=== PATIENT | male | born 1930 | race Caucasian/White ===

== ENCOUNTER 2016-10-21 09:00 | Inpatient (IN) | payer OTHER ==
[2016-10-21 09:24] VITALS: BMI 24.4
--- NOTE | 2016-10-21 09:50 | PDOC ---
History of Present Illness - General Chief Complaint: Altered Mental Status Stated Complaint: Altered Mental Status Time Seen by Provider: 10/21/16 09:03 History Source: Care Provider, Family Exam Limitations: Dementia - History of Present Illness Initial Comments: 86 yo wheelchair bound M with h/o dementia and DMII BIBEMS due to altered mental status. Patient's forgetful and confused at baseline. Very limited information was obtained from his family. Per his niece, he was found in his house with trail of feces on the floor and his mental status seems worse. Denies fever, chills, sob, chest pain, diarrhea and constipation. Past History - Past Medical History Allergies/Adverse Reactions: Allergies Allergy/AdvReac Type Severity Reaction Status Date / Time No Known Allergies Allergy Verified 10/21/16 09:24 Home Medications: Ambulatory Orders Unobtainable [Unobtainable] 10/21/16 Other medical history: unable to determine due to patient's mental status - Psycho/Social/Smoking Cessation Hx Anxiety: No Suicidal Ideation: No Smoking Status: No Smoking History: Never smoked Have you smoked in the past 12 months: No Number of Cigarettes Smoked Daily: 0 Information on smoking cessation initiated: No Hx Alcohol Use: No Drug/Substance Use Hx: No Substance Use Type: None Review of Systems - Review of Systems Able to Perform ROS?: No Is the patient limited Italian proficient: No *Physical Exam - Vital Signs Last Vital Signs Temp Pulse Resp BP Pulse Ox 97.0 F L 97 H 20 156/88 98 10/21/16 09:23 10/21/16 09:23 10/21/16 09:23 10/21/16 09:23 10/21/16 09:23 - Physical Exam General Appearance: No: Apparent Distress HEENT: positive: MIKE, Normal Voice Neck: positive: Trachea midline, Supple Respiratory/Chest: positive: Lungs Clear, Normal Breath Sounds Cardiovascular: positive: Regular Rhythm, S1, S2, Tachycardia. negative: Murmur Gastrointestinal/Abdominal: positive: Distended. negative: Guarding, Rebound, Tenderness Extremity: negative: Swelling, Calf Tenderness Integumentary: negative: Hives, Rash Neurologic: positive: Alert, Motor Strength 5/5, Confused, Disoriented. negative: Fully Oriented ED Treatment Course - LABORATORY CBC & Chemistry Diagram: 10/21/16 10:05 10/21/16 10:05 Medical Decision Making - Medical Decision Making 10/21/16 10:06 86 yo wheelchair bound M h/o dementia admitted to ER due to AMS. Will obtain lab work and CT to r/o infectious, electrolyte and neurological etiologies 10/21/16 12:04 UA is remarkable for +3 leuko esterase and 200 WBC. Called patient's niece and informed her of prognosis and treatment plan. Call made out to Patient's PMD, Dr. Aurora Aguilar, regarding intent to admit the patient. Dr. Aguilar's medical office secretary stated that she's busy seeing patient and the patient has not seen her since 2013. Will Attempt to admit the patient under Dr. Hebert Per patient's niece, patient is currently not being taken care by anyone. 10/21/16 12:[address] Hebert, will put the patient on levaquin 250mg daily while pending urine culture. *DC/Admit/Observation/Transfer Diagnosis at time of Disposition: Altered mental status Urinary tract infection Qualifiers: Urinary tract infection type: site unspecified Hematuria presence: without hematuria Qualified Code(s): N39.0 - Urinary tract infection, site not specified - Discharge Dispostion Condition at time of disposition: Stable Admit: Yes
--- NOTE | 2016-10-21 09:56 | PDOC ---
Attending Attestation - Resident Resident Name: JacintoWayne - ED Attending Attestation I have performed the following: I have examined & evaluated the patient, The case was reviewed & discussed with the resident, I agree w/resident's findings & plan, Exceptions are as noted - HPI HPI: 86 yo M hx dementia presents with worsening AMS. He was found in house with feces on the floor, as per family (discussed with Dr. Casey via phone). He lives with his sister, who also has dementia, and a home health aide. He is unable to provide history, very poor short term memory. Denies any complaints at present. - Physicial Exam PE: GENERAL: Awake, alert, and oriented to person (not time and place), in no acute distress HEAD: No signs of trauma EYES: PERRLA, EOMI, sclera anicteric, conjunctiva clear ENT: Auricles normal inspection, hearing grossly normal, nares patent, oropharynx clear without exudates. Dry mucosa NECK: Normal ROM, supple, no lymphadenopathy, JVD, or masses LUNGS: Breath sounds equal, clear to auscultation bilaterally. No wheezes, and no crackles HEART: Regular rate and rhythm, normal S1 and S2, no murmurs, rubs or gallops ABDOMEN: Soft, nontender, normoactive bowel sounds. No guarding, no rebound. No masses EXTREMITIES: Normal range of motion, no edema. No clubbing or cyanosis. No cords, erythema, or tenderness NEUROLOGICAL: Cranial nerves II through XII grossly intact. Motor and sensation intact. SKIN: Warm, Dry, normal turgor, no rashes or lesions noted. - Medical Decision Making 86 yo M with worsening mental status, history of dementia. Will obtain CTH, CXR , UA, and labs. Likely admit. Heart Score/ECG Review - ECG Impressions Comment:: EKG read 09:56- sinus rhythm 98 bpm with intermittent PVCs
[2016-10-21 10:34] LABS: URINE APPEARANCE CLOUDY; URINE BILIRUBIN NEGATIVE (NEGATIVE); URINE COLOR YELLOW; URINE GLUCOSE (UA) NEGATIVE (NEGATIVE); URINE KETONE TRACE (NEGATIVE); URINE NITRITE NEGATIVE (NEGATIVE); URINE PROTEIN NEGATIVE (NEGATIVE); URINE UROBILINOGEN NEGATIVE E.U./dl (0.2-1.0)
[2016-10-21 10:39] LABS: URINE BLOOD 1+ (NEGATIVE); URINE LEUK ESTERASE 3+ (NEGATIVE)
[2016-10-21 10:41] LABS: URINE BACTERIA RARE /hpf (NONE SEEN); URINE RBC 8 /hpf (0-3); URINE WBC 206 /hpf (3-5)
[2016-10-21 10:43] LABS: BASOPHIL 0.3 % (0-2.0); EOSINOPHIL 0.9 % (0-4.5); MCHC 33.4 g/dl (32.0-35.9); MEAN CELL VOLUME 86.8 fl (80-96); MEAN PLT VOLUME 8.3 fl (7.5-11.1); NEUTROPHILS 80.8 % (42.8-82.8); PLATELET COUNT 192 K/MM3 (134-434); RDW 13.9 % (11.9-15.9); WHITE BLOOD COUNT 12.4 K/mm3 (4.0-10.0)
[2016-10-21 11:01] LABS: ALBUMIN 3.7 g/dl (3.4-5.0); ALK PHOS 77 U/L (45-117); ANION GAP 12 (8-16); BILIRUBIN,TOTAL 0.7 mg/dL (0.2-1.0); CALCIUM 8.6 mg/dL (8.5-10.1); CO2 20 mmol/L (21-32); COCKROFT - GAULT 89.09; CREATININE 0.7 mg/dL (0.7-1.3); GLUCOSE,RANDOM 86 mg/dL (74-106); SGOT/AST 25 U/L (15-37); SGPT/ALT 19 U/L (12-78); TOT PROT 6.1 g/dl (6.4-8.2)
[2016-10-21 11:09] LABS: THYROID STIMULATING HORMONE 0.94 uIU/ml (0.358-3.74); TROPONIN I < 0.02 ng/ml (0.00-0.05)
[2016-10-21] MEDS ORDERED: LEVOFLOXACIN 250 MG TABLET (FP) PO SCH (12:15)
[2016-10-21] MEDS ORDERED: LEVOFLOXACIN 250 MG TABLET (FP) ONE (12:19)
[2016-10-21 15:16] LABS: BASOPHIL 0.4 % (0-2.0); EOSINOPHIL 1.7 % (0-4.5); MCH 28.5 pg (25.7-33.7); MCHC 32.7 g/dl (32.0-35.9); MEAN CELL VOLUME 87.2 fl (80-96); MEAN PLT VOLUME 8.4 fl (7.5-11.1); NEUTROPHILS 74.3 % (42.8-82.8); PLATELET COUNT 204 K/MM3 (134-434); RDW 14.1 % (11.9-15.9)
--- NOTE | 2016-10-21 15:52 | HP ---
Admitting History and Physical - Primary Care Physician PCP: Viki Hebert S - Admission Chief Complaint: confusion History of Present Illness: 86 YOM h/o mild dementia lives alone brought in after his niece noticed him more confused than usual found to have UTI; admitted for further w/u and tx per niece pt's condition deteriorated gradually to the point were he became wheelchair bound forgetful and unable to function pt's PCP dr Sanchez - seen 3 years ago; per PCP no significant PMH and on no meds at home History Source: Patient, Family Member, Medical Record, Transfer Record Limitations to Obtaining History: Dementia - Smoking History Smoking history: Never smoked Have you smoked in the past 12 months: No Aproximately how many cigarettes per day: 0 - Alcohol/Substance Use Hx Alcohol Use: No History of Substance Use: reports: None - Social History Usual Living Arrangement: Yes: Alone History of Recent Travel: No Home Medications - Allergies Allergies/Adverse Reactions: Allergies Allergy/AdvReac Type Severity Reaction Status Date / Time No Known Allergies Allergy Verified 10/21/16 09:24 - Home Medications Home Medications: Ambulatory Orders Unobtainable [Unobtainable] 10/21/16 Family Disease History - Family Disease History Family History: Unremarkable Review of Systems - Review of Systems Constitutional: denies: Fever, Lethargy Eyes: denies: Blurred Vision Cardiovascular: denies: Chest Pain, Shortness of Breath Respiratory: denies: Cough, SOB Gastrointestinal: denies: Abdominal Pain, Diarrhea, Vomiting Genitourinary: denies: Dysuria, Flank Pain Musculoskeletal: denies: Back Pain, Muscle Pain Neurological: reports: Confusion, Unsteady Gait. denies: Seizure, Syncope Hematology/Lymphatic: denies: Excessive Bleeding Physical Examination Vital Signs: Vital Signs Temperature 98 F 10/21/16 14:52 Pulse Rate 98 H 10/21/16 14:52 Respiratory Rate 18 10/21/16 14:52 Blood Pressure 127/78 10/21/16 14:52 O2 Sat by Pulse Oximetry (%) 97 10/21/16 14:52 Constitutional: Yes: No Distress, Calm Eyes: Yes: Conjunctiva Clear HENT: Yes: Atraumatic Neck: Yes: Supple Cardiovascular: Yes: Regular Rate and Rhythm Respiratory: Yes: CTA Bilaterally Gastrointestinal: Yes: Soft. No: Distention, Tenderness Renal/: No: CVA Tenderness - Left, CVA Tenderness - Right Musculoskeletal: No: Joint Stiffness, Joint Swelling Extremities: No: Cold, Cool, Cyanosis Edema: No Peripheral Pulses WNL: Yes Integumentary: No: Pressure Ulcer, Rash, Venous Stasis Changes Neurological: Yes: WNL, Alert, Unsteady Gait, Weakness (general). No: Oriented ...Motor Strength: WNL Psychiatric: Yes: WNL, Alert. No: Oriented, Agitated Labs: CBC, BMP 10/21/16 14:30 Imaging - Results Chest X-ray: Report Reviewed Other: Report Reviewed Assessment/Plan 86 YOM h/o dementia admitted with worsening confusion, found to have UTI; progressively worse IV ATB for UTI neurology eval check TSH, B12 PT rehab, case work aide for CT eval d/w pt and PCP
[2016-10-21 15:57] LABS: ALBUMIN 3.6 g/dl (3.4-5.0); ANION GAP 14 (8-16); BILIRUBIN,TOTAL 0.9 mg/dL (0.2-1.0); CALCIUM 9.1 mg/dL (8.5-10.1); CO2 23 mmol/L (21-32); COCKROFT - GAULT 77.96; CREATININE 0.8 mg/dL (0.7-1.3); GLUCOSE,RANDOM 112 mg/dL (74-106); SGPT/ALT 21 U/L (12-78); TOT PROT 6.3 g/dl (6.4-8.2)
[2016-10-21 15:58] LABS: ALK PHOS 84 U/L (45-117)
[2016-10-21 16:30] LABS: SGOT/AST 30 U/L (15-37)
[2016-10-21] MEDS: HEPARIN NA (PORCINE) 5,000 UNITS/ML 1ML VIAL SQ SCH (21:21)
--- NOTE | 2016-10-22 08:17 | EKG ---
Test Reason : Blood Pressure : / mmHG Vent. Rate : 098 BPM Atrial Rate : 098 BPM P-R Int : 146 ms QRS Dur : 082 ms QT Int : 352 ms P-R-T Axes : 052 016 042 degrees QTc Int : 449 ms SINUS RHYTHM WITH PREMATURE SUPRAVENTRICULAR COMPLEXES OTHERWISE NORMAL ECG WHEN COMPARED WITH ECG OF 22-OCT-2010 18:50, PREMATURE SUPRAVENTRICULAR COMPLEXES ARE NOW PRESENT Confirmed by JOSE ANTONIO GAN, CARLEY ([id number]) on 10/22/2016 8:17:04 AM Referred By: Confirmed By:CARLEY BRADY MD
--- NOTE | 2016-10-22 08:47 | PN ---
Progress Note, Physician Chief Complaint: OOB to WC NAD no c/o pleasant - Current Medication List Current Medications: Active Medications Heparin Sodium (Porcine) (Heparin -) 5,000 unit SQ BID [facility] Last Admin: 10/21/16 21:21 Dose: 5,000 unit Levofloxacin (Levaquin 250 Mg Premixed Ivpb -) 50 mls @ 50 mls/hr IVPB DAILY [facility] - Objective Vital Signs: Vital Signs Temperature 99.1 F 10/22/16 06:00 Pulse Rate 93 H 10/22/16 06:00 Respiratory Rate 18 10/22/16 06:00 Blood Pressure 119/69 10/22/16 06:00 O2 Sat by Pulse Oximetry (%) 99 10/21/16 21:00 Constitutional: Yes: No Distress, Calm Eyes: Yes: Conjunctiva Clear HENT: Yes: Atraumatic Neck: Yes: Supple Cardiovascular: Yes: Regular Rate and Rhythm Respiratory: Yes: CTA Bilaterally Gastrointestinal: Yes: Soft. No: Distention, Tenderness Genitourinary: No: CVA Tenderness - Left, CVA Tenderness - Right Musculoskeletal: No: Joint Stiffness, Joint Swelling Extremities: No: Cold, Cool Edema: No Peripheral Pulses WNL: Yes Integumentary: No: Rash, Venous Stasis Changes Neurological: Yes: WNL, Alert. No: Oriented ...Motor Strength: WNL Psychiatric: Yes: WNL, Alert. No: Oriented, Agitated Labs: CBC, BMP 10/21/16 14:30 10/21/16 14:30 - ....Imaging Other: Report Reviewed Assessment/Plan 86 YOM h/o dementia admitted with worsening confusion, found to have UTI; progressively worse IV ATB for UTI neurology evjoe d/w dr Crawford check TSH, B12 PT rehab, family service caseworker for [place] [facility] d/w pt and niece
[2016-10-22] MEDS: LEVOFLOXACIN 250 MG IVPB 50 ML IVPB SCH (09:01)
[2016-10-22] MEDS: HEPARIN NA (PORCINE) 5,000 UNITS/ML 1ML VIAL SQ SCH ×2 (09:02→21:12)
[2016-10-22 11:19] LABS: THYROID STIMULATING HORMONE 1.04 uIU/ml (0.358-3.74)
--- NOTE | 2016-10-22 11:57 | CON.NEURO ---
Consult Consult Specialty:: neurology - History of Present Illness History of Present Illness: 86 yo M hx dementia presents with worsening AMS. He was found in house with feces on the floor, as per chart. He lives with his sister, who also has dementia, and a home health aide. He has a severe dementia by eval and is unable to elaborate much HX. Pleasant and cooperative and knows he is hospital but not yr , or prior medical issues. tangential but can be reoriented breifly. denies JEFFERS , back pain or falls. CT HD - no acute pathology. WBC 12 - History Source History Provided By: Patient, Medical Record Limitations to Obtaining History: Dementia - Past Medical History [employer]: Yes: Dementia - Alcohol/Substance Use Hx Alcohol Use: No - Smoking History Smoking history: Never smoked Have you smoked in the past 12 months: No Aproximately how many cigarettes per day: 0 Home Medications - Allergies Allergies/Adverse Reactions: Allergies Allergy/AdvReac Type Severity Reaction Status Date / Time No Known Allergies Allergy Verified 10/21/16 09:24 - Home Medications Home Medications: Ambulatory Orders Unobtainable [Unobtainable] 10/21/16 Family Disease History - Family Disease History Family History: Unable to Obtain Review of Systems Unable to obtain ROS, reason: poor HX Physical Exam-Neuro Vital Signs: Vital Signs Temperature 97.6 F 10/22/16 09:00 Pulse Rate 86 10/22/16 09:00 Respiratory Rate 16 10/22/16 09:00 Blood Pressure 138/49 10/22/16 09:00 O2 Sat by Pulse Oximetry (%) 99 10/21/16 21:00 Constitutional: Yes: No Distress, Calm Neck: Yes: WNL, Supple Cardiovascular: Yes: Regular Rate and Rhythm Respiratory: Yes: CTA Bilaterally Gastrointestinal: Yes: Normal Bowel Sounds Labs: CBC, BMP 10/21/16 14:30 10/21/16 14:30 - Neuro Exam Level Of Consciousness: Yes: Alert ( though he is not oriented to time/date; unclear of home living sitauation ; can name and repeat; follows simple steps, EOMI, NO facial , motor + tremor , no drift or focal weakness, reflexes symmetric ) NIH Stroke Scale - Total Score NIH Stroke Scale Score: 0 Imaging - Results Cat Scan: Report Reviewed Problem List - Problems (1) Altered mental status Code(s): R41.82 - ALTERED MENTAL STATUS, UNSPECIFIED (2) Urinary tract infection Code(s): N39.0 - URINARY TRACT INFECTION, SITE NOT SPECIFIED Qualifiers: Urinary tract infection type: site unspecified Hematuria presence: without hematuria Qualified Code(s): N39.0 - Urinary tract infection, site not specified (3) Alzheimer's dementia Code(s): G30.9 - ALZHEIMER'S DISEASE, UNSPECIFIED Assessment/Plan HX of dementia with progressive cognitive impairment, ? baseline , though now appears to be cooperative and calm; Suspect moderate to severe underling dementia with superimposed encephalopathy ( though the latter is less likely factor, not waxing /waning etc) CT HD (-), no signs of new stroke ID and ABX on board most important issue will be living environment as he does not appear to have capacity to maintain himself/live independently will likely need placement can start Aricept 5mg poqd check B12, TSh Dr Crawford [phone]
[2016-10-22] MEDS ORDERED: PT OWN MED DRAWER 7, Y5N ONE (17:17)
[2016-10-23] MEDS: HEPARIN NA (PORCINE) 5,000 UNITS/ML 1ML VIAL SQ SCH ×2 (10:24→22:35)
[2016-10-23] MEDS: LEVOFLOXACIN 250 MG IVPB 50 ML IVPB SCH (10:24)
--- NOTE | 2016-10-23 13:15 | DS ---
Physical Examination Vital Signs: Vital Signs Temperature 98 F 10/23/16 10:11 Pulse Rate 71 10/23/16 10:11 Respiratory Rate 20 10/23/16 10:11 Blood Pressure 112/55 10/23/16 10:11 O2 Sat by Pulse Oximetry (%) 94 L 10/23/16 11:00 Findings/Remarks: OOB to chair NAD Constitutional: Yes: No Distress Eyes: Yes: Conjunctiva Clear HENT: Yes: Atraumatic Neck: Yes: Supple Cardiovascular: Yes: Regular Rate and Rhythm Respiratory: Yes: CTA Bilaterally Gastrointestinal: Yes: Soft. No: Distention, Tenderness Renal/: No: CVA Tenderness - Left, CVA Tenderness - Right Musculoskeletal: No: Joint Stiffness, Joint Swelling Extremities: No: Cold, Cool Edema: No Peripheral Pulses WNL: Yes Integumentary: No: Rash, Venous Stasis Changes Neurological: Yes: WNL, Alert. No: Oriented ...Motor Strength: WNL Psychiatric: Yes: WNL, Alert. No: Oriented, Agitated Labs: CBC, BMP 10/21/16 14:30 10/21/16 14:30 Discharge Summary Reason For Visit: UTI,AMS Current Active Problems Altered mental status (Acute) Alzheimer's dementia (Acute) Urinary tract infection (Acute) Procedures: Principal: UTI IV ATB Other Procedures: neurology eval for dementia and confusion Hospital Course: needs NH placemnt; improved somewhat with ATB but still significant dementia at baseline Condition: Stable - Instructions Diet, Activity, Other Instructions: f/u CBC CMP in 1-2 weeks in [place] PT rehab, falls and decubs PFX most likely will need detention NH Disposition: RETIREMENT FACILITY - Home Medications Comprehensive Discharge Medication List: Ambulatory Orders Heparin - 5,000 unit SQ BID vial 10/23/16 Levofloxacin [Levaquin -] 250 mg PO Q48H #7 tablet 10/23/16
[2016-10-24 07:50] VITALS: TEMP 97.8
--- NOTE | 2016-10-24 08:26 | PN ---
Progress Note (short form) - Note Progress Note: HPI 10/22/16 : 86 yo M hx dementia presents with worsening AMS. He was found in house with feces on the floor, as per chart. He lives with his sister, who also has dementia, and a home health aide. He has a severe dementia by eval and is unable to elaborate much HX. Pleasant and cooperative and knows he is hospital but not yr , or prior medical issues. tangential but can be reoriented breifly. denies JEFFERS , back pain or falls. CT HD - no acute pathology. WBC 12 FU : no new issues overnight, awaiting placement Home Medications - Allergies Allergies/Adverse Reactions: Allergies Allergy/AdvReac Type Severity Reaction Status Date / Time No Known Allergies Allergy Verified 10/21/16 09:24 - Home Medications Home Medications: Ambulatory Orders Unobtainable [Unobtainable] 10/21/16 Family Disease History - Family Disease History Family History: Unable to Obtain Review of Systems Unable to obtain ROS, reason: poor HX Physical Exam-Neuro Vital Signs: Vital Signs 10/24/16 06:00 Temperature 97.8 F Pulse Rate 67 Respiratory 18 Rate Blood Pressure 121/70 Vital Signs Constitutional: Yes: No Distress, Calm Neck: Yes: WNL, Supple Cardiovascular: Yes: Regular Rate and Rhythm Respiratory: Yes: CTA Bilaterally Gastrointestinal: Yes: Normal Bowel Sounds Labs: CBC, BMP 10/21/16 14:30 10/21/16 14:30 - Neuro Exam Level Of Consciousness: Yes: Alert ( though he is not oriented to time/date; unclear of home living sitauation ; can name and repeat; follows simple steps, EOMI, NO facial , motor + tremor , no drift or focal weakness, reflexes symmetric ) NIH Stroke Scale - Total Score NIH Stroke Scale Score: 0 Imaging - Results Cat Scan: Report Reviewed Problem List - Problems (1) Altered mental status Code(s): R41.82 - ALTERED MENTAL STATUS, UNSPECIFIED (2) Urinary tract infection Code(s): N39.0 - URINARY TRACT INFECTION, SITE NOT SPECIFIED Qualifiers: Urinary tract infection type: site unspecified Hematuria presence: without hematuria Qualified Code(s): N39.0 - Urinary tract infection, site not specified (3) Alzheimer's dementia Code(s): G30.9 - ALZHEIMER'S DISEASE, UNSPECIFIED Assessment/Plan HX of dementia with progressive cognitive impairment, ? baseline , though now appears to be cooperative and calm; Suspect moderate to severe underling dementia with superimposed encephalopathy ( though the latter is less likely factor, not waxing /waning etc) CT HD (-), no signs of new stroke ID and ABX on board B12 and TSH NL awaiting placement can start Aricept 5mg poqd ( may interact with ABX so will wait to course complete and be done as outpt) thanks Dr Crawford [phone] Problem List - Problems (1) Altered mental status Code(s): R41.82 - ALTERED MENTAL STATUS, UNSPECIFIED (2) Urinary tract infection Code(s): N39.0 - URINARY TRACT INFECTION, SITE NOT SPECIFIED Qualifiers: Urinary tract infection type: site unspecified Hematuria presence: without hematuria Qualified Code(s): N39.0 - Urinary tract infection, site not specified (3) Alzheimer's dementia Code(s): G30.9 - ALZHEIMER'S DISEASE, UNSPECIFIED
[2016-10-24] MEDS: HEPARIN NA (PORCINE) 5,000 UNITS/ML 1ML VIAL SQ SCH (09:29)
[2016-10-24] MEDS: LEVOFLOXACIN 250 MG IVPB 50 ML IVPB SCH (09:30)
--- NOTE | 2016-10-24 10:18 | PN ---
Progress Note, Physician Chief Complaint: in bed no new c/o awaiting for [place] bed L ear skin lesion chronic; will ask derm outpt r/o skin CA - Current Medication List Current Medications: Active Medications Heparin Sodium (Porcine) (Heparin -) 5,000 unit SQ BID [facility] Last Admin: 10/24/16 09:29 Dose: 5,000 unit Levofloxacin (Levaquin 250 Mg Premixed Ivpb -) 50 mls @ 50 mls/hr IVPB DAILY [facility] Last Admin: 10/24/16 09:30 Dose: 50 mls/hr - Objective Vital Signs: Vital Signs Temperature 97.8 F 10/24/16 06:00 Pulse Rate 67 10/24/16 06:00 Respiratory Rate 18 10/24/16 06:00 Blood Pressure 121/70 10/24/16 06:00 O2 Sat by Pulse Oximetry (%) 97 10/23/16 21:00 Constitutional: Yes: No Distress, Calm Eyes: Yes: Conjunctiva Clear HENT: Yes: Atraumatic Neck: Yes: Supple Cardiovascular: Yes: Regular Rate and Rhythm Respiratory: Yes: CTA Bilaterally Gastrointestinal: Yes: Soft. No: Distention, Tenderness Genitourinary: No: CVA Tenderness - Left, CVA Tenderness - Right Musculoskeletal: No: Joint Stiffness, Joint Swelling Extremities: No: Cold, Cool Edema: No Peripheral Pulses WNL: Yes Integumentary: No: Rash, Venous Stasis Changes Neurological: Yes: WNL, Alert. No: Oriented ...Motor Strength: WNL Psychiatric: Yes: WNL, Alert. 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
[2016-10-24 10:57] VITALS: BP 132/59; PULSE 71
[2016-10-24] MEDS ORDERED: PNEUMOC 13-VAL CONJ-DIP CRM/PF 0.5 ML DISP.SYRIN IM ONE (12:00)
[2016-10-24] MEDS ORDERED: INFLUENZA VACCINE 45 MCG/0.5 ML (MDV 16-17) IM ONE (12:00)
== END 2016-10-24 11:45 | DRG 689 ==
LOC: JER 09:00 → JERBED 12:17 → J5S 14:26
PROVIDERS: ADMIT Internal Medicine; ATTEND Internal Medicine
DX: N39.0 Urinary tract infection, site not specified (principal); G93.41 Metabolic encephalopathy; R53.2 Functional quadriplegia; G30.9 Alzheimer's disease, unspecified; F02.80 Dementia in other diseases classified elsewhere, unspecified severity, without behavioral disturbance, psychotic disturbance, mood disturbance, and anxiety; R41.82 Altered mental status, unspecified
CPT/HCPCS: 36415; 70450-TC; 71010-TC; 80053; 81003; 81015; 82550; 82553; 82607; 83605; 83735; 84443; 84484; 85025; 87086; 87186; 93005; 93010; 97116-GP; 97161-GP; 99285-25; G0008; J1644; Q2037

== ENCOUNTER 2017-08-11 13:43 | Day surgery (SDC) | payer OTHER ==
[2017-08-10 11:18] VITALS: BMI 29.6
[~2017-08-11 13:43] MED LIST: LIDOCAINE 1%/EPI 1:100000 (20 ML MULTI DOSE VIAL) IJ ONE
[2017-08-11] MEDS ORDERED: PROPOFOL 20 ML ONE ×2 (16:43→17:25)
[2017-08-11] MEDS ORDERED: SUCCINYLCHOLINE CHLORIDE 200 MG/10 ML VIAL ONE (16:43)
[2017-08-11] MEDS ORDERED: ceFAZolin SODIUM 1 GM VIAL ONE (16:56)
[2017-08-11] MEDS ORDERED: LIDOCAINE HCL/PF 2% SDV 5ML VIAL ONE (16:56)
[2017-08-11] MEDS ORDERED: LIDOCAINE 1%/EPI 1:100000 (20 ML MULTI DOSE VIAL) IJ ONE (16:59)
[2017-08-11] MEDS ORDERED: BUPIVACAINE HCL/PF 0.25% (2.5MG/ML) 10 ML VIAL ONE (17:52)
[2017-08-11] MEDS ORDERED: ONDANSETRON 4 MG/2 ML VIAL IVPUSH PRN (17:57)
[2017-08-11] MEDS ORDERED: ELECTROLYTE-148 SOLN 1,000 ML IV SCH (18:00)
[2017-08-11] MEDS ORDERED: BUPIVACAINE HCL/PF 0.25% (2.5MG/ML) 10 ML VIAL IJ ONE (18:01)
[2017-08-11] MEDS ORDERED: ACETAMINOPHEN 1000 MG/100 ML VIAL (NON FORMULARY) IVPB PRN (18:29)
[2017-08-11] MEDS: MEMANTINE HCL 5 MG TABLET (UD) PO SCH (22:17)
--- NOTE | 2017-08-11 23:36 | HOSP ---
Subjective - Review of Symptoms Subjective: Was called to the bedside because the patient had taken his bandage off. Replaced the bandage and explained to the patient the importance of keeping the bandage on including the risk of infection and alteration of the wound site. Ordered 2 point restraints on the patient as he has been repeatedly picking at the bandage throughout the day and has the potential to interfere with his healing if he continues to do so. Physical Examination Vital Signs: Vital Signs Temperature 98.2 F 08/11/17 20:00 Pulse Rate 80 08/11/17 20:00 Respiratory Rate 18 08/11/17 20:00 Blood Pressure 110/53 08/11/17 20:00 O2 Sat by Pulse Oximetry (%) 98 08/11/17 19:45 Visit type - Emergency Visit Emergency Visit: No - New Patient This patient is new to me today: Yes Date on this admission: 08/11/17 - Critical Care Critical Care patient: No
[2017-08-12] MEDS: CEFAZOLIN 1 GM PUSH 1 GM/10 ML DISP.SYRIN IVPUSH SCH ×2 (01:45→11:14)
--- NOTE | 2017-08-12 06:51 | OP ---
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 PROCEDURE PERFORMED: 1. Excision of basal cell carcinoma of left ear and cheek. 2. Reconstruction with a local advancement flap, 15 cm, defect measuring over 5 x 4 cm. SURGEON: Castillo Roy M.D. ANESTHESIOLOGIST: Magda Lopez M.D. ANESTHESIA: General with local 1% lidocaine with epinephrine, a total of 24 mL. DESCRIPTION OF PROCEDURE: The patient was brought to the operating room. Markings were carried out prior to giving local anesthesia. The patient was first identified, including the site. Once agreed upon, at this time he was given general anesthesia. It was also supplemented with local 1% lidocaine with epinephrine with epinephrine. Markings were carried out around the preauricular area, including the ear and the tragus. Tumor was located over the midportion of the tragus and the cheek. It measured over 3 x 2.5 cm. The skin was prepped with Betadine and then draped in a standard aseptic manner. Using a 15 scalpel blade, dissection was commenced at the 12 o'clock position. Skin and dermis were incised. At this time the facial arteries were located. Dissection was carried out in the space between the vessels and the dermis and subcutaneous tissue. Dissection then proceeded caudally. Tumor was close to but not involving the facial temporal artery. Tumor was then dissected off the vessels, including the facial nerve. Part of the cartilage was excised. Dissection proceeded at the 6 o'clock position below the ear. Complete excision of the tumor was then carried out and sent for pathology, with sutures at 12, 3 and 6 o'clock for orientation. Hemostasis secured with electrocautery. At this time a flap was then designed over the cheek. The flap was then elevated over the SMAS muscle. Dissection proceeded medially. The flap was then advanced over the defect, which measured over 5 x 4 cm. Closure was then accomplished with multilayer closure. A small portion near the tragus was left open for drainage. Prior to starting the procedure, the ear canal was protected with cotton balls. At the end of the procedure, circulation to the flap was satisfactory. Dressing consisted of Steri-Strips, Xeroform, bacitracin and fluffs, followed by Tegaderm. The patient had been given 1 gram of Ancef prior to starting the procedure. Estimated blood loss was 10 to 12 mL. The patient was then transferred to the stretcher sent to the recovery room. He will be observed for 23 hours for bleeding. Pathology report will be awaited. CASTILLO ROY M.D. [id number]
[2017-08-12] MEDS ORDERED: LACTOBACILLUS ACIDOPHILUS 1 EACH TAB (FP) PO SCH (10:00)
[2017-08-12] MEDS: MEMANTINE HCL 5 MG TABLET (UD) PO SCH (11:18)
--- NOTE | 2017-08-12 11:52 | CONSULT ---
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 - Alcohol/Substance Use Hx Alcohol Use: No History of Substance Use: reports: None - Smoking History Smoking history: Never smoked Have you smoked in the past 12 months: No Aproximately how many cigarettes per day: 0 - Social History Usual Living Arrangement: Longterm History of Recent Travel: No Home Medications - Allergies Allergies/Adverse Reactions: Allergies Allergy/AdvReac Type Severity Reaction Status Date / Time No Known Allergies Allergy Verified 08/10/17 11:24 - Home Medications Home Medications: Ambulatory Orders Acetaminophen [Tylenol] 650 mg PO PRN PRN 08/10/17 Amoxicillin/Potassium Clav [Augmentin 875-125 Tablet] 1 each PO Q12H 08/10/17 Heparin - 5,000 unit SQ BID 08/10/17 Lactobacillus Acidophilus [Bacid -] 1 each PO DAILY 08/10/17 Memantine HCl [Namenda -] 10 mg PO BID 08/10/17 Family Disease History - Family Disease History Family History: Unremarkable Review of Systems - Review of Systems Constitutional: denies: Fever HENT: denies: Epistaxis Neck: denies: Stiffness Cardiovascular: denies: Edema Respiratory: denies: Cough Gastrointestinal: denies: Constipation, Diarrhea, Vomiting Genitourinary: denies: Hematuria Integumentary: denies: Rash Neurological: reports: Confusion (at baseline). denies: Seizure, Syncope Hematology/Lymphatic: denies: Excessive Bleeding Psychiatric: denies: Altered Sleep Pattern Physical Exam Vital Signs: Vital Signs Temperature 97.8 F 08/12/17 06:00 Pulse Rate 80 08/12/17 06:00 Respiratory Rate 18 08/12/17 06:00 Blood Pressure 130/79 08/12/17 06:00 O2 Sat by Pulse Oximetry (%) 95 08/11/17 23:00 Constitutional: Yes: No Distress, Calm Eyes: Yes: Conjunctiva Clear HENT: Yes: Atraumatic, Other (s/p L Ear surgery local bandage on, no bleed) Cardiovascular: Yes: Regular Rate and Rhythm Respiratory: Yes: CTA Bilaterally Gastrointestinal: Yes: Soft. No: Distention, Tenderness Renal/: No: CVA Tenderness - Left, CVA Tenderness - Right Musculoskeletal: No: Joint Stiffness, Joint Swelling Extremities: No: Cold, Cool, Cyanosis Integumentary: No: Rash, Venous Stasis Changes Neurological: Yes: WNL, Alert. No: Oriented ...Motor Strength: WNL Psychiatric: Yes: WNL, Alert. No: Oriented, Agitated Imaging - Results Other: Report Reviewed Assessment/Plan 87 YOM NHR advanced dementia with local L ear squamous cell CA s/p debridement surgical f/u constinue previous meds sq heparin for DVT PFX when OK with surgery falls decubs aspiration pfx d.w pt and staff
[2017-08-12 14:49] VITALS: BP 103/49; PULSE 62; TEMP 99.2
--- NOTE | 2017-08-12 15:21 | PN ---
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
--- NOTE | 2017-08-14 15:11 | PATH ---
Surgical Pathology Report Patient Name: ADINA TREJO [facility]. Rec. #: [id number] /Age/Gender: 1930 (Age: 87) / M Account: [id number] Location: AMBULATORY SURG Taken: 08/11/2017 Received: 08/12/2017 Reported: 08/14/2017 Physicians: Rome Nicholas M.D. 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 CARCINOMA FOCALLY INVOLVES DEEP MARGIN (MID PORTION, NEAR 9:00), REMAINING SURGICAL MARGINS ARE NEGATIVE. Comment: Prior material is noted. Areas of necrosis present. Electronically Signed Erika Bowden M.D. Gross Description Received in formalin labeled "basal cell cancer left cheek and ear," is a 4.4 x 2.6 cm arambula, elliptical portion of skin excised to a depth of 1.1 cm. There are 2 long sutures marking the 12:00 aspect, 2 short sutures marking the 6:00 aspect and 1 long and 1 short suture marking the 3:00 aspect of the specimen, per the surgeon. The epidermal surface displays a 2.5 x 1.8 cm ulcerated lesion. The lesion is grossly 0.3 cm from the closest (2:00 to 3:00) margin. The specimen is inked as follows: 12:00 to 6:00 blue, 6:00 to 12:00 green, deep black and the 12:00 tip is differentially inked red. The specimen is serially sectioned from 12:00 to 6:00. The specimen is entirely and sequentially submitted in 9 cassettes with the 12:00 tip in cassette 1 and the 6:00 tip in cassette 9. 08/12/201708/12/2017
== END 2017-08-12 16:25 ==
LOC: JASUSAT 13:43 → J6S 20:17 → JASUSAT 08-12 16:25
PROVIDERS: ATTEND Plastic Surgery
PROC: 0HB3XZZ Excision of Left Ear Skin, External Approach (ICD-10-PCS; 2017-08-11)
PROC: 0HB1XZZ Excision of Face Skin, External Approach (ICD-10-PCS; 2017-08-11)
PROC: 0HX3XZZ Transfer Left Ear Skin, External Approach (ICD-10-PCS; principal; 2017-08-11 15:00)
PROC: 0HX1XZZ Transfer Face Skin, External Approach (ICD-10-PCS; 2017-08-11 15:00)
DX: C44.219 Basal cell carcinoma of skin of left ear and external auricular canal (principal); C44.319 Basal cell carcinoma of skin of other parts of face
CPT/HCPCS: 88305-TC; 94760

== ENCOUNTER 2019-01-15 14:37 | Inpatient (IN) | payer OTHER ==
--- NOTE | 2019-01-15 15:39 | PDOC ---
History of Present Illness - General Chief Complaint: Altered Mental Status Stated Complaint: ALTERED MENTAL STATUS History Source: Patient Exam Limitations: No Limitations - History of Present Illness Initial Comments: 01/15/19 15:38 88 yo M with a hx of Alzeheimer's, DVT, and recent UTI and PNA s/p levaquin abx for 7 days with last abx 01/03 with known poor appetite sent from [facility] for lethargy and abnormal lab values. Per the nurse at [facility], the patient had a BUN of 80, creatinine of 1, and 1 episode of hypoxia in the high 70s while on RA. The patient finished her abx series as was prescribed. Per the patient, unable to obtain a history given AMS state and dementia. Allergies: NKDA 01/15/19 17:10 Past History - Past Medical History Allergies/Adverse Reactions: Allergies Allergy/AdvReac Type Severity Reaction Status Date / Time No Known Allergies Allergy Verified 01/15/19 15:25 Home Medications: Ambulatory Orders Acetaminophen [Tylenol] 650 mg PO PRN PRN 08/10/17 Heparin - 5,000 unit SQ BID 08/10/17 Amox-Tr/K Cl [Augmentin - 500Mg Tablet] 1 tab PO BID #14 tab 01/30/19 LORazepam [Ativan] 1 mg PO BID PRN #14 tablet MDD two 01/30/19 Pantoprazole Sodium [Protonix] 40 mg PO DAILY 30 Days tablet. 01/30/19 COPD: No Dementia: Yes - Suicide/Smoking/Psychosocial Hx Smoking Status: No Smoking History: Unknown if ever smoked Have you smoked in the past 12 months: No Number of Cigarettes Smoked Daily: 0 Hx Alcohol Use: No Drug/Substance Use Hx: No Substance Use Type: None Review of Systems - Review of Systems Able to Perform ROS?: No (AMS) *Physical Exam - Vital Signs Last Vital Signs Temp Pulse Resp BP Pulse Ox 98.9 F 119 H 20 110/79 92 L 01/15/19 14:55 01/15/19 15:30 01/15/19 15:30 01/15/19 15:30 01/15/19 15:30 - Physical Exam General Appearance: Yes: Nourished, Appropriately Dressed. No: Apparent Distress, Intoxicated HEENT: positive: EOMI, MIKE, Normal Voice, Symmetrical, Pharynx Normal, Hearing Grossly Normal. negative: Pale Conjunctivae, Scleral Icterus (R), Scleral Icterus (L), Muffled/Hoarse voice, Pharyngeal Erythema, Tonsillar Exudate, Tonsillar Erythema, Nasal Congestion, Rhinorrhea, Excessive drooling Neck: positive: Trachea midline, Normal Thyroid, Supple. negative: Tender, Lymphadenopathy (R), Lymphadenopathy (L), Tender lateral, Tender midline Respiratory/Chest: positive: Rhonchi (bilaterally throughout the lung hartman). negative: Chest Tender, Lungs Clear, Normal Breath Sounds, Respiratory Distress , Accessory Muscle Use Cardiovascular: positive: Regular Rhythm, S1, S2, Tachycardia. negative: Systolic Murmur Gastrointestinal/Abdominal: positive: Normal Bowel Sounds, Flat, Soft. negative : Tender, Guarding, Rebound Lymphatic: negative: Adenopathy Musculoskeletal: positive: Normal Inspection. negative: CVA Tenderness, Vertebral Tenderness Extremity: positive: Normal Capillary Refill, Normal Inspection, Normal Range of Motion. negative: Tender, Swelling, Calf Tenderness Integumentary: positive: Normal Color, Dry, Warm. negative: Swelling, Ecchymosis Neurologic: positive: Alert. negative: director fundraising II-XII NML intact (unable to assess) , Fully Oriented ED Treatment Course - LABORATORY CBC & Chemistry Diagram: 01/31/19 06:40 01/31/19 06:40 Medical Decision Making - Medical Decision Making 88 yo M with a hx of Alzeheimer's, DVT, and recent UTI and PNA s/p levaquin abx for 7 days with last abx 01/03 with known poor appetite sent from [facility] for lethargy and abnormal lab values. Initial vitals: Initial Vital Signs Pulse Pulse Ox 104 H 92 L 01/15/19 14:50 01/15/19 14:50 Work up: patient presents to the ED for recent PNA in the setting of hypoxia and tachycardia concerning for sepsis related to outpatient abx failure PNA. will order sepsis labs, cxr, and ekg Laboratory Tests 01/15/19 01/15/19 01/15/19 14:18 15:07 15:07 WBC 30.1 H* RBC 6.21 H Hgb 17.6 H Hct 54.6 H D MCV 87.9 MCH 28.4 MCHC 32.3 RDW 14.1 Plt Count 350 D MPV 9.5 D Absolute Neuts (auto) 26.9 H Neutrophils % 89.5 H D Neutrophils % (Manual) 79.0 Band Neutrophils % 3.0 Lymphocytes % 4.9 L D Lymphocytes % (Manual) 10.0 Monocytes % 5.3 Monocytes % (Manual) 8 Eosinophils % 0.0 D Basophils % 0.3 Nucleated RBC % 0 Platelet Estimate Adequate PT with INR INR PTT (Actin FS) VBG pH POC VBG pCO2 POC VBG pO2 VBG HCO3 VBG O2 Sat (Cam) VBG Base Excess Sodium Potassium Chloride Carbon Dioxide Anion Gap BUN Creatinine Est GFR (CKD-EPI)AfAm Est GFR (CKD-EPI)NonAf Random Glucose Lactic Acid 2.3 H* Calcium Total Bilirubin AST ALT Alkaline Phosphatase Troponin I 0.02 Total Protein Albumin Urine Color Urine Appearance Urine pH Ur Specific [place] Urine Protein Urine Glucose (UA) Urine Ketones Urine Blood Urine Nitrite Urine Bilirubin Urine Urobilinogen Ur Leukocyte Esterase Urine WBC (Auto) Urine RBC (Auto) Urine Casts (Auto) U Epithel Cells (Auto) Urine Bacteria (Auto) 01/15/19 01/15/19 01/15/19 15:07 15:07 15:07 WBC RBC Hgb Hct MCV MCH MCHC RDW Plt Count MPV Absolute Neuts (auto) Neutrophils % Neutrophils % (Manual) Band Neutrophils % Lymphocytes % Lymphocytes % (Manual) Monocytes % Monocytes % (Manual) Eosinophils % Basophils % Nucleated RBC % Platelet Estimate PT with INR 18.00 H INR 1.52 H PTT (Actin FS) 39.3 H VBG pH 7.40 POC VBG pCO2 37.1 L POC VBG pO2 26.6 L VBG HCO3 22.4 L VBG O2 Sat (Cam) 40.5 L VBG Base Excess -1.4 Sodium 155 H Potassium 4.2 Chloride 121 H Carbon Dioxide 24 Anion Gap 10 BUN 100.9 H Creatinine 3.2 H Est GFR (CKD-EPI)AfAm 19.14 Est GFR (CKD-EPI)NonAf 16.51 Random Glucose 107 H Lactic Acid Calcium 10.0 Total Bilirubin 0.8 AST 15 ALT 17 Alkaline Phosphatase 105 Troponin I Total Protein 7.8 Albumin 3.6 Urine Color Urine Appearance Urine pH Ur Specific [place] Urine Protein Urine Glucose (UA) Urine Ketones Urine Blood Urine Nitrite Urine Bilirubin Urine Urobilinogen Ur Leukocyte Esterase Urine WBC (Auto) Urine RBC (Auto) Urine Casts (Auto) U Epithel Cells (Auto) Urine Bacteria (Auto) 01/15/19 01/15/19 17:15 17:30 WBC RBC Hgb Hct MCV MCH MCHC RDW Plt Count MPV Absolute Neuts (auto) Neutrophils % Neutrophils % (Manual) Band Neutrophils % Lymphocytes % Lymphocytes % (Manual) Monocytes % Monocytes % (Manual) Eosinophils % Basophils % Nucleated RBC % Platelet Estimate PT with INR INR PTT (Actin FS) VBG pH POC VBG pCO2 POC VBG pO2 VBG HCO3 VBG O2 Sat (Cam) VBG Base Excess Sodium Potassium Chloride Carbon Dioxide Anion Gap BUN Creatinine Est GFR (CKD-EPI)AfAm Est GFR (CKD-EPI)NonAf Random Glucose Lactic Acid 3.3 H* Calcium Total Bilirubin AST ALT Alkaline Phosphatase Troponin I Total Protein Albumin Urine Color Dk yellow Urine Appearance Cloudy Urine pH 5.[address] Ur [address] [place] 1.020 Urine Protein Trace Urine Glucose (UA) Negative Urine Ketones Trace H Urine Blood 3+ H Urine Nitrite Negative Urine Bilirubin Negative Urine Urobilinogen 1.0 Ur Leukocyte Esterase 2+ H Urine WBC (Auto) 33 Urine RBC (Auto) 27.5 Urine Casts (Auto) 10 U Epithel Cells (Auto) 0.2 Urine Bacteria (Auto) 23.7 UA positive for UTI. Significant leukocytosis noted on labs. patient has GRACE with hypernatremia likely secondary to dehydration. EKG shows sinus tachycardia with no sT elevations or depressions. lactic acid elevated. CXR is noted for R lobe PNA. Patient to be started on vanc and zosyn and admitted for failure of outpatient abx in the setting of sepsis 2/2 PNA. Dispo: Admit *DC/Admit/Observation/Transfer Diagnosis at time of Disposition: Hypernatremia, Sepsis due to pneumonia, Dehydration, GRACE (acute kidney injury) , Elevated WBC count Urinary tract infection Qualifiers: Urinary tract infection type: site unspecified Hematuria presence: without hematuria Qualified Code(s): N39.0 - Urinary tract infection, site not specified - Discharge Dispostion Disposition: RETIREMENT FACILITY Condition at time of disposition: Stable - Referrals - Patient Instructions - Post Discharge Activity
[2019-01-15] MEDS ORDERED: SODIUM CHLORIDE 2,449 ML IV ONE (15:53)
[2019-01-15 16:31] LABS: BASO % 0.3 % (0-2.0); HEMATOCRIT 54.6 % (35.4-49); HEMOGLOBIN 17.6 GM/dL (11.7-16.9); LYMPH % 4.9 % (8-40); MCH 28.4 pg (25.7-33.7); MCHC 32.3 g/dl (32.0-35.9); MEAN CELL VOLUME 87.9 fl (80-96); MEAN PLT VOLUME 9.5 fl (7.5-11.1); MONO % 5.3 % (3.8-10.2); NEUT % 89.5 % (42.8-82.8); PLATELET COUNT 350 K/MM3 (134-434); RBC 6.21 M/mm3 (4.00-5.60); RDW 14.1 % (11.9-15.9)
[2019-01-15 16:35] LABS: VENOUS PC02 37.1 mmHg (41-51); VENOUS PH 7.4 (7.31-7.41)
[2019-01-15 16:46] LABS: VENOUS PO2 26.6 mmHg (30-40)
[2019-01-15 16:53] LABS: INR 1.52 (0.83-1.09)
[2019-01-15 16:56] LABS: ACTIVATED PTT 39.3 SECONDS (25.2-36.5)
[2019-01-15 16:57] LABS: WHITE BLOOD COUNT 30.1 K/mm3 (4.0-10.0)
[2019-01-15 17:01] LABS: ALBUMIN 3.6 g/dl (3.4-5.0); BILIRUBIN,TOTAL 0.8 mg/dL (0.2-1); BLOOD UREA NITROGEN 100.9 mg/dL (7-18); CREATININE 3.2 mg/dL (0.55-1.3); POTASSIUM 4.2 mmol/L (3.5-5.1); TOT PROT 7.8 g/dl (6.4-8.2)
[2019-01-15] MEDS ORDERED: VANCOMYCIN 1,000 MG in DEXTROSE 5%-WATER - 250 ML IVPB ONE (17:03)
[2019-01-15] MEDS ORDERED: PIPERACILLIN/TAZOB 3.375 GM 3.375 GM in DEXTROSE 5%-WATER - 50 ML IVPB ONE (17:03)
[2019-01-15] MEDS ORDERED: VANCOMYCIN 1 GRAM (PRE-DOCKED) 1,000 MG/250 ML BAG IVPB ONE (17:19)
[2019-01-15] MEDS ORDERED: PIPERACILLIN/TAZOB 3.375 GM 3.375 GM/50 ML BAG IVPB ONE (17:19)
[2019-01-15 17:37] LABS: EPI CELLS 0.2 /HPF (0-5/HPF); HYALINE CASTS 10 /lpf (0-8); URINE APPEARANCE CLOUDY; URINE BACTERIA 23.7 /hpf (NEGATIVE); URINE BILIRUBIN NEGATIVE (NEGATIVE); URINE COLOR DK YELLOW; URINE GLUCOSE (UA) NEGATIVE (NEGATIVE); URINE KETONE TRACE (NEGATIVE); URINE LEUK ESTERASE 2+ (NEGATIVE); URINE NITRITE NEGATIVE (NEGATIVE); URINE PROTEIN TRACE (NEGATIVE); URINE WBC 33 /hpf (0-5)
--- NOTE | 2019-01-15 17:39 | PDOC ---
Documentation entered by Stanley Meeks SCRIBE, acting as scribe for Bucky Haji MD. Bucky Haji MD: This documentation has been prepared by the Jeanna patino Xhesika, SCRIBE, under my direction and personally reviewed by me in its entirety. I confirm that the documentation accurately reflects all work, treatment, procedures, and medical decision making performed by me. Attending Attestation - Resident Resident Name: ArielleArmand - ED Attending Attestation I have performed the following: I have examined & evaluated the patient, The case was reviewed & discussed with the resident, I agree w/resident's findings & plan, Exceptions are as noted - HPI HPI: 01/15/19 16:39 The patient is an 88 year old male, from [facility] with a significant past medical history of Alzheimer's, DVT, and recent UTI and PNA (s/p levaquin abx for 7 days with last abx 01/03) who presents to the ED via EMS with AMS and lethargy. As per Nurse at [facility], the patient had abnormal lab results of bun- 80, Kranium- 1, and 1 episode of hypoxia yesterday. Patient was recently diagnosed with pneumonia and UTI. Patient is a poor historian due to his severe dementia. - Physicial Exam PE: 01/15/19 16:39 Vitals: Triage Vital signs reviewed General Appearance: no acute distress, well nourished well developed, Head: Atraumatic, normocephalic Eyes: Pupils equal reactive round, extraocular movement intact Neck: Supple;No Nuchal rigidity Chest Wall: Nontender Cardiac: Regular rate and rhythm, no murmurs, no rubs, no gallops, Lungs:(+) coarse breath sounds. Abdomen: Soft, nondistended, normal bowel sounds, nontender to palpation Extremities: Full range of motion to 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, no cyanosis, clubbing, or edema Skin: Warm and dry, no rashes or lesions, no petechiae Neuro: Cranial Nerves 2-12 grossly c intact, Strength intact to 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 , Sensation intact to 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, - Medical Decision Making 01/15/19 22:52 78 years old with tachycardia hypoxic coarse breath sounds pneumonia on x-ray status post failed outpatient antibiotics We'll cover with broad-spectrum antibiotics and admit to telemetry given vital sign abnormalities for further management.
[2019-01-15 18:19] LABS: PLATELET ESTIMATE ADEQUATE
[2019-01-15] MEDS ORDERED: ACETAMINOPHEN 325 MG TABLET (FP) PO PRN (18:31)
[2019-01-15] MEDS ORDERED: SODIUM CHLORIDE 1,000 ML IV STA (18:35)
[2019-01-15 18:53] LABS: URINE RBC 27.5 /hpf (0-4)
[2019-01-15] MEDS ORDERED: SODIUM CHLORIDE 1,000 ML IV SCH (22:00)
[2019-01-15 22:33] LABS: BLOOD UREA NITROGEN 98.1 mg/dL (7-18); CALCIUM 9.3 mg/dL (8.5-10.1); POTASSIUM 4.3 mmol/L (3.5-5.1)
[2019-01-15 22:34] LABS: CREATININE 2.8 mg/dL (0.55-1.3)
[2019-01-15] MEDS: HEPARIN NA (PORCINE) 5,000 UNITS/ML 1ML VIAL SQ SCH (22:45)
[2019-01-16] MEDS ORDERED: PIPERACILLIN/TAZOB 3.375 GM 3.375 GM in DEXTROSE 5%-WATER - 50 ML IVPB SCH (02:00)
[2019-01-16] MEDS ORDERED: PIPERACILLIN/TAZOBACTAM 3.375 GM VIAL IVPB ONE ×2 (02:39→09:41)
[2019-01-16] MEDS ORDERED: DEXTROSE 5%-WATER - 50 ML IVPB ONE ×4 (02:39→21:24)
[2019-01-16] MEDS: PIPERACILLIN/TAZOB 3.375 GM 3.375 GM in DEXTROSE 5%-WATER - 50 ML IVPB SCH ×2 (02:47→09:56)
[2019-01-16 07:03] VITALS: BMI 23.8
[2019-01-16] MEDS ORDERED: PNEUMOC 13-VAL CONJ-DIP CRM/PF 0.5 ML DISP.SYRIN IM ONE (07:03)
[2019-01-16 08:15] LABS: BASO % 0.3 % (0-2.0); EOS % 0.2 % (0-4.5); HEMATOCRIT 50.7 % (35.4-49); LYMPH % 5.5 % (8-40); MCH 28.2 pg (25.7-33.7); MCHC 31.6 g/dl (32.0-35.9); MEAN CELL VOLUME 89.2 fl (80-96); MEAN PLT VOLUME 10.3 fl (7.5-11.1); MONO % 7.5 % (3.8-10.2); NEUT % 86.5 % (42.8-82.8); PLATELET COUNT 294 K/MM3 (134-434); RBC 5.69 M/mm3 (4.00-5.60); RDW 14.5 % (11.9-15.9); WHITE BLOOD COUNT 25.5 K/mm3 (4.0-10.0)
[2019-01-16 08:25] LABS: ALBUMIN 3.2 g/dl (3.4-5.0); BILIRUBIN,TOTAL 0.8 mg/dL (0.2-1); BLOOD UREA NITROGEN 97.3 mg/dL (7-18); CALCIUM 9.1 mg/dL (8.5-10.1); CREATININE 2.7 mg/dL (0.55-1.3); POTASSIUM 4.1 mmol/L (3.5-5.1); TOT PROT 6.7 g/dl (6.4-8.2)
[2019-01-16] MEDS ORDERED: DEXTROSE 5%-WATER - 1,000 ML IV SCH (08:30)
--- NOTE | 2019-01-16 09:36 | HP ---
Admitting History and Physical - Primary Care Physician PCP: Lissette Gonzales - Admission Chief Complaint: Altered mental status History of Present Illness: 88 yrs old man H/O advanced Dementia, Oriented to Self, wheel chair bound for past 2-3 wks feeling unwell intiall Pneumonia subsequently UTI treated with Levofloxacin, patient developed poor PO intake last lab at on 01/05/2019 shows TWBC 12.5 BUN 22 and Creat 1.6 yesterday patient was transferred to [facility] ED with GRACE BUN >100 , Creat 2.3 TWBC 30 K with Rt LL infiltrayte and Hypokxia admitted for further management, received IV Hydration a, IV Zosyn and History Source: Medical Record Limitations to Obtaining History: Dementia - 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 - Smoking History Smoking history: Unknown if ever smoked Have you smoked in the past 12 months: No Aproximately how many cigarettes per day: 0 - Alcohol/Substance Use Hx Alcohol Use: No History of Substance Use: reports: None - Social History History of Recent Travel: No Home Medications - Allergies Allergies/Adverse Reactions: Allergies Allergy/AdvReac Type Severity Reaction Status Date / Time No Known Allergies Allergy Verified 01/15/19 15:25 - Home Medications Home Medications: Ambulatory Orders Acetaminophen [Tylenol] 650 mg PO PRN PRN 08/10/17 Heparin - 5,000 unit SQ BID 08/10/17 Lactobacillus Acidophilus [Bacid -] 1 each PO DAILY 01/15/19 Family Disease History - Family Disease History Family History: Unremarkable Review of Systems Unable to obtain ROS, reason: Dementia Physical Examination Vital Signs: Vital Signs Temperature 97.8 F 01/16/19 02:16 Pulse Rate 104 H 01/16/19 02:16 Respiratory Rate 20 01/16/19 02:16 Blood Pressure 146/64 01/16/19 02:16 O2 Sat by Pulse Oximetry (%) 97 01/16/19 07:00 Elderly F confused HEENT: Mm dry , no anemia, atraumatic NECK: No JVd No Bruit CHEST: Crepts + CVS: Tachycardia ABD: No distention, non tender EXT: Trace edema CRAFT RECRUITER: Confused moving all extermities Labs: CBC, BMP 01/16/19 05:30 01/16/19 05:30 Imaging - Results Chest X-ray: Report Reviewed (Infiltrate) EKG: Report Reviewed (Sinus Tachycardia no acute St T chnages) Problem List - Problems (1) Toxic metabolic encephalopathy Assessment/Plan: Due to sepsis Hyponatremia and dehydration with Uremia cont Hydration, IV abx , serial labs and F CT head Code(s): G92 - TOXIC ENCEPHALOPATHY (2) Sepsis due to pneumonia Assessment/Plan: Rt Ll infitrate with elevated TWBC, altered mental status from base line, high Lactic acid patient is in sepsis cont IV Hydration, Id consult, swallow evaluation, cont Zosyn and Vancomycin F/U cultures Code(s): J18.9 - PNEUMONIA, UNSPECIFIED ORGANISM; A41.9 - SEPSIS, UNSPECIFIED ORGANISM (3) Dehydration Assessment/Plan: Poor Po intake and sepsis cont IV Hydration f/u BMP Code(s): E86.0 - DEHYDRATION (4) GRACE (acute kidney injury) Assessment/Plan: Due to sepsis and Dehydration IV Hydration with D5 N serial BMP, Foleys, IP/OP chart, Nephrology input. Code(s): N17.9 - ACUTE KIDNEY FAILURE, UNSPECIFIED (5) Hypernatremia Assessment/Plan: Due to poor Po intake dehydartion IV D4 F/U BMP and calculated Volume Dececit 6.65 ltr recived around 7 ltr since yesterday will infuse 1 Lt NS extra now, serail BMP q TID Code(s): E87.0 - HYPEROSMOLALITY AND HYPERNATREMIA (6) Dementia Assessment/Plan: chronic Code(s): F03.90 - UNSPECIFIED DEMENTIA WITHOUT BEHAVIORAL DISTURBANCE
[2019-01-16] MEDS: PANTOPRAZOLE SODIUM 40 MG VIAL IVPUSH SCH (09:56)
[2019-01-16] MEDS: HEPARIN NA (PORCINE) 5,000 UNITS/ML 1ML VIAL SQ SCH ×2 (09:56→21:55)
[2019-01-16] MEDS ORDERED: LACTOBACILLUS ACIDOPHILUS 1 TABLET PO SCH (10:00)
--- NOTE | 2019-01-16 11:20 | CON.NEURO ---
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 - Alcohol/Substance Use Hx Alcohol Use: No History of Substance Use: reports: None - Smoking History Smoking history: Unknown if ever smoked Have you smoked in the past 12 months: No Aproximately how many cigarettes per day: 0 - Social History Usual Living Arrangement: Half-Way History of Recent Travel: No Home Medications - Allergies Allergies/Adverse Reactions: Allergies Allergy/AdvReac Type Severity Reaction Status Date / Time No Known Allergies Allergy Verified 01/15/19 15:25 - Home Medications Home Medications: Ambulatory Orders Acetaminophen [Tylenol] 650 mg PO PRN PRN 08/10/17 Heparin - 5,000 unit SQ BID 08/10/17 Lactobacillus Acidophilus [Bacid -] 1 each PO DAILY 01/15/19 Physical Exam-Neuro Vital Signs: Vital Signs Temperature 97.6 F 01/16/19 10:00 Pulse Rate 103 H 01/16/19 10:00 Respiratory Rate 18 01/16/19 11:00 Blood Pressure 123/67 01/16/19 10:00 O2 Sat by Pulse Oximetry (%) 95 01/16/19 11:00 Labs: CBC, BMP 01/16/19 05:30 01/16/19 05:30 INR, PTT INR 1.52 (0.83-1.09) H 01/15/19 15:07 Assessment/Plan cc AMS HPI 88 year old male [place] resident. He has history of Alzheimer disease, DVT , uti in past. He came with worsening of mental status. Patient found to have pneumonia. There is no hemiparesis, facial asymmetry or seizure like activity. Patient has improved since he has been on abx. Spoke to nursing staff . NKDA PMH as above SH,FH,ROS reviewed in chart Home Medications: Acetaminophen [Tylenol] 650 mg PO PRN PRN 08/10/17 Heparin - 5,000 unit SQ BID 08/10/17 Lactobacillus Acidophilus [Bacid -] 1 each PO DAILY 01/15/19 NEUROLOGICAL EXAMINATION afebrile, vss Alert and able to tell his name and , and oriented x 1 follow simple command eomi, pupils reactive no facial asymmetry moving all ext ct head not done wbc 30s with left shift and now coming to 25 Assessment/Plan 88 year old male , [place] resident with advance dementia. Patient has mental status worse due to pneumonia. Now he is better after abx. Plan: continue abx, and supportive care - once stable, aricept and namenda can be added - PT, Speech and DVT Prophylaxis - Abx as per ID /PMD Thanking you so much Pepe Bach MD
[2019-01-16] MEDS ORDERED: SODIUM CHLORIDE 1,000 ML IV STA (11:53)
--- NOTE | 2019-01-16 12:39 | CON.ID ---
Consult - History of Present Illness History of Present Illness: Pt seen and examined. All notes/labs reviewed. This is an 88 y.o. male [place] resident with PMH of Alzheimer's dementia, DVT, and recent dx of UTI/PNA presenting in the ER for AMS/lethargy. Was reported to have hypoxia prior to presentation and has been coughing. In the ER he was afebrile however noted to be hypoxic and tachycardic. Significant findings include wbc of 30K, BUN 100, Creat 3.2 with lactate of 3.3. As per PMD he completed treatment for UTI and PNA on 01/03/19. At the time his wbc was 18K and it went down to 12K with clinical improvement. He has reportedly been eating less in the past 3 wks and noted to have a cough raising the possibility of aspiration. In the ER he was started on broad spectrum antibiotics with improvement in lab values. Currently he is confused but states he feels ok. Noted to be coughing during examination. No acute respiratory distress at this time. 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 - Alcohol/Substance Use Hx Alcohol Use: No History of Substance Use: reports: None - Smoking History Smoking history: Unknown if ever smoked Have you smoked in the past 12 months: No Aproximately how many cigarettes per day: 0 - Social History Usual Living Arrangement: Residential History of Recent Travel: No Home Medications - Allergies Allergies/Adverse Reactions: Allergies Allergy/AdvReac Type Severity Reaction Status Date / Time No Known Allergies Allergy Verified 01/15/19 15:25 - Home Medications Home Medications: Ambulatory Orders Acetaminophen [Tylenol] 650 mg PO PRN PRN 08/10/17 Heparin - 5,000 unit SQ BID 08/10/17 Lactobacillus Acidophilus [Bacid -] 1 each PO DAILY 01/15/19 Family Disease History - Family Disease History Family History: Unable to Obtain Review of Systems Unable to obtain ROS, reason: demented Physical Exam Vital Signs: Vital Signs Temperature 97.6 F 01/16/19 10:00 Pulse Rate 103 H 01/16/19 10:00 Respiratory Rate 18 01/16/19 11:00 Blood Pressure 123/67 01/16/19 10:00 O2 Sat by Pulse Oximetry (%) 95 01/16/19 11:00 Constitutional: Yes: No Distress. No: Well Nourished, Calm, Anxious, Ashen, Cachectic, Diaphoresis, Mild Distress, Moderate Distress, Severe Distress, Obese , Pallor, Poor Hygeine, Thin, Other Eyes: Yes: Conjunctiva Clear, EOM Intact, PERRL. No: WNL, Cataracts, Diplopia, Occular Prosthesis, Ptosis, Sclera Icterus, Tearing, Other HENT: Yes: Atraumatic, Normocephalic. No: WNL, Drooling, Epistaxis, Hoarseness , Nasal Congestion, Pharyngeal Erythema, Rhinnorhea, Thrush, Tonsillar Exudate, Other Neck: Yes: Supple. No: WNL, Trachea Midline, Decreased ROM, Lymphadenopathy, Rigid, Tenderness, Thyromegaly, Other Cardiovascular: Yes: Tachycardia. No: WNL, Regular Rate and Rhythm, Bradycardia , Pulse Irregular, Bruit, JVD, Gallop, Murmur, Rub, S1, S2, S3, S4, Varicosities , Other Respiratory: Yes: Rhonchi (course breath sounds). No: WNL, Regular, CTA Bilaterally, Accessory Muscle Use, Bradypnea, [place], Cough, Diminished, Dullness, Hyperresonant, Intubated, [place], Mechanically Ventilated, On BiPap , On Nasal O2, On Venti-Mask, Orthopnea, Poor Air Entry, Rales, SOB, SOB on Exertion, Stridor, Tachypnea, Wheezes, Other Gastrointestinal: Yes: Normal Bowel Sounds, Soft. No: WNL, Abdomen, Obese, Ascites, Distention, Hematemesis, Hemorrhoids, Hepatomegaly, Hernia, Hyperactive Bowel Sounds, Hypoactive Bowel Sounds, Melena, Palpable Mass, Pulsatile Mass, Rectal Bleeding, Splenomegaly, Tenderness, Tenderness, Epigastrium, Tenderness, Rebound, Vomiting, Other Renal/: Yes: WNL. No: Anuria, Bladder Distention, CVA Tenderness - Left, CVA Tenderness - Right, Alvarez Present, Hematuria, Incontinence, Menses Present, Oliguria, Polyuria, , Scrotal Edema, Urethral Discharge, Vaginal Bleeding, Vaginal Discharge, Other Musculoskeletal: Yes: WNL. No: Back Pain, Joint Stiffness, Joint Swelling, Muscle Pain, Muscle Weakness, Other Extremities: Yes: WNL. No: Amputation, Calf Tenderness, Cold, Cool, Cyanosis, Deformity, Delayed Capillary Refill, Erythema, External Rotation, Internal Rotation, Pallor, Shortened, Other Edema: No Peripheral Pulses WNL: Yes Integumentary: Yes: WNL. No: Body Piercing, Bruising, Erythema, Incision, Jaundice, Laceration, Petechiae, Pressure Ulcer, Rash, Skin Tear, Tattoos, Tenting, Onychomycosis, Venous Stasis Changes, Other Neurological: Yes: Alert, Confusion Psychiatric: Yes: Alert Labs: CBC, BMP 01/16/19 05:30 01/16/19 05:30 Laboratory Tests 01/15/19 01/15/19 01/15/19 14:18 15:07 15:07 WBC 30.1 H* RBC 6.21 H Hgb 17.6 H Hct 54.6 H D MCV 87.9 MCH 28.4 MCHC 32.3 RDW 14.1 Plt Count 350 D MPV 9.5 D Absolute Neuts (auto) 26.9 H Neutrophils % 89.5 H D Neutrophils % (Manual) 79.0 Band Neutrophils % 3.0 Lymphocytes % 4.9 L D Lymphocytes % (Manual) 10.0 Monocytes % 5.3 Monocytes % (Manual) 8 Eosinophils % 0.0 D Basophils % 0.3 Nucleated RBC % 0 Platelet Estimate Adequate PT with INR INR PTT (Actin FS) VBG pH POC VBG pCO2 POC VBG pO2 VBG HCO3 VBG O2 Sat (Cam) VBG Base Excess Sodium Potassium Chloride Carbon Dioxide Anion Gap BUN Creatinine Est GFR (CKD-EPI)AfAm Est GFR (CKD-EPI)NonAf Random Glucose Lactic Acid 2.3 H* Calcium Total Bilirubin AST ALT Alkaline Phosphatase Troponin I 0.02 Total Protein Albumin Urine Color Urine Appearance Urine pH Ur Specific [place] Urine Protein Urine Glucose (UA) Urine Ketones Urine Blood Urine Nitrite Urine Bilirubin Urine Urobilinogen Ur Leukocyte Esterase Urine WBC (Auto) Urine RBC (Auto) Urine Casts (Auto) U Epithel Cells (Auto) Urine Bacteria (Auto) 01/15/19 01/15/19 01/15/19 15:07 15:07 15:07 WBC RBC Hgb Hct MCV MCH MCHC RDW Plt Count MPV Absolute Neuts (auto) Neutrophils % Neutrophils % (Manual) Band Neutrophils % Lymphocytes % Lymphocytes % (Manual) Monocytes % Monocytes % (Manual) Eosinophils % Basophils % Nucleated RBC % Platelet Estimate PT with INR 18.00 H INR 1.52 H PTT (Actin FS) 39.3 H VBG pH 7.40 POC VBG pCO2 37.1 L POC VBG pO2 26.6 L VBG HCO3 22.4 L VBG O2 Sat (Cam) 40.5 L VBG Base Excess -1.4 Sodium 155 H Potassium 4.2 Chloride 121 H Carbon Dioxide 24 Anion Gap 10 BUN 100.9 H Creatinine 3.2 H Est GFR (CKD-EPI)AfAm 19.14 Est GFR (CKD-EPI)NonAf 16.51 Random Glucose 107 H Lactic Acid Calcium 10.0 Total Bilirubin 0.8 AST 15 ALT 17 Alkaline Phosphatase 105 Troponin I Total Protein 7.8 Albumin 3.6 Urine Color Urine Appearance Urine pH Ur Specific [place] Urine Protein Urine Glucose (UA) Urine Ketones Urine Blood Urine Nitrite Urine Bilirubin Urine Urobilinogen Ur Leukocyte Esterase Urine WBC (Auto) Urine RBC (Auto) Urine Casts (Auto) U Epithel Cells (Auto) Urine Bacteria (Auto) 01/15/19 01/15/19 01/15/19 17:15 17:30 21:35 WBC RBC Hgb Hct MCV MCH MCHC RDW Plt Count MPV Absolute Neuts (auto) Neutrophils % Neutrophils % (Manual) Band Neutrophils % Lymphocytes % Lymphocytes % (Manual) Monocytes % Monocytes % (Manual) Eosinophils % Basophils % Nucleated RBC % Platelet Estimate PT with INR INR PTT (Actin FS) VBG pH POC VBG pCO2 POC VBG pO2 VBG HCO3 VBG O2 Sat (Cam) VBG Base Excess Sodium Potassium Chloride Carbon Dioxide Anion Gap BUN Creatinine Est GFR (CKD-EPI)AfAm Est GFR (CKD-EPI)NonAf Random Glucose Lactic Acid 3.3 H* 2.2 H* Calcium Total Bilirubin AST ALT Alkaline Phosphatase Troponin I Total Protein Albumin Urine Color Dk yellow Urine Appearance Cloudy Urine pH 5.0 D Ur Specific [place] 1.020 Urine Protein Trace Urine Glucose (UA) Negative Urine Ketones Trace H Urine Blood 3+ H Urine Nitrite Negative Urine Bilirubin Negative Urine Urobilinogen 1.0 Ur Leukocyte Esterase 2+ H Urine WBC (Auto) 33 Urine RBC (Auto) 27.5 Urine Casts (Auto) 10 U Epithel Cells (Auto) 0.2 Urine Bacteria (Auto) 23.7 01/15/19 01/16/19 01/16/19 21:35 05:30 05:30 WBC 25.5 H RBC 5.69 H Hgb 16.0 Hct 50.7 H MCV 89.2 MCH 28.2 MCHC 31.6 L RDW 14.5 Plt Count 294 MPV 10.3 Absolute Neuts (auto) 22.0 H Neutrophils % 86.5 H Neutrophils % (Manual) Band Neutrophils % Lymphocytes % 5.5 L Lymphocytes % (Manual) Monocytes % 7.5 Monocytes % (Manual) Eosinophils % 0.2 D Basophils % 0.3 Nucleated RBC % 0 Platelet Estimate PT with INR INR PTT (Actin FS) VBG pH POC VBG pCO2 POC VBG pO2 VBG HCO3 VBG O2 Sat (Cam) VBG Base Excess Sodium 158 H 159 H Potassium 4.3 4.1 Chloride 126 H 127 H Carbon Dioxide 21 20 L Anion Gap 10 12 BUN 98.1 H 97.3 H Creatinine 2.8 H 2.7 H Est GFR (CKD-EPI)AfAm 22.49 23.50 Est GFR (CKD-EPI)NonAf 19.40 20.28 Random Glucose 111 H 89 Lactic Acid Calcium 9.3 9.1 Total Bilirubin 0.8 AST 18 ALT 16 Alkaline Phosphatase 90 Troponin I Total Protein 6.7 Albumin 3.2 L Urine Color Urine Appearance Urine pH Ur Specific [place] Urine Protein Urine Glucose (UA) Urine Ketones Urine Blood Urine Nitrite Urine Bilirubin Urine Urobilinogen Ur Leukocyte Esterase Urine WBC (Auto) Urine RBC (Auto) Urine Casts (Auto) U Epithel Cells (Auto) Urine Bacteria (Auto) Imaging - Results Chest X-ray: Pending Problem List - Problems (1) GRACE (acute kidney injury) Code(s): N17.9 - ACUTE KIDNEY FAILURE, UNSPECIFIED (2) Sepsis due to pneumonia Code(s): J18.9 - PNEUMONIA, UNSPECIFIED ORGANISM; A41.9 - SEPSIS, UNSPECIFIED ORGANISM (3) Altered mental status Code(s): R41.82 - ALTERED MENTAL STATUS, UNSPECIFIED (4) Alzheimer's dementia Code(s): G30.9 - ALZHEIMER'S DISEASE, UNSPECIFIED (5) Urinary tract infection Code(s): N39.0 - URINARY TRACT INFECTION, SITE NOT SPECIFIED Qualifiers: Urinary tract infection type: site unspecified Hematuria presence: without hematuria Qualified Code(s): N39.0 - Urinary tract infection, site not specified Assessment/Plan 88 y.o. male with PMH of Alzheimer's dementia and DVT and s/p recent treatment for UTI/PNA with clinical improvement on Levaquin presents with lethargy, cough , tachycardia, hypoxia, leukocytosis, renal impairment, and elevated lactic acid level Sepsis PNA/ Possible Aspiration Possible UTI GRACE Lethargy Hx of DVT Dementia -- continue Zosyn empirically, renal dosing, s/p 1 dose of Vancomycin, hydration -- Blood cultures/Urine cultures sent -- repeat lactate -- f/u official CXR result -- monitor wbc/renal function/vitals -- aspiration precautions Case d/w Dr Torrez Will follow Thank you
[2019-01-16 12:51] LABS: ANISOCYTOSIS 1+; MACROCYTOSIS 1+; PLATELET ESTIMATE NORMAL; TEAR DROP CELLS 1+
--- NOTE | 2019-01-16 13:30 | CONSULT ---
Consult - text type - Consultation Consultation Note: Renal consult for GRACE and Hypernatremia This is a 88 year old gentleman with history of advanced dementia, DVT, Recent UTI and PNA presented with lethargy and worsening renal function. Pt was noted to have Cr of 1.5 about 1 week ago. Pt has advanced dementia and not able to provide history. Denies any pain, shortness of breath, nausea or vomiting. On IVF. PMhx: as above Allergies: NKDA Family hx: NC Social Hx:No T/A/D ROS: limited to HPI due to dementia. Home Medications Medication Instructions Recorded Acetaminophen [Tylenol] 650 mg PO PRN PRN 08/10/17 Heparin - 5,000 unit SQ BID 08/10/17 Lactobacillus Acidophilus [Bacid -] 1 each PO DAILY 01/15/19 Vital Signs Temperature 97.6 F 01/16/19 10:00 Pulse Rate 103 H 01/16/19 10:00 Respiratory Rate 18 01/16/19 11:00 Blood Pressure 123/67 01/16/19 10:00 O2 Sat by Pulse Oximetry (%) 95 01/16/19 11:00 Intake & Output 01/13/19 01/14/19 01/15/19 01/16/19 23:59 23:59 23:59 23:59 Intake Total 900 0 Output Total 500 Balance 400 0 Weight 75.387 kg NAD awake and alert confused dry MM poor dentition RRR CTA soft NT/ND, no bladder distension No LE edema, clubbing or cyanosis no bladder distension CBC, BMP 01/16/19 05:30 01/16/19 05:30 Laboratory Tests 01/15/19 01/16/19 17:15 05:30 Carbon Dioxide 20 L Random Glucose 89 Calcium 9.1 Albumin 3.2 L Ur Specific [place] 1.020 Urine Blood 3+ H Ur Leukocyte Esterase 2+ H Urine WBC (Auto) 33 Urine RBC (Auto) 27.5 Urine Casts (Auto) 10 Current Medications Acetaminophen (Tylenol -) 650 mg PO PRN PRN PRN Reason: PAIN Heparin Sodium (Porcine) (Heparin -) 5,000 unit SQ BID [facility] Last Admin: 01/16/19 09:56 Dose: 5,000 unit Sodium Chloride (Normal Saline -) 1,000 mls @ 100 mls/hr IV ASDIR [facility] Last Admin: 07/20/19 22:45 Dose: 100 mls/hr Dextrose (D5w -) 1,000 mls @ 125 mls/hr IV .Q8H [facility] Last Admin: 01/16/19 08:55 Dose: 125 mls/hr Piperacillin Sod/Tazobactam (Sod 2.25 gm/ Dextrose) 50 mls @ 100 mls/hr IVPB Q6H-IV [facility]; Protocol Pantoprazole Sodium (Protonix Iv) 40 mg IVPUSH DAILY [facility] Last Admin: 01/16/19 09:56 Dose: 40 mg 88 year old gentleman with history of advanced dementia, DVT, Recent UTI and PNA presented with lethargy and worsening renal function. #GRACE #Hypernatremia #Metabolic acidosis #Sepsis #PNA/Aspiration PNA GRACE likely due to intravascular volume depletion vs. ATN. 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
[2019-01-16] MEDS: SODIUM CHLORIDE 0.45% 1,000 ML IV SCH (14:00)
[2019-01-16] MEDS ORDERED: PIPERACILLIN/TAZOBACTAM 2.25 GM VIAL IVPB ONE ×2 (14:03→21:23)
[2019-01-16] MEDS: PIPERACILLIN/TAZOB 2.25 GM 2.25 GM in DEXTROSE 5%-WATER - 50 ML IVPB SCH ×2 (14:35→21:55)
--- NOTE | 2019-01-16 17:44 | EKG ---
Test Reason : Blood Pressure : / mmHG Vent. Rate : 114 BPM Atrial Rate : 114 BPM P-R Int : 132 ms QRS Dur : 086 ms QT Int : 336 ms P-R-T Axes : 052 051 075 degrees QTc Int : 463 ms SINUS TACHYCARDIA SEPTAL INFARCT , AGE UNDETERMINED ABNORMAL ECG WHEN COMPARED WITH ECG OF 05-AUG-2017 16:06, PREMATURE VENTRICULAR COMPLEXES ARE NO LONGER PRESENT VENT. RATE HAS INCREASED BY 41 BPM SEPTAL INFARCT IS NOW PRESENT ST NOW DEPRESSED IN ANTERIOR LEADS NONSPECIFIC T WAVE ABNORMALITY NOW EVIDENT IN INFERIOR LEADS T WAVE INVERSION NOW EVIDENT IN LATERAL LEADS Confirmed by JESSENIA SCOTT MD ([id number]) on 01/16/2019 5:43:51 PM Referred By: Confirmed By:JESSENIA SCOTT MD
[2019-01-16 20:12] LABS: CALCIUM 8.7 mg/dL (8.5-10.1); CREATININE 2.2 mg/dL (0.55-1.3); POTASSIUM 3.8 mmol/L (3.5-5.1)
[2019-01-17] MEDS ORDERED: PIPERACILLIN/TAZOBACTAM 2.25 GM VIAL IVPB ONE ×4 (02:49→21:18)
[2019-01-17] MEDS ORDERED: DEXTROSE 5%-WATER - 50 ML IVPB ONE ×4 (02:50→21:18)
[2019-01-17] MEDS: PIPERACILLIN/TAZOB 2.25 GM 2.25 GM in DEXTROSE 5%-WATER - 50 ML IVPB SCH ×4 (03:10→21:59)
[2019-01-17 07:46] LABS: BLOOD UREA NITROGEN 82.9 mg/dL (7-18); CALCIUM 8.6 mg/dL (8.5-10.1); CREATININE 2.1 mg/dL (0.55-1.3); MAGNESIUM 3.1 mg/dL (1.8-2.4); PHOSPHOROUS 3.1 mg/dL (2.5-4.9); POTASSIUM 3.8 mmol/L (3.5-5.1)
--- NOTE | 2019-01-17 08:46 | PN ---
Progress Note, Physician Chief Complaint: Remained at his base line MS more alert communicating with simple sentences - Current Medication List Current Medications: Active Medications Acetaminophen (Tylenol -) 650 mg PO PRN PRN PRN Reason: PAIN Heparin Sodium (Porcine) (Heparin -) 5,000 unit SQ BID [facility] Last Admin: 01/16/19 21:55 Dose: 5,000 unit Piperacillin Sod/Tazobactam (Sod 2.25 gm/ Dextrose) 50 mls @ 100 mls/hr IVPB Q6H-IV [facility]; Protocol Last Admin: 01/17/19 08:41 Dose: 100 mls/hr Sodium Chloride (1/2 Normal Saline) 1,000 mls @ 125 mls/hr IV ASDIR [facility] Last Admin: 01/16/19 14:00 Dose: 125 mls/hr Pantoprazole Sodium (Protonix Iv) 40 mg IVPUSH DAILY [facility] Last Admin: 01/16/19 09:56 Dose: 40 mg - Objective Vital Signs: Vital Signs Temperature 97.0 F L 01/17/19 06:00 Pulse Rate 88 01/17/19 06:00 Respiratory Rate 20 01/17/19 06:00 Blood Pressure 113/64 01/17/19 06:00 O2 Sat by Pulse Oximetry (%) 95 01/17/19 05:16 Elderly F confused HEENT: Mm dry , no anemia, atraumatic NECK: No JVd No Bruit CHEST: Crepts + CVS: Tachycardia ABD: No distention, non tender EXT: Trace edema 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9 - PNEUMONIA, UNSPECIFIED ORGANISM; A41.9 - SEPSIS, UNSPECIFIED ORGANISM (3) Dehydration Assessment/Plan: Poor Po intake and sepsis cont IV Hydration f/u BMP (4) GRACE (acute kidney injury) Assessment/Plan: Due to sepsis and Dehydration IV Hydration with D5 N serial BMP, Foleys, IP/OP chart, Nephrology input. Code(s): N17.9 - ACUTE KIDNEY FAILURE, UNSPECIFIED (5) Hypernatremia Assessment/Plan: Due to poor Po intake dehydration IV D5 1/3 NS F/U BMP Code(s): E87.0 - HYPEROSMOLALITY AND HYPERNATREMIA (6) Dementia Assessment/Plan: chronic Code(s): F03.90 - UNSPECIFIED DEMENTIA WITHOUT BEHAVIORAL DISTURBANCE
[2019-01-17] MEDS: SODIUM CHLORIDE 0.45% 1,000 ML IV SCH (09:00)
--- NOTE | 2019-01-17 09:15 | PN ---
Progress Note (short form) - Note Progress Note: HPI 88 year old male NH resident. He has history of Alzheimer disease, DVT , uti in past. He came with worsening of mental status. Patient found to have pneumonia. There is no hemiparesis, facial asymmetry or seizure like activity. Patient has improved since he has been on abx. Spoke to nursing staff . Patient seems to be brighter and more talkative, and able to follow command. still confused. NEUROLOGICAL EXAMINATION afebrile, vss Alert and able to tell his name and , and oriented x 1 follow simple command eomi, pupils reactive no facial asymmetry moving all ext ct head not done wbc 30s with left shift and now coming to 25( January 16) Assessment/Plan 88 year old male , NH resident with advance dementia. Patient has mental status worse due to pneumonia. Now he is better after abx. Plan: continue abx, and supportive care - once stable, aricept and namenda can be added - PT, Speech and DVT Prophylaxis Thanking you so much Pepe Bach MD
[2019-01-17 09:39] LABS: BASO % 0.1 % (0-2.0); EOS % 0.6 % (0-4.5); HEMATOCRIT 45.8 % (35.4-49); HEMOGLOBIN 14.5 GM/dL (11.7-16.9); LYMPH % 10.3 % (8-40); MCH 28.3 pg (25.7-33.7); MCHC 31.7 g/dl (32.0-35.9); MEAN CELL VOLUME 89.4 fl (80-96); MEAN PLT VOLUME 10.3 fl (7.5-11.1); MONO % 7.3 % (3.8-10.2); NEUT % 81.7 % (42.8-82.8); PLATELET COUNT 222 K/MM3 (134-434); RBC 5.12 M/mm3 (4.00-5.60); RDW 14.7 % (11.9-15.9); WHITE BLOOD COUNT 16.9 K/mm3 (4.0-10.0)
[2019-01-17] MEDS: HEPARIN NA (PORCINE) 5,000 UNITS/ML 1ML VIAL SQ SCH ×2 (11:45→22:01)
[2019-01-17] MEDS: PANTOPRAZOLE SODIUM 40 MG VIAL IVPUSH SCH (11:45)
--- NOTE | 2019-01-17 12:04 | CONSULT ---
Admitting History and Physical - Primary Care Physician PCP: Anh Torrez - Admission History of Present Illness: HPI 88 year old male [facility] resident with PMH of Alzheimer disease, DVT , uti aDMITTED with worsening of mental status Dx of PNA- CXR RLL infiltrates Per NH notes, recent deterioration in appetite/PO acceptance. 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 - Smoking History Smoking history: Unknown if ever smoked Have you smoked in the past 12 months: No Aproximately how many cigarettes per day: 0 - Alcohol/Substance Use Hx Alcohol Use: No History of Substance Use: reports: None - Social History History of Recent Travel: No History - Admission Reason For Visit: ACUTE KIDNEY INJURY/PNEUMONIA - Diagnostics CT Scan: Report Reviewed (RLL infiltrates) - General Mental Status: Awake and Alert, Able to Follow Commands, Forgetful, Vague, Confused Attention: Intact Ability to Follow Directions: Good Head/Neck Control: Good - Hearing Hearing: Normal Hearing Aide: No Speech Evaluation - Communication Primary Language: ROMANIAN Communication: Yes: Within Normal Limits Oral Expression Ability: Yes: No Impairment - Speech Production Able to Make Needs Known: Yes: WNL Intelligibility: Yes: WNL - Speech Characteristics Voice Loudness: Normal Voice Pitch: Yes: Normal Voice Phonatory-based Quality: Yes: Normal, Dysphonia Speech Pattern: Normal Speech Clarity: < 100% Nasal Resonance: Normal Articulation: Yes: Precise Rate of Speech: Intact - Language/Auditory Comprehension Follows: Yes: 1 Stage Simple Commands Observation: Able to respond to yes/no queries: Yes, Yes/No Confusion: No, Comprehends Conversational Speech: Yes - Language/Verbal Expression Able to Communicate Wants and Needs: Yes: WNL - Swallow Evaluation/Bedside Assessment Current Nutritional Intake: NPO Oral Secretions: Yes: WFL, Tongue Coated (dry, grren mucous on tongue/palate) Dentition: Yes: Missing Teeth Facial Symmetry at Rest: Symmetrical Facial Symmetry on Retraction: Symmetrical Sensation: Normal Against Resistance Opening: Normal Against Resistance Closing: Normal Pucker Lips: Normal Smile: Normal Lingual Movement: Normal, Symmetric Lingual Speed of Movement: Normal Lingual Movement Strgth Against Opposition: Normal Lingual Movement Characteristics: Normal Laryngeal Movement: Labored,delay initiation Rate of Intake: Slow/Holding Bolus Size: Small Labial Seal: WFL A-P Transit: Impaired Pocketing: None Timing of Swallow: Delayed Coughing/Throat Clear: Yes (Multiple swallows with delayed responsive cough with water, c/w aspiration) Recommendations - Speech Evaluation, Impression/Plan Impression: Multiple swallows with delayed responsive cough with water, c/w aspiration - Disposition Discharge to: Snf Facility - Dysphagia Impressions/Plan Swallowing Skills: Impaired Dysphagia Impressions: Suspect Aspiration *Silent aspiration: cannot be R/O at bedside Recommendations: Modified Barium Swallow - Recommendations Diet Consistency: NPO Liquids: NPO
--- NOTE | 2019-01-17 12:19 | PN ---
Progress Note, Physician - Current Medication List Current Medications: Active Medications Acetaminophen (Tylenol -) 650 mg PO PRN PRN PRN Reason: PAIN Heparin Sodium (Porcine) (Heparin -) 5,000 unit SQ BID [facility] Last Admin: 01/17/19 11:45 Dose: 5,000 unit Piperacillin Sod/Tazobactam (Sod 2.25 gm/ Dextrose) 50 mls @ 100 mls/hr IVPB Q6H-IV [facility]; Protocol Last Admin: 01/17/19 08:41 Dose: 100 mls/hr Dextrose/Sodium Chloride (D5-1/3ns -) 500 mls @ 83 mls/hr IV ASDIR [facility] Pantoprazole Sodium (Protonix Iv) 40 mg IVPUSH DAILY [facility] Last Admin: 01/17/19 11:45 Dose: 40 mg - Objective Vital Signs: Vital Signs Temperature 97.0 F L 01/17/19 06:00 Pulse Rate 88 01/17/19 06:00 Respiratory Rate 20 01/17/19 06:00 Blood Pressure 113/64 01/17/19 06:00 O2 Sat by Pulse Oximetry (%) 95 01/17/19 05:16 Labs: CBC, BMP 01/17/19 07:00 01/17/19 07:00 INR, PTT INR 1.52 (0.83-1.09) H 01/15/19 15:07
--- NOTE | 2019-01-17 14:37 | PN ---
Progress Note (short form) - Note Progress Note: Pt was down in radiology. Labs noted, will change IVF to D51/3 NS sodium remains elevated Will follow Isreal Long DO
[2019-01-17] MEDS: DEXTROSE 5%-1/3 NS - 500 ML IV SCH (16:51)
[2019-01-18] MEDS ORDERED: PIPERACILLIN/TAZOBACTAM 2.25 GM VIAL IVPB ONE ×4 (02:34→21:39)
[2019-01-18] MEDS ORDERED: DEXTROSE 5%-WATER - 50 ML IVPB ONE ×4 (02:35→21:39)
[2019-01-18] MEDS: PIPERACILLIN/TAZOB 2.25 GM 2.25 GM in DEXTROSE 5%-WATER - 50 ML IVPB SCH ×4 (03:00→22:02)
[2019-01-18 07:01] LABS: BASO % 0.2 % (0-2.0); EOS % 1.1 % (0-4.5); HEMATOCRIT 40.3 % (35.4-49); HEMOGLOBIN 13.3 GM/dL (11.7-16.9); LYMPH % 13.1 % (8-40); MCHC 33.1 g/dl (32.0-35.9); MEAN CELL VOLUME 87.8 fl (80-96); MEAN PLT VOLUME 9.5 fl (7.5-11.1); MONO % 8.2 % (3.8-10.2); NEUT % 77.4 % (42.8-82.8); PLATELET COUNT 218 K/MM3 (134-434); RBC 4.59 M/mm3 (4.00-5.60); RDW 14.3 % (11.9-15.9); WHITE BLOOD COUNT 12.9 K/mm3 (4.0-10.0)
[2019-01-18 07:12] LABS: BLOOD UREA NITROGEN 68.3 mg/dL (7-18); CALCIUM 8.5 mg/dL (8.5-10.1); CREATININE 2.1 mg/dL (0.55-1.3); POTASSIUM 3.7 mmol/L (3.5-5.1)
--- NOTE | 2019-01-18 08:56 | PN ---
Progress Note, Physician Chief Complaint: Remained at his base line MS more alert communicating with simple sentences - Current Medication List Current Medications: Active Medications Acetaminophen (Tylenol -) 650 mg PO PRN PRN PRN Reason: PAIN Heparin Sodium (Porcine) (Heparin -) 5,000 unit SQ BID [facility] Last Admin: 01/17/19 22:01 Dose: 5,000 unit Piperacillin Sod/Tazobactam (Sod 2.25 gm/ Dextrose) 50 mls @ 100 mls/hr IVPB Q6H-IV [facility]; Protocol Last Admin: 01/18/19 03:00 Dose: 100 mls/hr Dextrose/Sodium Chloride (D5-1/3ns -) 500 mls @ 83 mls/hr IV [facility] Last Admin: 01/17/19 16:51 Dose: 83 mls/hr Pantoprazole Sodium (Protonix Iv) 40 mg IVPUSH DAILY [facility] Last Admin: 01/17/19 11:45 Dose: 40 mg - Objective Vital Signs: Vital Signs Temperature 98.2 F 01/18/19 06:00 Pulse Rate 71 01/18/19 06:00 Respiratory Rate 20 01/18/19 06:00 Blood Pressure 127/84 01/18/19 06:00 O2 Sat by Pulse Oximetry (%) 95 01/17/19 21:00 Elderly F confused HEENT: Mm dry , no anemia, atraumatic NECK: No JVd No Bruit CHEST: Crepts + CVS: Tachycardia ABD: No distention, non tender EXT: Trace edema 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 moving 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 Labs: CBC, BMP 01/18/19 06:00 01/18/19 06:00 INR, PTT INR 1.52 (0.83-1.09) H 01/15/19 15:07 Intake & Output 01/17/19 01/18/19 01/18/19 23:59 07:59 15:59 Intake Total 714 465 Balance 714 465 - ....Imaging Ultrasound: Report Reviewed (No Hydronephrosis) Problem List - Problems (1) Toxic metabolic encephalopathy Assessment/Plan: Due to sepsis Hypernatremia and dehydration with Uremia improving, cont Hydration, IV abx , serial labs and F CT head Code(s): G92 - TOXIC ENCEPHALOPATHY (2) Sepsis due to pneumonia Assessment/Plan: Rt Ll infitrate with elevated TWBC, altered mental status from base line, high Lactic acid patient is in sepsis cont IV Hydration, Id consult, swallow evaluation, cont Zosyn and Vancomycin as per ID Code(s): J18.9 - PNEUMONIA, UNSPECIFIED ORGANISM; A41.9 - SEPSIS, UNSPECIFIED ORGANISM (3) Dehydration Assessment/Plan: Improving Poor Po intake and sepsis cont IV Hydration f/u BMP (4) GRACE (acute kidney injury) Assessment/Plan: Due to sepsis and Dehydration IV Hydration with D5 N serial BMP, Foleys, IP/OP chart, Nephrology input. Code(s): N17.9 - ACUTE KIDNEY FAILURE, UNSPECIFIED (5) Hypernatremia Assessment/Plan: Due to poor Po intake dehydration IV D5 1/3 NS F/U BMP Code(s): E87.0 - HYPEROSMOLALITY AND HYPERNATREMIA (6) Dementia Assessment/Plan: chronic Code(s): F03.90 - UNSPECIFIED DEMENTIA WITHOUT BEHAVIORAL DISTURBANCE (7) Goals of care, counseling/discussion Assessment/Plan: patient has advanced Dementia ,called nok couldnt reach will re attempt, pallitive care consult. Code(s): Z71.89 - OTHER SPECIFIED COUNSELING
[2019-01-18] MEDS: PANTOPRAZOLE SODIUM 40 MG VIAL IVPUSH SCH (10:52)
[2019-01-18] MEDS: DEXTROSE 5%-1/3 NS - 500 ML IV SCH (10:52)
[2019-01-18] MEDS: HEPARIN NA (PORCINE) 5,000 UNITS/ML 1ML VIAL SQ SCH ×2 (10:52→22:03)
[2019-01-18] MEDS: DEXTROSE 5%-WATER - 1,000 ML IV SCH (11:45)
--- NOTE | 2019-01-18 12:58 | PN ---
Progress Note (short form) - Note Progress Note: Renal follow up for GRACE and Hypernatremia Pts seen and examined at the bedside awake and alert confused no overnight events on IVF Vital Signs Temperature 98.2 F 01/18/19 06:00 Pulse Rate 71 01/18/19 06:00 Respiratory Rate 20 01/18/19 09:00 Blood Pressure 127/84 01/18/19 06:00 O2 Sat by Pulse Oximetry (%) 92 L 01/18/19 09:00 Intake & Output 01/15/19 01/16/19 01/17/19 01/18/19 23:59 23:59 23:59 23:59 Intake Total 900 2825 814 465 Output Total 500 300 900 Balance 400 2525 -86 465 Weight 75.387 kg 75.296 kg NAD awake and alert confused dry MM poor dentition RRR CTA soft NT/ND, no bladder distension No LE edema, clubbing or cyanosis no bladder distension CBC, BMP 01/18/19 06:00 01/18/19 06:00 Current Medications Acetaminophen (Tylenol -) 650 mg PO PRN PRN PRN Reason: PAIN Heparin Sodium (Porcine) (Heparin -) 5,000 unit SQ BID [facility] Last Admin: 01/18/19 10:52 Dose: 5,000 unit Piperacillin Sod/Tazobactam (Sod 2.25 gm/ Dextrose) 50 mls @ 100 mls/hr IVPB Q6H-IV [facility]; Protocol Last Admin: 01/18/19 10:51 Dose: 100 mls/hr Dextrose (D5w -) 1,000 mls @ 120 mls/hr IV .Q8H [facility] Last Admin: 01/18/19 11:45 Dose: 120 mls/hr Pantoprazole Sodium (Protonix Iv) 40 mg IVPUSH DAILY [facility] Last Admin: 01/18/19 10:52 Dose: 40 mg 88 year old gentleman with history of advanced dementia, DVT, Recent UTI and PNA presented with lethargy and worsening renal function. #GRACE #Hypernatremia #Metabolic acidosis #Sepsis #PNA/Aspiration PNA Renal function is improved, no overt hypotension will change IVF to D5W at 120cc per hour Repeat BMp this evening Isreal Long DO
--- NOTE | 2019-01-18 13:05 | PN ---
Progress Note, VINEYARDIST - Note Progress Note: Selected Entries 01/17/19 01/17/19 01/17/19 06:00 14:00 17:00 Supper NPO Temperature 97.0 F L 97.6 F 01/17/19 01/18/19 20:45 06:00 Supper Temperature 97.5 F L 98.2 F Laboratory Tests 01/15/19 01/16/19 01/17/19 15:07 05:30 07:00 WBC 30.1 H* 25.5 H 16.9 H 01/18/19 06:00 WBC 12.9 H Pt refused MBS yesterday. NPO. Attempted to reassess swallowing function. Tongue coated. Resistent to care. Adamently refused any PO trials. Consider: Trial of puree/nectar if pt accepts, Magic cup, 2calHN, PEG insertion? Palliative care consult regarding pt's wishes. Pt is a full code.
--- NOTE | 2019-01-18 13:18 | PN ---
Progress Note, Physician History of Present Illness: stale looks much better refusing to eat still did not allow ba swallow - Current Medication List Current Medications: Active Medications Acetaminophen (Tylenol -) 650 mg PO PRN PRN PRN Reason: PAIN Heparin Sodium (Porcine) (Heparin -) 5,000 unit SQ BID [facility] Last Admin: 01/18/19 10:52 Dose: 5,000 unit Piperacillin Sod/Tazobactam (Sod 2.25 gm/ Dextrose) 50 mls @ 100 mls/hr IVPB Q6H-IV [facility]; Protocol Last Admin: 01/18/19 10:51 Dose: 100 mls/hr Dextrose (D5w -) 1,000 mls @ 120 mls/hr IV .Q8H [facility] Last Admin: 01/18/19 11:45 Dose: 120 mls/hr Pantoprazole Sodium (Protonix Iv) 40 mg IVPUSH DAILY [facility] Last Admin: 01/18/19 10:52 Dose: 40 mg - Objective Vital Signs: Vital Signs Temperature 98.2 F 01/18/19 06:00 Pulse Rate 71 01/18/19 06:00 Respiratory Rate 20 01/18/19 09:00 Blood Pressure 127/84 01/18/19 06:00 O2 Sat by Pulse Oximetry (%) 92 L 01/18/19 09:00 Constitutional: Yes: No Distress, Calm Cardiovascular: Yes: S1, S2 Respiratory: Yes: Regular, Poor Air Entry Gastrointestinal: Yes: Normal Bowel Sounds, Soft Musculoskeletal: Yes: WNL Extremities: Yes: WNL Neurological: Yes: Alert, Oriented Psychiatric: Yes: Alert, Oriented Labs: CBC, BMP 01/18/19 06:00 01/18/19 06:00 INR, PTT INR 1.52 (0.83-1.09) H 01/15/19 15:07 Assessment/Plan Problem List - Problems (1) GRACE (acute kidney injury) Code(s): N17.9 - ACUTE KIDNEY FAILURE, UNSPECIFIED (2) Sepsis due to pneumonia Code(s): J18.9 - PNEUMONIA, UNSPECIFIED ORGANISM; A41.9 - SEPSIS, UNSPECIFIED ORGANISM (3) Altered mental status Code(s): R41.82 - ALTERED MENTAL STATUS, UNSPECIFIED (4) Alzheimer's dementia Code(s): G30.9 - ALZHEIMER'S DISEASE, UNSPECIFIED (5) Urinary tract infection Code(s): N39.0 - URINARY TRACT INFECTION, SITE NOT SPECIFIED Qualifiers: Urinary tract infection type: site unspecified Hematuria presence: without hematuria Qualified Code(s): N39.0 - Urinary tract infection, site not specified Assessment/Plan 88 y.o. male with PMH of Alzheimer's dementia and DVT and s/p recent treatment for UTI/PNA with clinical improvement on Levaquin presents with lethargy, cough , tachycardia, hypoxia, leukocytosis, renal impairment, and elevated lactic acid level Sepsis PNA/ Possible Aspiration Possible UTI GRACE Lethargy Hx of DVT Dementia plan continue zosyn nutrition patient has a very poor dental hygeine should get a dentist if possible oral mouth wash oral hygiene
[2019-01-18] MEDS: NYSTATIN 500,000 UNITS/5 ML SUSPENSION PO SCH (17:08)
[2019-01-18 18:56] LABS: BLOOD UREA NITROGEN 61.4 mg/dL (7-18); CALCIUM 8.5 mg/dL (8.5-10.1); POTASSIUM 3.6 mmol/L (3.5-5.1)
[2019-01-19] MEDS: NYSTATIN 500,000 UNITS/5 ML SUSPENSION PO SCH ×4 (00:11→17:52)
[2019-01-19] MEDS ORDERED: PIPERACILLIN/TAZOBACTAM 2.25 GM VIAL IVPB ONE ×2 (02:55→07:59)
[2019-01-19] MEDS ORDERED: DEXTROSE 5%-WATER - 50 ML IVPB ONE ×2 (02:55→07:59)
[2019-01-19] MEDS: PIPERACILLIN/TAZOB 2.25 GM 2.25 GM in DEXTROSE 5%-WATER - 50 ML IVPB SCH ×2 (02:56→10:54)
[2019-01-19 06:51] LABS: BASO % 0.3 % (0-2.0); EOS % 1.5 % (0-4.5); HEMATOCRIT 38.3 % (35.4-49); HEMOGLOBIN 12.9 GM/dL (11.7-16.9); LYMPH % 13.9 % (8-40); MCH 29.2 pg (25.7-33.7); MCHC 33.8 g/dl (32.0-35.9); MEAN CELL VOLUME 86.2 fl (80-96); MEAN PLT VOLUME 9.1 fl (7.5-11.1); MONO % 9.6 % (3.8-10.2); NEUT % 74.7 % (42.8-82.8); PLATELET COUNT 170 K/MM3 (134-434); RBC 4.44 M/mm3 (4.00-5.60); RDW 14.1 % (11.9-15.9)
[2019-01-19 07:09] LABS: BLOOD UREA NITROGEN 51.8 mg/dL (7-18); CALCIUM 7.9 mg/dL (8.5-10.1); CREATININE 1.8 mg/dL (0.55-1.3); POTASSIUM 3.5 mmol/L (3.5-5.1)
--- NOTE | 2019-01-19 10:49 | PN ---
Progress Note, CHEMISTRY PHYSICS TEACHER - Note Progress Note: Selected Entries 01/17/19 01/17/19 01/17/19 06:00 14:00 17:00 Supper NPO Temperature 97.0 F L 97.6 F 01/17/19 01/18/19 20:45 06:00 Supper Temperature 97.5 F L 98.2 F Laboratory Tests 01/15/19 01/16/19 01/17/19 15:07 05:30 07:00 WBC 30.1 H* 25.5 H 16.9 H 01/18/19 06:00 WBC 12.9 H Selected Entries 01/18/19 01/18/19 01/18/19 06:00 10:00 14:00 Temperature 98.2 F 98.5 F 98.1 F 01/18/19 01/18/19 01/19/19 17:00 20:45 01:00 Temperature 97.8 F 97.3 F L 97.5 F L 01/19/19 06:00 Temperature 97.3 F L Laboratory Tests 01/17/19 01/18/19 01/19/19 07:00 06:00 06:25 WBC 16.9 H 12.9 H 13.0 H NPO order. Consider: Trial of puree/nectar if pt accepts, Magic cup, 2calHN, if pt will accept. PEG insertion? Palliative care consult regarding pt's wishes. Pt is a full code.
[2019-01-19] MEDS: DEXTROSE 5%-WATER - 1,000 ML IV SCH ×3 (10:55→22:40)
[2019-01-19] MEDS: HEPARIN NA (PORCINE) 5,000 UNITS/ML 1ML VIAL SQ SCH ×2 (10:55→22:39)
[2019-01-19] MEDS: PANTOPRAZOLE SODIUM 40 MG VIAL IVPUSH SCH (10:55)
--- NOTE | 2019-01-19 11:09 | PN ---
Progress Note, Physician History of Present Illness: stable no new issues - Current Medication List Current Medications: Active Medications Acetaminophen (Tylenol -) 650 mg PO PRN PRN PRN Reason: PAIN Heparin Sodium (Porcine) (Heparin -) 5,000 unit SQ BID [facility] Last Admin: 01/19/19 10:55 Dose: 5,000 unit Piperacillin Sod/Tazobactam (Sod 2.25 gm/ Dextrose) 50 mls @ 100 mls/hr IVPB Q6H-IV [facility]; Protocol Last Admin: 01/19/19 10:54 Dose: 100 mls/hr Dextrose (D5w -) 1,000 mls @ 120 mls/hr IV .Q8H [facility] Last Admin: 01/19/19 10:55 Dose: 120 mls/hr Nystatin (Nystatin Oral Suspension -) 500,000 units PO Q6HPO [facility] Last Admin: 01/19/19 07:00 Dose: Not Given Pantoprazole Sodium (Protonix Iv) 40 mg IVPUSH DAILY [facility] Last Admin: 01/19/19 10:55 Dose: 40 mg - Objective Vital Signs: Vital Signs Temperature 97.3 F L 01/19/19 06:00 Pulse Rate 78 01/19/19 06:00 Respiratory Rate 18 01/19/19 06:00 Blood Pressure 118/67 01/19/19 06:00 O2 Sat by Pulse Oximetry (%) 93 L 01/18/19 21:00 Constitutional: Yes: No Distress, Calm Cardiovascular: Yes: S1, S2 Respiratory: Yes: Regular, CTA Bilaterally Gastrointestinal: Yes: Normal Bowel Sounds, Soft Musculoskeletal: Yes: WNL Extremities: Yes: WNL Neurological: Yes: Alert Psychiatric: Yes: Alert Labs: CBC, BMP 01/19/19 06:25 01/19/19 06:25 INR, PTT INR 1.52 (0.83-1.09) H 01/15/19 15:07 Assessment/Plan Problem List - Problems (1) GRACE (acute kidney injury) Code(s): N17.9 - ACUTE KIDNEY FAILURE, UNSPECIFIED (2) Sepsis due to pneumonia Code(s): J18.9 - PNEUMONIA, UNSPECIFIED ORGANISM; A41.9 - SEPSIS, UNSPECIFIED ORGANISM (3) Altered mental status Code(s): R41.82 - ALTERED MENTAL STATUS, UNSPECIFIED (4) Alzheimer's dementia Code(s): G30.9 - ALZHEIMER'S DISEASE, UNSPECIFIED (5) Urinary tract infection Code(s): N39.0 - URINARY TRACT INFECTION, SITE NOT SPECIFIED Qualifiers: Urinary tract infection type: site unspecified Hematuria presence: without hematuria Qualified Code(s): N39.0 - Urinary tract infection, site not specified Assessment/Plan 88 y.o. male with PMH of Alzheimer's dementia and DVT and s/p recent treatment for UTI/PNA with clinical improvement on Levaquin presents with lethargy, cough , tachycardia, hypoxia, leukocytosis, renal impairment, and elevated lactic acid level Sepsis PNA/ Possible Aspiration Possible UTI GRACE Lethargy Hx of DVT Dementia plan cx result noted will change abx to ampicilin patient has a very poor dental hygeine should get a dentist if possible oral mouth wash oral hygiene
[2019-01-19] MEDS: SODIUM BICARBONATE 650 MG TABLET PO SCH (14:55)
--- NOTE | 2019-01-19 15:28 | PN ---
Progress Note (short form) - Note Progress Note: Renal follow up for GRACE and Hypernatremia Pts seen and examined at the bedside awake, confused on IVF no overnight events Vital Signs Temperature 98.2 F 01/18/19 06:00 Pulse Rate 71 01/18/19 06:00 Respiratory Rate 20 01/18/19 09:00 Blood Pressure 127/84 01/18/19 06:00 O2 Sat by Pulse Oximetry (%) 92 L 01/18/19 09:00 Intake & Output 01/15/19 01/16/19 01/17/19 01/18/19 23:59 23:59 23:59 23:59 Intake Total 900 2825 814 465 Output Total 500 300 900 Balance 400 2525 -86 465 Weight 75.387 kg 75.296 kg NAD awake and alert confused RRR CTA soft NT/ND, no bladder distension No LE edema, clubbing or cyanosis CBC, BMP 01/19/19 06:25 01/19/19 06:25 Current Medications Acetaminophen (Tylenol -) 650 mg PO PRN PRN PRN Reason: PAIN Heparin Sodium (Porcine) (Heparin -) 5,000 unit SQ BID [facility] Last Admin: 01/19/19 10:55 Dose: 5,000 unit Ampicillin Sodium 1 gm/ Sodium (Chloride) 100 mls @ 200 mls/hr IVPB Q8H-IV [facility] ; Protocol Dextrose (D5w -) 1,000 mls @ 140 mls/hr IV Q8H [facility] Nystatin (Nystatin Oral Suspension -) 500,000 units PO Q6HPO [facility] Last Admin: 01/19/19 12:55 Dose: 500,000 units Pantoprazole Sodium (Protonix Iv) 40 mg IVPUSH DAILY [facility] Last Admin: 01/19/19 10:55 Dose: 40 mg Sodium Bicarbonate (Sodium Bicarbonate -) 650 mg PO DAILY [facility] Last Admin: 01/19/19 14:55 Dose: Not Given 88 year old gentleman with history of advanced dementia, DVT, Recent UTI and PNA presented with lethargy and worsening renal function. #GRACE #Hypernatremia #Metabolic acidosis #Sepsis #PNA/Aspiration PNA Serum Na improved by 5 in 24 hours Increase D5W rate to 140cc per hour oral fluid intake as tolerated start sodium bicarbonate 650mg Daily Trend Na daily Isreal Long DO
--- NOTE | 2019-01-19 17:43 | PN ---
Progress Note, Physician Chief Complaint: Remained at his base line MS more alert communicating with simple sentences - Current Medication List Current Medications: Active Medications Acetaminophen (Tylenol -) 650 mg PO PRN PRN PRN Reason: PAIN Heparin Sodium (Porcine) (Heparin -) 5,000 unit SQ BID [facility] Last Admin: 01/19/19 10:55 Dose: 5,000 unit Ampicillin Sodium 1 gm/ Sodium (Chloride) 100 mls @ 200 mls/hr IVPB Q8H-IV [facility] ; Protocol Last Admin: 01/19/19 16:24 Dose: 200 mls/hr Dextrose (D5w -) 1,000 mls @ 140 mls/hr IV Q8H [facility] Last Admin: 01/19/19 16:12 Dose: 140 mls/hr Nystatin (Nystatin Oral Suspension -) 500,000 units PO Q6HPO [facility] Last Admin: 01/19/19 12:55 Dose: 500,000 units Pantoprazole Sodium (Protonix Iv) 40 mg IVPUSH DAILY [facility] Last Admin: 01/19/19 10:55 Dose: 40 mg Sodium Bicarbonate (Sodium Bicarbonate -) 650 mg PO DAILY [facility] Last Admin: 01/19/19 14:55 Dose: Not Given - Objective Vital Signs: Vital Signs Temperature 98.2 F 01/19/19 14:10 Pulse Rate 74 01/19/19 14:10 Respiratory Rate 16 01/19/19 14:10 Blood Pressure 122/52 L 01/19/19 14:10 O2 Sat by Pulse Oximetry (%) 94 L 01/19/19 10:00 Elderly F confused HEENT: Mm dry , no anemia, atraumatic NECK: No JVd No Bruit CHEST: Crepts + CVS: Tachycardia ABD: No distention, non tender EXT: Trace edema 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 moving 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 Labs: CBC, BMP 01/19/19 06:25 01/19/19 06:25 INR, PTT INR 1.52 (0.83-1.09) H 01/15/19 15:07 Problem List - Problems (1) Toxic metabolic encephalopathy Assessment/Plan: Due to sepsis Hypernatremia and dehydration with Uremia improving, cont Hydration, IV abx , serial labs and F CT head Code(s): G92 - TOXIC ENCEPHALOPATHY (2) Sepsis due to pneumonia Assessment/Plan: Rt Ll infitrate with elevated TWBC, altered mental status from base line, high Lactic acid patient is in sepsis cont IV Hydration, Id consult, swallow evaluation, cont Zosyn and Vancomycin as per ID Code(s): J18.9 - PNEUMONIA, UNSPECIFIED ORGANISM; A41.9 - SEPSIS, UNSPECIFIED ORGANISM (3) Dehydration Assessment/Plan: Improving Poor Po intake and sepsis cont IV Hydration f/u BMP (4) GRACE (acute kidney injury) Assessment/Plan: Due to sepsis and Dehydration IV Hydration with D5 N serial BMP, Foleys, IP/OP chart, Nephrology input. Code(s): N17.9 - ACUTE KIDNEY FAILURE, UNSPECIFIED (5) Hypernatremia Assessment/Plan: Due to poor Po intake dehydration IV D5 1/3 NS F/U BMP Code(s): E87.0 - HYPEROSMOLALITY AND HYPERNATREMIA (6) Dementia Assessment/Plan: chronic Code(s): F03.90 - UNSPECIFIED DEMENTIA WITHOUT BEHAVIORAL DISTURBANCE (7) Goals of care, counseling/discussion Assessment/Plan: patient has advanced Dementia ,called nok couldnt reach will re attempt, pallitive care consult. Code(s): Z71.89 - OTHER SPECIFIED COUNSELING
[2019-01-19] MEDS: AMPICILLIN - 1 GM in SODIUM CHLORIDE 100 ML IVPB SCH ×2 (17:45→18:02)
[2019-01-20] MEDS: AMPICILLIN - 1 GM in SODIUM CHLORIDE 100 ML IVPB SCH ×3 (03:15→17:37)
[2019-01-20] MEDS: NYSTATIN 500,000 UNITS/5 ML SUSPENSION PO SCH ×5 (03:48→23:59)
[2019-01-20 07:16] LABS: BASO % 0.2 % (0-2.0); EOS % 2.7 % (0-4.5); HEMATOCRIT 38.8 % (35.4-49); HEMOGLOBIN 12.9 GM/dL (11.7-16.9); LYMPH % 14.5 % (8-40); MCH 28.8 pg (25.7-33.7); MCHC 33.3 g/dl (32.0-35.9); MEAN CELL VOLUME 86.3 fl (80-96); MEAN PLT VOLUME 9.6 fl (7.5-11.1); MONO % 9.4 % (3.8-10.2); NEUT % 73.2 % (42.8-82.8); PLATELET COUNT 143 K/MM3 (134-434); RBC 4.49 M/mm3 (4.00-5.60); WHITE BLOOD COUNT 13.5 K/mm3 (4.0-10.0)
[2019-01-20 07:28] LABS: BLOOD UREA NITROGEN 35.4 mg/dL (7-18); CALCIUM 7.9 mg/dL (8.5-10.1); CREATININE 1.3 mg/dL (0.55-1.3); POTASSIUM 3.5 mmol/L (3.5-5.1)
[2019-01-20] MEDS: DEXTROSE 5%-WATER - 1,000 ML IV SCH ×3 (07:42→22:28)
--- NOTE | 2019-01-20 09:00 | PN ---
Progress Note, Physician Chief Complaint: Remained at his base line MS more alert communicating with simple sentences - Current Medication List Current Medications: Active Medications Acetaminophen (Tylenol -) 650 mg PO PRN PRN PRN Reason: PAIN Heparin Sodium (Porcine) (Heparin -) 5,000 unit SQ BID [facility] Last Admin: 01/19/19 22:39 Dose: 5,000 unit Ampicillin Sodium 1 gm/ Sodium (Chloride) 100 mls @ 200 mls/hr IVPB Q8H-IV [facility] ; Protocol Last Admin: 01/20/19 03:15 Dose: 200 mls/hr Dextrose (D5w -) 1,000 mls @ 140 mls/hr IV Q8H [facility] Last Admin: 01/20/19 07:42 Dose: Not Given Nystatin (Nystatin Oral Suspension -) 500,000 units PO Q6HPO [facility] Last Admin: 01/20/19 06:22 Dose: 500,000 units Pantoprazole Sodium (Protonix Iv) 40 mg IVPUSH DAILY [facility] Last Admin: 01/19/19 10:55 Dose: 40 mg Sodium Bicarbonate (Sodium Bicarbonate -) 650 mg PO DAILY [facility] Last Admin: 01/19/19 14:55 Dose: Not Given - Objective Vital Signs: Vital Signs Temperature 98.0 F 01/20/19 08:50 Pulse Rate 88 01/20/19 08:50 Respiratory Rate 20 01/20/19 08:53 Blood Pressure 132/56 L 01/20/19 08:50 O2 Sat by Pulse Oximetry (%) 94 L 01/20/19 08:53 Elderly F confused HEENT: Mm dry , no anemia, atraumatic NECK: No JVd No Bruit CHEST: Crepts + CVS: Tachycardia ABD: No distention, non tender EXT: Trace edema PERSONNEL ADVISER: Confused moving 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 Labs: CBC, BMP 01/20/19 06:24 01/20/19 06:24 INR, PTT INR 1.52 (0.83-1.09) H 01/15/19 15:07 Problem List - Problems (1) Toxic metabolic encephalopathy Assessment/Plan: Due to sepsis Hypernatremia and dehydration with Uremia improving, cont Hydration, IV abx , serial labs and F CT head Code(s): G92 - TOXIC ENCEPHALOPATHY (2) Sepsis due to pneumonia Assessment/Plan: Rt Ll infitrate with elevated TWBC, altered mental status from base line, high Lactic acid patient is in sepsis cont IV Hydration, Id consult, swallow evaluation, cont Zosyn and Vancomycin as per ID Code(s): J18.9 - PNEUMONIA, UNSPECIFIED ORGANISM; A41.9 - SEPSIS, UNSPECIFIED ORGANISM (3) Dehydration Assessment/Plan: Improving Poor Po intake and sepsis cont IV Hydration f/u BMP (4) GRACE (acute kidney injury) Assessment/Plan: Due to sepsis and Dehydration IV Hydration with D5 N serial BMP, Foleys, IP/OP chart, Nephrology input. Code(s): N17.9 - ACUTE KIDNEY FAILURE, UNSPECIFIED (5) Hypernatremia Assessment/Plan: Due to poor Po intake dehydration IV D5 1/3 NS F/U BMP Code(s): E87.0 - HYPEROSMOLALITY AND HYPERNATREMIA (6) Dementia Assessment/Plan: chronic Code(s): F03.90 - UNSPECIFIED DEMENTIA WITHOUT BEHAVIORAL DISTURBANCE (7) Goals of care, counseling/discussion Assessment/Plan: patient has advanced Dementia ,called nok couldnt reach will re attempt, pallitive care consult. Code(s): Z71.89 - OTHER SPECIFIED COUNSELING
--- NOTE | 2019-01-20 09:53 | PN ---
Progress Note, Physician - Current Medication List Current Medications: Active Medications Acetaminophen (Tylenol -) 650 mg PO PRN PRN PRN Reason: PAIN Heparin Sodium (Porcine) (Heparin -) 5,000 unit SQ BID [facility] Last Admin: 01/19/19 22:39 Dose: 5,000 unit Ampicillin Sodium 1 gm/ Sodium (Chloride) 100 mls @ 200 mls/hr IVPB Q8H-IV [facility] ; Protocol Last Admin: 01/20/19 03:15 Dose: 200 mls/hr Dextrose (D5w -) 1,000 mls @ 140 mls/hr IV Q8H [facility] Last Admin: 01/20/19 07:42 Dose: Not Given Nystatin (Nystatin Oral Suspension -) 500,000 units PO Q6HPO [facility] Last Admin: 01/20/19 06:22 Dose: 500,000 units Pantoprazole Sodium (Protonix Iv) 40 mg IVPUSH DAILY [facility] Last Admin: 01/19/19 10:55 Dose: 40 mg Sodium Bicarbonate (Sodium Bicarbonate -) 650 mg PO DAILY [facility] Last Admin: 01/19/19 14:55 Dose: Not Given - Objective Vital Signs: Vital Signs Temperature 98.0 F 01/20/19 08:50 Pulse Rate 88 01/20/19 08:50 Respiratory Rate 20 01/20/19 08:53 Blood Pressure 132/56 L 01/20/19 08:50 O2 Sat by Pulse Oximetry (%) 94 L 01/20/19 08:53 Labs: CBC, BMP 01/20/19 06:24 01/20/19 06:24 INR, PTT INR 1.52 (0.83-1.09) H 01/15/19 15:07
[2019-01-20] MEDS: PANTOPRAZOLE SODIUM 40 MG VIAL IVPUSH SCH (10:06)
[2019-01-20] MEDS: SODIUM BICARBONATE 650 MG TABLET PO SCH (10:06)
[2019-01-20] MEDS: HEPARIN NA (PORCINE) 5,000 UNITS/ML 1ML VIAL SQ SCH ×2 (10:07→22:27)
[2019-01-20] MEDS ORDERED: PT OWN MED DRAWER 7, Y5N ONE ×2 (11:23→16:32)
--- NOTE | 2019-01-20 12:12 | PN ---
Progress Note, AFFIRMATIVE ACTION SPECIALIST - Note Progress Note: Selected Entries 01/17/19 01/17/19 01/17/19 06:00 14:00 17:00 Supper NPO Temperature 97.0 F L 97.6 F 01/17/19 01/18/19 20:45 06:00 Supper Temperature 97.5 F L 98.2 F Laboratory Tests 01/15/19 01/16/19 01/17/19 15:07 05:30 07:00 WBC 30.1 H* 25.5 H 16.9 H 01/18/19 06:00 WBC 12.9 H Selected Entries 01/18/19 01/18/19 01/18/19 06:00 10:00 14:00 Temperature 98.2 F 98.5 F 98.1 F 01/18/19 01/18/19 01/19/19 17:00 20:45 01:00 Temperature 97.8 F 97.3 F L 97.5 F L 01/19/19 06:00 Temperature 97.3 F L Laboratory Tests 01/17/19 01/18/19 01/19/19 07:00 06:00 06:25 WBC 16.9 H 12.9 H 13.0 H Selected Entries 01/19/19 01/19/19 01/19/19 01:00 06:00 10:00 Breakfast Diet Tolerated Lunch Supper Temperature 97.5 F L 97.3 F L 98 F 01/19/19 01/19/19 01/19/19 14:10 15:21 18:00 Breakfast NPO Diet Tolerated Lunch NPO Supper NPO Temperature 98.2 F 97.7 F 01/19/19 01/20/19 01/20/19 21:00 02:00 06:00 Breakfast Diet Tolerated Lunch Supper Temperature 97.2 F L 96.5 F L 98.0 F 01/20/19 01/20/19 08:50 10:36 Breakfast 0 Diet Tolerated Refused Lunch Supper Temperature 98.0 F Laboratory Tests 01/18/19 01/19/19 01/20/19 06:00 06:25 06:24 WBC 12.9 H 13.0 H 13.5 H Pt refusing PO trials. Trial of puree/nectar if pt accepts, Magic cup, 2calHN, as accepted. PEG insertion? Palliative care consult following regarding pt's wishes. Pt is a full code.
[2019-01-21] MEDS ORDERED: PT OWN MED DRAWER 7, Y5N ONE ×2 (01:33→17:04)
[2019-01-21] MEDS: AMPICILLIN - 1 GM in SODIUM CHLORIDE 100 ML IVPB SCH ×3 (01:36→17:19)
[2019-01-21] MEDS: NYSTATIN 500,000 UNITS/5 ML SUSPENSION PO SCH ×3 (06:20→17:20)
[2019-01-21 07:48] LABS: BASO % 0.3 % (0-2.0); EOS % 2.9 % (0-4.5); HEMATOCRIT 40.1 % (35.4-49); HEMOGLOBIN 13.2 GM/dL (11.7-16.9); LYMPH % 13.3 % (8-40); MCH 28.2 pg (25.7-33.7); MCHC 32.9 g/dl (32.0-35.9); MEAN CELL VOLUME 85.8 fl (80-96); MEAN PLT VOLUME 9.6 fl (7.5-11.1); MONO % 8.8 % (3.8-10.2); NEUT % 74.7 % (42.8-82.8); PLATELET COUNT 146 K/MM3 (134-434); RBC 4.68 M/mm3 (4.00-5.60); RDW 13.8 % (11.9-15.9); WHITE BLOOD COUNT 13.4 K/mm3 (4.0-10.0)
[2019-01-21 08:15] LABS: BLOOD UREA NITROGEN 21.3 mg/dL (7-18); CALCIUM 7.7 mg/dL (8.5-10.1); PHOSPHOROUS 1.7 mg/dL (2.5-4.9); POTASSIUM 3.2 mmol/L (3.5-5.1)
--- NOTE | 2019-01-21 10:14 | PN ---
Progress Note, Physician History of Present Illness: no new issues appetite very poor oral hygeine poor - Current Medication List Current Medications: Active Medications Acetaminophen (Tylenol -) 650 mg PO PRN PRN PRN Reason: PAIN Heparin Sodium (Porcine) (Heparin -) 5,000 unit SQ BID [facility] Last Admin: 01/20/19 22:27 Dose: 5,000 unit Ampicillin Sodium 1 gm/ Sodium (Chloride) 100 mls @ 200 mls/hr IVPB Q8H-IV [facility] ; Protocol Last Admin: 01/21/19 01:36 Dose: 200 mls/hr Dextrose (D5w -) 1,000 mls @ 140 mls/hr IV Q8H [facility] Last Admin: 01/20/19 22:28 Dose: 140 mls/hr Nystatin (Nystatin Oral Suspension -) 500,000 units PO Q6HPO [facility] Last Admin: 01/21/19 06:20 Dose: Not Given Pantoprazole Sodium (Protonix Iv) 40 mg IVPUSH DAILY [facility] Last Admin: 01/20/19 10:06 Dose: 40 mg Sodium Bicarbonate (Sodium Bicarbonate -) 650 mg PO DAILY [facility] Last Admin: 01/20/19 10:06 Dose: 650 mg - Objective Vital Signs: Vital Signs Temperature 97.1 F L 01/21/19 08:53 Pulse Rate 72 01/21/19 08:53 Respiratory Rate 18 01/21/19 08:55 Blood Pressure 105/59 L 01/21/19 08:53 O2 Sat by Pulse Oximetry (%) 93 L 01/21/19 08:55 Constitutional: Yes: No Distress, Calm Cardiovascular: Yes: S1, S2 Respiratory: Yes: Regular, CTA Bilaterally Gastrointestinal: Yes: Normal Bowel Sounds, Soft Musculoskeletal: Yes: WNL Extremities: Yes: WNL Neurological: Yes: Alert, Oriented Psychiatric: Yes: Alert, Oriented Labs: CBC, BMP 01/21/19 06:19 01/21/19 06:37 INR, PTT INR 1.52 (0.83-1.09) H 01/15/19 15:07 Assessment/Plan Problem List - Problems (1) GRACE (acute kidney injury) Code(s): N17.9 - ACUTE KIDNEY FAILURE, UNSPECIFIED (2) Sepsis due to pneumonia Code(s): J18.9 - PNEUMONIA, UNSPECIFIED ORGANISM; A41.9 - SEPSIS, UNSPECIFIED ORGANISM (3) Altered mental status Code(s): R41.82 - ALTERED MENTAL STATUS, UNSPECIFIED (4) Alzheimer's dementia Code(s): G30.9 - ALZHEIMER'S DISEASE, UNSPECIFIED (5) Urinary tract infection Code(s): N39.0 - URINARY TRACT INFECTION, SITE NOT SPECIFIED Qualifiers: Urinary tract infection type: site unspecified Hematuria presence: without hematuria Qualified Code(s): N39.0 - Urinary tract infection, site not specified Assessment/Plan 88 y.o. male with PMH of Alzheimer's dementia and DVT and s/p recent treatment for UTI/PNA with clinical improvement on Levaquin presents with lethargy, cough , tachycardia, hypoxia, leukocytosis, renal impairment, and elevated lactic acid level Sepsis PNA/ Possible Aspiration Possible UTI GRACE Lethargy Hx of DVT Dementia plan cx result noted can change to to oral if patien can take it consider peg oral hygiene
[2019-01-21] MEDS: SODIUM BICARBONATE 650 MG TABLET PO SCH ×2 (10:32→11:04)
[2019-01-21] MEDS: HEPARIN NA (PORCINE) 5,000 UNITS/ML 1ML VIAL SQ SCH ×2 (10:32→21:38)
[2019-01-21] MEDS: PANTOPRAZOLE SODIUM 40 MG VIAL IVPUSH SCH (10:32)
[2019-01-21] MEDS: DEXTROSE 5%-WATER - 1,000 ML IV SCH ×2 (10:33→15:27)
--- NOTE | 2019-01-21 11:21 | PN ---
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 Pt is confused. Pt is followed by Palliative care. Consideration of PEG insertion addressed.
--- NOTE | 2019-01-21 14:40 | PN ---
Progress Note (short form) - Note Progress Note: Renal follow up for GRACE and Hypernatremia Pts seen and examined at the bedside awake and alert remains confused no overnight events on IVF Vital Signs Temperature 97.1 F L 01/21/19 08:53 Pulse Rate 72 01/21/19 08:53 Respiratory Rate 18 01/21/19 08:55 Blood Pressure 105/59 L 01/21/19 08:53 O2 Sat by Pulse Oximetry (%) 93 L 01/21/19 08:55 Intake & Output 01/18/19 01/19/19 01/20/19 01/21/19 23:59 23:59 23:59 23:59 Intake Total 1770 3400 1540 Output Total 6905 469 7347 Balance 670 -600 1900 1540 NAD awake and alert confused RRR CTA soft NT/ND, no bladder distension No LE edema, clubbing or cyanosis CBC, BMP 01/21/19 06:19 01/21/19 06:37 Current Medications Acetaminophen (Tylenol -) 650 mg PO PRN PRN PRN Reason: PAIN Heparin Sodium (Porcine) (Heparin -) 5,000 unit SQ BID [facility] Last Admin: 01/21/19 10:32 Dose: 5,000 unit Ampicillin Sodium 1 gm/ Sodium (Chloride) 100 mls @ 200 mls/hr IVPB Q8H-IV [facility] ; Protocol Last Admin: 01/21/19 10:31 Dose: 200 mls/hr Dextrose (D5w -) 1,000 mls @ 140 mls/hr IV Q8H [facility] Last Admin: 01/21/19 10:33 Dose: 140 mls/hr Nystatin (Nystatin Oral Suspension -) 500,000 units PO Q6HPO [facility] Last Admin: 01/21/19 12:08 Dose: Not Given Pantoprazole Sodium (Protonix Iv) 40 mg IVPUSH DAILY [facility] Last Admin: 01/21/19 10:32 Dose: 40 mg Sodium Bicarbonate (Sodium Bicarbonate -) 650 mg PO DAILY [facility] Last Admin: 01/21/19 11:04 Dose: Not Given 88 year old gentleman with history of advanced dementia, DVT, Recent UTI and PNA presented with lethargy and worsening renal function. #GRACE #Hypernatremia #Metabolic acidosis #Sepsis #PNA/Aspiration PNA Serum Na is now improved to normal limits will discontinue D5W at this time trend Na daily with oral intake alone acidosis is resolved Isreal Long DO
[2019-01-21] MEDS ORDERED: D5-1/2NS+10 MEQ KCL - 10 MEQ/1,000 ML INFUS.BAG IV SCH (19:45)
--- NOTE | 2019-01-21 19:49 | PN ---
Progress Note, Physician Chief Complaint: Alert but confuse at his base line MS - Current Medication List Current Medications: Active Medications Acetaminophen (Tylenol -) 650 mg PO PRN PRN PRN Reason: PAIN Heparin Sodium (Porcine) (Heparin -) 5,000 unit SQ BID [facility] BEDS AT [facility] Last Admin: 01/21/19 10:32 Dose: 5,000 unit Ampicillin Sodium 1 gm/ Sodium (Chloride) 100 mls @ 200 mls/hr IVPB Q8H-IV [facility] ; Protocol Last Admin: 01/21/19 17:19 Dose: 200 mls/hr Potassium Chloride/Dextrose/Sod Cl (D5-1/2ns+10 Meq Kcl -) 1,000 mls @ 100 mls/ hr IV ASDIR [facility] Nystatin (Nystatin Oral Suspension -) 500,000 units PO Q6HPO COUNTS INCLUDE 234 BEDS AT THE [facility] Last Admin: 01/21/19 17:20 Dose: Not Given Pantoprazole Sodium (Protonix Iv) 40 mg IVPUSH DAILY [facility]S [facility]CLUDE 234 BEDS AT THE [facility] Last Admin: 01/21/19 10:32 Dose: 40 mg Sodium Bicarbonate (Sodium Bicarbonate -) 650 mg PO DAILY [facility]S INCLUDE 234 BEDS AT THE [facility] Last Admin: 01/21/19 11:04 Dose: Not Given - Objective Vital Signs: Vital Signs Temperature 97.6 F 01/21/19 18:00 Pulse Rate 67 01/21/19 18:00 Respiratory Rate 18 01/21/19 18:00 Blood Pressure 121/65 01/21/19 18:00 O2 Sat by Pulse Oximetry (%) 93 L 01/21/19 08:55 Elderly F confused HEENT: Mm dry , no anemia, atraumatic NECK: No JVd No Bruit CHEST: Crepts + CVS: Tachycardia ABD: No distention, non tender EXT: Trace edema 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 and 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 Confused moving 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 Labs: CBC, BMP 01/21/19 06:19 01/21/19 06:37 INR, PTT INR 1.52 (0.83-1.09) H 01/15/19 15:07 Problem List - Problems (1) Toxic metabolic encephalopathy Assessment/Plan: Improved now at base line Code(s): G92 - TOXIC ENCEPHALOPATHY (2) Sepsis due to pneumonia Assessment/Plan: Rt Ll infitrate with elevated TWBC, on Unasyn Code(s): J18.9 - PNEUMONIA, UNSPECIFIED ORGANISM; A41.9 - SEPSIS, UNSPECIFIED ORGANISM (3) Dehydration Assessment/Plan: Improving Poor Po intake cont IV Hydration f/u BMP (4) GRACE (acute kidney injury) Assessment/Plan: Due to sepsis and Dehydration improved on IV Hydration Code(s): N17.9 - ACUTE KIDNEY FAILURE, UNSPECIFIED (5) Hypernatremia Assessment/Plan: Due to poor Po intake dehydration improved Code(s): E87.0 - HYPEROSMOLALITY AND HYPERNATREMIA (6) Dementia Assessment/Plan: chronic Code(s): F03.90 - UNSPECIFIED DEMENTIA WITHOUT BEHAVIORAL DISTURBANCE (7) Goals of care, counseling/discussion Assessment/Plan: patient has advanced Dementia no ADSR at [place] poor PO intake refusing food will evaluate for PEG Code(s): Z71.89 - OTHER SPECIFIED COUNSELING
[2019-01-22] MEDS: NYSTATIN 500,000 UNITS/5 ML SUSPENSION PO SCH ×5 (00:31→23:20)
[2019-01-22] MEDS ORDERED: PT OWN MED DRAWER 7, Y5N ONE ×2 (00:58→17:37)
[2019-01-22] MEDS: AMPICILLIN - 1 GM in SODIUM CHLORIDE 100 ML IVPB SCH ×3 (01:13→17:56)
[2019-01-22 07:09] LABS: BASO % 0.2 % (0-2.0); EOS % 3.8 % (0-4.5); LYMPH % 13.3 % (8-40); MCH 29.1 pg (25.7-33.7); MCHC 34.3 g/dl (32.0-35.9); MEAN CELL VOLUME 84.9 fl (80-96); MEAN PLT VOLUME 9.1 fl (7.5-11.1); MONO % 10.2 % (3.8-10.2); NEUT % 72.5 % (42.8-82.8); PLATELET COUNT 131 K/MM3 (134-434); RBC 4.48 M/mm3 (4.00-5.60); RDW 13.8 % (11.9-15.9); WHITE BLOOD COUNT 10.1 K/mm3 (4.0-10.0)
[2019-01-22 07:34] LABS: BLOOD UREA NITROGEN 12.6 mg/dL (7-18); CALCIUM 7.4 mg/dL (8.5-10.1); CREATININE 0.8 mg/dL (0.55-1.3)
[2019-01-22] MEDS: PANTOPRAZOLE SODIUM 40 MG VIAL IVPUSH SCH (12:02)
[2019-01-22] MEDS: HEPARIN NA (PORCINE) 5,000 UNITS/ML 1ML VIAL SQ SCH ×2 (12:02→21:41)
[2019-01-22] MEDS: SODIUM BICARBONATE 650 MG TABLET PO SCH (12:03)
[2019-01-22] MEDS ORDERED: POTASSIUM CHLORIDE ORAL LIQUID 20 MEQ/15 ML PO ONE (12:14)
[2019-01-22 12:28] LABS: ANISOCYTOSIS 0; HELMET CELLS 0; HOWELL-JOLLY BODIES 0; MACROCYTOSIS 0; OVALOCYTE 0; PLATELET ESTIMATE DECREASED; ROULEAU 0; SICKELED CELLS 0; TARGET CELLS 0; TEAR DROP CELLS 0; TOXIC GRANULATION 0
[2019-01-22] MEDS ORDERED: POTASSIUM CHLORIDE 10 MEQ PREMIX IVPB (POTASSIUM RIDER) IVPB SCH (12:30)
[2019-01-22 12:35] LABS: MAGNESIUM 1.7 mg/dL (1.8-2.4)
[2019-01-22] MEDS: KCL 10 MEQ IVPB 10 MEQ/100 ML INFUS.BAG IVPB SCH ×5 (12:54→18:56)
[2019-01-22] MEDS ORDERED: MAGNESIUM SULF 50% (8.12 MEQ/2 ML-1 GM VIAL) IVPB ONE (13:01)
--- NOTE | 2019-01-22 13:01 | PN ---
Progress Note, Physician History of Present Illness: Pt seen and examined at bedside. He is awake and appears comfortable. - Current Medication List Current Medications: Active Medications Acetaminophen (Tylenol -) 650 mg PO PRN PRN PRN Reason: PAIN Heparin Sodium (Porcine) (Heparin -) 5,000 unit SQ BID [facility] Last Admin: 01/22/19 12:02 Dose: 5,000 unit Ampicillin Sodium 1 gm/ Sodium (Chloride) 100 mls @ 200 mls/hr IVPB Q8H-IV [facility] ; Protocol Last Admin: 01/22/19 10:45 Dose: 200 mls/hr Potassium Chloride/Dextrose/Sod Cl (D5-1/2ns+10 Meq Kcl -) 10 meq in 1,000 mls @ 100 mls/hr IV ASDIR [facility] Last Admin: 01/21/19 21:38 Dose: 100 mls/hr Potassium Chloride (Potassium Chloride 10 Meq Premix Ivpb -) 10 meq in 100 mls @ 100 mls/hr IVPB Q1H [facility] Stop: 01/22/19 14:44 Last Admin: 01/22/19 12:54 Dose: 100 mls/hr Nystatin (Nystatin Oral Suspension -) 500,000 units PO Q6HPO [facility] Last Admin: 01/22/19 12:02 Dose: Not Given Pantoprazole Sodium (Protonix Iv) 40 mg IVPUSH DAILY [facility] Last Admin: 01/22/19 12:02 Dose: 40 mg - Objective Vital Signs: Vital Signs Temperature 98.2 F 01/22/19 09:00 Pulse Rate 83 01/22/19 09:00 Respiratory Rate 20 01/22/19 09:00 Blood Pressure 135/94 01/22/19 09:00 O2 Sat by Pulse Oximetry (%) 94 L 01/22/19 09:00 Constitutional: Yes: Calm Eyes: Yes: Conjunctiva Clear HENT: Yes: Atraumatic Neck: Yes: Supple Cardiovascular: Yes: S1, S2 Respiratory: Yes: CTA Bilaterally Gastrointestinal: Yes: Soft Genitourinary: Yes: Donovan Present Musculoskeletal: Yes: Muscle Weakness Edema: No Integumentary: Yes: WNL Neurological: Yes: Confusion Labs: CBC, BMP 01/22/19 06:06 01/22/19 06:06 INR, PTT INR 1.52 (0.83-1.09) H 01/15/19 15:07 Assessment/Plan Current Medications Generic Name Dose Route Start Last Admin Trade Name Lorelei PRN Reason Stop Dose Admin Acetaminophen 650 mg 01/15/19 18:31 Tylenol - PO PRN PRN PAIN Heparin Sodium (Porcine) 5,000 unit 01/15/19 22:00 01/22/19 12:02 Heparin - SQ 5,000 unit BID [facility] Administration Ampicillin Sodium 1 gm/ Sodium 100 mls @ 200 mls/hr 01/19/19 18:00 01/22/19 10:45 Chloride IVPB 200 mls/hr Q8H-IV [facility] Administration Protocol Potassium Chloride/Dextrose/Sod Cl 10 meq in 1,000 mls @ 100 mls/hr 01/21/19 19:45 01/21/19 21:38 D5-1/2ns+10 Meq Kcl - IV 100 mls/hr ASDIR [facility] Administration Potassium Chloride 10 meq in 100 mls @ 100 mls/hr 01/22/19 12:45 01/22/19 12: 54 Potassium Chloride 10 Meq Premix Ivpb - IVPB 01/22/19 14:44 100 mls/hr Q1H [facility] Administration Nystatin 500,000 units 01/18/19 18:00 01/22/19 12:02 Nystatin Oral Suspension - PO Not Given Q6HPO [facility] Pantoprazole Sodium 40 mg 01/16/19 10:00 01/22/19 12:02 Protonix Iv IVPUSH 40 mg DAILY [facility] Administration Laboratory Tests 01/22/19 06:06 Potassium 3.0 L Magnesium 1.7 L #GRACE #Hypernatremia #Metabolic acidosis #Sepsis #PNA/Aspiration PNA #hypokalemia #hypomagnesemia Plan - replace potassium and mag - change fluids to 1/2 and add potassium - can d/c donovan - monitor sodium level - sodium is improving
[2019-01-22] MEDS ORDERED: D5-1/2NS+20 MEQ KCL - 20 MEQ/1,000 ML INFUS.BAG IV SCH (13:15)
--- NOTE | 2019-01-22 13:22 | PN ---
Progress Note, Physician History of Present Illness: still nutrition poor oral hygiene poor - Current Medication List Current Medications: Active Medications Acetaminophen (Tylenol -) 650 mg PO PRN PRN PRN Reason: PAIN Heparin Sodium (Porcine) (Heparin -) 5,000 unit SQ BID [facility] Last Admin: 01/22/19 12:02 Dose: 5,000 unit Ampicillin Sodium 1 gm/ Sodium (Chloride) 100 mls @ 200 mls/hr IVPB Q8H-IV [facility] ; Protocol Last Admin: 01/22/19 10:45 Dose: 200 mls/hr Potassium Chloride (Potassium Chloride 10 Meq Premix Ivpb -) 10 meq in 100 mls @ 100 mls/hr IVPB Q1H [facility] Stop: 01/22/19 14:44 Last Admin: 01/22/19 12:54 Dose: 100 mls/hr Potassium Chloride (Potassium Chloride 10 Meq Premix Ivpb -) 10 meq in 100 mls @ 100 mls/hr IVPB Q60M [facility] Stop: 01/22/19 16:14 Potassium Chloride/Dextrose/Sod Cl (D5-1/2ns+20 Meq Kcl -) 20 meq in 1,000 mls @ 83 mls/hr IV ASDIR [facility] Magnesium Sulfate (Magnesium Sulfate) 2 gm IVPB ONCE ONE Stop: 01/22/19 13:02 Nystatin (Nystatin Oral Suspension -) 500,000 units PO Q6HPO [facility] Last Admin: 01/22/19 12:02 Dose: Not Given Pantoprazole Sodium (Protonix Iv) 40 mg IVPUSH DAILY [facility] Last Admin: 01/22/19 12:02 Dose: 40 mg - Objective Vital Signs: Vital Signs Temperature 98.2 F 01/22/19 09:00 Pulse Rate 83 01/22/19 09:00 Respiratory Rate 20 01/22/19 09:00 Blood Pressure 135/94 01/22/19 09:00 O2 Sat by Pulse Oximetry (%) 94 L 01/22/19 09:00 Constitutional: Yes: Calm Cardiovascular: Yes: S1, S2 Respiratory: Yes: Regular Gastrointestinal: Yes: Normal Bowel Sounds, Soft Musculoskeletal: Yes: WNL Extremities: Yes: WNL Neurological: Yes: Alert Psychiatric: Yes: Alert Labs: CBC, BMP 01/22/19 06:06 01/22/19 06:06 INR, PTT INR 1.52 (0.83-1.09) H 01/15/19 15:07 Assessment/Plan Problem List - Problems (1) GRACE (acute kidney injury) Code(s): N17.9 - ACUTE KIDNEY FAILURE, UNSPECIFIED (2) Sepsis due to pneumonia Code(s): J18.9 - PNEUMONIA, UNSPECIFIED ORGANISM; A41.9 - SEPSIS, UNSPECIFIED ORGANISM (3) Altered mental status Code(s): R41.82 - ALTERED MENTAL STATUS, UNSPECIFIED (4) Alzheimer's dementia Code(s): G30.9 - ALZHEIMER'S DISEASE, UNSPECIFIED (5) Urinary tract infection Code(s): N39.0 - URINARY TRACT INFECTION, SITE NOT SPECIFIED Qualifiers: Urinary tract infection type: site unspecified Hematuria presence: without hematuria Qualified Code(s): N39.0 - Urinary tract infection, site not specified Assessment/Plan 88 y.o. male with PMH of Alzheimer's dementia and DVT and s/p recent treatment for UTI/PNA with clinical improvement on Levaquin presents with lethargy, cough , tachycardia, hypoxia, leukocytosis, renal impairment, and elevated lactic acid level Sepsis PNA/ Possible Aspiration Possible UTI GRACE Lethargy Hx of DVT Dementia plan cx result noted oral hygiene nutrition rest as per the team
[2019-01-22] MEDS: D5-1/2NS+20 MEQ KCL - 20 MEQ/1,000 ML INFUS.BAG IV SCH (14:21)
[2019-01-22] MEDS ORDERED: ACETAMINOPHEN 325 MG TABLET (FP) PO PRN (16:12)
--- NOTE | 2019-01-22 23:18 | PN ---
Progress Note, Physician Chief Complaint: Alert but confuse at his base line MS - Current Medication List Current Medications: Active Medications Acetaminophen (Tylenol -) 650 mg PO PRN PRN PRN Reason: PAIN Heparin Sodium (Porcine) (Heparin -) 5,000 unit SQ BID [facility] Last Admin: 01/22/19 21:41 Dose: 5,000 unit Potassium Chloride/Dextrose/Sod Cl (D5-1/2ns+20 Meq Kcl -) 20 meq in 1,000 mls @ 83 mls/hr IV ASDIR [facility] Last Admin: 01/22/19 14:21 Dose: 83 mls/hr Ampicillin Sodium 1 gm/ Sodium (Chloride) 100 mls @ 200 mls/hr IVPB Q8H-IV [facility] ; Protocol Last Admin: 01/22/19 17:56 Dose: 200 mls/hr Nystatin (Nystatin Oral Suspension -) 500,000 units PO Q6HPO [facility] Last Admin: 01/22/19 17:54 Dose: Not Given Pantoprazole Sodium (Protonix Iv) 40 mg IVPUSH DAILY [facility] - Objective Vital Signs: Temperature 97.5 F L 01/22/19 11:00 Pulse Rate 80 01/22/19 11:00 Respiratory Rate 20 01/22/19 11:00 Blood Pressure 131/70 01/22/19 11:00 O2 Sat by Pulse Oximetry (%) 94 L 01/22/19 09:00 Elderly F confused HEENT: Mm dry , no anemia, atraumatic NECK: No JVd No Bruit CHEST: Crepts + CVS: Tachycardia ABD: No distention, non tender EXT: Trace edema 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 and 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 Confused moving 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 Labs: CBC, BMP 01/22/19 06:06 01/22/19 06:06 INR, PTT INR 1.52 (0.83-1.09) H 01/15/19 15:07 Problem List - Problems (1) Toxic metabolic encephalopathy Assessment/Plan: Improved now at base line Code(s): G92 - TOXIC ENCEPHALOPATHY (2) Sepsis due to pneumonia Assessment/Plan: Rt Ll infitrate with elevated TWBC, on Unasyn Code(s): J18.9 - PNEUMONIA, UNSPECIFIED ORGANISM; A41.9 - SEPSIS, UNSPECIFIED ORGANISM (3) Dehydration Assessment/Plan: Improving Poor Po intake cont IV Hydration f/u BMP (4) GRACE (acute kidney injury) Assessment/Plan: Due to sepsis and Dehydration improved on IV Hydration Code(s): N17.9 - ACUTE KIDNEY FAILURE, UNSPECIFIED (5) Hypernatremia Assessment/Plan: Due to poor Po intake dehydration improved Code(s): E87.0 - HYPEROSMOLALITY AND HYPERNATREMIA (6) Dementia Assessment/Plan: chronic Code(s): F03.90 - UNSPECIFIED DEMENTIA WITHOUT BEHAVIORAL DISTURBANCE (7) Goals of care, counseling/discussion Assessment/Plan: patient has advanced Dementia no [facility] poor PO intake refusing food will evaluate for PEG Code(s): Z71.89 - OTHER SPECIFIED COUNSELING (8) Hypokalemia Assessment/Plan: K 3.0 F/U Mag replete K 20 mEq IV 20 M eq PO F/U BMP Code(s): E87.6 - HYPOKALEMIA
[2019-01-23] MEDS: AMPICILLIN - 1 GM in SODIUM CHLORIDE 100 ML IVPB SCH ×3 (02:44→17:37)
[2019-01-23] MEDS: D5-1/2NS+20 MEQ KCL - 20 MEQ/1,000 ML INFUS.BAG IV SCH (02:56)
[2019-01-23] MEDS: NYSTATIN 500,000 UNITS/5 ML SUSPENSION PO SCH ×3 (06:00→17:28)
[2019-01-23 08:29] LABS: BASO % 0.3 % (0-2.0); EOS % 3.1 % (0-4.5); HEMATOCRIT 37.3 % (35.4-49); HEMOGLOBIN 12.7 GM/dL (11.7-16.9); LYMPH % 14.4 % (8-40); MCH 29.1 pg (25.7-33.7); MCHC 34.2 g/dl (32.0-35.9); MEAN PLT VOLUME 9.3 fl (7.5-11.1); MONO % 9.1 % (3.8-10.2); NEUT % 73.1 % (42.8-82.8); PLATELET COUNT 128 K/MM3 (134-434); RBC 4.38 M/mm3 (4.00-5.60); RDW 13.8 % (11.9-15.9); WHITE BLOOD COUNT 9.2 K/mm3 (4.0-10.0)
[2019-01-23 08:42] LABS: BLOOD UREA NITROGEN 10.5 mg/dL (7-18); CALCIUM 7.5 mg/dL (8.5-10.1); CREATININE 0.8 mg/dL (0.55-1.3); POTASSIUM 3.5 mmol/L (3.5-5.1)
[2019-01-23] MEDS: PANTOPRAZOLE SODIUM 40 MG VIAL IVPUSH SCH (10:18)
[2019-01-23] MEDS: HEPARIN NA (PORCINE) 5,000 UNITS/ML 1ML VIAL SQ SCH ×2 (10:19→21:15)
--- NOTE | 2019-01-23 11:12 | PN ---
Progress Note, Physician History of Present Illness: stable no new issues - Current Medication List Current Medications: Active Medications Acetaminophen (Tylenol -) 650 mg PO PRN PRN PRN Reason: PAIN Heparin Sodium (Porcine) (Heparin -) 5,000 unit SQ BID [facility] Last Admin: 01/23/19 10:19 Dose: 5,000 unit Potassium Chloride/Dextrose/Sod Cl (D5-1/2ns+20 Meq Kcl -) 20 meq in 1,000 mls @ 83 mls/hr IV ASDIR [facility] Last Admin: 01/23/19 02:56 Dose: 83 mls/hr Ampicillin Sodium 1 gm/ Sodium (Chloride) 100 mls @ 200 mls/hr IVPB Q8H-IV [facility] ; Protocol Last Admin: 01/23/19 10:19 Dose: 200 mls/hr Nystatin (Nystatin Oral Suspension -) 500,000 units PO Q6HPO [facility] Last Admin: 01/23/19 06:00 Dose: Not Given Pantoprazole Sodium (Protonix Iv) 40 mg IVPUSH DAILY [facility] Last Admin: 01/23/19 10:18 Dose: 40 mg - Objective Vital Signs: Vital Signs Temperature 98.0 F 01/23/19 09:10 Pulse Rate 79 01/23/19 09:10 Respiratory Rate 18 01/23/19 09:10 Blood Pressure 130/66 01/23/19 09:10 O2 Sat by Pulse Oximetry (%) 95 01/22/19 21:00 Constitutional: Yes: No Distress, Calm Cardiovascular: Yes: S1, S2 Respiratory: Yes: Regular, CTA Bilaterally Gastrointestinal: Yes: Normal Bowel Sounds, Soft Musculoskeletal: Yes: WNL Extremities: Yes: Other Neurological: Yes: Alert Psychiatric: Yes: Alert Labs: CBC, BMP 01/23/19 07:25 01/23/19 07:25 INR, PTT INR 1.52 (0.83-1.09) H 01/15/19 15:07 Assessment/Plan Problem List - Problems (1) GRACE (acute kidney injury) Code(s): N17.9 - ACUTE KIDNEY FAILURE, UNSPECIFIED (2) Sepsis due to pneumonia Code(s): J18.9 - PNEUMONIA, UNSPECIFIED ORGANISM; A41.9 - SEPSIS, UNSPECIFIED ORGANISM (3) Altered mental status Code(s): R41.82 - ALTERED MENTAL STATUS, UNSPECIFIED (4) Alzheimer's dementia Code(s): G30.9 - ALZHEIMER'S DISEASE, UNSPECIFIED (5) Urinary tract infection Code(s): N39.0 - URINARY TRACT INFECTION, SITE NOT SPECIFIED Qualifiers: Urinary tract infection type: site unspecified Hematuria presence: without hematuria Qualified Code(s): N39.0 - Urinary tract infection, site not specified Assessment/Plan 88 y.o. male with PMH of Alzheimer's dementia and DVT and s/p recent treatment for UTI/PNA with clinical improvement on Levaquin presents with lethargy, cough , tachycardia, hypoxia, leukocytosis, renal impairment, and elevated lactic acid level Sepsis PNA/ Possible Aspiration Possible UTI GRACE Lethargy Hx of DVT Dementia plan cx result noted will deescalate abx tomorrow oral hygeine
[2019-01-23 13:12] LABS: PLATELET ESTIMATE DECREASED
--- NOTE | 2019-01-23 14:04 | PN ---
Progress Note, Physician History of Present Illness: Pt seen and examined at bedside. He is refusing to eat. - Current Medication List Current Medications: Active Medications Acetaminophen (Tylenol -) 650 mg PO PRN PRN PRN Reason: PAIN Heparin Sodium (Porcine) (Heparin -) 5,000 unit SQ BID [facility] Last Admin: 01/23/19 10:19 Dose: 5,000 unit Potassium Chloride/Dextrose/Sod Cl (D5-1/2ns+20 Meq Kcl -) 20 meq in 1,000 mls @ 83 mls/hr IV ASDIR [facility] Last Admin: 01/23/19 02:56 Dose: 83 mls/hr Ampicillin Sodium 1 gm/ Sodium (Chloride) 100 mls @ 200 mls/hr IVPB Q8H-IV [facility] ; Protocol Last Admin: 01/23/19 10:19 Dose: 200 mls/hr Nystatin (Nystatin Oral Suspension -) 500,000 units PO Q6HPO [facility] Last Admin: 01/23/19 12:16 Dose: Not Given Pantoprazole Sodium (Protonix Iv) 40 mg IVPUSH DAILY [facility] Last Admin: 01/23/19 10:18 Dose: 40 mg - Objective Vital Signs: Vital Signs Temperature 98.0 F 01/23/19 09:10 Pulse Rate 79 01/23/19 09:10 Respiratory Rate 18 01/23/19 09:10 Blood Pressure 130/66 01/23/19 09:10 O2 Sat by Pulse Oximetry (%) 95 01/22/19 21:00 Constitutional: Yes: Calm Eyes: Yes: Conjunctiva Clear HENT: Yes: Atraumatic Neck: Yes: Supple Cardiovascular: Yes: S1, S2 Respiratory: Yes: CTA Bilaterally Gastrointestinal: Yes: Soft Genitourinary: Yes: Alvarez Present Musculoskeletal: Yes: WNL Edema: No Neurological: Yes: Oriented Psychiatric: Yes: Oriented Labs: CBC, BMP 01/23/19 07:25 01/23/19 07:25 INR, PTT INR 1.52 (0.83-1.09) H 01/15/19 15:07 Assessment/Plan Current Medications Generic Name Dose Route Start Last Admin Trade Name Freq PRN Reason Stop Dose Admin Acetaminophen 650 mg 01/22/19 16:12 Tylenol - PO PRN PRN PAIN Heparin Sodium (Porcine) 5,000 unit 01/22/19 22:00 01/23/19 10:19 Heparin - SQ 5,000 unit BID [facility] Administration Potassium Chloride/Dextrose/Sod Cl 20 meq in 1,000 mls @ 83 mls/hr 01/22/19 13 :15 01/23/19 02:56 D5-1/2ns+20 Meq Kcl - IV 83 mls/hr ASDIR [facility] Administration Ampicillin Sodium 1 gm/ Sodium 100 mls @ 200 mls/hr 01/22/19 18:00 01/23/19 10:19 Chloride IVPB 200 mls/hr Q8H-IV [facility] Administration Protocol Nystatin 500,000 units 01/22/19 18:00 01/23/19 12:16 Nystatin Oral Suspension - PO Not Given Q6HPO [facility] Pantoprazole Sodium 40 mg 01/23/19 10:00 01/23/19 10:18 Protonix Iv IVPUSH 40 mg DAILY [facility] Administration #GRACE #Hypernatremia #Metabolic acidosis #Sepsis #PNA/Aspiration PNA #hypokalemia #hypomagnesemia Plan - cont fluids as he is not eating - will replace potassium as it is on low side - repeat lytes in am - cont to monitor sodium - sodium level is stable - will adjust fluids
[2019-01-23] MEDS: KCL 10 MEQ IVPB 10 MEQ/100 ML INFUS.BAG IVPB SCH ×2 (15:28→16:25)
[2019-01-23] MEDS ORDERED: PT OWN MED DRAWER 7, Y5N ONE (16:15)
[2019-01-23] MEDS: POTASSIUM CHLORIDE 10 MEQ in DEXTROSE 5%-1/3 NS - 500 ML IVPB SCH ×2 (16:25→20:43)
--- NOTE | 2019-01-23 18:13 | PN ---
Progress Note, Physician Chief Complaint: Alert but confuse at his base line [place] - Current Medication List Current Medications: Active Medications Acetaminophen (Tylenol -) 650 mg PO PRN PRN PRN Reason: PAIN Heparin Sodium (Porcine) (Heparin -) 5,000 unit SQ BID [facility] Last Admin: 01/23/19 10:19 Dose: 5,000 unit Ampicillin Sodium 1 gm/ Sodium (Chloride) 100 mls @ 200 mls/hr IVPB Q8H-IV [facility] ; Protocol Last Admin: 01/23/19 17:37 Dose: 200 mls/hr Potassium Chloride 10 meq/ (Dextrose/Sodium Chloride) 505 mls @ 83 mls/hr IVPB Q6H [facility] Last Admin: 01/23/19 16:25 Dose: 83 mls/hr Nystatin (Nystatin Oral Suspension -) 500,000 units PO Q6HPO [facility] Last Admin: 01/23/19 17:28 Dose: Not Given Pantoprazole Sodium (Protonix Iv) 40 mg IVPUSH DAILY [facility] Last Admin: 01/23/19 10:18 Dose: 40 mg - Objective Vital Signs: Vital Signs Temperature 98.4 F 01/23/19 14:13 Pulse Rate 86 01/23/19 14:13 Respiratory Rate 18 01/23/19 14:13 Blood Pressure 166/61 01/23/19 14:13 O2 Sat by Pulse Oximetry (%) 98 01/23/19 09:10 Elderly F confused HEENT: Mm dry , no anemia, atraumatic NECK: No JVd No Bruit CHEST: Crepts + CVS: Tachycardia ABD: No distention, non tender EXT: Trace edema 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 and 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 Confused moving 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 Labs: Labs: CBC, BMP 01/23/19 07:25 01/23/19 07:25 INR, PTT INR 1.52 (0.83-1.09) H 01/15/19 15:07 Problem List - Problems (1) Toxic metabolic encephalopathy Code(s): G92 - TOXIC ENCEPHALOPATHY (2) Sepsis due to pneumonia Code(s): J18.9 - PNEUMONIA, UNSPECIFIED ORGANISM; A41.9 - SEPSIS, UNSPECIFIED ORGANISM (3) Dehydration (4) GRACE (acute kidney injury) Code(s): N17.9 - ACUTE KIDNEY FAILURE, UNSPECIFIED (5) Hypernatremia Code(s): E87.0 - HYPEROSMOLALITY AND HYPERNATREMIA (6) Dementia Code(s): F03.90 - UNSPECIFIED DEMENTIA WITHOUT BEHAVIORAL DISTURBANCE (7) Goals of care, counseling/discussion Code(s): Z71.89 - OTHER SPECIFIED COUNSELING (8) Hypokalemia Code(s): E87.6 - HYPOKALEMIA
[2019-01-24] MEDS: NYSTATIN 500,000 UNITS/5 ML SUSPENSION PO SCH ×4 (00:21→17:20)
[2019-01-24] MEDS: POTASSIUM CHLORIDE 10 MEQ in DEXTROSE 5%-1/3 NS - 500 ML IVPB SCH ×3 (00:39→09:40)
[2019-01-24] MEDS: AMPICILLIN - 1 GM in SODIUM CHLORIDE 100 ML IVPB SCH ×2 (02:52→09:39)
[2019-01-24 07:36] LABS: BASO % 0.4 % (0-2.0); EOS % 3.4 % (0-4.5); HEMATOCRIT 36.7 % (35.4-49); HEMOGLOBIN 12.5 GM/dL (11.7-16.9); LYMPH % 17.1 % (8-40); MCH 29.1 pg (25.7-33.7); MCHC 34.1 g/dl (32.0-35.9); MEAN CELL VOLUME 85.3 fl (80-96); MEAN PLT VOLUME 9.2 fl (7.5-11.1); MONO % 8.2 % (3.8-10.2); NEUT % 70.9 % (42.8-82.8); PLATELET COUNT 138 K/MM3 (134-434); RDW 13.7 % (11.9-15.9); WHITE BLOOD COUNT 9.1 K/mm3 (4.0-10.0)
[2019-01-24 07:50] LABS: ALBUMIN 2.2 g/dl (3.4-5.0); BILIRUBIN,TOTAL 0.6 mg/dL (0.2-1); BLOOD UREA NITROGEN 6.9 mg/dL (7-18); CALCIUM 7.2 mg/dL (8.5-10.1); CREATININE 0.8 mg/dL (0.55-1.3); MAGNESIUM 1.6 mg/dL (1.8-2.4); POTASSIUM 3.6 mmol/L (3.5-5.1); TOT PROT 4.9 g/dl (6.4-8.2)
[2019-01-24] MEDS ORDERED: PT OWN MED DRAWER 7, Y5N ONE (09:35)
[2019-01-24] MEDS: HEPARIN NA (PORCINE) 5,000 UNITS/ML 1ML VIAL SQ SCH (09:39)
--- NOTE | 2019-01-24 09:53 | PN ---
Progress Note, Physician History of Present Illness: stable no new issues still not eating - Current Medication List Current Medications: Active Medications Acetaminophen (Tylenol -) 650 mg PO PRN PRN PRN Reason: PAIN Heparin Sodium (Porcine) (Heparin -) 5,000 unit SQ BID [facility] Last Admin: 01/24/19 09:39 Dose: 5,000 unit Ampicillin Sodium 1 gm/ Sodium (Chloride) 100 mls @ 200 mls/hr IVPB Q8H-IV [facility] ; Protocol Last Admin: 01/24/19 09:39 Dose: 200 mls/hr Potassium Chloride 10 meq/ (Dextrose/Sodium Chloride) 505 mls @ 83 mls/hr IVPB Q6H [facility] Last Admin: 01/24/19 09:40 Dose: Not Given Nystatin (Nystatin Oral Suspension -) 500,000 units PO Q6HPO [facility] Last Admin: 01/24/19 05:57 Dose: Not Given Pantoprazole Sodium (Protonix Iv) 40 mg IVPUSH DAILY [facility] Last Admin: 01/23/19 10:18 Dose: 40 mg - Objective Vital Signs: Vital Signs Temperature 98.6 F 01/23/19 18:00 Pulse Rate 89 01/24/19 06:00 Respiratory Rate 20 01/24/19 06:00 Blood Pressure 144/99 01/24/19 06:00 O2 Sat by Pulse Oximetry (%) 98 01/23/19 21:00 Constitutional: Yes: No Distress, Calm HENT: Yes: Other (poor oral hygeine) Cardiovascular: Yes: S1, S2 Respiratory: Yes: Regular, Rhonchi Gastrointestinal: Yes: Normal Bowel Sounds, Soft Musculoskeletal: Yes: WNL Extremities: Yes: WNL Neurological: Yes: Alert, Oriented Psychiatric: Yes: Alert, Oriented Labs: CBC, BMP 01/24/19 06:27 01/24/19 06:27 INR, PTT INR 1.52 (0.83-1.09) H 01/15/19 15:07 Assessment/Plan Problem List - Problems (1) GRACE (acute kidney injury) Code(s): N17.9 - ACUTE KIDNEY FAILURE, UNSPECIFIED (2) Sepsis due to pneumonia Code(s): J18.9 - PNEUMONIA, UNSPECIFIED ORGANISM; A41.9 - SEPSIS, UNSPECIFIED ORGANISM (3) Altered mental status Code(s): R41.82 - ALTERED MENTAL STATUS, UNSPECIFIED (4) Alzheimer's dementia Code(s): G30.9 - ALZHEIMER'S DISEASE, UNSPECIFIED (5) Urinary tract infection Code(s): N39.0 - URINARY TRACT INFECTION, SITE NOT SPECIFIED Qualifiers: Urinary tract infection type: site unspecified Hematuria presence: without hematuria Qualified Code(s): N39.0 - Urinary tract infection, site not specified Assessment/Plan 88 y.o. male with PMH of Alzheimer's dementia and DVT and s/p recent treatment for UTI/PNA with clinical improvement on Levaquin presents with lethargy, cough , tachycardia, hypoxia, leukocytosis, renal impairment, and elevated lactic acid level Sepsis PNA/ Possible Aspiration Possible UTI GRACE Lethargy Hx of DVT Dementia plan cx result noted stopped abx oral hygiene nutrition rest as per the team
[2019-01-24 10:45] LABS: ANISOCYTOSIS 0; HELMET CELLS 0; HOWELL-JOLLY BODIES 0; MACROCYTOSIS 0; OVALOCYTE 0; PLATELET ESTIMATE DECREASED; ROULEAU 0; SICKELED CELLS 0; TARGET CELLS 0; TEAR DROP CELLS 0; TOXIC GRANULATION 0
[2019-01-24] MEDS: PANTOPRAZOLE SODIUM 40 MG VIAL IVPUSH SCH (11:43)
--- NOTE | 2019-01-24 12:58 | PN ---
Progress Note (short form) - Note Progress Note: Renal follow up for GRACE and Hypernatremia Pts seen and examined at the bedside awake refusing feeds and care as per nurse no overnight events on IVF donovan in place Vital Signs Temperature 98.6 F 01/23/19 18:00 Pulse Rate 89 01/24/19 06:00 Respiratory Rate 20 01/24/19 09:00 Blood Pressure 144/99 01/24/19 06:00 O2 Sat by Pulse Oximetry (%) 98 01/24/19 09:00 Intake & Output 01/21/19 01/22/19 01/23/19 01/24/19 23:59 23:59 23:59 23:59 Intake Total 1540 1460 2077 850 Output Total 1500 1150 2000 600 Balance 40 310 77 250 NAD awake and alert confused RRR CTA soft NT/ND, no bladder distension No LE edema, clubbing or cyanosis CBC, BMP 01/24/19 06:27 01/24/19 06:27 Current Medications Acetaminophen (Tylenol -) 650 mg PO PRN PRN PRN Reason: PAIN Heparin Sodium (Porcine) (Heparin -) 5,000 unit SQ BID [facility] Last Admin: 01/24/19 09:39 Dose: 5,000 unit Amino Acids (Clinimix -) 1,000 mls @ 42 mls/hr IV Q12H [facility] Nystatin (Nystatin Oral Suspension -) 500,000 units PO Q6HPO [facility] Last Admin: 01/24/19 12:02 Dose: Not Given Pantoprazole Sodium (Protonix Iv) 40 mg IVPUSH DAILY [facility] Last Admin: 01/24/19 11:43 Dose: 40 mg 88 year old gentleman with history of advanced dementia, DVT, Recent UTI and PNA presented with lethargy and worsening renal function. #GRACE #Hypernatremia #Metabolic acidosis #Sepsis #PNA/Aspiration PNA electrolytes are within normal limits at this time change IVF to IV clinimix trend labs daily acidosis now resolved Isreal Long DO
[2019-01-24] MEDS: AMINO ACIDS 4.25%/D5W 1,000 ML IV SCH (13:35)
--- NOTE | 2019-01-24 18:00 | PN ---
Progress Note, Physician Chief Complaint: Alert but confuse at his base line MS, refusing feeds - Current Medication List Current Medications: Active Medications Acetaminophen (Tylenol -) 650 mg PO PRN PRN PRN Reason: PAIN Heparin Sodium (Porcine) (Heparin -) 5,000 unit SQ BID [facility] Last Admin: 01/24/19 09:39 Dose: 5,000 unit Amino Acids (Clinimix -) 1,000 mls @ 42 mls/hr IV Q12H [facility] Last Admin: 01/24/19 13:35 Dose: 42 mls/hr Nystatin (Nystatin Oral Suspension -) 500,000 units PO Q6HPO [facility] Last Admin: 01/24/19 17:20 Dose: Not Given Pantoprazole Sodium (Protonix Iv) 40 mg IVPUSH DAILY [facility] Last Admin: 01/24/19 11:43 Dose: 40 mg - Objective Vital Signs: Vital Signs Temperature 98.6 F 01/23/19 18:00 Pulse Rate 75 01/24/19 15:00 Respiratory Rate 20 01/24/19 15:00 Blood Pressure 134/93 01/24/19 15:00 O2 Sat by Pulse Oximetry (%) 98 01/24/19 09:00 Elderly M confused, no communicating HEENT: Mm dry , no anemia, atraumatic NECK: No JVd No Bruit CHEST: CTA B/L CVS: Tachycardia ABD: No distention, non tender EXT: Trace edema 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: Alert communicating yes and 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 Confused moving 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 Labs: CBC, BMP 01/24/19 06:27 01/24/19 06:27 INR, PTT INR 1.52 (0.83-1.09) H 01/15/19 15:07 Problem List - Problems (1) Toxic metabolic encephalopathy Assessment/Plan: Improved now at base line Code(s): G92 - TOXIC ENCEPHALOPATHY (2) Sepsis due to pneumonia Assessment/Plan: Rt Ll infitrate with elevated TWBC, completed abx Code(s): J18.9 - PNEUMONIA, UNSPECIFIED ORGANISM; A41.9 - SEPSIS, UNSPECIFIED ORGANISM (3) Dehydration Assessment/Plan: Improving Poor Po intake , cont IV nutrition f/u BMP (4) GRACE (acute kidney injury) Assessment/Plan: Due to sepsis and Dehydration resolved Code(s): N17.9 - ACUTE KIDNEY FAILURE, UNSPECIFIED (5) Hypernatremia Assessment/Plan: Due to poor Po intake dehydration improved Code(s): E87.0 - HYPEROSMOLALITY AND HYPERNATREMIA (6) Dementia Assessment/Plan: chronic Code(s): F03.90 - UNSPECIFIED DEMENTIA WITHOUT BEHAVIORAL DISTURBANCE (7) Goals of care, counseling/discussion Assessment/Plan: patient has advanced Dementia today Pallitive care and myself are able to contact patient Nephew Cisco and explaind patient condition, and prognosis and need for PEG placement for nutrition and Medical management all risk and Benefits explained MR Peck consented for PEG placement also discussed end of life issue considering old age and irreversible advanced Dementia almost non verbal and poor PO intake and poor prognosis ,nephew Cisco (NOK) agreed with DNR/DNI status. DNR order placed. Code(s): Z71.89 - OTHER SPECIFIED COUNSELING
--- NOTE | 2019-01-24 22:01 | CON.GI ---
Consult Consult Specialty:: Gastroenterology Referred by:: Dr Anh Torrez Reason for Consultation:: PEG insertion - History of Present Illness Chief Complaint: noncommunicative History of Present Illness: 88M trasferred form [facility] for latered mental status and found to be azotemic and hypernatremic due to poor oral intake. He was found to have a RLL infiltrate and is felt to have aspirated. He has severe OMS and cannot provide history. He has not cooperated adequately enough with Pennie Carrasquillo to undergo an MBS and is suspected to be an aspiration risk prompting this consultation. - History Source History Provided By: Medical Record Limitations to Obtaining History: Dementia - Past Medical History MANAGER AGENCY: Yes: Dementia Cardio/Vascular: Yes: Deep Vein Thrombosis Pulmonary: Yes: Pneumonia Renal/: Yes: UTI - Alcohol/Substance Use Hx Alcohol Use: No (unknown) - Smoking History Smoking history: Unknown if ever smoked Have you smoked in the past 12 months: No Aproximately how many cigarettes per day: 0 - Social History Usual Living Arrangement: [facility] History of Recent Travel: No Home Medications - Allergies Allergies/Adverse Reactions: Allergies Allergy/AdvReac Type Severity Reaction Status Date / Time No Known Allergies Allergy Verified 01/15/19 15:25 - Home Medications Home Medications: Ambulatory Orders Acetaminophen [Tylenol] 650 mg PO PRN PRN 08/10/17 Heparin - 5,000 unit SQ BID 08/10/17 Lactobacillus Acidophilus [Bacid -] 1 each PO DAILY 01/15/19 Family Disease History - Family Disease History Family History: Unable to Obtain Review of Systems Unable to obtain ROS, reason: dementia Physical Exam-GI Vital Signs: Vital Signs Temperature 98.6 F 01/23/19 18:00 Pulse Rate 75 01/24/19 15:00 Respiratory Rate 20 01/24/19 15:00 Blood Pressure 134/93 01/24/19 15:00 O2 Sat by Pulse Oximetry (%) 98 01/24/19 09:00 Constitutional: Yes: No Distress Eyes: Yes: Conjunctiva Clear HENT: Yes: Atraumatic Neck: Yes: Supple Cardiovascular: Yes: Regular Rate and Rhythm Respiratory: Yes: Rhonchi (bilaterally) Gastrointestinal Inspection: Yes: WNL (no incisions found) ...Auscultate: Yes: Normoactive Bowel Sounds ...Palpate: Yes: Soft, Other (nontender) ...Rectal Exam: Yes: Guaiac Negative (2+ prostate, no masses) Labs: CBC, BMP 01/24/19 06:27 01/24/19 06:27 INR, PTT INR 1.52 (0.83-1.09) H 01/15/19 15:07 Laboratory Tests 01/15/19 01/15/19 01/24/19 15:07 17:30 06:27 Sodium 155 H BUN 100.9 H 6.9 L Creatinine 3.2 H 0.8 Lactic Acid 3.3 H* Albumin 3.6 2.2 L Laboratory Tests 01/15/19 15:07 PT with INR 18.00 H INR 1.52 H PTT (Actin FS) 39.3 H Problem List - Problems (1) Nutrient intake below expected requirement Code(s): E61.9 - DEFICIENCY OF NUTRIENT ELEMENT, UNSPECIFIED (2) GRACE (acute kidney injury) Code(s): N17.9 - ACUTE KIDNEY FAILURE, UNSPECIFIED (3) Dehydration Code(s): E86.0 - DEHYDRATION (4) Dementia Code(s): F03.90 - UNSPECIFIED DEMENTIA WITHOUT BEHAVIORAL DISTURBANCE (5) Hypernatremia Code(s): E87.0 - HYPEROSMOLALITY AND HYPERNATREMIA (6) Toxic metabolic encephalopathy Code(s): G92 - TOXIC ENCEPHALOPATHY Assessment/Plan Assessment: - I reviewed the attached notes from [facility] that document repeated poor oral intake due to refusal to eat due to his advanced dementia. His suspected propensity to aspiration may be playing a major role but unfortunately cannot be assessed due to inability to cooperate . I cannot find any advanced directives in the chart but see that the patient has a DNR order. Plan: -- Vitamin K to try to correct coagulopathy -- I will try to reach the nephew tomorrow to discuss the beneficial role that a PEG can play but also discuss it's potential for adverse effects during insertion ( hemorrhage, infection, anesthesia0 and subsequently ( peritonitis from avulsion, aspiration of infused feedings). I will also need to clarify whether or not the DNR will be reversed during the procedure and anesthesia. He may opt for IR insertion which avoids anesthesia.
[2019-01-24] MEDS ORDERED: PHYTONADIONE 10 MG/1 ML AMP IVPB ONE (22:16)
[2019-01-25] MEDS: HEPARIN NA (PORCINE) 5,000 UNITS/ML 1ML VIAL SQ SCH ×2 (00:02→10:38)
[2019-01-25] MEDS: AMINO ACIDS 4.25%/D5W 1,000 ML IV SCH ×2 (00:53→12:56)
[2019-01-25 08:42] LABS: BASO % 0.3 % (0-2.0); EOS % 2.5 % (0-4.5); HEMATOCRIT 38.8 % (35.4-49); HEMOGLOBIN 13.1 GM/dL (11.7-16.9); LYMPH % 15.1 % (8-40); MCH 28.7 pg (25.7-33.7); MCHC 33.8 g/dl (32.0-35.9); MONO % 8.2 % (3.8-10.2); NEUT % 73.9 % (42.8-82.8); PLATELET COUNT 149 K/MM3 (134-434); RBC 4.57 M/mm3 (4.00-5.60); RDW 13.9 % (11.9-15.9); WHITE BLOOD COUNT 10.1 K/mm3 (4.0-10.0)
[2019-01-25 08:43] LABS: INR 1.23 (0.83-1.09); PROTHROMBIN TIME (PATIENT) 14.5 SEC (9.7-13.0)
[2019-01-25 08:48] LABS: BLOOD UREA NITROGEN 10.3 mg/dL (7-18); CREATININE 0.7 mg/dL (0.55-1.3); MAGNESIUM 1.6 mg/dL (1.8-2.4); POTASSIUM 3.4 mmol/L (3.5-5.1)
[2019-01-25] MEDS ORDERED: MAGNESIUM SULF 50% (8.12 MEQ/2 ML-1 GM VIAL) IVPB ONE (10:30)
[2019-01-25] MEDS: PANTOPRAZOLE SODIUM 40 MG VIAL IVPUSH SCH (10:35)
--- NOTE | 2019-01-25 11:47 | PN ---
Progress Note, Physician History of Present Illness: stable no new issues poor diet - Current Medication List Current Medications: Active Medications Acetaminophen (Tylenol -) 650 mg PO PRN PRN PRN Reason: PAIN Heparin Sodium (Porcine) (Heparin -) 5,000 unit SQ BID [facility] Last Admin: 01/25/19 10:38 Dose: 5,000 unit Amino Acids (Clinimix -) 1,000 mls @ 42 mls/hr IV Q12H [facility] Last Admin: 01/25/19 00:53 Dose: Not Given Pantoprazole Sodium (Protonix Iv) 40 mg IVPUSH DAILY [facility] Last Admin: 01/25/19 10:35 Dose: 40 mg - Objective Vital Signs: Vital Signs Temperature 97.4 F L 01/25/19 09:36 Pulse Rate 84 01/25/19 09:36 Respiratory Rate 20 01/25/19 09:36 Blood Pressure 117/67 01/25/19 09:36 O2 Sat by Pulse Oximetry (%) 96 01/24/19 21:00 Constitutional: Yes: No Distress, Calm Cardiovascular: Yes: S1, S2 Respiratory: Yes: Regular, CTA Bilaterally Gastrointestinal: Yes: Normal Bowel Sounds, Soft Musculoskeletal: Yes: WNL Extremities: Yes: WNL Neurological: Yes: Alert Labs: CBC, BMP 01/25/19 07:15 01/25/19 07:15 INR, PTT INR 1.23 (0.83-1.09) H 01/25/19 07:20 Assessment/Plan Problem List - Problems (1) GRACE (acute kidney injury) Code(s): N17.9 - ACUTE KIDNEY FAILURE, UNSPECIFIED (2) Sepsis due to pneumonia Code(s): J18.9 - PNEUMONIA, UNSPECIFIED ORGANISM; A41.9 - SEPSIS, UNSPECIFIED ORGANISM (3) Altered mental status Code(s): R41.82 - ALTERED MENTAL STATUS, UNSPECIFIED (4) Alzheimer's dementia Code(s): G30.9 - ALZHEIMER'S DISEASE, UNSPECIFIED (5) Urinary tract infection Code(s): N39.0 - URINARY TRACT INFECTION, SITE NOT SPECIFIED Qualifiers: Urinary tract infection type: site unspecified Hematuria presence: without hematuria Qualified Code(s): N39.0 - Urinary tract infection, site not specified Assessment/Plan 88 y.o. male with PMH of Alzheimer's dementia and DVT and s/p recent treatment for UTI/PNA with clinical improvement on Levaquin presents with lethargy, cough , tachycardia, hypoxia, leukocytosis, renal impairment, and elevated lactic acid level Sepsis PNA/ Possible Aspiration Possible UTI GRACE Lethargy Hx of DVT Dementia plan cx result noted oral hygiene nutrition rest as per the team
--- NOTE | 2019-01-25 16:34 | PN ---
Progress Note, Physician Chief Complaint: Alert but confuse at his base line MS, refusing feeds - Current Medication List Current Medications: Active Medications Acetaminophen (Tylenol -) 650 mg PO PRN PRN PRN Reason: PAIN Heparin Sodium (Porcine) (Heparin -) 5,000 unit SQ BID [facility] Last Admin: 01/25/19 10:38 Dose: 5,000 unit Amino Acids (Clinimix -) 1,000 mls @ 42 mls/hr IV Q12H [facility] Last Admin: 01/25/19 12:56 Dose: 42 mls/hr Pantoprazole Sodium (Protonix Iv) 40 mg IVPUSH DAILY [facility] Last Admin: 01/25/19 10:35 Dose: 40 mg - Objective Vital Signs: Vital Signs Temperature 98.0 F 01/25/19 15:00 Pulse Rate 84 01/25/19 15:00 Respiratory Rate 20 01/25/19 15:00 Blood Pressure 119/73 01/25/19 15:00 O2 Sat by Pulse Oximetry (%) 95 01/25/19 09:00 Elderly M confused, no communicating HEENT: Mm dry , no anemia, atraumatic NECK: No JVd No Bruit CHEST: CTA B/L CVS: Tachycardia ABD: No distention, non tender EXT: Trace edema 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: Alert communicating yes and 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 Confused moving 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 Labs: CBC, BMP 01/25/19 07:15 01/25/19 07:15 INR, PTT INR 1.23 (0.83-1.09) H 01/25/19 07:20 Problem List - Problems (1) Toxic metabolic encephalopathy Assessment/Plan: Improved now at base line Code(s): G92 - TOXIC ENCEPHALOPATHY (2) Sepsis due to pneumonia Assessment/Plan: Rt Ll infitrate with elevated TWBC, completed abx Code(s): J18.9 - PNEUMONIA, UNSPECIFIED ORGANISM; A41.9 - SEPSIS, UNSPECIFIED ORGANISM (3) Dehydration Assessment/Plan: Improving Poor Po intake , cont IV nutrition f/u BMP (4) GRACE (acute kidney injury) Assessment/Plan: Due to sepsis and Dehydration resolved Code(s): N17.9 - ACUTE KIDNEY FAILURE, UNSPECIFIED (5) Hypernatremia Assessment/Plan: Due to poor Po intake dehydration improved Code(s): E87.0 - HYPEROSMOLALITY AND HYPERNATREMIA (6) Dementia Assessment/Plan: chronic Code(s): F03.90 - UNSPECIFIED DEMENTIA WITHOUT BEHAVIORAL DISTURBANCE (7) Goals of care, counseling/discussion Assessment/Plan: patient has advanced Dementia today Pallitive care and myself are able to contact patient Nephew Cisco and explaind patient condition, and prognosis and need for PEG placement for nutrition and Medical management all risk and Benefits explained MR Peck consented for PEG placement also discussed end of life issue considering old age and irreversible advanced Dementia almost non verbal and poor PO intake and poor prognosis ,nephew Cisco (NOK) agreed with DNR/DNI status. DNR order placed. Code(s): Z71.89 - OTHER SPECIFIED COUNSELING
--- NOTE | 2019-01-25 18:09 | PN.GI ---
GI Progress Note Subjective: GI NOte: No interest in eating. I spoke with Cisco Gordon who tells me that he has taken over on making decisions for Reagan since his sister cannot tolerate doing it any longer. I discussed Reagan's situation and insufficient oral intake to sustain himself. I offered PEG insertion as an option to allow for hydration, feeding and medication administration. I informed him of the potential for such complications as cardiopulmonary arrest under anesthesia, for hemorrhage, bowel or other viscus perforation, sepsis and peritonitis should Reagan avulse the G tube within the next 10 days. I discussed this within the context of DNR/DNI and whether or not he wanted this status reversed for the procedure or to have it honored throughout the procedure with the understanding that Reagan could . After I answered his questions he gave informed consent for PEG insertion with the proviso that DNR/DNI NOT be interrupted. Layla the staff nurse witnessed by phone. - Objective Vital Signs: Vital Signs Temperature 98.0 F 01/25/19 15:00 Pulse Rate 84 01/25/19 15:00 Respiratory Rate 20 01/25/19 15:00 Blood Pressure 119/73 01/25/19 15:00 O2 Sat by Pulse Oximetry (%) 95 01/25/19 09:00 Laboratory Tests 01/15/19 01/24/19 01/25/19 15:07 06:27 07:15 Hgb 12.5 13.1 PT with INR 18.00 H INR 1.52 H 01/25/19 07:20 Hgb PT with INR 14.50 H INR 1.23 H Constitutional: No Distress Respiratory: Yes: Rhonchi (bilaterally) ...Auscultate: Yes: Normoactive Bowel Sounds ...Palpate: Yes: Soft, Other (nontender) Labs: CBC, BMP 01/25/19 07:15 01/25/19 07:15 INR, PTT INR 1.23 (0.83-1.09) H 01/25/19 07:20 Assessment/Plan Assessment: - I explained the situation in detail to Cisco Leyva the nephew and next of kin who is making Reagan's decisions ( see above discussion). Plan: -- Vitamin K again to try to correct coagulopathy -- I will try to insert the PEG tomorrow while honoring the DNR/DNI status. We discussed that the IR insertion option which avoids anesthesia would probably involve Reagan becoming agitated and adding risk to the procedure. Problem List - Problems (1) Nutrient intake below expected requirement Code(s): E61.9 - DEFICIENCY OF NUTRIENT ELEMENT, UNSPECIFIED (2) GRACE (acute kidney injury) Code(s): N17.9 - ACUTE KIDNEY FAILURE, UNSPECIFIED (3) Dehydration Code(s): E86.0 - DEHYDRATION (4) Dementia Code(s): F03.90 - UNSPECIFIED DEMENTIA WITHOUT BEHAVIORAL DISTURBANCE (5) Hypernatremia Code(s): E87.0 - HYPEROSMOLALITY AND HYPERNATREMIA (6) Toxic metabolic encephalopathy Code(s): G92 - TOXIC ENCEPHALOPATHY
[2019-01-25] MEDS ORDERED: PHYTONADIONE 10 MG/1 ML AMP IM ONE (18:24)
[2019-01-26] MEDS: AMINO ACIDS 4.25%/D5W 1,000 ML IV SCH ×3 (00:27→18:44)
[2019-01-26 07:08] LABS: BASO % 0.2 % (0-2.0); EOS % 1.3 % (0-4.5); HEMOGLOBIN 13.1 GM/dL (11.7-16.9); LYMPH % 11.9 % (8-40); MCH 28.5 pg (25.7-33.7); MCHC 33.7 g/dl (32.0-35.9); MEAN CELL VOLUME 84.6 fl (80-96); MEAN PLT VOLUME 8.6 fl (7.5-11.1); MONO % 7.2 % (3.8-10.2); NEUT % 79.4 % (42.8-82.8); PLATELET COUNT 165 K/MM3 (134-434); RBC 4.61 M/mm3 (4.00-5.60); RDW 13.8 % (11.9-15.9); WHITE BLOOD COUNT 11.5 K/mm3 (4.0-10.0)
[2019-01-26 07:12] LABS: INR 1.14 (0.83-1.09); PROTHROMBIN TIME (PATIENT) 13.5 SEC (9.7-13.0)
[2019-01-26 07:44] LABS: BLOOD UREA NITROGEN 15.9 mg/dL (7-18); CALCIUM 8.2 mg/dL (8.5-10.1); CREATININE 0.7 mg/dL (0.55-1.3); MAGNESIUM 1.6 mg/dL (1.8-2.4); POTASSIUM 3.4 mmol/L (3.5-5.1)
[2019-01-26] MEDS: PANTOPRAZOLE SODIUM 40 MG VIAL IVPUSH SCH (10:08)
[2019-01-26] MEDS ORDERED: MAGNESIUM 4GM/H20 - 4 GM/100 ML IVPB IVPB ONE (11:00)
--- NOTE | 2019-01-26 11:03 | PN ---
Progress Note, Physician History of Present Illness: stable plan for peg tube - Current Medication List Current Medications: Active Medications Acetaminophen (Tylenol -) 650 mg PO PRN PRN PRN Reason: PAIN Amino Acids (Clinimix -) 1,000 mls @ 42 mls/hr IV Q12H [facility] Last Admin: 01/26/19 00:27 Dose: Not Given Magnesium Sulfate 4 gm/ (Miscellaneous) 100 mls @ 100 mls/hr IVPB ONCE ONE Stop: 01/26/19 11:25 Pantoprazole Sodium (Protonix Iv) 40 mg IVPUSH DAILY [facility] Last Admin: 01/26/19 10:08 Dose: 40 mg - Objective Vital Signs: Vital Signs Temperature 98.6 F 01/26/19 05:45 Pulse Rate 79 01/26/19 05:45 Respiratory Rate 20 01/26/19 05:45 Blood Pressure 105/52 L 01/26/19 05:45 O2 Sat by Pulse Oximetry (%) 95 01/25/19 21:00 Constitutional: Yes: No Distress, Calm Cardiovascular: Yes: S1, S2 Respiratory: Yes: Other Gastrointestinal: Yes: Normal Bowel Sounds, Soft Musculoskeletal: Yes: WNL Extremities: Yes: WNL Neurological: Yes: Alert Psychiatric: Yes: Alert Labs: CBC, BMP 01/26/19 06:00 01/26/19 06:00 INR, PTT INR 1.14 (0.83-1.09) H 01/26/19 06:00 Assessment/Plan Problem List - Problems (1) GRACE (acute kidney injury) Code(s): N17.9 - ACUTE KIDNEY FAILURE, UNSPECIFIED (2) Sepsis due to pneumonia Code(s): J18.9 - PNEUMONIA, UNSPECIFIED ORGANISM; A41.9 - SEPSIS, UNSPECIFIED ORGANISM (3) Altered mental status Code(s): R41.82 - ALTERED MENTAL STATUS, UNSPECIFIED (4) Alzheimer's dementia Code(s): G30.9 - ALZHEIMER'S DISEASE, UNSPECIFIED (5) Urinary tract infection Code(s): N39.0 - URINARY TRACT INFECTION, SITE NOT SPECIFIED Qualifiers: Urinary tract infection type: site unspecified Hematuria presence: without hematuria Qualified Code(s): N39.0 - Urinary tract infection, site not specified Assessment/Plan 88 y.o. male with PMH of Alzheimer's dementia and DVT and s/p recent treatment for UTI/PNA with clinical improvement on Levaquin presents with lethargy, cough , tachycardia, hypoxia, leukocytosis, renal impairment, and elevated lactic acid level Sepsis PNA/ Possible Aspiration Possible UTI GRACE Lethargy Hx of DVT Dementia plan cx result noted oral hygiene nutrition rest as per the team awaiting peg tube placement
[2019-01-26] MEDS ORDERED: MAGNESIUM 4GM/H20 - 4 GM/100 ML IVPB IVPB SCH (12:00)
--- NOTE | 2019-01-26 13:48 | PN ---
Progress Note (short form) - Note Progress Note: GI Procedure NOte: Please see PEG report. Will initiate feedings. Problem List - Problems (1) Nutrient intake below expected requirement Code(s): E61.9 - DEFICIENCY OF NUTRIENT ELEMENT, UNSPECIFIED (2) GRACE (acute kidney injury) Code(s): N17.9 - ACUTE KIDNEY FAILURE, UNSPECIFIED (3) Dehydration Code(s): E86.0 - DEHYDRATION (4) Dementia Code(s): F03.90 - UNSPECIFIED DEMENTIA WITHOUT BEHAVIORAL DISTURBANCE (5) Hypernatremia Code(s): E87.0 - HYPEROSMOLALITY AND HYPERNATREMIA (6) Toxic metabolic encephalopathy Code(s): G92 - TOXIC ENCEPHALOPATHY
[2019-01-26] MEDS ORDERED: PT OWN MED DRAWER 7, Y5N ONE (14:42)
[2019-01-26] MEDS ORDERED: ceFAZolin SODIUM 1 GM VIAL ONE (17:06)
[2019-01-26] MEDS ORDERED: DEXTROSE 5%-WATER - 50 ML IVPB ONE (17:06)
--- NOTE | 2019-01-26 18:37 | PN ---
Progress Note, Physician Chief Complaint: S/P PEG Feed started Alert but confuse at his base line MS, refusing feeds - Current Medication List Current Medications: Active Medications Acetaminophen (Tylenol -) 650 mg PO PRN PRN PRN Reason: PAIN Amino Acids (Clinimix -) 1,000 mls @ 42 mls/hr IV Q12H [facility] Last Admin: 01/26/19 00:27 Dose: Not Given Cefazolin Sodium 1 gm/ (Dextrose) 50 mls @ 100 mls/hr IVPB Q8H-IV [facility] Pantoprazole Sodium (Protonix Iv) 40 mg IVPUSH DAILY [facility] Last Admin: 01/26/19 10:08 Dose: 40 mg - Objective Vital Signs: Vital Signs Temperature 97.7 F 01/26/19 14:00 Pulse Rate 86 01/26/19 14:15 Respiratory Rate 20 01/26/19 14:15 Blood Pressure 112/66 01/26/19 14:15 O2 Sat by Pulse Oximetry (%) 100 01/26/19 14:15 Elderly M confused, no communicating HEENT: Mm dry , no anemia, atraumatic NECK: No JVd No Bruit CHEST: CTA B/L CVS: Tachycardia ABD: S/P PEG No distention, non tender EXT: Trace edema 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 SERVICE CLERK: Alert communicating yes and 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 Confused moving 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 Labs: CBC, BMP 01/26/19 06:00 01/26/19 06:00 INR, PTT INR 1.14 (0.83-1.09) H 01/26/19 06:00 Problem List - Problems (1) Toxic metabolic encephalopathy Assessment/Plan: Improved now at base line Code(s): G92 - TOXIC ENCEPHALOPATHY (2) Sepsis due to pneumonia Assessment/Plan: Rt Ll infitrate with elevated TWBC, completed abx Code(s): J18.9 - PNEUMONIA, UNSPECIFIED ORGANISM; A41.9 - SEPSIS, UNSPECIFIED ORGANISM (3) Dehydration Assessment/Plan: Improving Poor Po intake , cont IV nutrition f/u BMP (4) GRACE (acute kidney injury) Assessment/Plan: Due to sepsis and Dehydration resolved Code(s): N17.9 - ACUTE KIDNEY FAILURE, UNSPECIFIED (5) Hypernatremia Assessment/Plan: Due to poor Po intake dehydration improved Code(s): E87.0 - HYPEROSMOLALITY AND HYPERNATREMIA (6) Dementia Assessment/Plan: chronic Code(s): F03.90 - UNSPECIFIED DEMENTIA WITHOUT BEHAVIORAL DISTURBANCE (7) Goals of care, counseling/discussion Assessment/Plan: Patient is DNR DNI s/p PEG after discussing with NOK Mr His Nephew. Cisco Feeding started will advance as tolerates can be Dc to [facility] once cleared by GI Code(s): Z71.89 - OTHER SPECIFIED COUNSELING
[2019-01-26] MEDS: CEFAZOLIN 1 GM in DEXTROSE 5%-WATER - 50 ML IVPB SCH (18:44)
[2019-01-27] MEDS ORDERED: DEXTROSE 5%-WATER - 50 ML IVPB ONE ×3 (02:44→17:28)
[2019-01-27] MEDS ORDERED: ceFAZolin SODIUM 1 GM VIAL ONE ×3 (02:44→17:28)
[2019-01-27] MEDS: CEFAZOLIN 1 GM in DEXTROSE 5%-WATER - 50 ML IVPB SCH ×3 (02:47→17:30)
[2019-01-27 07:41] LABS: BASO % 0.2 % (0-2.0); EOS % 0.1 % (0-4.5); HEMATOCRIT 38.3 % (35.4-49); LYMPH % 3.6 % (8-40); MCH 28.8 pg (25.7-33.7); MEAN CELL VOLUME 84.7 fl (80-96); MEAN PLT VOLUME 8.5 fl (7.5-11.1); MONO % 5.7 % (3.8-10.2); NEUT % 90.4 % (42.8-82.8); PLATELET COUNT 179 K/MM3 (134-434); RBC 4.52 M/mm3 (4.00-5.60); RDW 14.2 % (11.9-15.9); WHITE BLOOD COUNT 23.7 K/mm3 (4.0-10.0)
[2019-01-27 08:10] LABS: ALBUMIN 2.4 g/dl (3.4-5.0); BILIRUBIN,TOTAL 0.7 mg/dL (0.2-1); BLOOD UREA NITROGEN 17.8 mg/dL (7-18); CALCIUM 8.2 mg/dL (8.5-10.1); CREATININE 1.1 mg/dL (0.55-1.3); POTASSIUM 3.6 mmol/L (3.5-5.1); TOT PROT 5.2 g/dl (6.4-8.2)
[2019-01-27] MEDS: PANTOPRAZOLE SODIUM 40 MG VIAL IVPUSH SCH (10:32)
--- NOTE | 2019-01-27 11:58 | PN ---
Progress Note, Physician - Current Medication List Current Medications: Active Medications Acetaminophen (Tylenol -) 650 mg PO PRN PRN PRN Reason: PAIN Cefazolin Sodium 1 gm/ (Dextrose) 50 mls @ 100 mls/hr IVPB Q8H-[facility] Last Admin: 01/27/19 10:31 Dose: 100 mls/hr Pantoprazole Sodium (Protonix Iv) 40 mg IVPUSH [facility] Last Admin: 01/27/19 10:32 Dose: 40 mg - Objective Vital Signs: Vital Signs Temperature 98.5 F 01/27/19 10:00 Pulse Rate 91 H 01/27/19 10:00 Respiratory Rate 20 01/27/19 10:00 Blood Pressure 107/54 L 01/27/19 10:00 O2 Sat by Pulse Oximetry (%) 98 01/26/19 21:00 Labs: CBC, BMP 01/27/19 07:00 01/27/19 07:00 INR, PTT INR 1.14 (0.83-1.09) H 01/26/19 06:00
[2019-01-27 12:12] LABS: ANISOCYTOSIS 1+; MACROCYTOSIS 0; PLATELET ESTIMATE NORMAL
[2019-01-27 16:26] LABS: EPI CELLS 12.6 /HPF (0-5/HPF); HYALINE CASTS 53 /lpf (0-8); URINE APPEARANCE CLOUDY; URINE BILIRUBIN NEGATIVE (NEGATIVE); URINE COLOR DK YELLOW; URINE GLUCOSE (UA) NEGATIVE (NEGATIVE); URINE KETONE TRACE (NEGATIVE); URINE LEUK ESTERASE 1+ (NEGATIVE); URINE NITRITE NEGATIVE (NEGATIVE); URINE PROTEIN NEGATIVE (NEGATIVE); URINE RBC 10 /hpf (0-4); URINE WBC 11 /hpf (0-5)
--- NOTE | 2019-01-27 17:59 | PN ---
Progress Note, Physician Chief Complaint: S/P PEG Feed started Alert but confuse at his base line MS, refusing feeds - Current Medication List Current Medications: Active Medications Acetaminophen (Tylenol -) 650 mg PO PRN PRN PRN Reason: PAIN Cefazolin Sodium 1 gm/ (Dextrose) 50 mls @ 100 mls/hr IVPB Q8H-IV [facility] Last Admin: 01/27/19 17:30 Dose: 100 mls/hr Pantoprazole Sodium (Protonix Iv) 40 mg IVPUSH DAILY [facility] Last Admin: 01/27/19 10:32 Dose: 40 mg - Objective Vital Signs: Vital Signs Temperature 98.5 F 01/27/19 10:00 Pulse Rate 91 H 01/27/19 10:00 Respiratory Rate 20 01/27/19 10:00 Blood Pressure 107/54 L 01/27/19 10:00 O2 Sat by Pulse Oximetry (%) 98 01/26/19 21:00 Elderly M confused, no communicating HEENT: Mm dry , no anemia, atraumatic NECK: No JVd No Bruit CHEST: CTA B/L CVS: Tachycardia ABD: S/P PEG No distention, non tender EXT: Trace edema 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: Alert communicating yes and 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 Confused moving 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 Labs: CBC, BMP 01/27/19 07:00 01/27/19 07:00 INR, PTT INR 1.14 (0.83-1.09) H 01/26/19 06:00 - ....Imaging Chest X-ray: Report Reviewed (Resolved Rt Ll ifiltrates) Problem List - Problems (1) Toxic metabolic encephalopathy Assessment/Plan: Improved now at base line Code(s): G92 - TOXIC ENCEPHALOPATHY (2) Sepsis due to pneumonia Assessment/Plan: Rt Ll infitrate with elevated TWBC, completed abx Code(s): J18.9 - PNEUMONIA, UNSPECIFIED ORGANISM; A41.9 - SEPSIS, UNSPECIFIED ORGANISM (3) Dehydration Assessment/Plan: Improving Poor Po intake , cont IV nutrition f/u BMP (4) GRACE (acute kidney injury) Assessment/Plan: Due to sepsis and Dehydration resolved Code(s): N17.9 - ACUTE KIDNEY FAILURE, UNSPECIFIED (5) Hypernatremia Assessment/Plan: Due to poor Po intake dehydration improved Code(s): E87.0 - HYPEROSMOLALITY AND HYPERNATREMIA (6) Dementia Assessment/Plan: chronic Code(s): F03.90 - UNSPECIFIED DEMENTIA WITHOUT BEHAVIORAL DISTURBANCE (7) Goals of care, counseling/discussion Assessment/Plan: Patient is DNR DNI s/p PEG after discussing with [place]SHINE[place] Mr His Nephew. Cisco Feeding started will advance as tolerates can be Dc to [facility] once cleared by GI Code(s): Z71.89 - OTHER SPECIFIED COUNSELING (8) Hypokalemia Assessment/Plan: Resolved Code(s): E87.6 - HYPOKALEMIA (9) Elevated WBC count Assessment/Plan: can be reactive afebrile , CXR no infiltrates , UA unremarkable Foleys Dcsd will F/U u culture , clinical course if TWBC branden will consider Dc to G on IV Cefazolin Code(s): D72.829 - ELEVATED WHITE BLOOD CELL COUNT, UNSPECIFIED
--- NOTE | 2019-01-27 21:56 | PN.GI ---
GI Progress Note Subjective: GI NOte: Tolerating feedings. Marked rise in WBC noted but no fever or drop in Hb. No respiratory distress to suggest aspiration. PEG site is clean - Objective Vital Signs: Vital Signs Temperature 98.5 F 01/27/19 18:00 Pulse Rate 98 H 01/27/19 18:00 Respiratory Rate 19 01/27/19 18:00 Blood Pressure 106/65 01/27/19 18:00 O2 Sat by Pulse Oximetry (%) 97 01/27/19 09:00 Selected Entries 01/27/19 18:00 Temperature 98.5 F Laboratory Tests 01/26/19 01/27/19 06:00 07:00 WBC 11.5 H 23.7 H Hgb 13.0 Constitutional: No Distress Respiratory: Yes: CTA Bilaterally Gastrointestinal Inspection: Yes: Other (PEG site reveals no erythema or fluctuance, area cleansed and gauze placed) ...Auscultate: Yes: Normoactive Bowel Sounds ...Palpate: Yes: Soft Labs: CBC, BMP 01/27/19 07:00 01/27/19 07:00 INR, PTT INR 1.14 (0.83-1.09) H 01/26/19 06:00 Assessment/Plan Assessment: - Day 1 s/p PEG insertion with leukocytosis but no obvious aspiration or site infection. Plan: -- PEG site cleansed -- Continue feedings. Problem List - Problems (1) Nutrient intake below expected requirement Code(s): E61.9 - DEFICIENCY OF NUTRIENT ELEMENT, UNSPECIFIED (2) GRACE (acute kidney injury) Code(s): N17.9 - ACUTE KIDNEY FAILURE, UNSPECIFIED (3) Dehydration Code(s): E86.0 - DEHYDRATION (4) Dementia Code(s): F03.90 - UNSPECIFIED DEMENTIA WITHOUT BEHAVIORAL DISTURBANCE (5) Hypernatremia Code(s): E87.0 - HYPEROSMOLALITY AND HYPERNATREMIA (6) Toxic metabolic encephalopathy Code(s): G92 - TOXIC ENCEPHALOPATHY (7) Status post insertion of percutaneous endoscopic gastrostomy (PEG) tube Code(s): Z93.1 - GASTROSTOMY STATUS
[2019-01-28] MEDS ORDERED: ceFAZolin SODIUM 1 GM VIAL ONE ×3 (01:42→16:58)
[2019-01-28] MEDS ORDERED: DEXTROSE 5%-WATER - 50 ML IVPB ONE ×3 (01:42→16:59)
[2019-01-28] MEDS: CEFAZOLIN 1 GM in DEXTROSE 5%-WATER - 50 ML IVPB SCH ×3 (02:13→17:14)
[2019-01-28 08:21] LABS: BASO % 0.2 % (0-2.0); EOS % 0.7 % (0-4.5); HEMATOCRIT 35.2 % (35.4-49); LYMPH % 5.3 % (8-40); MEAN CELL VOLUME 85.2 fl (80-96); MONO % 6.4 % (3.8-10.2); NEUT % 87.4 % (42.8-82.8); RBC 4.12 M/mm3 (4.00-5.60); RDW 14.3 % (11.9-15.9); WHITE BLOOD COUNT 19.5 K/mm3 (4.0-10.0)
[2019-01-28 08:37] LABS: ALBUMIN 2.2 g/dl (3.4-5.0); BILIRUBIN,TOTAL 0.5 mg/dL (0.2-1); BLOOD UREA NITROGEN 19.1 mg/dL (7-18); CALCIUM 7.7 mg/dL (8.5-10.1); CREATININE 0.9 mg/dL (0.55-1.3); POTASSIUM 3.6 mmol/L (3.5-5.1); TOT PROT 5.2 g/dl (6.4-8.2)
[2019-01-28 09:14] LABS: PLATELET COUNT 175 K/MM3 (134-434)
[2019-01-28] MEDS: PANTOPRAZOLE SODIUM 40 MG VIAL IVPUSH SCH (09:35)
--- NOTE | 2019-01-28 10:39 | PN ---
Progress Note, Physician History of Present Illness: patient stable no new issues feeding tube placed - Current Medication List Current Medications: Active Medications Acetaminophen (Tylenol -) 650 mg PO PRN PRN PRN Reason: PAIN Cefazolin Sodium 1 gm/ (Dextrose) 50 mls @ 100 mls/hr IVPB Q8H-IV [facility] Last Admin: 01/28/19 09:34 Dose: 100 mls/hr Pantoprazole Sodium (Protonix Iv) 40 mg IVPUSH DAILY [facility] Last Admin: 01/28/19 09:35 Dose: 40 mg - Objective Vital Signs: Vital Signs Temperature 97.6 F 01/28/19 09:52 Pulse Rate 96 H 01/28/19 09:52 Respiratory Rate 18 01/28/19 09:52 Blood Pressure 115/55 L 01/28/19 09:52 O2 Sat by Pulse Oximetry (%) 95 01/27/19 21:00 Constitutional: Yes: No Distress, Calm Cardiovascular: Yes: S1, S2 Respiratory: Yes: Regular, CTA Bilaterally Gastrointestinal: Yes: Normal Bowel Sounds, Soft Musculoskeletal: Yes: WNL Extremities: Yes: WNL Neurological: Yes: Alert, Oriented Psychiatric: Yes: Alert, Oriented Labs: CBC, BMP 01/28/19 06:52 01/28/19 06:52 INR, PTT INR 1.14 (0.83-1.09) H 01/26/19 06:00 Assessment/Plan Problem List - Problems (1) GRACE (acute kidney injury) Code(s): N17.9 - ACUTE KIDNEY FAILURE, UNSPECIFIED (2) Sepsis due to pneumonia Code(s): J18.9 - PNEUMONIA, UNSPECIFIED ORGANISM; A41.9 - SEPSIS, UNSPECIFIED ORGANISM (3) Altered mental status Code(s): R41.82 - ALTERED MENTAL STATUS, UNSPECIFIED (4) Alzheimer's dementia Code(s): G30.9 - ALZHEIMER'S DISEASE, UNSPECIFIED (5) Urinary tract infection Code(s): N39.0 - URINARY TRACT INFECTION, SITE NOT SPECIFIED Qualifiers: Urinary tract infection type: site unspecified Hematuria presence: without hematuria Qualified Code(s): N39.0 - Urinary tract infection, site not specified Assessment/Plan 88 y.o. male with PMH of Alzheimer's dementia and DVT and s/p recent treatment for UTI/PNA with clinical improvement on Levaquin presents with lethargy, cough , tachycardia, hypoxia, leukocytosis, renal impairment, and elevated lactic acid level Sepsis PNA/ Possible Aspiration Possible UTI GRACE Lethargy Hx of DVT Dementia plan cx result noted oral hygiene nutrition rest as per the team peg tube place
[2019-01-28 11:19] LABS: MAGNESIUM 1.9 mg/dL (1.8-2.4)
--- NOTE | 2019-01-28 14:59 | PN ---
Progress Note (short form) - Note Progress Note: Renal follow up for GRACE and Hypernatremia Pts seen and examined at the bedside awake and alert on Tube feeds no overnight events Vital Signs Temperature 97.6 F 01/28/19 09:52 Pulse Rate 96 H 01/28/19 09:52 Respiratory Rate 18 01/28/19 09:52 Blood Pressure 115/55 L 01/28/19 09:52 O2 Sat by Pulse Oximetry (%) 95 01/27/19 21:00 Intake & Output 01/25/19 01/26/19 01/27/19 01/28/19 23:59 23:59 23:59 23:59 Intake Total 966 1004 1715 1100 Output Total 200 1050 490 Balance 766 -46 1225 1100 NAD awake and alert confused RRR CTA soft NT/ND, no bladder distension No LE edema, clubbing or cyanosis CBC, BMP 01/28/19 06:52 01/28/19 06:52 Current Medications Acetaminophen (Tylenol -) 650 mg PO PRN PRN PRN Reason: PAIN Cefazolin Sodium 1 gm/ (Dextrose) 50 mls @ 100 mls/hr IVPB Q8H-IV [facility] Last Admin: 01/28/19 09:34 Dose: 100 mls/hr Pantoprazole Sodium (Protonix Iv) 40 mg IVPUSH DAILY [facility] Last Admin: 01/28/19 09:35 Dose: 40 mg 88 year old gentleman with history of advanced dementia, DVT, Recent UTI and PNA presented with lethargy and worsening renal function. #GRACE #Hypernatremia #Metabolic acidosis #Sepsis #PNA/Aspiration PNA Renal function improved and stable electrolytes are within normal limits at this time continue tube feeds with free water Abx as per ID will sign off case at this time, please call if there are any questions or concerns Isreal Long DO
[2019-01-28] MEDS ORDERED: PT OWN MED DRAWER 7, Y5N ONE (17:56)
[2019-01-28] MEDS: AMPICILLIN NA/SULBACTAM NA 3 GM in SODIUM CHLORIDE 100 ML IVPB SCH (18:49)
--- NOTE | 2019-01-28 22:17 | PN ---
Progress Note, Physician Chief Complaint: S/P PEG Feed started Alert but confuse at his base line MS, refusing feeds - Current Medication List Current Medications: Active Medications Acetaminophen (Tylenol -) 650 mg PO PRN PRN PRN Reason: PAIN Ampicillin Sodium/Sulbactam (Sodium 3 gm/ Sodium Chloride) 100 mls @ 200 mls/ hr IVPB Q8H-IV [facility] Last Admin: 01/28/19 18:49 Dose: 200 mls/hr Pantoprazole Sodium (Protonix Iv) 40 mg IVPUSH DAILY [facility] Last Admin: 01/28/19 09:35 Dose: 40 mg - Objective Vital Signs: Vital Signs Temperature 97.4 F L 01/28/19 18:00 Pulse Rate 94 H 01/28/19 18:00 Respiratory Rate 18 01/28/19 18:00 Blood Pressure 102/73 01/28/19 18:00 O2 Sat by Pulse Oximetry (%) 96 01/28/19 21:00 Elderly M confused, no communicating HEENT: Mm dry , no anemia, atraumatic NECK: No JVd No Bruit CHEST: CTA B/L CVS: Tachycardia ABD: S/P PEG No distention, non tender EXT: Trace edema 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: Alert communicating yes and 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 Confused moving 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 Labs: CBC, BMP 01/28/19 06:52 01/28/19 06:52 INR, PTT INR 1.14 (0.83-1.09) H 01/26/19 06:00 Problem List - Problems (1) Toxic metabolic encephalopathy Assessment/Plan: Improved now at base line Code(s): G92 - TOXIC ENCEPHALOPATHY (2) Sepsis due to pneumonia Assessment/Plan: Rt Ll infitrate with elevated TWBC, completed abx Code(s): J18.9 - PNEUMONIA, UNSPECIFIED ORGANISM; A41.9 - SEPSIS, UNSPECIFIED ORGANISM (3) Dehydration Assessment/Plan: Improving Poor Po intake , cont IV nutrition f/u BMP (4) GRACE (acute kidney injury) Assessment/Plan: Due to sepsis and Dehydration resolved Code(s): N17.9 - ACUTE KIDNEY FAILURE, UNSPECIFIED (5) Hypernatremia Assessment/Plan: Due to poor Po intake dehydration improved Code(s): E87.0 - HYPEROSMOLALITY AND HYPERNATREMIA (6) Dementia Assessment/Plan: chronic Code(s): F03.90 - UNSPECIFIED DEMENTIA WITHOUT BEHAVIORAL DISTURBANCE (7) Goals of care, counseling/discussion Assessment/Plan: Patient is DNR DNI s/p PEG after discussing with NOK Mr His Nephew. Cisco Feeding started will advance as tolerates can be Dc to [facility] once cleared by GI Code(s): Z71.89 - OTHER SPECIFIED COUNSELING (8) Hypokalemia Assessment/Plan: Resolved Code(s): E87.6 - HYPOKALEMIA (9) Elevated WBC count Assessment/Plan: Switched to Unsyn TWBC 15 K no fever XR normal will discuss with ID for DC plan. Code(s): D72.829 - ELEVATED WHITE BLOOD CELL COUNT, UNSPECIFIED
[2019-01-29] MEDS ORDERED: PT OWN MED DRAWER 7, Y5N ONE ×3 (01:26→17:46)
[2019-01-29] MEDS: AMPICILLIN NA/SULBACTAM NA 3 GM in SODIUM CHLORIDE 100 ML IVPB SCH ×3 (01:50→18:05)
[2019-01-29 08:20] LABS: BASO % 0.3 % (0-2.0); EOS % 1.2 % (0-4.5); HEMATOCRIT 34.8 % (35.4-49); HEMOGLOBIN 11.8 GM/dL (11.7-16.9); LYMPH % 8.7 % (8-40); MCH 28.7 pg (25.7-33.7); MCHC 33.8 g/dl (32.0-35.9); MEAN PLT VOLUME 8.7 fl (7.5-11.1); MONO % 8.2 % (3.8-10.2); NEUT % 81.6 % (42.8-82.8); PLATELET COUNT 198 K/MM3 (134-434); RDW 14.8 % (11.9-15.9); WHITE BLOOD COUNT 15.2 K/mm3 (4.0-10.0)
[2019-01-29 08:43] LABS: BLOOD UREA NITROGEN 18.6 mg/dL (7-18); CALCIUM 7.8 mg/dL (8.5-10.1); CREATININE 0.8 mg/dL (0.55-1.3); POTASSIUM 3.9 mmol/L (3.5-5.1)
--- NOTE | 2019-01-29 09:51 | PN ---
Progress Note, Physician Chief Complaint: S/P PEG Feed started Alert but confuse at his base line MS, refusing feeds - Current Medication List Current Medications: Active Medications Acetaminophen (Tylenol -) 650 mg PO PRN PRN PRN Reason: PAIN Ampicillin Sodium/Sulbactam (Sodium 3 gm/ Sodium Chloride) 100 mls @ 200 mls/ hr IVPB Q8H-IV [facility] Last Admin: 01/29/19 01:50 Dose: 200 mls/hr Pantoprazole Sodium (Protonix Iv) 40 mg IVPUSH DAILY [facility] Last Admin: 01/28/19 09:35 Dose: 40 mg - Objective Vital Signs: Vital Signs Temperature 98.5 F 01/29/19 06:00 Pulse Rate 97 H 01/29/19 06:00 Respiratory Rate 17 01/29/19 06:00 Blood Pressure 100/52 L 01/29/19 06:00 O2 Sat by Pulse Oximetry (%) 96 01/28/19 21:00 Elderly M confused, no communicating HEENT: Mm dry , no anemia, atraumatic NECK: No JVd No Bruit CHEST: CTA B/L CVS: Tachycardia ABD: S/P PEG No distention, non tender EXT: Trace edema 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 communicating yes and 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 Confused moving 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 Labs: CBC, BMP 01/29/19 06:40 01/29/19 06:40 INR, PTT INR 1.14 (0.83-1.09) H 01/26/19 06:00 Problem List - Problems (1) Toxic metabolic encephalopathy Assessment/Plan: Improved now at base line Code(s): G92 - TOXIC ENCEPHALOPATHY (2) Sepsis due to pneumonia Assessment/Plan: Rt Ll infitrate with elevated TWBC, completed abx Code(s): J18.9 - PNEUMONIA, UNSPECIFIED ORGANISM; A41.9 - SEPSIS, UNSPECIFIED ORGANISM (3) Dehydration Assessment/Plan: Improving Poor Po intake , cont IV nutrition f/u BMP (4) GRACE (acute kidney injury) Assessment/Plan: Due to sepsis and Dehydration resolved Code(s): N17.9 - ACUTE KIDNEY FAILURE, UNSPECIFIED (5) Hypernatremia Assessment/Plan: Due to poor Po intake dehydration improved Code(s): E87.0 - HYPEROSMOLALITY AND HYPERNATREMIA (6) Dementia Assessment/Plan: chronic Code(s): F03.90 - UNSPECIFIED DEMENTIA WITHOUT BEHAVIORAL DISTURBANCE (7) Goals of care, counseling/discussion Assessment/Plan: Patient is DNR DNI s/p PEG after discussing with ISABELLA Mr His Nephew. Cisco Feeding started will advance as tolerates can be Dc to [facility] once cleared by GI Code(s): Z71.89 - OTHER SPECIFIED COUNSELING (8) Hypokalemia Assessment/Plan: Resolved Code(s): E87.6 - HYPOKALEMIA (9) Elevated WBC count Assessment/Plan: Switched to Unsyn TWBC 15.2 K no fever CXR normal will discussed with ID wants one more day of IV abx. Code(s): D72.829 - ELEVATED WHITE BLOOD CELL COUNT, UNSPECIFIED
[2019-01-29] MEDS: PANTOPRAZOLE SODIUM 40 MG VIAL IVPUSH SCH (11:05)
--- NOTE | 2019-01-29 18:56 | PN ---
Progress Note, Physician History of Present Illness: Pt seen and examined. Events noted. Pt without acute respiratory distress, is alert. Wbc with downward trend but mild temperature elevation to 99.3F. - Current Medication List Current Medications: Active Medications Acetaminophen (Tylenol -) 650 mg PO PRN PRN PRN Reason: PAIN Ampicillin Sodium/Sulbactam (Sodium 3 gm/ Sodium Chloride) 100 mls @ 200 mls/ hr IVPB Q8H-IV [facility] Last Admin: 01/29/19 18:05 Dose: 200 mls/hr Pantoprazole Sodium (Protonix Iv) 40 mg IVPUSH DAILY [facility] Last Admin: 01/29/19 11:05 Dose: 40 mg - Objective Vital Signs: Vital Signs Temperature 98.7 F 01/29/19 14:00 Pulse Rate 91 H 01/29/19 14:00 Respiratory Rate 20 01/29/19 14:00 Blood Pressure 106/49 L 01/29/19 14:00 O2 Sat by Pulse Oximetry (%) 96 01/29/19 09:00 Constitutional: Yes: No Distress Eyes: Yes: Conjunctiva Clear Neck: Yes: Supple Cardiovascular: Yes: Tachycardia Respiratory: Yes: CTA Bilaterally Gastrointestinal: Yes: Normal Bowel Sounds, Soft, Other (GT site clean) Genitourinary: Yes: WNL Musculoskeletal: Yes: WNL Extremities: Yes: WNL Edema: No Integumentary: Yes: WNL Neurological: Yes: Alert Labs: CBC, BMP 01/29/19 06:40 01/29/19 06:40 INR, PTT INR 1.14 (0.83-1.09) H 01/26/19 06:00 Microbiology 01/27/19 15:13 Urine - Urine - Catheterized Urine Culture - Final NO GROWTH OBTAINED 01/15/19 16:00 Blood - Peripheral Venous Blood Culture - Final NO GROWTH AFTER 5 DAYS INCUBATION 01/15/19 15:07 Blood - Peripheral Venous Blood Culture - Final NO GROWTH AFTER 5 DAYS INCUBATION 01/15/19 17:15 Urine - Urine Clean Catch Urine Culture - Final Enterococcus Faecalis - ....Imaging Chest X-ray: Report Reviewed (resolving Rt infiltrate) Problem List - Problems (1) GRCAE (acute kidney injury) Code(s): N17.9 - ACUTE KIDNEY FAILURE, UNSPECIFIED (2) Sepsis due to pneumonia Code(s): J18.9 - PNEUMONIA, UNSPECIFIED ORGANISM; A41.9 - SEPSIS, UNSPECIFIED ORGANISM (3) Altered mental status Code(s): R41.82 - ALTERED MENTAL STATUS, UNSPECIFIED (4) Alzheimer's dementia Code(s): G30.9 - ALZHEIMER'S DISEASE, UNSPECIFIED (5) Urinary tract infection Code(s): N39.0 - URINARY TRACT INFECTION, SITE NOT SPECIFIED Qualifiers: Urinary tract infection type: site unspecified Hematuria presence: without hematuria Qualified Code(s): N39.0 - Urinary tract infection, site not specified Assessment/Plan 88 y.o. male with PMH of Alzheimer's dementia and DVT and s/p recent treatment for UTI/PNA with clinical improvement on Levaquin presents with lethargy, cough , tachycardia, hypoxia, leukocytosis, renal impairment, and elevated lactic acid level. Sepsis PNA/ likely Aspiration Dementia GRACE -- Pt with mild temp elevation, wbc trending towards normal -- now on Unasyn -- Urine Cx neg -- continue monitor temps, wbc -- aspiration precautions
[2019-01-30] MEDS: AMPICILLIN NA/SULBACTAM NA 3 GM in SODIUM CHLORIDE 100 ML IVPB SCH ×3 (02:27→17:55)
[2019-01-30 07:52] LABS: BASO % 0.5 % (0-2.0); EOS % 1.8 % (0-4.5); HEMATOCRIT 35.8 % (35.4-49); HEMOGLOBIN 11.9 GM/dL (11.7-16.9); LYMPH % 15.1 % (8-40); MCH 28.3 pg (25.7-33.7); MCHC 33.1 g/dl (32.0-35.9); MEAN CELL VOLUME 85.4 fl (80-96); MEAN PLT VOLUME 8.4 fl (7.5-11.1); MONO % 9.2 % (3.8-10.2); NEUT % 73.4 % (42.8-82.8); PLATELET COUNT 220 K/MM3 (134-434); RBC 4.19 M/mm3 (4.00-5.60); RDW 14.7 % (11.9-15.9); WHITE BLOOD COUNT 12.3 K/mm3 (4.0-10.0)
[2019-01-30 08:12] LABS: BLOOD UREA NITROGEN 18.7 mg/dL (7-18); CREATININE 0.7 mg/dL (0.55-1.3); POTASSIUM 4.2 mmol/L (3.5-5.1)
[2019-01-30] MEDS ORDERED: PT OWN MED DRAWER 7, Y5N ONE ×2 (09:57→17:52)
[2019-01-30] MEDS: PANTOPRAZOLE SODIUM 40 MG VIAL IVPUSH SCH (10:38)
--- NOTE | 2019-01-30 12:46 | DS ---
Physical Examination Vital Signs: Vital Signs Temperature 98.7 F 01/31/19 10:00 Pulse Rate 88 01/31/19 10:00 Respiratory Rate 18 01/31/19 10:00 Blood Pressure 127/67 01/31/19 10:00 O2 Sat by Pulse Oximetry (%) 96 01/30/19 21:00 Elderly M confused, no communicating HEENT: Mm dry , no anemia, atraumatic NECK: No JVd No Bruit CHEST: CTA B/L CVS: Tachycardia ABD: S/P PEG No distention, non tender EXT: Trace edema PROSTHETIC AIDE: Alert communicating yes and 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 Confused moving 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 Labs: CBC, BMP 01/31/19 06:40 01/31/19 06:40 Discharge Summary Reason For Visit: ACUTE KIDNEY INJURY/PNEUMONIA Current Active Problems GRACE (acute kidney injury) (Acute) Dehydration (Acute) Dementia (Acute) Elevated WBC count (Acute) Goals of care, counseling/discussion (Acute) Hypernatremia (Acute) Hypokalemia (Acute) Nutrient intake below expected requirement (Acute) Sepsis due to pneumonia (Acute) Status post insertion of percutaneous endoscopic gastrostomy (PEG) tube (Acute) Toxic metabolic encephalopathy (Acute) Hospital Course: 88 yrs old NH resident with advanced Dementia was admitted with sever Dehydration, Hypernatremia, GRACE< Sepsis Pneumonia with poor PO intake gradually improved with IV Hydration and abx, labs return to normal but patient keep on refusion PO so [facility] was contacted and patient hasda PEG placement, post PEG developed high WBC that responded to IV Unasyn switched to PO augmentin and DC in stable condition, patient is DNR DNI Condition: Stable - Instructions Diet, Activity, Other Instructions: PEG Feeding as Directed Abd Binder to avoid PEG tube Dislodgment. Disposition: INTERMEDIATE FACILITY - Home Medications Comprehensive Discharge Medication List: Ambulatory Orders Acetaminophen [Tylenol] 650 mg PO PRN PRN 08/10/17 Heparin - 5,000 unit SQ BID 08/10/17 Amox-Tr/K Cl [Augmentin - 500Mg Tablet] 1 tab PO BID #14 tab 01/30/19 LORazepam [Ativan] 1 mg PO BID PRN #14 tablet MDD two 01/30/19 Pantoprazole Sodium [Protonix] 40 mg PO DAILY 30 Days tablet. 01/30/19
--- NOTE | 2019-01-30 12:58 | PN ---
Progress Note, Physician Chief Complaint: low grade fever S/P PEG Feed started Alert but confuse at his base line MS, refusing feeds - Current Medication List Current Medications: Active Medications Acetaminophen (Tylenol -) 650 mg PO PRN PRN PRN Reason: PAIN Enoxaparin Sodium (Lovenox -) 30 mg SQ DAILY [facility] Ampicillin Sodium/Sulbactam (Sodium 3 gm/ Sodium Chloride) 100 mls @ 200 mls/ hr IVPB Q8H-IV [facility] Last Admin: 01/30/19 10:38 Dose: 200 mls/hr Pantoprazole Sodium (Protonix Iv) 40 mg IVPUSH DAILY [facility] Last Admin: 01/30/19 10:38 Dose: 40 mg - Objective Vital Signs: Vital Signs Temperature 99 F 01/30/19 06:00 Pulse Rate 90 01/30/19 06:00 Respiratory Rate 20 01/30/19 06:00 Blood Pressure 106/70 01/30/19 06:00 O2 Sat by Pulse Oximetry (%) 96 01/29/19 21:00 Elderly M confused, no communicating HEENT: Mm dry , no anemia, atraumatic NECK: No JVd No Bruit CHEST: CTA B/L CVS: Tachycardia ABD: S/P PEG No distention, non tender EXT: Trace edema 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 AGENT: Alert communicating yes and 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 Confused moving 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 Labs: CBC, BMP 01/30/19 07:15 01/30/19 07:15 INR, PTT INR 1.14 (0.83-1.09) H 01/26/19 06:00 Problem List - Problems (1) Toxic metabolic encephalopathy Assessment/Plan: Improved now at base line Code(s): G92 - TOXIC ENCEPHALOPATHY (2) Sepsis due to pneumonia Assessment/Plan: Rt Ll infitrate with elevated TWBC, completed abx Code(s): J18.9 - PNEUMONIA, UNSPECIFIED ORGANISM; A41.9 - SEPSIS, UNSPECIFIED ORGANISM (3) Dehydration Assessment/Plan: Improving Poor Po intake , cont IV nutrition f/u BMP (4) GRACE (acute kidney injury) Assessment/Plan: Due to sepsis and Dehydration resolved Code(s): N17.9 - ACUTE KIDNEY FAILURE, UNSPECIFIED (5) Hypernatremia Assessment/Plan: Due to poor Po intake dehydration improved Code(s): E87.0 - HYPEROSMOLALITY AND HYPERNATREMIA (6) Dementia Assessment/Plan: chronic Code(s): F03.90 - UNSPECIFIED DEMENTIA WITHOUT BEHAVIORAL DISTURBANCE (7) Goals of care, counseling/discussion Assessment/Plan: Patient is DNR DNI s/p PEG after discussing with ISABELLA Mr His Nephew. Cisco Feeding started will advance as tolerates can be Dc to [facility] once cleared by GI Code(s): Z71.89 - OTHER SPECIFIED COUNSELING (8) Hypokalemia Assessment/Plan: Resolved Code(s): E87.6 - HYPOKALEMIA (9) Elevated WBC count Assessment/Plan: Switched to Unsyn TWBC 2.3 K no fever CXR normal will discussed with ID wants one more day of IV abx. possible Dc i am Code(s): D72.829 - ELEVATED WHITE BLOOD CELL COUNT, UNSPECIFIED
--- NOTE | 2019-01-30 13:05 | PN ---
Progress Note, Physician History of Present Illness: Pt alert, without distress but temp of 99.6F currently. - Current Medication List Current Medications: Active Medications Acetaminophen (Tylenol -) 650 mg PO PRN PRN PRN Reason: PAIN Enoxaparin Sodium (Lovenox -) 30 mg SQ DAILY [facility] Ampicillin Sodium/Sulbactam (Sodium 3 gm/ Sodium Chloride) 100 mls @ 200 mls/ hr IVPB Q8H-IV [facility] Last Admin: 01/30/19 10:38 Dose: 200 mls/hr Pantoprazole Sodium (Protonix Iv) 40 mg IVPUSH DAILY [facility] Last Admin: 01/30/19 10:38 Dose: 40 mg - Objective Vital Signs: Vital Signs Temperature 99.8 F H 01/30/19 12:55 Pulse Rate 104 H 01/30/19 12:55 Respiratory Rate 18 01/30/19 12:55 Blood Pressure 108/66 01/30/19 12:55 O2 Sat by Pulse Oximetry (%) 96 01/29/19 21:00 Constitutional: Yes: No Distress Eyes: Yes: Conjunctiva Clear Cardiovascular: Yes: Tachycardia Respiratory: Yes: CTA Bilaterally Gastrointestinal: Yes: Normal Bowel Sounds, Soft, Other (GT) Genitourinary: Yes: WNL Musculoskeletal: Yes: WNL Extremities: Yes: WNL Integumentary: Yes: WNL Neurological: Yes: Alert Labs: CBC, BMP 01/30/19 07:15 01/30/19 07:15 INR, PTT INR 1.14 (0.83-1.09) H 01/26/19 06:00 - ....Imaging Chest X-ray: Report Reviewed Problem List - Problems (1) GRACE (acute kidney injury) Code(s): N17.9 - ACUTE KIDNEY FAILURE, UNSPECIFIED (2) Sepsis due to pneumonia Code(s): J18.9 - PNEUMONIA, UNSPECIFIED ORGANISM; A41.9 - SEPSIS, UNSPECIFIED ORGANISM (3) Altered mental status Code(s): R41.82 - ALTERED MENTAL STATUS, UNSPECIFIED (4) Alzheimer's dementia Code(s): G30.9 - ALZHEIMER'S DISEASE, UNSPECIFIED (5) Urinary tract infection Code(s): N39.0 - URINARY TRACT INFECTION, SITE NOT SPECIFIED Qualifiers: Urinary tract infection type: site unspecified Hematuria presence: without hematuria Qualified Code(s): N39.0 - Urinary tract infection, site not specified Assessment/Plan 88 y.o. male with PMH of Alzheimer's dementia and DVT and s/p recent treatment for UTI/PNA with clinical improvement on Levaquin presents with lethargy, cough , tachycardia, hypoxia, leukocytosis, renal impairment, and elevated lactic acid level. Sepsis PNA/ likely Aspiration Dementia GRACE -- Pt with low grade fevers, tachycardic, wbc decreasing -- continue Unasyn for now, ? microaspiration -- continue monitor temps, wbc -- if persistently febrile send blood cultures -- aspiration precautions Currently without distress, monitor closely D/W Dr Torrez
[2019-01-30] MEDS ORDERED: ENOXAPARIN NA (PORCINE) 30 MG/0.3 ML DISP.SYRIN SQ SCH (13:30)
[2019-01-30] MEDS: ENOXAPARIN NA (PORCINE) 40 MG/0.4 ML DISP.SYRIN SQ SCH (14:50)
[2019-01-31] MEDS: AMPICILLIN NA/SULBACTAM NA 3 GM in SODIUM CHLORIDE 100 ML IVPB SCH ×3 (02:52→18:20)
[2019-01-31 08:26] LABS: BLOOD UREA NITROGEN 19.6 mg/dL (7-18); CREATININE 0.7 mg/dL (0.55-1.3); POTASSIUM 4.3 mmol/L (3.5-5.1)
[2019-01-31 08:38] LABS: BASO % 0.7 % (0-2.0); EOS % 2.3 % (0-4.5); HEMATOCRIT 34.3 % (35.4-49); HEMOGLOBIN 11.5 GM/dL (11.7-16.9); LYMPH % 17.2 % (8-40); MCH 28.7 pg (25.7-33.7); MCHC 33.4 g/dl (32.0-35.9); MEAN PLT VOLUME 8.2 fl (7.5-11.1); NEUT % 70.8 % (42.8-82.8); PLATELET COUNT 240 K/MM3 (134-434); RBC 3.99 M/mm3 (4.00-5.60); RDW 14.6 % (11.9-15.9); WHITE BLOOD COUNT 11.5 K/mm3 (4.0-10.0)
[2019-01-31] MEDS ORDERED: PT OWN MED DRAWER 7, Y5N ONE (10:53)
[2019-01-31] MEDS: PANTOPRAZOLE SODIUM 40 MG VIAL IVPUSH SCH (11:01)
[2019-01-31] MEDS: ENOXAPARIN NA (PORCINE) 40 MG/0.4 ML DISP.SYRIN SQ SCH (11:01)
--- NOTE | 2019-01-31 13:01 | PN ---
Progress Note, Physician History of Present Illness: stable still with cough wbc trending down - Current Medication List Current Medications: Active Medications Acetaminophen (Tylenol -) 650 mg PO PRN PRN PRN Reason: PAIN Enoxaparin Sodium (Lovenox -) 40 mg SQ DAILY [facility] Last Admin: 01/31/19 11:01 Dose: 40 mg Ampicillin Sodium/Sulbactam (Sodium 3 gm/ Sodium Chloride) 100 mls @ 200 mls/ hr IVPB Q8H-IV [facility] Last Admin: 01/31/19 11:01 Dose: 200 mls/hr Pantoprazole Sodium (Protonix Iv) 40 mg IVPUSH DAILY [facility] Last Admin: 01/31/19 11:01 Dose: 40 mg - Objective Vital Signs: Vital Signs Temperature 98.7 F 01/31/19 10:00 Pulse Rate 88 01/31/19 10:00 Respiratory Rate 18 01/31/19 10:00 Blood Pressure 127/67 01/31/19 10:00 O2 Sat by Pulse Oximetry (%) 96 01/30/19 21:00 Constitutional: Yes: No Distress, Calm Cardiovascular: Yes: S1, S2 Respiratory: Yes: Regular, Poor Air Entry, Rhonchi Gastrointestinal: Yes: Normal Bowel Sounds, Soft, Other (peg in place) Musculoskeletal: Yes: WNL Extremities: Yes: WNL Neurological: Yes: Alert, Oriented Psychiatric: Yes: Alert, Oriented Labs: CBC, BMP 01/31/19 06:40 01/31/19 06:40 INR, PTT INR 1.14 (0.83-1.09) H 01/26/19 06:00 Assessment/Plan Problem List - Problems (1) GRACE (acute kidney injury) Code(s): N17.9 - ACUTE KIDNEY FAILURE, UNSPECIFIED (2) Sepsis due to pneumonia Code(s): J18.9 - PNEUMONIA, UNSPECIFIED ORGANISM; A41.9 - SEPSIS, UNSPECIFIED ORGANISM (3) Altered mental status Code(s): R41.82 - ALTERED MENTAL STATUS, UNSPECIFIED (4) Alzheimer's dementia Code(s): G30.9 - ALZHEIMER'S DISEASE, UNSPECIFIED (5) Urinary tract infection Code(s): N39.0 - URINARY TRACT INFECTION, SITE NOT SPECIFIED Qualifiers: Urinary tract infection type: site unspecified Hematuria presence: without hematuria Qualified Code(s): N39.0 - Urinary tract infection, site not specified Assessment/Plan 88 y.o. male with PMH of Alzheimer's dementia and DVT and s/p recent treatment for UTI/PNA with clinical improvement on Levaquin presents with lethargy, cough , tachycardia, hypoxia, leukocytosis, renal impairment, and elevated lactic acid level Sepsis PNA/ Possible Aspiration Possible UTI GRACE Lethargy Hx of DVT Dementia plan cx result noted oral hygiene nutrition can change to augmentin ffor 5 more days
[2019-01-31 18:13] VITALS: BP 110/45; PULSE 87; TEMP 97.4
== END 2019-01-31 20:04 | DRG 871 ==
LOC: JER 14:37 → JERBED 17:46 → J4W 20:59 → J5S 01-22 15:28 → UNDODISIN 01-31 14:44
PROVIDERS: ADMIT Internal Medicine; ATTEND Internal Medicine
PROC: 3E0G76Z Introduction of Nutritional Substance into Upper GI, Via Natural or Artificial Opening (ICD-10-PCS; 2019-01-26)
PROC: 0DH63UZ Insertion of Feeding Device into Stomach, Percutaneous Approach (ICD-10-PCS; principal; 2019-01-26 12:00)
DX: A41.9 Sepsis, unspecified organism (principal); G92 Toxic encephalopathy; J18.9 Pneumonia, unspecified organism; N17.9 Acute kidney failure, unspecified; E87.0 Hyperosmolality and hypernatremia; E87.2 Acidosis; N39.0 Urinary tract infection, site not specified; R62.7 Adult failure to thrive; G30.9 Alzheimer's disease, unspecified; F02.80 Dementia in other diseases classified elsewhere, unspecified severity, without behavioral disturbance, psychotic disturbance, mood disturbance, and anxiety; Z86.718 Personal history of other venous thrombosis and embolism; Z99.3 Dependence on wheelchair; E86.0 Dehydration; E87.6 Hypokalemia; E83.42 Hypomagnesemia; Z71.89 Other specified counseling; Z66 Do not resuscitate; B95.2 Enterococcus as the cause of diseases classified elsewhere
CPT/HCPCS: 36415; 71045-TC-FY; 74230-TC-FY; 76775-TC; 80048; 80053; 81003; 82565; 82803; 83605; 83735; 84100; 84156; 84300; 84484; 84540; 85025; 85610; 85730; 87040; 87086; 87186; 92611-GN; 93005; 93010; 97161-GP; 99285-25; J1644; J7030

== ENCOUNTER 2019-02-20 15:38 | Inpatient (IN) | payer OTHER ==
--- NOTE | 2019-02-20 16:05 | PDOC ---
History of Present Illness - General Chief Complaint: G Tube Problem Stated Complaint: PULLED OUT G TUBE Time Seen by Provider: 02/20/19 16:04 History Source: Patient, [facility] Records Exam Limitations: Dementia - History of Present Illness Initial Comments: 02/20/19 16:05 Code Status DNR / DNI per 01/31 discharge summary Sources: Pt with one word answers, confused and Nurse at sending facility HPI: 88yo man pmh Alzheimer dementia, DVT, S/p PEG 25 days ago while admitted here for UTI/PNA presenting from [facility] after pulling out his PEG this morning. Nurse taking care of patient reports his vitals have been stable, no medical concerns or complaints, pulled out his PEG tube this morning. Pt responding "no" to most quesstions. Oriented to self, hospital, and [place]. All: KNDA Meds: per chart PMH: as above PSH: per chart Past History - Travel Traveled outside of the country in the last 30 days: No Close contact w/someone who was outside of country & ill: No - Past Medical History Allergies/Adverse Reactions: Allergies Allergy/AdvReac Type Severity Reaction Status Date / Time No Known Allergies Allergy Verified 01/15/19 15:25 Home Medications: Ambulatory Orders Acetaminophen [Tylenol] 650 mg GT PRN PRN 08/10/17 Heparin - 5,000 unit SQ BID 08/10/17 LORazepam [Ativan] 1 mg PO BID PRN #14 tablet MDD two 01/30/19 Omeprazole 20 mg GT DAILY 02/20/19 COPD: No Dementia: Yes Disorders: Yes (UTI) - Surgical History Abdominal Surgery: Yes (g tube insertion) - Suicide/Smoking/Psychosocial Hx Smoking Status: No Smoking History: Unknown if ever smoked Have you smoked in the past 12 months: No Number of Cigarettes Smoked Daily: 0 Hx Alcohol Use: No Drug/Substance Use Hx: No Substance Use Type: None Review of Systems - Review of Systems Able to Perform ROS?: No (demented) Is the patient limited Telugu proficient: No *Physical Exam - Vital Signs Last Vital Signs Temp Pulse Resp BP Pulse Ox 98.1 F 87 18 122/73 97 02/20/19 15:56 02/20/19 15:56 02/20/19 15:56 02/20/19 15:56 02/20/19 15:56 - Physical Exam Comments: 02/20/19 16:31 Pt noncompliant / noncooperative with physical exam. Vitals reviewed, AFVSS Gen: elderly man, no acute distress, sitting in bed CV: NSR, normal rate Pulm: breathing comfortably on RA, normal work of breathing, no accessory muscle use Abd: pt noncompliant with uncovering Neuro: alert, oriented to person and place ([facility]), MAEE, resting tremor right arm > left ED Treatment Course - LABORATORY CBC & Chemistry Diagram: 02/20/19 17:00 02/20/19 17:15 Medical Decision Making - Medical Decision Making 02/20/19 16:45 88yo man with dementia, prior DVT, PEG tube placed 25 days ago presenting s/p removal of tube earlier today at [place]. No other complaints or concerns. Difficult to assess and examine 2/2 dementia. Plan for GI replacement of PEG tomorrow. Will obtain CXR and routine labs prior to admission. -CBC, CMP -PT/INR, T&S -CXR 02/20/19 18:49 -Pt with mild leukocytosis, afebrile -CMP and PT unremarkable -T&S pending -CXR unremarkable on my review; no consolidation or effusion -Pt endorsed and admitted to Dr. Torrez -Consult placed for Dr. Ron (GI) 02/20/19 20:07 -Phlebotomy at bedside, patient noncooperative and moving to refuse repeat T&S *DC/Admit/Observation/Transfer Diagnosis at time of Disposition: PEG (percutaneous endoscopic gastrostomy) adjustment/replacement/removal - Discharge Dispostion Condition at time of disposition: Guarded Decision to Admit order: Yes - Referrals - Patient Instructions - Post Discharge Activity
[2019-02-20 17:18] LABS: BASO % 1.1 % (0-2.0); EOS % 2.4 % (0-4.5); HEMATOCRIT 39.3 % (35.4-49); HEMOGLOBIN 12.9 GM/dL (11.7-16.9); LYMPH % 19.4 % (8-40); MCH 28.8 pg (25.7-33.7); MCHC 32.9 g/dl (32.0-35.9); MEAN CELL VOLUME 87.6 fl (80-96); MEAN PLT VOLUME 8.7 fl (7.5-11.1); MONO % 9.6 % (3.8-10.2); NEUT % 67.5 % (42.8-82.8); PLATELET COUNT 229 K/MM3 (134-434); RBC 4.48 M/mm3 (4.00-5.60); RDW 15.7 % (11.9-15.9); WHITE BLOOD COUNT 12.5 K/mm3 (4.0-10.0)
[2019-02-20 17:36] LABS: INR 1.08 (0.83-1.09); PROTHROMBIN TIME (PATIENT) 12.8 SEC (9.7-13.0)
[2019-02-20 17:52] LABS: ALBUMIN 3.4 g/dl (3.4-5.0); BILIRUBIN,TOTAL 0.5 mg/dL (0.2-1); BLOOD UREA NITROGEN 38.4 mg/dL (7-18); CALCIUM 9.5 mg/dL (8.5-10.1); CREATININE 0.9 mg/dL (0.55-1.3); TOT PROT 6.9 g/dl (6.4-8.2)
--- NOTE | 2019-02-20 18:45 | PDOC ---
Documentation entered by Estrellita Whelan SCRIBE, acting as scribe for Thomas Pat MD. Thomas Pat MD: This documentation has been prepared by the scribe, Estrellita Whelan SCRIBE, under my direction and personally reviewed by me in its entirety. I confirm that the documentation accurately reflects all work, treatment, procedures, and medical decision making performed by me. Attending Attestation - Resident Resident Name: Eligio Carcamo - ED Attending Attestation I have performed the following: I have examined & evaluated the patient, The case was reviewed & discussed with the resident, I agree w/resident's findings & plan, Exceptions are as noted - HPI HPI: 02/20/19 16:49 The patient is an 88 year old male with a past medical history significant for Alzheimer's Dementia, hx of DVT, and s/p G-tube placement (01/26/[address] Montelongo, per prior charts secondary to "insufficient oral intake" who presents to the emergency department from [facility] via EMS for evaluation for G-tube replacement, due to patient pulling out the G-tube today. The patient and RN Gregory (Patient's [facility] nurse) is unsure how long the tube has been displaced. Unable to obtain a history from the patient, the patient responds "no" to questions. Allergies: NKDA Per [facility] records, continuing care physician: Dr. Anh Torrez. - Physicial Exam PE: 02/20/19 16:50 GENERAL: Awake, alert, and fully oriented, in no acute distress HEAD: No signs of trauma EYES: PERRLA, EOMI, sclera anicteric, conjunctiva clear ENT: Auricles normal inspection, hearing grossly normal, nares patent, oropharynx clear without exudates. Moist mucosa NECK: Normal ROM, supple, no lymphadenopathy, JVD, or masses LUNGS: Breath sounds equal, clear to auscultation bilaterally. No wheezes, and no crackles HEART: Regular rate and rhythm, normal S1 and S2, no murmurs, rubs or gallops ABDOMEN: Soft, nontender, normoactive bowel sounds. No guarding, no rebound. No masses EXTREMITIES: Normal range of motion, no edema. No clubbing or cyanosis. No cords , erythema, or tenderness BACK: No midline spinal tenderness in cervical/thoracic/lumbar region NEUROLOGICAL: Normal speech, cranial nerves intact, negative pronator drift, 5/ 5 strength in all 4 extremities, normal sensation to light touch in all 4 extremities, normal cerebellar exam, normal gait, normal reflexes and tone SKIN: Warm, Dry, normal turgor, no rashes or lesions noted. - Medical Decision Making 02/20/19 16:06 Call placed to GI traction power engineer, waiting for a call back from Dr. Elizabeth. 02/20/19 16:25 Case discussed with RN Paris Jenkins. Nurse taking care of patient at [facility]. A/P 88yo M with MMP, presents to the ED after PEG tube was found dislodged. Unknown how long it was out for PEG tube was placed 01/26, less than 1 month ago, thus would not be amenable to blindly replacing in the ED Case discussed with Dr. Elizabeth (covering for Dr. Quinn) who will see pt tomorrow Plan for labs, XR, admission 02/20/19 18:49 Pt accepted for admission to Dr. Kamara's service Case discussed in detail with admitting physician including history, physical exam and ancillary studies. Admitting physician has assumed care for the patient, will follow all pending diagnostics and will complete the evaluation and treatment.
--- NOTE | 2019-02-20 22:30 | HP ---
Admitting History and Physical - Primary Care Physician PCP: Anh Torrez - Admission Chief Complaint: Displaced PEG tube History of Present Illness: 88 yrs old man [facility], D[place], DNI advanced Dementia, oriented to self communicate with minimal sentences recently discharged on 01/31/2019 from [facility] treated for UTI sepsis, Pneumonia and failure to thrive PEG was placed () after consented by NOK (brother lives in [facility]) [facility] the [facility] tube , no active bleeding stoma is clean admitted for PEG tube replacement, otherwise no other lab abnormality patient all labs and MS is at base line , hemodynamically stable and afebrile.GI is clled from [facility] will evaluate the patient in am. 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 Pulmonary: Yes: Pneumonia Renal/: Yes: UTI - Smoking History Smoking history: Unknown if ever smoked Have you smoked in the past 12 months: No Aproximately how many cigarettes per day: 0 - Alcohol/Substance Use Hx Alcohol Use: No History of Substance Use: reports: None - Social History History of Recent Travel: No Home Medications - Allergies Allergies/Adverse Reactions: Allergies Allergy/AdvReac Type Severity Reaction Status Date / Time No Known Allergies Allergy Verified 01/15/19 15:25 - Home Medications Home Medications: Ambulatory Orders Acetaminophen [Tylenol] 650 mg GT PRN PRN 08/10/17 Heparin - 5,000 unit SQ BID 08/10/17 LORazepam [Ativan] 1 mg PO BID PRN #14 tablet MDD two 01/30/19 Omeprazole 20 mg GT DAILY 02/20/19 Family Disease History - Family Disease History Family History: Unremarkable Review of Systems Unable to obtain ROS, reason: Dementia Physical Examination Vital Signs: Vital Signs Temperature 97.7 F 02/20/19 21:22 Pulse Rate 81 02/20/19 21:22 Respiratory Rate 18 02/20/19 21:22 Blood Pressure 112/52 L 02/20/19 21:22 O2 Sat by Pulse Oximetry (%) 95 02/20/19 19:46 Constitutional: Yes: Well Nourished, No Distress, Calm HENT: Yes: Atraumatic, Normocephalic Neck: Yes: Supple, Trachea Midline Cardiovascular: Yes: Regular Rate and Rhythm, S1, S2. No: JVD, Gallop, Murmur Respiratory: Yes: Regular, CTA Bilaterally Gastrointestinal: Yes: Normal Bowel Sounds, Soft, Other. No: Distention (PEG stema at place no bleeding) Extremities: No: Calf Tenderness Edema: RUE: Trace, LLE: Trace Peripheral Pulses: Left Doralis Pedis: 1+, Right Dorsalis Pedis: 1+ Neurological: Yes: Alert, Other (bed bound) ...Motor Strength: WNL, LUE Psychiatric: Yes: Alert Labs: CBC, BMP 02/20/19 17:00 02/20/19 17:15 Imaging - Results Chest X-ray: Image Reviewed (No obvious infiltrate) Problem List - Problems (1) PEG (percutaneous endoscopic gastrostomy) adjustment/replacement/removal Assessment/Plan: NPO except, IV Hydration, GI consult is called from ED will evalute the patient conrt PPI> Code(s): Z43.1 - ENCOUNTER FOR ATTENTION TO GASTROSTOMY (2) Dehydration Assessment/Plan: IV Hydration Code(s): E86.0 - DEHYDRATION (3) Dementia Assessment/Plan: Chronic Code(s): F03.90 - UNSPECIFIED DEMENTIA WITHOUT BEHAVIORAL DISTURBANCE (4) Elevated WBC count Assessment/Plan: will observe , patient is afbrile.F> Code(s): D72.829 - ELEVATED WHITE BLOOD CELL COUNT, UNSPECIFIED
[2019-02-20] MEDS: D5-1/2NS+10 MEQ KCL - 10 MEQ/1,000 ML INFUS.BAG IV SCH (22:50)
[2019-02-21 07:54] LABS: BASO % 0.8 % (0-2.0); EOS % 2.4 % (0-4.5); HEMOGLOBIN 12.2 GM/dL (11.7-16.9); LYMPH % 21.1 % (8-40); MCH 29.3 pg (25.7-33.7); MCHC 33.8 g/dl (32.0-35.9); MEAN CELL VOLUME 86.7 fl (80-96); MEAN PLT VOLUME 8.6 fl (7.5-11.1); MONO % 9.3 % (3.8-10.2); NEUT % 66.4 % (42.8-82.8); PLATELET COUNT 216 K/MM3 (134-434); RBC 4.15 M/mm3 (4.00-5.60); RDW 15.8 % (11.9-15.9); WHITE BLOOD COUNT 11.4 K/mm3 (4.0-10.0)
[2019-02-21 08:14] LABS: BLOOD UREA NITROGEN 35.3 mg/dL (7-18); CALCIUM 8.7 mg/dL (8.5-10.1); CREATININE 0.8 mg/dL (0.55-1.3); POTASSIUM 3.8 mmol/L (3.5-5.1)
[2019-02-21] MEDS: D5-1/2NS+10 MEQ KCL - 10 MEQ/1,000 ML INFUS.BAG IV SCH ×2 (09:10→22:33)
--- NOTE | 2019-02-21 09:10 | PN ---
Progress Note, Physician Chief Complaint: No new evnt - Current Medication List Current Medications: Active Medications Potassium Chloride/Dextrose/Sod Cl (D5-1/2ns+10 Meq Kcl -) 10 meq in 1,000 mls @ 100 mls/hr IV [facility] Last Admin: 02/20/19 22:50 Dose: 100 mls/hr Pantoprazole Sodium (Protonix Iv) 40 mg IVPUSH DAILY [facility] - Objective Vital Signs: Vital Signs Temperature 98 F 02/21/19 06:20 Pulse Rate 79 02/21/19 06:20 Respiratory Rate 18 02/21/19 06:20 Blood Pressure 168/91 02/21/19 06:20 O2 Sat by Pulse Oximetry (%) 95 02/20/19 22:35 Constitutional: Yes: Well Nourished, No Distress, Calm HENT: Yes: Atraumatic, Normocephalic Neck: Yes: Supple, Trachea Midline Cardiovascular: Yes: Regular Rate and Rhythm, S1, S2. No: JVD, Gallop, Murmur Respiratory: Yes: Regular, CTA Bilaterally Gastrointestinal: Yes: Normal Bowel Sounds, Soft, Other. No: Distention (PEG stema at place no bleeding) Extremities: No: Calf Tenderness Edema: RUE: Trace, LLE: Trace Peripheral Pulses: Left Doralis Pedis: 1+, Right Dorsalis Pedis: 1+ Neurological: Yes: Alert, Other (bed bound) ...Motor Strength: WNL, LUE Psychiatric: Yes: Alert Labs: CBC, BMP 02/21/19 06:30 02/21/19 06:30 INR, PTT INR 1.08 (0.83-1.09) 02/20/19 17:00 Problem List - Problems (1) PEG (percutaneous endoscopic gastrostomy) adjustment/replacement/removal Assessment/Plan: NPO except, IV Hydration, GI consult is called from ED will evaluate the patient conrt PPI. Code(s): Z43.1 - ENCOUNTER FOR ATTENTION TO GASTROSTOMY (2) Dehydration Assessment/Plan: IV Hydration, F/U [facility] Code(s): E86.0 - DEHYDRATION (3) Dementia Assessment/Plan: Chronic Code(s): F03.90 - UNSPECIFIED DEMENTIA WITHOUT BEHAVIORAL DISTURBANCE (4) Elevated WBC count Assessment/Plan: will observe , patient is afbrile.> Code(s): D72.829 - ELEVATED WHITE BLOOD CELL COUNT, UNSPECIFIED
[2019-02-21] MEDS ORDERED: HEPARIN NA (PORCINE) 5,000 UNITS/ML 1ML VIAL SQ SCH (10:00)
[2019-02-21] MEDS: PANTOPRAZOLE SODIUM 40 MG VIAL IVPUSH SCH (10:11)
--- NOTE | 2019-02-21 12:06 | CON.GI ---
Consult Consult Specialty:: Gastroenterology Referred by:: Dr. Anh Torrez Reason for Consultation:: PEG dislodgement - History of Present Illness History of Present Illness: 88yo male [place] resident, advanced Dementia presents with dislodged PEG. Pt nonverbal, records reviewed. Pt recently discharged on 01/31/2019 from [facility] following hospitalizatio with UTI sepsis, pneumonia and failure to thrive. Pt underwent EGD/PEG by Dr. Sanchez on 01/26/19 (20Fr pull technique). Was noted to have elevated WCC at that time which improved. Pt noted to have dislodged PEG at group home yesterday therefore transferred to [facility]. - History Source History Provided By: Medical Record - Past Medical History CLINICAL SPECIALIST: Yes: Dementia Cardio/Vascular: Yes: Deep Vein Thrombosis Pulmonary: Yes: Pneumonia Renal/: Yes: UTI - Alcohol/Substance Use Hx Alcohol Use: No History of Substance Use: reports: None - Smoking History Smoking history: Unknown if ever smoked Have you smoked in the past 12 months: No Aproximately how many cigarettes per day: 0 - Social History Usual Living Arrangement: Long-Term History of Recent Travel: No Home Medications - Allergies Allergies/Adverse Reactions: Allergies Allergy/AdvReac Type Severity Reaction Status Date / Time No Known Allergies Allergy Verified 01/15/19 15:25 - Home Medications Home Medications: Ambulatory Orders Acetaminophen [Tylenol] 650 mg GT PRN PRN 08/10/17 Heparin - 5,000 unit SQ BID 08/10/17 LORazepam [Ativan] 1 mg PO BID PRN #14 tablet MDD two 01/30/19 Omeprazole 20 mg GT DAILY 02/20/19 Review of Systems Unable to obtain ROS, reason: Pt nonverbal Physical Exam-GI Vital Signs: Vital Signs Temperature 97.4 F L 02/21/19 10:11 Pulse Rate 72 02/21/19 10:11 Respiratory Rate 18 02/21/19 10:11 Blood Pressure 110/57 L 02/21/19 10:11 O2 Sat by Pulse Oximetry (%) 95 02/20/19 22:35 Constitutional: Yes: No Distress, Other (slightly restless, holding on to handrails) Cardiovascular: Yes: WNL, Regular Rate and Rhythm Respiratory: Yes: WNL, Regular, CTA Bilaterally ...Palpate: Yes: Other (Abd soft, possible tenderness elicitied, pt appears to be guarding, scant dried blood at prior PEG site, no obvious fluctuance or surrounding erythema, non distended) Labs: CBC, BMP 02/21/19 06:30 02/21/19 06:30 INR, PTT INR 1.08 (0.83-1.09) 02/20/19 17:00 Problem List - Problems (1) PEG (percutaneous endoscopic gastrostomy) adjustment/replacement/removal Assessment/Plan: 88 yo male [place] resident with advanced dementia s/p EGD/PEG on 01/26/[address] Sanchez presenting with dislodged PEG. Pt nonverbal with guarding and possible tenderness on examination with mild leucocytosis. -Recommend CT abd/pelvis for further evaluation -Considering PEG has been inadvertently dislodged prior to 4 weeks (prior to enabling tract to mature) would recommend empiric antibiotics and allowance of site to heal before replacement. -Attempted to contact pts nephew (NOK) Cisco Leyva (#[phone]) this morning to discuss repeat EGD for PEG replacement however no answer, left VM -Pending above will determine timing of EGD/PEG accordingly, likely within 3-5 days. Code(s): Z43.1 - ENCOUNTER FOR ATTENTION TO GASTROSTOMY
[2019-02-21] MEDS ORDERED: LORazepam 2 MG/ML SDV VIAL IVPUSH PRN (12:24)
[2019-02-21] MEDS ORDERED: ceFAZolin SODIUM 1 GM VIAL ONE (17:41)
[2019-02-21] MEDS ORDERED: DEXTROSE 5%-WATER - 50 ML IVPB ONE (17:41)
[2019-02-21] MEDS: CEFAZOLIN 1 GM in DEXTROSE 5%-WATER - 50 ML IVPB SCH (17:44)
[2019-02-22] MEDS ORDERED: DEXTROSE 5%-WATER - 50 ML IVPB ONE ×3 (00:23→17:25)
[2019-02-22] MEDS ORDERED: ceFAZolin SODIUM 1 GM VIAL ONE ×3 (00:23→17:25)
[2019-02-22] MEDS: CEFAZOLIN 1 GM in DEXTROSE 5%-WATER - 50 ML IVPB SCH ×3 (01:06→17:27)
[2019-02-22 08:02] LABS: BASO % 0.5 % (0-2.0); EOS % 2.4 % (0-4.5); HEMATOCRIT 36.4 % (35.4-49); HEMOGLOBIN 12.3 GM/dL (11.7-16.9); LYMPH % 19.9 % (8-40); MCHC 33.8 g/dl (32.0-35.9); MEAN PLT VOLUME 8.9 fl (7.5-11.1); MONO % 8.5 % (3.8-10.2); NEUT % 68.7 % (42.8-82.8); PLATELET COUNT 217 K/MM3 (134-434); RBC 4.24 M/mm3 (4.00-5.60); RDW 15.2 % (11.9-15.9); WHITE BLOOD COUNT 11.5 K/mm3 (4.0-10.0)
[2019-02-22 08:21] LABS: BLOOD UREA NITROGEN 25.1 mg/dL (7-18); CALCIUM 8.9 mg/dL (8.5-10.1); CREATININE 0.8 mg/dL (0.55-1.3); POTASSIUM 4.3 mmol/L (3.5-5.1)
[2019-02-22] MEDS: D5-1/2NS+10 MEQ KCL - 10 MEQ/1,000 ML INFUS.BAG IV SCH ×2 (09:58→21:06)
[2019-02-22] MEDS: PANTOPRAZOLE SODIUM 40 MG VIAL IVPUSH SCH (10:01)
--- NOTE | 2019-02-22 16:21 | PN.GI ---
GI Progress Note Subjective: No acute events No abdominal pain CT scan shows persistent PEG tract and rectal fecal impaction - Objective Vital Signs: Vital Signs Temperature 97.4 F L 02/22/19 14:00 Pulse Rate 93 H 02/22/19 14:00 Respiratory Rate 18 02/22/19 14:00 Blood Pressure 106/71 02/22/19 14:00 O2 Sat by Pulse Oximetry (%) 96 02/22/19 10:30 Constitutional: Calm Eyes: No: Sclera Icterus Cardiovascular: Yes: Regular Rate and Rhythm Respiratory: Yes: Diminished (at bases bilaterally, poor inspiratory effort) ...Auscultate: Yes: Normoactive Bowel Sounds ...Palpate: Yes: Soft. No: Tenderness (PEG site in mid abdomen, with peristomal erythema) ...Percussion: No: Tympanitic ...Rectal Exam: Yes: Other (Copious soft arambula stool with more firm stool palpated higher up in the rectum. stool not amenable to manual disimpaction.) Edema: No (No LE Edema) Labs: CBC, BMP 02/22/19 06:45 02/22/19 06:45 INR, PTT INR 1.08 (0.83-1.09) 02/20/19 17:00 Problem List - Problems (1) PEG (percutaneous endoscopic gastrostomy) adjustment/replacement/removal Assessment/Plan: Continuing antibiotics secondary to dislodgement of recently placed G-tube prior to PEG replacement. He will need an abdominal binder in place to prevent tube dislodgement even while at the detention. Discussed plan for replacement of G tube per with his nephew via telephone. Discussed potential risks of the procedure like but not limited to bleeding, perforation requiring surgery to repair, infection, sedation medication effects all of which could be potentially life threatening. He has agreed to the procedure and consent wittnessed by nursing staff. IV hydration per primary team Consider NGT feeding if patient can tolerate Code(s): Z43.1 - ENCOUNTER FOR ATTENTION TO GASTROSTOMY (2) Fecal impaction in rectum Assessment/Plan: consistency of palpable stool not amenable to manual disimpaction.n Ordered tap water enema. Will need bowel regimen once he can take PO Code(s): K56.41 - FECAL IMPACTION
--- NOTE | 2019-02-22 20:34 | PN ---
Progress Note, Physician Chief Complaint: patient remained afebrile and stable - Current Medication List Current Medications: Active Medications Potassium Chloride/Dextrose/Sod Cl (D5-1/2ns+10 Meq Kcl -) 10 meq in 1,000 mls @ 100 mls/hr IV [facility] Last Admin: 02/22/19 09:58 Dose: 100 mls/hr Cefazolin Sodium 1 gm/ (Dextrose) 50 mls @ 100 mls/hr IVPB Q8H-IV [facility] Last Admin: 02/22/19 17:27 Dose: 100 mls/hr Lorazepam (Ativan Injection -) 1 mg IVPUSH Q12H PRN PRN Reason: ANXIETY Pantoprazole Sodium (Protonix Iv) 40 mg IVPUSH DAILY [facility] Last Admin: 02/22/19 10:01 Dose: 40 mg - Objective Vital Signs: Vital Signs Temperature 97.4 F L 02/22/19 14:00 Pulse Rate 93 H 02/22/19 14:00 Respiratory Rate 18 02/22/19 14:00 Blood Pressure 106/71 02/22/19 14:00 O2 Sat by Pulse Oximetry (%) 96 02/22/19 10:30 Elderly man oriented to self HEENT: Mm moist, no anemia NECK: No JVd No Bruit CHEST: CTA B/L CVS: S1S2 R ABD: no distention, healing stoma of PEG tube, BS + EXT: No edema feet THROW OUT CLERK: alert oriented to self Labs: CBC, BMP 02/22/19 06:45 02/22/19 06:45 INR, PTT INR 1.08 (0.83-1.09) 02/20/19 17:00 - ....Imaging Cat Scan: Report Reviewed (ABD: PEG stoma no induration or collection fecolith) Problem List - Problems (1) PEG (percutaneous endoscopic gastrostomy) adjustment/replacement/removal Assessment/Plan: NPO except, IV Hydration, GI consult evaluted considering recent PEG placement recommonded defer PEG at this point, IV abx and re evaluation by speech and swallow will cont D51/2 NS with K F/U BMP Code(s): Z43.1 - ENCOUNTER FOR ATTENTION TO GASTROSTOMY (2) Dehydration Assessment/Plan: improving IV Hydration, F/U BMP Code(s): E86.0 - DEHYDRATION (3) Dementia Assessment/Plan: Chronic Code(s): F03.90 - UNSPECIFIED DEMENTIA WITHOUT BEHAVIORAL DISTURBANCE (4) Elevated WBC count Assessment/Plan: Stable afebrile on cefazolin Code(s): D72.829 - ELEVATED WHITE BLOOD CELL COUNT, UNSPECIFIED
[2019-02-23] MEDS ORDERED: DEXTROSE 5%-WATER - 50 ML IVPB ONE ×3 (01:18→18:01)
[2019-02-23] MEDS ORDERED: ceFAZolin SODIUM 1 GM VIAL ONE ×3 (01:18→18:01)
[2019-02-23] MEDS: D5-1/2NS+10 MEQ KCL - 10 MEQ/1,000 ML INFUS.BAG IV SCH ×2 (01:36→11:45)
[2019-02-23] MEDS: CEFAZOLIN 1 GM in DEXTROSE 5%-WATER - 50 ML IVPB SCH ×3 (01:36→18:27)
[2019-02-23 08:02] LABS: BLOOD UREA NITROGEN 18.9 mg/dL (7-18); CALCIUM 8.8 mg/dL (8.5-10.1); CREATININE 0.8 mg/dL (0.55-1.3); POTASSIUM 3.9 mmol/L (3.5-5.1)
[2019-02-23 08:04] LABS: BASO % 0.7 % (0-2.0); EOS % 3.3 % (0-4.5); HEMOGLOBIN 11.9 GM/dL (11.7-16.9); LYMPH % 22.4 % (8-40); MCH 29.3 pg (25.7-33.7); MCHC 34.1 g/dl (32.0-35.9); MEAN CELL VOLUME 85.9 fl (80-96); MEAN PLT VOLUME 8.3 fl (7.5-11.1); MONO % 9.9 % (3.8-10.2); NEUT % 63.7 % (42.8-82.8); PLATELET COUNT 202 K/MM3 (134-434); RBC 4.08 M/mm3 (4.00-5.60); RDW 15.6 % (11.9-15.9)
--- NOTE | 2019-02-23 09:54 | PN.GI ---
GI Progress Note Subjective: GI covering for Dr. Sanchez. Pt seen/examined at bedside. More alert/communicative, denies abdominal pain, n/ v. Oriented to person not place/time. Had small brown pasty bm after enema yesterday. Pending RACK PRODUCTION WORKER evaluation. - Objective Vital Signs: Vital Signs Temperature 97.9 F 02/23/19 02:00 Pulse Rate 79 02/23/19 02:00 Respiratory Rate 18 02/23/19 02:00 Blood Pressure 113/78 02/23/19 02:00 O2 Sat by Pulse Oximetry (%) 96 02/22/19 21:00 Constitutional: No Distress, Calm, Other (Oriented to person, not place/time) Cardiovascular: Yes: WNL, Regular Rate and Rhythm Respiratory: Yes: WNL, Regular, CTA Bilaterally ...Palpate: Yes: Other (Abd soft, no tenderness elicited, non distended +PEG site with scant old blood/minimal erythema) Labs: CBC, BMP 02/23/19 06:57 02/23/19 06:57 INR, PTT INR 1.08 (0.83-1.09) 02/20/19 17:00 Problem List - Problems (1) PEG (percutaneous endoscopic gastrostomy) adjustment/replacement/removal Assessment/Plan: 88 yo male [place] resident with advanced dementia s/p EGD/PEG on 01/26/[address] Sanchez presenting with dislodged PEG. CT revealing persistent PEG tract and fecal impaction. On IV antibiotics. Leucocytosis resolved. Abd exam benign. -Continue IV antibiotics for now -RACK PRODUCTION WORKER evaluation pending -Consider NG feeds in the interim -Recommend bowel regimen (miralax daily) pending RACK PRODUCTION WORKER eval and if need for NG tube -Timing of EGD/PEG replacement to be determining accordingly. Consent obtained by Dr Daniel yesterday. Code(s): Z43.1 - ENCOUNTER FOR ATTENTION TO GASTROSTOMY
[2019-02-23] MEDS: PANTOPRAZOLE SODIUM 40 MG VIAL IVPUSH SCH (10:05)
--- NOTE | 2019-02-23 15:47 | CONSULT ---
Admitting History and Physical - Primary Care Physician PCP: Anh Torrez - Admission History of Present Illness: Per EMR- [address] resident, DNR, DNI advanced Dementia, oriented to self communicate with minimal sentences recently discharged on 01/31/2019 from [place] treated for UTI sepsis, Pneumonia and failure to thrive PEG was placed () after consented by NOK ([facility] [place] today transferred from CT as patient pulled out the PEG tube , no active bleeding stoma is clean admitted for PEG tube replacement Known to me from December 2018 admission. 01/17-HPI 88 year old male [facility] resident with PMH of Alzheimer disease, DVT , uti aDMITTED with worsening of mental status Dx of PNA- CXR RLL infiltrates Per CT notes, recent deterioration in appetite/PO acceptance Pt refused MBS 01/17/19, brought to xray but would not cooperate.Pt was NPO Attempted to reassess swallowing function. Tongue coated. Resistent to care. Adamently refused any PO trials. Confused. Suggested Trial of puree/nectar if pt accepts, Magic cup, 2calHN, PEG insertion Palliative care consult regarding pt's wishes. Pt is a full code. PEG placed Consent obtained by Dr Daniel for PEG replacement. History Source: Medical Record Limitations to Obtaining History: Clinical Condition (Confused, verbal, word salad interspersed with intelligible phrases. Disoriented. 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 Cardiovascular: Yes: Deep Vein Thrombosis Pulmonary: Yes: Pneumonia Renal/: Yes: UTI - Smoking History Smoking history: Unknown if ever smoked Have you smoked in the past 12 months: No Aproximately how many cigarettes per day: 0 - Alcohol/Substance Use Hx Alcohol Use: No History of Substance Use: reports: None - Social History History of Recent Travel: No History - Admission Reason For Visit: ENCOUNTER FOR PERCUTANEOUS ENDOSCOPIC GASTROSTOMY - Diagnostics X-ray: Report Reviewed - General Mental Status: Awake and Alert, Able to Follow Commands, Forgetful, Vague, Confused Attention: Intact Ability to Follow Directions: Fair Head/Neck Control: Fair - Hearing Hearing: Functional With Patient: No Speech Evaluation - Communication Primary Language: URDU Communication: Yes: Aphasia (Language of confusion. Word salad) Oral Expression Ability: Yes: Moderate Impairment - Speech Production Intelligibility: Yes: WNL - Speech Characteristics Voice Loudness: Normal Voice Pitch: Yes: Normal Voice Phonatory-based Quality: Yes: Normal Speech Pattern: Normal Nasal Resonance: Normal Articulation: Yes: Precise - Language/Auditory Comprehension Follows: Yes: 1 Stage Simple Commands Observation: Comprehends Conversational Speech: Yes - Language/Verbal Expression Functional Communication Status: Yes: Mildly Impaired, Moderately Impaired - Swallow Evaluation/Bedside Assessment Current Nutritional Intake: NPO, G Tube (PEG out. Pending replacement.) Oral Secretions: Yes: WFL Dentition: Yes: Adequate Facial Symmetry at Rest: Symmetrical Facial Symmetry on Retraction: Symmetrical Against Resistance Opening: Normal Against Resistance Closing: Normal Pucker Lips: Normal Smile: Normal Lingual Movement: Normal, Symmetric Lingual Speed of Movement: Normal Lingual Movement Strgth Against Opposition: Normal Lingual Movement Characteristics: Normal Velopharyngeal Movement: Normal Laryngeal Movement: Able to Palpate, Labored,delay initiation Rate of Intake: WFL Bolus Size: WFL Labial Seal: WFL Oral Prep Time: WFL A-P Transit: WFL Pocketing: None Timing of Swallow: Delayed Coughing/Throat Clear: Yes (delayed, after several sips of water.) Recommendations - Speech Evaluation, Impression/Plan Impression: Delayed cough after several sips of water. Suspect intermittent aspiration on thin liquids but overtly tolerated 2 tsp of applesauce but disliked it. h/o PNA/RLL PNA in December and failure to thrive which resulted in PEG insertion. Overall, looks stronger, alert, interactive. Nephew has agreed to PEG reinsertion. I suspect pt can tolerate a modified diet of puree/nectar, however, if he will accept enough consistently, is the question. I believe acceptance will waiver and PEG will provide better consistency of nutrition, hydration, medication if that is the pt's wishes. Suggest-MBS if pt cooperates , to initiate pleasure feeding such as puree/nectar, if tolerated. Supplemented with TF, if desired, as indicated. - Disposition Discharge to: Longterm Facility - Dysphagia Impressions/Plan Swallowing Skills: Impaired Dysphagia Impressions: Mild Impairment *Silent aspiration: cannot be R/O at bedside Recommendations: Modified Barium Swallow (to r/o aspiration and initiate po trials.)
--- NOTE | 2019-02-23 17:30 | PN ---
Progress Note, Physician Chief Complaint: More aler t communicate simple sentences patient remained afebrile and stable - Current Medication List Current Medications: Active Medications Potassium Chloride/Dextrose/Sod Cl (D5-1/2ns+10 Meq Kcl -) 10 meq in 1,000 mls @ 100 mls/hr IV [facility]IR [facility] Last Admin: 02/23/19 11:45 Dose: 100 mls/hr Cefazolin Sodium 1 gm/ (Dextrose) 50 mls @ 100 mls/hr IVPB Q8H-IV [facility] Last Admin: 02/23/19 10:05 Dose: 100 mls/hr Lorazepam (Ativan Injection -) 1 mg IVPUSH Q12H PRN PRN Reason: ANXIETY Pantoprazole Sodium (Protonix Iv) 40 mg IVPUSH DAILY [facility] Last Admin: 02/23/19 10:05 Dose: 40 mg - Objective Vital Signs: Vital Signs Temperature 97.4 F L 02/23/19 14:00 Pulse Rate 73 02/23/19 14:00 Respiratory Rate 18 02/23/19 14:00 Blood Pressure 106/55 L 02/23/19 14:00 O2 Sat by Pulse Oximetry (%) 98 02/23/19 09:00 Elderly man oriented to self alert not in distress HEENT: Mm moist, no anemia NECK: No JVd No Bruit CHEST: CTA B/L CVS: S1S2 R ABD: no distention, healing stoma of PEG tube, BS + EXT: No edema feet TRUCKER: alert oriented to self Labs: CBC, BMP 02/23/19 06:57 02/23/19 06:57 INR, PTT INR 1.08 (0.83-1.09) 02/20/19 17:00 Problem List - Problems (1) PEG (percutaneous endoscopic gastrostomy) adjustment/replacement/removal Assessment/Plan: NPO except, IV Hydration, GI consult evaluated considering recent PEG (<4wks), IV abx and re evaluated by speech and swallow recommended feeding trial with honey thick for recreational with PEG feeding will cont D51/2 NS with K F/U BMP Code(s): Z43.1 - ENCOUNTER FOR ATTENTION TO GASTROSTOMY (2) Dehydration Assessment/Plan: improving IV Hydration, F/U BMP Code(s): E86.0 - DEHYDRATION (3) Dementia Assessment/Plan: Chronic Code(s): F03.90 - UNSPECIFIED DEMENTIA WITHOUT BEHAVIORAL DISTURBANCE (4) Elevated WBC count Assessment/Plan: Stable afebrile on cefazolin Code(s): D72.829 - ELEVATED WHITE BLOOD CELL COUNT, UNSPECIFIED
[2019-02-24] MEDS ORDERED: ceFAZolin SODIUM 1 GM VIAL ONE ×3 (01:24→18:48)
[2019-02-24] MEDS ORDERED: DEXTROSE 5%-WATER - 50 ML IVPB ONE ×3 (01:24→18:48)
[2019-02-24] MEDS: D5-1/2NS+10 MEQ KCL - 10 MEQ/1,000 ML INFUS.BAG IV SCH ×4 (03:18→22:25)
[2019-02-24] MEDS: CEFAZOLIN 1 GM in DEXTROSE 5%-WATER - 50 ML IVPB SCH ×3 (03:18→18:52)
[2019-02-24 07:20] LABS: BASO % 0.6 % (0-2.0); EOS % 3.5 % (0-4.5); HEMATOCRIT 36.7 % (35.4-49); HEMOGLOBIN 12.3 GM/dL (11.7-16.9); LYMPH % 19.9 % (8-40); MCH 28.9 pg (25.7-33.7); MCHC 33.5 g/dl (32.0-35.9); MEAN CELL VOLUME 86.2 fl (80-96); MEAN PLT VOLUME 7.9 fl (7.5-11.1); MONO % 9.5 % (3.8-10.2); NEUT % 66.5 % (42.8-82.8); PLATELET COUNT 197 K/MM3 (134-434); RBC 4.25 M/mm3 (4.00-5.60); RDW 15.8 % (11.9-15.9); WHITE BLOOD COUNT 8.4 K/mm3 (4.0-10.0)
[2019-02-24 07:42] LABS: BLOOD UREA NITROGEN 13.3 mg/dL (7-18); CREATININE 0.7 mg/dL (0.55-1.3)
[2019-02-24] MEDS: PANTOPRAZOLE SODIUM 40 MG VIAL IVPUSH SCH (10:27)
[2019-02-24 12:14] VITALS: BMI 25.1
--- NOTE | 2019-02-24 16:57 | PN.GI ---
GI Progress Note Subjective: Patient found pulling out his IV Had MBS today and speech and swallow recomended a diet trial - Objective Vital Signs: Vital Signs Temperature 97.4 F L 02/24/19 14:00 Pulse Rate 77 02/24/19 14:00 Respiratory Rate 20 02/24/19 14:00 Blood Pressure 124/66 02/24/19 14:00 O2 Sat by Pulse Oximetry (%) 97 02/23/19 21:00 Constitutional: Calm Eyes: No: Sclera Icterus Cardiovascular: Yes: Regular Rate and Rhythm Respiratory: Yes: CTA Bilaterally Gastrointestinal Inspection: Yes: Scars (Prior G-Tube site). No: Distention ...Auscultate: Yes: Normoactive Bowel Sounds Labs: CBC, BMP 02/24/19 06:45 02/24/19 06:45 INR, PTT INR 1.08 (0.83-1.09) 02/20/19 17:00 Problem List - Problems (1) PEG (percutaneous endoscopic gastrostomy) adjustment/replacement/removal Assessment/Plan: Priot to attempt at replacement (? if the patient pulled out the tube at the senior care seeing as how he is actively pulling out his IV site, would trial diet as per S/S recommendations. Aspiration precautions Code(s): Z43.1 - ENCOUNTER FOR ATTENTION TO GASTROSTOMY (2) Fecal impaction in rectum Assessment/Plan: Tap water enema today Senna 2 tablets HStap water enema Code(s): K56.41 - FECAL IMPACTION
--- NOTE | 2019-02-24 17:31 | PN ---
Progress Note, Physician Chief Complaint: Remained aler no meaningful communication, not in distress - Current Medication List Current Medications: Active Medications Potassium Chloride/Dextrose/Sod Cl (D5-1/2ns+10 Meq Kcl -) 10 meq in 1,000 mls @ 100 mls/hr IV [facility] Last Admin: 02/24/19 16:23 Dose: 100 mls/hr Cefazolin Sodium 1 gm/ (Dextrose) 50 mls @ 100 mls/hr IVPB Q8H-IV [facility] Last Admin: 02/24/19 10:50 Dose: 100 mls/hr Lorazepam (Ativan Injection -) 1 mg IVPUSH Q12H PRN PRN Reason: ANXIETY Pantoprazole Sodium (Protonix Iv) 40 mg IVPUSH DAILY [facility] Last Admin: 02/24/19 10:27 Dose: 40 mg Senna (Senna -) 2 tab PO HS [facility] - Objective Vital Signs: Vital Signs Temperature 97.4 F L 02/24/19 14:00 Pulse Rate 77 02/24/19 14:00 Respiratory Rate 20 02/24/19 14:00 Blood Pressure 124/66 02/24/19 14:00 O2 Sat by Pulse Oximetry (%) 97 02/23/19 21:00 Elderly man oriented to self alert not in distress HEENT: Mm moist, no anemia NECK: No JVd No Bruit CHEST: CTA B/L CVS: S1S2 R ABD: no distention,mild tenderness healing stoma of PEG tube, BS + EXT: No edema feet 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 Labs: CBC, BMP 02/24/19 06:45 02/24/19 06:45 INR, PTT INR 1.08 (0.83-1.09) 02/20/19 17:00 Problem List - Problems (1) PEG (percutaneous endoscopic gastrostomy) adjustment/replacement/removal Assessment/Plan: Speech and swallow evaluated the patient MBS functional swallowing no aspiration , recommended Po trial with modified honey thick and observe, GI agrees and recommended bowel regimen Code(s): Z43.1 - ENCOUNTER FOR ATTENTION TO GASTROSTOMY (2) Dehydration Assessment/Plan: improving IV Hydration, F/U [facility] Code(s): E86.0 - DEHYDRATION (3) Dementia Assessment/Plan: Chronic Code(s): F03.90 - UNSPECIFIED DEMENTIA WITHOUT BEHAVIORAL DISTURBANCE
[2019-02-24] MEDS: SENNOSIDES 8.6MG TABLET (FP) PO SCH (21:24)
[2019-02-25] MEDS ORDERED: ceFAZolin SODIUM 1 GM VIAL ONE ×4 (01:46→17:55)
[2019-02-25] MEDS ORDERED: DEXTROSE 5%-WATER - 50 ML IVPB ONE ×3 (01:47→17:57)
[2019-02-25] MEDS: CEFAZOLIN 1 GM in DEXTROSE 5%-WATER - 50 ML IVPB SCH ×3 (02:16→18:05)
[2019-02-25] MEDS: D5-1/2NS+10 MEQ KCL - 10 MEQ/1,000 ML INFUS.BAG IV SCH (05:26)
[2019-02-25 07:22] LABS: BASO % 0.7 % (0-2.0); EOS % 3.4 % (0-4.5); HEMOGLOBIN 12.1 GM/dL (11.7-16.9); LYMPH % 21.2 % (8-40); MCH 28.8 pg (25.7-33.7); MCHC 33.5 g/dl (32.0-35.9); MEAN CELL VOLUME 85.9 fl (80-96); MEAN PLT VOLUME 8.4 fl (7.5-11.1); MONO % 9.9 % (3.8-10.2); NEUT % 64.8 % (42.8-82.8); PLATELET COUNT 186 K/MM3 (134-434); RBC 4.19 M/mm3 (4.00-5.60); RDW 15.6 % (11.9-15.9)
[2019-02-25 07:33] LABS: BLOOD UREA NITROGEN 11.5 mg/dL (7-18); CALCIUM 8.6 mg/dL (8.5-10.1); CREATININE 0.6 mg/dL (0.55-1.3); POTASSIUM 3.5 mmol/L (3.5-5.1)
[2019-02-25] MEDS: PANTOPRAZOLE SODIUM 40 MG VIAL IVPUSH SCH (09:35)
--- NOTE | 2019-02-25 14:21 | PN ---
Progress Note (short form) - Note Progress Note: No acute events Passed MBS, however patient refusing to eat If continued refusal to eat, will need repeat G-Tube, possibly 03/01 Dr. Sanchez resumes care 03/01 Problem List - Problems (1) PEG (percutaneous endoscopic gastrostomy) adjustment/replacement/removal Code(s): Z43.1 - ENCOUNTER FOR ATTENTION TO GASTROSTOMY (2) Fecal impaction in rectum Code(s): K56.41 - FECAL IMPACTION
--- NOTE | 2019-02-25 15:05 | PN ---
Progress Note, COBBLER UPPER - Note Progress Note: Pureed diet/nectar thick liquid ordered. Pt refused all trials from nursing. Accepted some from NA. Pt accepted 7 tsp of magic cup from me. Hand him the loaded tsp and he feeds himself. Use straw with liquids and let him hold the cup. Tell him how delicious it is and he accepts it. Pt will do best with flavorful foods and sweets. PEG reinsertion pending on 03/01. Pt has no PO meds. Tongue coated -thick white- r/o thrush REC:Consider clinimix. Magic cup. Ensure pudding 2 john HN r/o thrush- medical mgmt.
--- NOTE | 2019-02-25 17:08 | PN ---
Progress Note, Physician Chief Complaint: Remained alert no meaningful communication, not in distress - Current Medication List Current Medications: Active Medications Cefazolin Sodium 1 gm/ (Dextrose) 50 mls @ 100 mls/hr IVPB Q8H-IV [facility] Last Admin: 02/25/19 09:36 Dose: 100 mls/hr Amino Acids (Clinimix -) 1,000 mls @ 84 mls/hr IV Q12H [facility] Lorazepam (Ativan Injection -) 1 mg IVPUSH Q12H PRN PRN Reason: ANXIETY Nystatin (Nystatin Oral Suspension -) 500,000 units PO Q6HPO [facility] Pantoprazole Sodium (Protonix Iv) 40 mg IVPUSH DAILY [facility] Last Admin: 02/25/19 09:35 Dose: 40 mg Senna (Senna -) 2 tab PO HS [facility] Last Admin: 02/24/19 21:24 Dose: Not Given - Objective Vital Signs: Vital Signs Temperature 84.6 F L 02/25/19 16:00 Pulse Rate 82 02/25/19 16:00 Respiratory Rate 18 02/25/19 16:00 Blood Pressure 114/58 L 02/25/19 16:00 O2 Sat by Pulse Oximetry (%) 100 02/25/19 09:31 Elderly man oriented to self alert not in distress HEENT: Mm moist, no anemia NECK: No JVd No Bruit CHEST: CTA B/L CVS: S1S2 R ABD: no distention,mild tenderness healing stoma of PEG tube, BS + EXT: No edema feet 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 Labs: CBC, BMP 02/25/19 06:23 02/25/19 06:23 INR, PTT INR 1.08 (0.83-1.09) 02/20/19 17:00 Problem List - Problems (1) PEG (percutaneous endoscopic gastrostomy) adjustment/replacement/removal Assessment/Plan: Speech and swallow evaluated the patient MBS functional swallowing no aspiration , recommended Po trial with modified honey thick and observe, GI agrees and recommended bowel regimen Code(s): Z43.1 - ENCOUNTER FOR ATTENTION TO GASTROSTOMY (2) Dehydration Assessment/Plan: improving IV Hydration, F/U BMP Code(s): E86.0 - DEHYDRATION (3) Dementia Assessment/Plan: Chronic Code(s): F03.90 - UNSPECIFIED DEMENTIA WITHOUT BEHAVIORAL DISTURBANCE (4) Failure to thrive Assessment/Plan: Clinimix 84 cc/HR Code(s): [id number] - (5) Oral thrush Assessment/Plan: Oral nystatin Code(s): B37.0 - CANDIDAL STOMATITIS
[2019-02-25] MEDS: NYSTATIN 500,000 UNITS/5 ML SUSPENSION PO SCH (18:06)
[2019-02-25] MEDS: AMINO ACIDS 4.25%/D5W 1,000 ML IV SCH (21:35)
[2019-02-26] MEDS: NYSTATIN 500,000 UNITS/5 ML SUSPENSION PO SCH ×4 (00:04→17:37)
[2019-02-26] MEDS: SENNOSIDES 8.6MG TABLET (FP) PO SCH ×2 (01:04→22:04)
[2019-02-26] MEDS: CEFAZOLIN 1 GM in DEXTROSE 5%-WATER - 50 ML IVPB SCH ×3 (01:36→17:37)
[2019-02-26] MEDS: AMINO ACIDS 4.25%/D5W 1,000 ML IV SCH ×3 (05:18→17:15)
[2019-02-26] MEDS ORDERED: ceFAZolin SODIUM 1 GM VIAL ONE ×2 (09:43→17:28)
[2019-02-26] MEDS ORDERED: DEXTROSE 5%-WATER - 50 ML IVPB ONE ×2 (09:43→17:28)
[2019-02-26] MEDS: PANTOPRAZOLE SODIUM 40 MG VIAL IVPUSH SCH (09:46)
--- NOTE | 2019-02-26 18:13 | PN ---
Progress Note, Physician Chief Complaint: Remained alert no meaningful communication, not in distress - Current Medication List Current Medications: Active Medications Cefazolin Sodium 1 gm/ (Dextrose) 50 mls @ 100 mls/hr IVPB Q8H-IV [facility] Last Admin: 02/26/19 17:37 Dose: 100 mls/hr Amino Acids (Clinimix -) 1,000 mls @ 84 mls/hr IV Q12H [facility] Last Admin: 02/26/19 17:15 Dose: Not Given Lorazepam (Ativan Injection -) 1 mg IVPUSH Q12H PRN PRN Reason: ANXIETY Nystatin (Nystatin Oral Suspension -) 500,000 units PO Q6HPO [facility] Last Admin: 02/26/19 17:37 Dose: Not Given Pantoprazole Sodium (Protonix Iv) 40 mg IVPUSH DAILY [facility] Last Admin: 02/26/19 09:46 Dose: 40 mg Senna (Senna -) 2 tab PO HS [facility] Last Admin: 02/26/19 01:04 Dose: Not Given - Objective Vital Signs: Vital Signs Temperature 97.7 F 02/26/19 14:00 Pulse Rate 90 02/26/19 14:00 Respiratory Rate 18 02/26/19 14:00 Blood Pressure 105/51 L 02/26/19 14:00 O2 Sat by Pulse Oximetry (%) 100 02/26/19 09:00 Elderly man oriented to self alert not in distress HEENT: Poor oral hygiene,Mm moist, no anemia NECK: No JVd No Bruit CHEST: CTA B/L CVS: S1S2 R ABD: no distention,mild tenderness healing stoma of PEG tube, BS + EXT: No edema feet 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 Labs: CBC, BMP 02/25/19 06:23 02/25/19 06:23 INR, PTT INR 1.08 (0.83-1.09) 02/20/19 17:00 Problem List - Problems (1) PEG (percutaneous endoscopic gastrostomy) adjustment/replacement/removal Assessment/Plan: Speech and swallow evaluated the patient MBS functional swallowing no aspiration , recommended Po trial with modified honey thick and observe, GI agrees and recommended bowel regimen, possible PEG on 03/01/19 Code(s): Z43.1 - ENCOUNTER FOR ATTENTION TO GASTROSTOMY (2) Dehydration Assessment/Plan: improving IV Hydration, F/U BMP Code(s): E86.0 - DEHYDRATION (3) Dementia Assessment/Plan: Chronic Code(s): F03.90 - UNSPECIFIED DEMENTIA WITHOUT BEHAVIORAL DISTURBANCE (4) Failure to thrive Assessment/Plan: Clinimix 84 cc/HR Code(s): [id number] - (5) Oral thrush Assessment/Plan: Oral nystatin Code(s): B37.0 - CANDIDAL STOMATITIS
[2019-02-27] MEDS: AMINO ACIDS 4.25%/D5W 1,000 ML IV SCH ×3 (00:22→17:19)
[2019-02-27] MEDS: NYSTATIN 500,000 UNITS/5 ML SUSPENSION PO SCH ×4 (00:22→18:04)
[2019-02-27] MEDS ORDERED: DEXTROSE 5%-WATER - 50 ML IVPB ONE ×3 (02:13→17:46)
[2019-02-27] MEDS ORDERED: ceFAZolin SODIUM 1 GM VIAL ONE ×3 (02:13→17:46)
[2019-02-27] MEDS: CEFAZOLIN 1 GM in DEXTROSE 5%-WATER - 50 ML IVPB SCH ×3 (02:44→17:56)
[2019-02-27 07:02] LABS: BASO % 0.7 % (0-2.0); EOS % 2.8 % (0-4.5); HEMATOCRIT 33.9 % (35.4-49); HEMOGLOBIN 11.6 GM/dL (11.7-16.9); LYMPH % 22.5 % (8-40); MCH 29.5 pg (25.7-33.7); MCHC 34.3 g/dl (32.0-35.9); MEAN CELL VOLUME 85.9 fl (80-96); MEAN PLT VOLUME 8.2 fl (7.5-11.1); MONO % 11.1 % (3.8-10.2); NEUT % 62.9 % (42.8-82.8); PLATELET COUNT 192 K/MM3 (134-434); RBC 3.95 M/mm3 (4.00-5.60); RDW 15.8 % (11.9-15.9); WHITE BLOOD COUNT 8.9 K/mm3 (4.0-10.0)
[2019-02-27 07:29] LABS: BLOOD UREA NITROGEN 22.3 mg/dL (7-18); CALCIUM 8.5 mg/dL (8.5-10.1); CREATININE 0.6 mg/dL (0.55-1.3); POTASSIUM 3.6 mmol/L (3.5-5.1)
[2019-02-27] MEDS: PANTOPRAZOLE SODIUM 40 MG VIAL IVPUSH SCH (10:57)
[2019-02-27] MEDS: SENNOSIDES 8.6MG TABLET (FP) PO SCH (21:33)
--- NOTE | 2019-02-27 21:55 | PN ---
Progress Note, Physician Chief Complaint: Remained alert no meaningful communication, not in distress - Current Medication List Current Medications: Active Medications Cefazolin Sodium 1 gm/ (Dextrose) 50 mls @ 100 mls/hr IVPB Q8H-IV [facility] Last Admin: 02/27/19 17:56 Dose: 100 mls/hr Amino Acids (Clinimix -) 1,000 mls @ 84 mls/hr IV Q12H [facility] Last Admin: 02/27/19 17:19 Dose: Not Given Lorazepam (Ativan Injection -) 1 mg IVPUSH Q12H PRN PRN Reason: ANXIETY Nystatin (Nystatin Oral Suspension -) 500,000 units PO Q6HPO [facility] Last Admin: 02/27/19 18:04 Dose: Not Given Pantoprazole Sodium (Protonix Iv) 40 mg IVPUSH DAILY [facility] Last Admin: 02/27/19 10:57 Dose: 40 mg Senna (Senna -) 2 tab PO HS [facility] Last Admin: 02/27/19 21:33 Dose: Not Given - Objective Vital Signs: Vital Signs Temperature 97.4 F L 02/27/19 14:00 Pulse Rate 69 02/27/19 14:00 Respiratory Rate 20 02/27/19 14:00 Blood Pressure 111/65 02/27/19 14:00 O2 Sat by Pulse Oximetry (%) 96 02/27/19 10:05 Elderly man oriented to self alert not in distress HEENT: Poor oral hygiene,Mm moist, no anemia NECK: No JVd No Bruit CHEST: CTA B/L CVS: S1S2 R ABD: no distention,mild tenderness healing stoma of PEG tube, BS + EXT: No edema feet 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
[2019-02-28] MEDS: NYSTATIN 500,000 UNITS/5 ML SUSPENSION PO SCH ×5 (00:54→23:11)
[2019-02-28] MEDS ORDERED: ceFAZolin SODIUM 1 GM VIAL ONE ×3 (01:49→17:16)
[2019-02-28] MEDS ORDERED: DEXTROSE 5%-WATER - 50 ML IVPB ONE ×3 (01:50→17:16)
[2019-02-28] MEDS: CEFAZOLIN 1 GM in DEXTROSE 5%-WATER - 50 ML IVPB SCH ×3 (01:59→17:20)
[2019-02-28] MEDS: AMINO ACIDS 4.25%/D5W 1,000 ML IV SCH ×3 (01:59→17:20)
[2019-02-28] MEDS: PANTOPRAZOLE SODIUM 40 MG VIAL IVPUSH SCH (09:22)
--- NOTE | 2019-02-28 13:20 | PN ---
Progress Note, Physician Chief Complaint: No interval changes - Current Medication List Current Medications: Active Medications Cefazolin Sodium 1 gm/ (Dextrose) 50 mls @ 100 mls/hr IVPB Q8H-IV [facility] Last Admin: 02/28/19 09:22 Dose: 100 mls/hr Amino Acids (Clinimix -) 1,000 mls @ 84 mls/hr IV Q12H [facility] Last Admin: 02/28/19 06:15 Dose: Not Given Lorazepam (Ativan Injection -) 1 mg IVPUSH Q12H PRN PRN Reason: ANXIETY Nystatin (Nystatin Oral Suspension -) 500,000 units PO Q6HPO [facility] Last Admin: 02/28/19 11:43 Dose: Not Given Pantoprazole Sodium (Protonix Iv) 40 mg IVPUSH DAILY [facility] Last Admin: 02/28/19 09:22 Dose: 40 mg Senna (Senna -) 2 tab PO HS [facility] Last Admin: 02/27/19 21:33 Dose: Not Given - Objective Vital Signs: Vital Signs Temperature 97.4 F L 02/28/19 09:21 Pulse Rate 73 02/28/19 09:21 Respiratory Rate 20 02/28/19 09:21 Blood Pressure 112/63 02/28/19 09:21 O2 Sat by Pulse Oximetry (%) 100 02/28/19 09:00 Elderly man oriented to self alert not in distress HEENT: Poor oral hygiene,Mm moist, no anemia NECK: No JVd No Bruit CHEST: CTA B/L CVS: S1S2 R ABD: no distention,mild tenderness healing stoma of PEG tube, BS + EXT: No edema feet 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
[2019-02-28] MEDS: SENNOSIDES 8.6MG TABLET (FP) PO SCH (21:42)
[2019-03-01] MEDS ORDERED: DEXTROSE 5%-WATER - 50 ML IVPB ONE ×3 (02:32→17:16)
[2019-03-01] MEDS ORDERED: ceFAZolin SODIUM 1 GM VIAL ONE ×3 (02:32→17:16)
[2019-03-01] MEDS: CEFAZOLIN 1 GM in DEXTROSE 5%-WATER - 50 ML IVPB SCH ×3 (02:48→17:18)
[2019-03-01] MEDS: AMINO ACIDS 4.25%/D5W 1,000 ML IV SCH ×2 (06:04→17:18)
[2019-03-01] MEDS: NYSTATIN 500,000 UNITS/5 ML SUSPENSION PO SCH ×4 (06:04→23:42)
[2019-03-01 07:34] LABS: BASO % 0.7 % (0-2.0); EOS % 3.6 % (0-4.5); HEMATOCRIT 37.2 % (35.4-49); HEMOGLOBIN 12.8 GM/dL (11.7-16.9); LYMPH % 23.8 % (8-40); MCH 29.5 pg (25.7-33.7); MCHC 34.5 g/dl (32.0-35.9); MEAN CELL VOLUME 85.6 fl (80-96); MEAN PLT VOLUME 8.7 fl (7.5-11.1); MONO % 9.4 % (3.8-10.2); NEUT % 62.5 % (42.8-82.8); PLATELET COUNT 212 K/MM3 (134-434); RBC 4.34 M/mm3 (4.00-5.60); RDW 15.9 % (11.9-15.9)
[2019-03-01 07:45] LABS: BLOOD UREA NITROGEN 24.5 mg/dL (7-18); CALCIUM 9.1 mg/dL (8.5-10.1); CREATININE 0.6 mg/dL (0.55-1.3); MAGNESIUM 1.8 mg/dL (1.8-2.4); POTASSIUM 3.6 mmol/L (3.5-5.1)
[2019-03-01 07:46] LABS: INR 1.18 (0.83-1.09); PROTHROMBIN TIME (PATIENT) 13.9 SEC (9.7-13.0)
[2019-03-01] MEDS: PANTOPRAZOLE SODIUM 40 MG VIAL IVPUSH SCH (10:35)
--- NOTE | 2019-03-01 11:05 | PN ---
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 Tongue actually seems better, although cooperation to open mouth fully is poor. Pending PEG re-insertion.
--- NOTE | 2019-03-01 16:29 | PN ---
Progress Note (short form) - Note Progress Note: GI Procedure NOte: After I discussed DNR/DNI with Reagan's nephew Cisco Mercados and confirmed that it should be maintained during the procedure the PEG insertion procedure was performed with Dr. Staples assisting. The previous fistula site was used after surgically prepping it. Will start feedings and continue Kefzol. Problem List - Problems (1) Dislodged gastrostomy tube Code(s): Z43.1 - ENCOUNTER FOR ATTENTION TO GASTROSTOMY (2) PEG (percutaneous endoscopic gastrostomy) adjustment/replacement/removal Code(s): Z43.1 - ENCOUNTER FOR ATTENTION TO GASTROSTOMY (3) Alzheimer's dementia Code(s): G30.9 - ALZHEIMER'S DISEASE, UNSPECIFIED (4) Nutrient intake below expected requirement Code(s): E61.9 - DEFICIENCY OF NUTRIENT ELEMENT, UNSPECIFIED (5) Status post insertion of percutaneous endoscopic gastrostomy (PEG) tube Code(s): Z93.1 - GASTROSTOMY STATUS
--- NOTE | 2019-03-01 17:44 | PN ---
Progress Note, Physician Chief Complaint: Alert just came back after PEG placement - Current Medication List Current Medications: Active Medications Bacitracin (Bacitracin -) 1 applic TP BID [facility] Cefazolin Sodium 1 gm/ (Dextrose) 50 mls @ 100 mls/hr IVPB Q8H-IV [facility] Last Admin: 03/01/19 17:18 Dose: 100 mls/hr Amino Acids (Clinimix -) 1,000 mls @ 84 mls/hr IV Q12H [facility] Last Admin: 03/01/19 17:18 Dose: 84 mls/hr Lorazepam (Ativan Injection -) 1 mg IVPUSH Q12H PRN PRN Reason: ANXIETY Nystatin (Nystatin Oral Suspension -) 500,000 units PO Q6HPO [facility] Last Admin: 03/01/19 17:19 Dose: Not Given Pantoprazole Sodium (Protonix Iv) 40 mg IVPUSH DAILY [facility] Last Admin: 03/01/19 10:35 Dose: 40 mg Senna (Senna -) 2 tab PO HS [facility] Last Admin: 02/28/19 21:42 Dose: Not Given - Objective Vital Signs: Vital Signs Temperature 98.7 F 03/01/19 15:45 Pulse Rate 76 03/01/19 16:15 Respiratory Rate 16 03/01/19 16:15 Blood Pressure 115/67 03/01/19 16:15 O2 Sat by Pulse Oximetry (%) 100 03/01/19 16:15 Elderly man oriented to self alert not in distress HEENT: Poor oral hygiene,Mm moist, no anemia NECK: No JVd No Bruit CHEST: CTA B/L CVS: S1S2 R ABD: S/P PEG in binder no distention,mild tendernes , BS + EXT: No edema feet 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 Labs: CBC, BMP 03/01/19 06:20 03/01/19 06:20 INR, PTT INR 1.18 (0.83-1.09) H 03/01/19 06:20 Problem List - Problems (1) PEG (percutaneous endoscopic gastrostomy) adjustment/replacement/removal Assessment/Plan: Today PEG is replaced will cont Clinamix 1 more day and abx for 24 hrs Code(s): Z43.1 - ENCOUNTER FOR ATTENTION TO GASTROSTOMY (2) Dehydration Assessment/Plan: improving IV Hydration, F/U BMP Code(s): E86.0 - DEHYDRATION (3) Dementia Assessment/Plan: Chronic Code(s): F03.90 - UNSPECIFIED DEMENTIA WITHOUT BEHAVIORAL DISTURBANCE (4) Failure to thrive Assessment/Plan: Clinimix 84 cc/HR Code(s): [id number] - (5) Oral thrush Code(s): B37.0 - CANDIDAL STOMATITIS
[2019-03-01] MEDS: SENNOSIDES 8.6MG TABLET (FP) PO SCH (21:36)
[2019-03-01] MEDS: BACITRACIN 15 GM TUBE TOPICAL OINTMENT TP SCH (21:36)
[2019-03-02] MEDS ORDERED: ceFAZolin SODIUM 1 GM VIAL ONE ×2 (01:59→09:10)
[2019-03-02] MEDS ORDERED: DEXTROSE 5%-WATER - 50 ML IVPB ONE ×2 (01:59→09:11)
[2019-03-02] MEDS: CEFAZOLIN 1 GM in DEXTROSE 5%-WATER - 50 ML IVPB SCH ×2 (02:29→09:20)
[2019-03-02] MEDS: AMINO ACIDS 4.25%/D5W 1,000 ML IV SCH (05:04)
[2019-03-02] MEDS: NYSTATIN 500,000 UNITS/5 ML SUSPENSION PO SCH ×2 (05:04→12:30)
[2019-03-02 07:11] LABS: BASO % 0.6 % (0-2.0); EOS % 2.9 % (0-4.5); HEMATOCRIT 37.1 % (35.4-49); HEMOGLOBIN 12.6 GM/dL (11.7-16.9); LYMPH % 19.4 % (8-40); MCH 29.2 pg (25.7-33.7); MCHC 33.8 g/dl (32.0-35.9); MEAN CELL VOLUME 86.3 fl (80-96); MEAN PLT VOLUME 8.5 fl (7.5-11.1); MONO % 9.1 % (3.8-10.2); PLATELET COUNT 217 K/MM3 (134-434); RDW 15.9 % (11.9-15.9); WHITE BLOOD COUNT 9.5 K/mm3 (4.0-10.0)
[2019-03-02 07:21] LABS: BLOOD UREA NITROGEN 23.4 mg/dL (7-18); CALCIUM 8.9 mg/dL (8.5-10.1); CREATININE 0.7 mg/dL (0.55-1.3); POTASSIUM 3.4 mmol/L (3.5-5.1)
--- NOTE | 2019-03-02 09:04 | PN ---
Progress Note, Physician Chief Complaint: tolerating PEG - Current Medication List Current Medications: Active Medications Bacitracin (Bacitracin -) 1 applic TP BID [facility] Last Admin: 03/01/19 21:36 Dose: 1 applic Cefazolin Sodium 1 gm/ (Dextrose) 50 mls @ 100 mls/hr IVPB Q8H-IV [facility] Last Admin: 03/02/19 02:29 Dose: 100 mls/hr Amino Acids (Clinimix -) 1,000 mls @ 84 mls/hr IV Q12H [facility] Last Admin: 03/02/19 05:04 Dose: Not Given Lorazepam (Ativan Injection -) 1 mg IVPUSH Q12H PRN PRN Reason: ANXIETY Nystatin (Nystatin Oral Suspension -) 500,000 units PO Q6HPO [facility] Last Admin: 03/02/19 05:04 Dose: Not Given Pantoprazole Sodium (Protonix Iv) 40 mg IVPUSH DAILY [facility] Last Admin: 03/01/19 10:35 Dose: 40 mg Potassium Chloride (Potassium Chloride Oral Liquid) 20 meq PO ONCE ONE Stop: 03/02/19 08:59 Senna (Senna -) 2 tab PO HS [facility] Last Admin: 03/01/19 21:36 Dose: 2 tab - Objective Vital Signs: Vital Signs Temperature 96.8 F L 03/02/19 07:12 Pulse Rate 84 03/02/19 07:12 Respiratory Rate 20 03/02/19 07:12 Blood Pressure 103/53 L 03/02/19 07:12 O2 Sat by Pulse Oximetry (%) 96 03/01/19 21:00 Elderly man oriented to self alert not in distress HEENT: Poor oral hygiene,Mm moist, no anemia NECK: No JVd No Bruit CHEST: CTA B/L CVS: S1S2 R ABD: S/P PEG in binder no distention,mild tendernes , BS + EXT: No edema feet 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 oriented to self Labs: CBC, BMP 03/02/19 06:09 03/02/19 06:09 INR, PTT INR 1.18 (0.83-1.09) H 03/01/19 06:20 Problem List - Problems (1) PEG (percutaneous endoscopic gastrostomy) adjustment/replacement/removal Assessment/Plan: S/P PEG replacement cont PEG feeding as tolerates Code(s): Z43.1 - ENCOUNTER FOR ATTENTION TO GASTROSTOMY (2) Dehydration Assessment/Plan: improving IV Hydration, F/U BMP Code(s): E86.0 - DEHYDRATION (3) Dementia Assessment/Plan: Chronic Code(s): F03.90 - UNSPECIFIED DEMENTIA WITHOUT BEHAVIORAL DISTURBANCE (4) Failure to thrive Assessment/Plan: Clinimix 84 cc/HR Code(s): [id number] - (5) Oral thrush Assessment/Plan: Oral nystatin Code(s): B37.0 - CANDIDAL STOMATITIS
[2019-03-02] MEDS: PANTOPRAZOLE SODIUM 40 MG VIAL IVPUSH SCH (09:16)
[2019-03-02] MEDS ORDERED: POTASSIUM CHLORIDE ORAL LIQUID 20 MEQ/15 ML PO ONE (09:50)
[2019-03-02] MEDS: BACITRACIN 15 GM TUBE TOPICAL OINTMENT TP SCH (10:10)
[2019-03-02 10:47] VITALS: BP 109/60; PULSE 80; TEMP 98.9
--- NOTE | 2019-03-02 10:53 | PN ---
Progress Note, [facility] - Note Progress Note: Selected Entries 02/27/19 02/28/19 02/28/19 14:00 14:00 23:49 Breakfast 0 Lunch 25% 0 Supper 0 03/01/19 03/01/19 18:30 23:51 Breakfast Lunch Supper NPO NPO PEG inserted. PO intake has been insufficient due to pt refusing, not swallowing capability. Suggest offering PO trials periodically for pleasure, if desired. PEG for nutrition/hydration/medication.
--- NOTE | 2019-03-02 12:46 | PN.GI ---
GI Progress Note Subjective: GI NOte: Tolerating feedings. PEG site is clean - Objective Vital Signs: Vital Signs Temperature 98.9 F 03/02/19 10:00 Pulse Rate 80 03/02/19 10:00 Respiratory Rate 20 03/02/19 10:00 Blood Pressure 109/60 03/02/19 10:00 O2 Sat by Pulse Oximetry (%) 96 03/01/19 21:00 Laboratory Tests 03/02/19 03/02/19 06:09 06:09 WBC 9.5 C-Reactive Protein 1.0 H Constitutional: No Distress Gastrointestinal Inspection: Yes: Other (PEG site clean but cleansed and dressing changed.) ...Auscultate: Yes: Normoactive Bowel Sounds Labs: CBC, BMP 03/02/19 06:09 03/02/19 06:09 INR, PTT INR 1.18 (0.83-1.09) H 03/01/19 06:20 Assessment/Plan Assessment: - Day 1 s/p PEG reinsertion and tolerating feedings Plan: -- No GI objections to transfer back to [place] Problem List - Problems (1) Dislodged gastrostomy tube Code(s): Z43.1 - ENCOUNTER FOR ATTENTION TO GASTROSTOMY (2) PEG (percutaneous endoscopic gastrostomy) adjustment/replacement/removal Code(s): Z43.1 - ENCOUNTER FOR ATTENTION TO GASTROSTOMY (3) Alzheimer's dementia Code(s): G30.9 - ALZHEIMER'S DISEASE, UNSPECIFIED (4) Nutrient intake below expected requirement Code(s): E61.9 - DEFICIENCY OF NUTRIENT ELEMENT, UNSPECIFIED (5) Status post insertion of percutaneous endoscopic gastrostomy (PEG) tube Code(s): Z93.1 - GASTROSTOMY STATUS
--- NOTE | 2019-03-06 23:15 | DS ---
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 Labs: CBC, BMP 03/02/19 06:09 03/02/19 06:09 Discharge Summary Reason For Visit: ENCOUNTER FOR PERCUTANEOUS ENDOSCOPIC GASTROSTOMY Hospital Course: 88 yrs old man [place] resident, DNR, DNI advanced Dementia, oriented to self communicate with minimal sentences recently discharged on 01/31/2019 from [place] treated for UTI sepsis, Pneumonia and failure to thrive PEG was placed () after consented by ISABELLA (brother lives in [facility]) today transferred from [place] as patient pulled out the PEG tube , no active bleeding stoma is clean admitted for PEG tube replacement, otherwise no other lab abnormality patient all labs and MS is at base line ,received IV abx and PEG replaced transfer back to [place] Condition: Guarded - Instructions Diet, Activity, Other Instructions: PEG feeding as instructed Disposition: ALF FACILITY - Home Medications Comprehensive Discharge Medication List: Ambulatory Orders Acetaminophen [Tylenol] 650 mg GT PRN PRN 08/10/17 Heparin - 5,000 unit SQ BID 08/10/17 LORazepam [Ativan] 1 mg PO BID PRN #14 tablet MDD two 01/30/19 Omeprazole 20 mg GT DAILY 02/20/19 Bacitracin - [Bacitracin Topical Ointment -] 1 applic TP BID tube 03/02/19 Nystatin Oral Suspension - [Nystatin Oral Susp 014786 Units/5 ML -] 500,000 units PO Q6HPO cup 03/02/19 Sennosides [Senna -] 2 tab PO HS tablet 03/02/19
== END 2019-03-02 14:34 | DRG 394 ==
LOC: JER 15:38 → JERBED 16:35 → J5S 20:27
PROVIDERS: ADMIT Internal Medicine; ATTEND Internal Medicine
PROC: 3E0G76Z Introduction of Nutritional Substance into Upper GI, Via Natural or Artificial Opening (ICD-10-PCS; 2019-03-01)
PROC: 0DH63UZ Insertion of Feeding Device into Stomach, Percutaneous Approach (ICD-10-PCS; principal; 2019-03-01 13:45)
DX: Z43.1 Encounter for attention to gastrostomy (principal); B37.0 Candidal stomatitis; R62.7 Adult failure to thrive; G30.9 Alzheimer's disease, unspecified; F02.80 Dementia in other diseases classified elsewhere, unspecified severity, without behavioral disturbance, psychotic disturbance, mood disturbance, and anxiety; Z66 Do not resuscitate; Z86.718 Personal history of other venous thrombosis and embolism; E86.0 Dehydration; D72.829 Elevated white blood cell count, unspecified; K56.41 Fecal impaction
CPT/HCPCS: 36415; 71045-TC-FY; 74176-TC; 74230-TC-FY; 80048; 80053; 83735; 85025; 85610; 86140; 86850; 86900; 86901; 92611-GN; 99283-25

== ENCOUNTER 2019-03-12 14:30 | Emergency (ER) | payer OTHER ==
[2019-03-12 15:01] VITALS: BMI 25.5
--- NOTE | 2019-03-12 15:09 | PDOC ---
History of Present Illness - General Chief Complaint: G Tube Problem Stated Complaint: G TUBE PROBLEM History Source: Patient Exam Limitations: No Limitations - History of Present Illness Initial Comments: 03/12/19 15:07 88 yrs old man [place] resident, DNR, DNI advanced Dementia, oriented to self communicate with minimal sentences recently discharged on 01/31/2019 from [place] treated for UTI sepsis, Pneumonia and failure to thrive PEG was placed ( initially placed 01/26/2019; Reinserted 03/02/2019 using the same fistula site by Dr. Sanchez) 03/12/19 15:08 Past History - Past Medical History Allergies/Adverse Reactions: Allergies Allergy/AdvReac Type Severity Reaction Status Date / Time No Known Allergies Allergy Verified 01/15/19 15:25 Home Medications: Ambulatory Orders Acetaminophen [Tylenol] 650 mg GT PRN PRN 08/10/17 Heparin - 5,000 unit SQ BID 08/10/17 LORazepam [Ativan] 1 mg PO BID PRN #14 tablet MDD two 01/30/19 Omeprazole 20 mg GT DAILY 02/20/19 Bacitracin - [Bacitracin Topical Ointment -] 1 applic TP BID tube 03/02/19 Nystatin Oral Suspension - [Nystatin Oral Susp 300698 Units/5 ML -] 500,000 units PO Q6HPO cup 03/02/19 Sennosides [Senna -] 2 tab PO HS tablet 03/02/19 COPD: No Dementia: Yes Disorders: Yes (UTI) - Surgical History Abdominal Surgery: Yes (g tube insertion) - Suicide/Smoking/Psychosocial Hx Smoking Status: No Smoking History: Never smoked Have you smoked in the past 12 months: No Number of Cigarettes Smoked Daily: 0 Hx Alcohol Use: No Drug/Substance Use Hx: No Substance Use Type: None *Physical Exam - Vital Signs Last Vital Signs Temp Pulse Resp BP Pulse Ox 98 F 82 20 130/70 98 03/12/19 14:46 03/12/19 14:46 03/12/19 14:46 03/12/19 14:46 03/12/19 14:46 *DC/Admit/Observation/Transfer Diagnosis at time of Disposition: PEG (percutaneous endoscopic gastrostomy) adjustment/replacement/removal - Discharge Dispostion Disposition: HOME Decision to Admit order: No - Referrals - Patient Instructions Printed Discharge Instructions: DI for Percutaneous Endoscopic Gastrostomy Additional Instructions: You were seen for the insertion of your PEG tube. YOU MUST HAVE AN ABDOMINAL BINDER ON TO PREVENT ALL FUTURE PULL OUTS. Adira, please maintain an abdominal binder on Mr. Powers. It is for his protection and well being. A 16 wallisian was placed. Please take care of it. Thank you. - Post Discharge Activity
--- NOTE | 2019-03-12 16:27 | PN ---
Progress Note (short form) - Note Progress Note: Called by ER. Patient pulled G-Tube out again at retirement. Unclear if [facility]Tube recently replaced endoscopically a couple of weeks ago, however exiting tract was used On exam: Abdomen non-distended + BS G-tube site in mid upper abdomen: no induration, discharge. + granulation tisue and narrowed stomal opening. 16Fr. replacement G-Tube inserted without difficulty. Balloon inflated with 6cc sterile water. tethered at the 3cm julia at the level of the abdominal wall. gastric aspirate / bilious fluid aspiirated and tube Flushed without difficulty. some oozing of blood at the granulation tissue. Self-limited. Advised ER resident arena: G-Tube study to confirm position prior to discharge, given that this was recently placed G-Tube A loose abdominal binder must be maintained at all times to prevent tube dislodgement! This is the 2nd time he has pulled out a G-Tube and the goal is not to put him in a position where further invasive measures need be performed.
--- NOTE | 2019-03-12 18:25 | PDOC ---
Attending Attestation - Resident Resident Name: ArielleArmand - ED Attending Attestation I have performed the following: I have examined & evaluated the patient, The case was reviewed & discussed with the resident, I agree w/resident's findings & plan, Exceptions are as noted - HPI HPI: 03/12/19 18:25 Mr. Powers is an 88 yo M who presents to the ER for G tube replacement He has advanced dementia, is DNR, DNI Recent admission in january for UTI, pneumonia PEG was placed in December Pt removed PEG and it was re inserted on 03/02 Pt returns to the ER due to dislodged G tube Pt appears well otherwise - Physicial Exam PE: 03/12/19 18:30 GENERAL: The patient is in no acute distress. ENT: Moist mucous membranes. NECK: Normal range of motion, supple, no nuchal rigidity (+) LAD LUNGS: Breath sounds equal, clear to auscultation bilaterally. HEART:Regular rate and rhythm ABDOMEN: Soft, G tube removed, G tube site clean, scant bleeding EXTREMITIES: Normal range of motion, no edema. NEUROLOGICAL: Cranial nerves II through XII grossly intact. Normal speech. SKIN: No rashes or lesions noted. - Medical Decision Making 03/12/19 18:32 88 yo M S/p dislodged G tube G tube replaced by Dr Saleh Xray performed EXAM: ABDOMEN FLAT \T\ UPRIGHT HISTORY: Evaluate gastric tube position. COMPARISON: None. FINDINGS: A gastric tube is visualized, with tip projecting in the region of the gastric body. There is opacification within the gastric lumen, proximal duodenum and multiple colonic loops. The bowel gas pattern is within normal limits. The bowel loops are not dilated. There is mild scoliosis of the thoracolumbar spine, with degenerative changes noted. Additional degenerative changes are seen at both hips. There is enthesophyte formation at the bilateral iliac crests Will return to the long term G tube replacement
[2019-03-12 19:18] VITALS: BP 128/68; PULSE 86; TEMP 98
== END 2019-03-12 19:02 ==
LOC: JER 14:30
PROC: 0D20XUZ Change Feeding Device in Upper Intestinal Tract, External Approach (ICD-10-PCS; principal; 2019-03-12)
DX: Z43.1 Encounter for attention to gastrostomy (principal); F03.90 Unspecified dementia, unspecified severity, without behavioral disturbance, psychotic disturbance, mood disturbance, and anxiety; Z87.440 Personal history of urinary (tract) infections
CPT/HCPCS: 43762; 71045-TC-FY; 74019-TC-FY; 99282-25

== ENCOUNTER 2019-03-14 17:09 | Inpatient (IN) | payer OTHER ==
[2019-03-14 17:35] VITALS: BMI 25.8
--- NOTE | 2019-03-14 17:57 | PDOC ---
History of Present Illness - General Stated Complaint: PEG TUBE DISLODGED Time Seen by Provider: 03/14/19 17:56 History Source: Patient Exam Limitations: No Limitations - History of Present Illness Initial Comments: 03/14/19 17:57 HPI: 88 yo M [place] resident, DNR, DNI advanced Dementia, oriented to self, communicates with minimal sentences presenting with dislodege PEG tube. Recently discharged on 01/31/2019 from [facility] treated for UTI sepsis, pneumonia and failure to thrive. PEG was placed (initially placed 01/26/2019; Reinserted 03/02/2019 using the same fistula site by Dr. Sanchez). Tube replaced 03/12/[address] Smith. Patient sent in from [place] without tube. KNDA Meds per chart PMH as above PSH PEG Past History - Travel Traveled outside of the country in the last 30 days: No Close contact w/someone who was outside of country & ill: No - Past Medical History Allergies/Adverse Reactions: Allergies Allergy/AdvReac Type Severity Reaction Status Date / Time No Known Allergies Allergy Verified 01/15/19 15:25 Home Medications: Ambulatory Orders Acetaminophen [Tylenol] 650 mg GT PRN PRN 08/10/17 Heparin - 5,000 unit SQ BID 08/10/17 LORazepam [Ativan] 1 mg PO BID PRN #14 tablet MDD two 01/30/19 Omeprazole 20 mg GT DAILY 02/20/19 Bacitracin - [Bacitracin Topical Ointment -] 1 applic TP BID tube 03/02/19 Nystatin Oral Suspension - [Nystatin Oral Susp 332317 Units/5 ML -] 500,000 units PO Q6HPO cup 03/02/19 Sennosides [Senna -] 2 tab PO HS tablet 03/02/19 COPD: No Dementia: Yes Disorders: Yes (UTI) - Surgical History Abdominal Surgery: Yes (g tube insertion) - Suicide/Smoking/Psychosocial Hx Smoking Status: No Smoking History: Unknown if ever smoked Have you smoked in the past 12 months: No Number of Cigarettes Smoked Daily: 0 Information on smoking cessation initiated: No Hx Alcohol Use: No Drug/Substance Use Hx: No Substance Use Type: None Review of Systems - Review of Systems Able to Perform ROS?: No (limited by MSE) Is the patient limited Mauritanian proficient: No *Physical Exam - Vital Signs Last Vital Signs Temp Pulse Resp BP Pulse Ox 97.8 F 87 19 133/67 99 03/14/19 17:11 03/14/19 17:11 03/14/19 17:11 03/14/19 17:11 03/14/19 17:11 - Physical Exam Comments: 03/14/19 19:23 Vitals reviewed, AFHDS Gen: elderly man, laying in stretcher, NAD HEENT: normal morphologies, EOMI, MMM, NCAT, trachea midline CV: RRR, nl s1/s2, no murmurs appreciated Pulm: CTABL, normal WOB, no wheezes / rales / rhonchi Abd: Soft, nontender, nondistended, PEG site with some granulation tissue weeping, no surrounding erythema / swelling / warmth Ext: WWP, no clubbing / cyanosis / edema Neuro: Short phrases, minimal speech, few answers to questioning, c/w baseline from prior examinations with this provider Medical Decision Making - Medical Decision Making 03/14/19 18:45 88 yrs old man [place] resident, DNR, DNI advanced Dementia, presenting s/p PEG tube dislodgment. Unclear duration, granulation tissue and ooze at PEG site. Unable to pass 16F tube at this time, want to avoid creating false lumen. No 14F tubes available - contacting central supply. Call placed to Dr. Sanchez. Patient without focal complaints, AFVSS. 03/14/19 18:55 -Spoke with Dr. Sanchez. Plan to pass 14F Donovan if possible and obtain gastrograffin study. No 14F in the department, called store room, donovan en route. 03/14/19 20:48 -No 14F donovan in the department, store room brought 16F, no 14 available. Passed 12F donovan into PEG tube tract, dressed and placed abdominal binder. -Abdominal Xray with gastrograffin pending 03/14/19 21:45 -Pt at Xray, 120cc water with contrast inserted via donovan into stomach immediately preceeding study. 03/14/19 22:13 -12F donovan is within the stomach, some residual contrast in large colon from study two days ago -Will admit for dilation and insertion of 14F+ PEG tube Dispo: Med/Surg 03/14/19 22:47 -Pt endorsed to PCP Anh Barry -No CBC/CMP from this visit, ordered 03/14/19 23:54 -Pt combative with nurse during blood draw, 2mg IM Ativan ordered (on 1mg BID PRN at home) *DC/Admit/Observation/Transfer Diagnosis at time of Disposition: Dislodged gastrostomy tube - Discharge Dispostion Condition at time of disposition: Improved Decision to Admit order: Yes - Referrals - Patient Instructions - Post Discharge Activity
--- NOTE | 2019-03-14 18:19 | PDOC ---
Attending Attestation - Resident Resident Name: Eligio Carcamo - ED Attending Attestation I have performed the following: I have examined & evaluated the patient, The case was reviewed & discussed with the resident, I agree w/resident's findings & plan, Exceptions are as noted - HPI HPI: 03/14/19 18:16 88-year-old male brought in by D[facility] from the assisted for replacement of a dislodged G-tube Again for an ER visit 2 days ago for the same complaint. On March 12, Dr. Christopher Olivas placed a 16 Fr donovan in the existing tract this pt needs to have an abdominal bnder to help prevent dislodgement 03/14/19 18:20 - Physicial Exam PE: 03/14/19 18:21 thin frail-appearing 88-year-old male presents in no acute distress. Head normocephalic, atraumatic. Lungs clear to auscultation, CVS, regular rate and rhythm S1, S2. Abdomen is flat, the G-tube tract is open. Extremities no deformities. Neuro patient alert, nonverbal - Medical Decision Making 03/14/19 18:22 plan replace g tube w 16 FR,inflate balloon w 6cc saline confirmation w gastrogaffin /kub 03/14/19 19:21 Dr. Carcamo spoke with Dr. Sanchez who advised trying a 14 Slovak but in the end only a 12 fr donovan could be placed and this pt was admitted by recommendation from GI 03/14/19 22:30
--- NOTE | 2019-03-14 22:16 | CON.GI ---
Consult Consult Specialty:: Gastroenterology Referred by:: Dr Carcamo Reason for Consultation:: G tube avulsion - History of Present Illness Chief Complaint: Avulsed G tube History of Present Illness: 88M transferred from the [place] after avulsing his G-tube. He avulsed his G tube earlier this month leading to an endoscopic reinsertion on 03/01/19. He avulsed it again this weekend when Dr Staples reinserted it. 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 Cardio/Vascular: Yes: Deep Vein Thrombosis Pulmonary: Yes: Pneumonia Gastrointestinal: Yes: Other (repeated G tube avulsed and reinsertions) Renal/: Yes: UTI - Alcohol/Substance Use Hx Alcohol Use: No History of Substance Use: reports: None - Smoking History Smoking history: Unknown if ever smoked Have you smoked in the past 12 months: No Aproximately how many cigarettes per day: 0 - Social History Usual Living Arrangement: Longterm Place of : [facility] History of Recent Travel: No Home Medications - Allergies Allergies/Adverse Reactions: Allergies Allergy/AdvReac Type Severity Reaction Status Date / Time No Known Allergies Allergy Verified 01/15/19 15:25 - Home Medications Home Medications: Ambulatory Orders Acetaminophen [Tylenol] 650 mg GT PRN PRN 08/10/17 Heparin - 5,000 unit SQ BID 08/10/17 LORazepam [Ativan] 1 mg PO BID PRN #14 tablet MDD two 01/30/19 Omeprazole 20 mg GT DAILY 02/20/19 Bacitracin - [Bacitracin Topical Ointment -] 1 applic TP BID tube 03/02/19 Nystatin Oral Suspension - [Nystatin Oral Susp 356679 Units/5 ML -] 500,000 units PO Q6HPO cup 03/02/19 Sennosides [Senna -] 2 tab PO HS tablet 03/02/19 Family Disease History - Family Disease History Family History: Unable to Obtain Review of Systems Unable to obtain ROS, reason: dementia Physical Exam-GI Vital Signs: Vital Signs Temperature 97.8 F 03/14/19 17:11 Pulse Rate 87 03/14/19 17:11 Respiratory Rate 19 03/14/19 17:11 Blood Pressure 133/67 03/14/19 17:11 O2 Sat by Pulse Oximetry (%) 99 03/14/19 17:11 Constitutional: Yes: No Distress Eyes: Yes: Conjunctiva Clear HENT: Yes: Atraumatic Neck: Yes: Supple Cardiovascular: Yes: Regular Rate and Rhythm Respiratory: Yes: Regular Gastrointestinal Inspection: Yes: Other (mature LUQ fistula with indwelling 12Fr Alvarez) ...Auscultate: Yes: Normoactive Bowel Sounds ...Palpate: Yes: Soft, Other (nontender) ...Rectal Exam: Yes: Deferred (in ER hallway) Problem List - Problems (1) Alzheimer's dementia Code(s): G30.9 - ALZHEIMER'S DISEASE, UNSPECIFIED (2) Dislodged gastrostomy tube Code(s): Z43.1 - ENCOUNTER FOR ATTENTION TO GASTROSTOMY (3) PEG (percutaneous endoscopic gastrostomy) adjustment/replacement/removal Code(s): Z43.1 - ENCOUNTER FOR ATTENTION TO GASTROSTOMY (4) Status post insertion of percutaneous endoscopic gastrostomy (PEG) tube Code(s): Z93.1 - GASTROSTOMY STATUS Assessment/Plan Assessment: - Recurrent G tube avulsions Plan - Will try to obtain a 14 Fr replacement G tube or ideally a low profile MALU- Wilkes tube which would be more difficult to avulse - Can use G tube for feeding as the G tube study reveals that the reinserted Alvarez is within the gastirc lumen
[2019-03-14] MEDS ORDERED: LORazepam 2 MG/ML SDV VIAL IVPUSH PRN (23:23)
[2019-03-14] MEDS: D5-1/2NS+10 MEQ KCL - 10 MEQ/1,000 ML INFUS.BAG IV SCH (23:56)
[2019-03-14] MEDS ORDERED: LORazepam 2 MG/ML SDV VIAL ONE (23:58)
[2019-03-15 01:45] LABS: BASO % 0.6 % (0-2.0); EOS % 2.4 % (0-4.5); HEMATOCRIT 43.3 % (35.4-49); HEMOGLOBIN 14.1 GM/dL (11.7-16.9); LYMPH % 19.4 % (8-40); MCH 28.9 pg (25.7-33.7); MCHC 32.7 g/dl (32.0-35.9); MEAN CELL VOLUME 88.7 fl (80-96); MEAN PLT VOLUME 8.5 fl (7.5-11.1); MONO % 8.1 % (3.8-10.2); NEUT % 69.5 % (42.8-82.8); PLATELET COUNT 284 K/MM3 (134-434); RBC 4.88 M/mm3 (4.00-5.60); RDW 15.8 % (11.9-15.9); WHITE BLOOD COUNT 12.3 K/mm3 (4.0-10.0)
[2019-03-15 02:14] LABS: ALBUMIN 3.7 g/dl (3.4-5.0); BILIRUBIN,TOTAL 0.9 mg/dL (0.2-1); BLOOD UREA NITROGEN 41.6 mg/dL (7-18); CALCIUM 9.3 mg/dL (8.5-10.1); CREATININE 0.9 mg/dL (0.55-1.3); POTASSIUM 4.3 mmol/L (3.5-5.1); TOT PROT 6.9 g/dl (6.4-8.2)
[2019-03-15] MEDS: D5-1/2NS+10 MEQ KCL - 10 MEQ/1,000 ML INFUS.BAG IV SCH (05:51)
[2019-03-15 10:23] LABS: BASO % 0.3 % (0-2.0); EOS % 1.6 % (0-4.5); HEMATOCRIT 44.4 % (35.4-49); HEMOGLOBIN 14.7 GM/dL (11.7-16.9); LYMPH % 16.1 % (8-40); MCH 29.2 pg (25.7-33.7); MEAN CELL VOLUME 88.4 fl (80-96); MEAN PLT VOLUME 8.8 fl (7.5-11.1); MONO % 6.9 % (3.8-10.2); NEUT % 75.1 % (42.8-82.8); PLATELET COUNT 278 K/MM3 (134-434); RBC 5.03 M/mm3 (4.00-5.60); RDW 15.8 % (11.9-15.9); WHITE BLOOD COUNT 12.5 K/mm3 (4.0-10.0)
[2019-03-15 10:41] LABS: INR 1.2 (0.83-1.09); PROTHROMBIN TIME (PATIENT) 14.2 SEC (9.7-13.0)
[2019-03-15 10:56] LABS: ALBUMIN 3.9 g/dl (3.4-5.0); BILIRUBIN,TOTAL 0.9 mg/dL (0.2-1); BLOOD UREA NITROGEN 44.3 mg/dL (7-18); CALCIUM 9.6 mg/dL (8.5-10.1); CREATININE 1.1 mg/dL (0.55-1.3); POTASSIUM 4.2 mmol/L (3.5-5.1); TOT PROT 7.2 g/dl (6.4-8.2)
--- NOTE | 2019-03-15 15:12 | PN.GI ---
GI Progress Note Subjective: GI Note: The 14Fr Alvarez was removed and replaced with a 16 Fr replacement G tube. The internal balloon was inflated with 20cc with the hopes that this will better resist an avulsion. He should ideally have a MALU-Wilkes tube which has a low profile and would be more difficult to extract . Location of the replaced Gtube was confirmed by aspiration/auscultation. - Objective Vital Signs: Vital Signs Temperature 98.2 F 03/15/19 08:20 Pulse Rate 105 H 03/15/19 08:20 Respiratory Rate 20 03/15/19 08:20 Blood Pressure 104/60 03/15/19 08:20 O2 Sat by Pulse Oximetry (%) 98 03/15/19 07:48 Laboratory Tests 03/15/19 03/15/19 03/15/19 01:20 09:45 09:45 WBC 12.3 H 12.5 H Hgb 14.7 BUN 44.3 H Creatinine 1.1 Albumin 3.9 Constitutional: Calm Gastrointestinal Inspection: Yes: Other (clean G tube site) ...Auscultate: Yes: Normoactive Bowel Sounds ...Palpate: Yes: Soft, Other (nontender) Labs: CBC, BMP 03/15/19 09:45 03/15/19 09:45 INR, PTT INR 1.20 (0.83-1.09) H 03/15/19 09:45 Assessment/Plan Assessment: - Recurrent G tube avulsions. A new 16Fr replacement G tube was inserted Plan - Can use G tube for feeding - NO GI objections to discharge. Encourage the group home to order a MALU-Wilkes G tube to replace the current tube Problem List - Problems (1) Alzheimer's dementia Code(s): G30.9 - ALZHEIMER'S DISEASE, UNSPECIFIED (2) Dislodged gastrostomy tube Code(s): Z43.1 - ENCOUNTER FOR ATTENTION TO GASTROSTOMY (3) PEG (percutaneous endoscopic gastrostomy) adjustment/replacement/removal Code(s): Z43.1 - ENCOUNTER FOR ATTENTION TO GASTROSTOMY (4) Status post insertion of percutaneous endoscopic gastrostomy (PEG) tube Code(s): Z93.1 - GASTROSTOMY STATUS
--- NOTE | 2019-03-15 22:21 | HP ---
Admitting History and Physical - Primary Care Physician PCP: Lissette Gonzales - Admission Chief Complaint: PEG Dislodgement History of Present Illness: 88 yrs old man [place] resident, DNR, DNI, alert oriented to self, wheel chair bound , communicated with simple words recently discharge after PEG replacement in the ED on 03/12/2019 present with PEG dislodgment, in the ED failed trial to reinsertion of the PEG so admitted after insertion of a Foleys cathter in stoma to preserve it, no bleeding at stoma, afebrile, clinically dehydrated. 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 Cardiovascular: Yes: Deep Vein Thrombosis Pulmonary: Yes: Pneumonia Gastrointestinal: Yes: Other (repeated G tube avulsed and reinsertions) Renal/: Yes: UTI - Advance Directives Advance Directives: Yes: Health Care Proxy, DNR - Smoking History Smoking history: Unknown if ever smoked Have you smoked in the past 12 months: No Aproximately how many cigarettes per day: 0 - Alcohol/Substance Use Hx Alcohol Use: No History of Substance Use: reports: None - Social History Usual Living Arrangement: Yes: Long-Term History of Recent Travel: No Home Medications - Allergies Allergies/Adverse Reactions: Allergies Allergy/AdvReac Type Severity Reaction Status Date / Time No Known Allergies Allergy Verified 01/15/19 15:25 - Home Medications Home Medications: Ambulatory Orders Acetaminophen [Tylenol] 650 mg GT PRN PRN 08/10/17 Heparin - 5,000 unit SQ BID 08/10/17 LORazepam [Ativan] 1 mg PO BID PRN #14 tablet MDD two 01/30/19 Omeprazole 20 mg GT DAILY 02/20/19 Bacitracin - [Bacitracin Topical Ointment -] 1 applic TP BID tube 03/02/19 Nystatin Oral Suspension - [Nystatin Oral Susp 479381 Units/5 ML -] 500,000 units PO Q6HPO cup 03/02/19 Sennosides [Senna -] 2 tab PO HS tablet 03/02/19 Family Disease History - Family Disease History Family History: Unable to Obtain Review of Systems Unable to obtain ROS, reason: Dementia Physical Examination Vital Signs: Vital Signs Temperature 97.9 F 03/15/19 20:54 Pulse Rate 112 H 03/15/19 20:54 Respiratory Rate 20 03/15/19 17:15 Blood Pressure 115/70 03/15/19 20:54 O2 Sat by Pulse Oximetry (%) 98 03/15/19 07:48 Elderly man comfortable greets , oriented to self HEENT: Poor oral hygiene, mm moist, no anemia, PERRLA NECK: No JVd No Bruit CHEST: CTA B/L CVS: S1S2 R no m/g/r ABD: PEG stoma + with healthy granulation, Alvarez is inserted to preserve it, non tender Bs + EXT: Edema feet 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 Code(s): Z43.1 - ENCOUNTER FOR ATTENTION TO GASTROSTOMY (2) Dehydration Assessment/Plan: Elevated BUN and Creat cont IV Hydration F/U BMP Code(s): E86.0 - DEHYDRATION (3) Alzheimer's dementia Assessment/Plan: advanced oriented to Self Code(s): G30.9 - ALZHEIMER'S DISEASE, UNSPECIFIED (4) Failure to thrive Assessment/Plan: S/P PEG Code(s): [id number] -
[2019-03-16] MEDS: D5-1/2NS+10 MEQ KCL - 10 MEQ/1,000 ML INFUS.BAG IV SCH (06:20)
--- NOTE | 2019-03-16 08:25 | DS ---
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, Oriented to Self whee chair bound in Diapers Labs: CBC, BMP 03/18/19 05:30 03/18/19 05:30 Discharge Summary Reason For Visit: DISLODGED GASTROSTOMY TUBE Hospital Course: 88 yrs old man admitted with PEG dislodgement , dehydration GRACE and possible sepsi of unknown etiology, PEG reinserted recived IV Hydration and IV abx gradually improved and being DC to NH Condition: Stable - Instructions Diet, Activity, Other Instructions: PEG feeding Disposition: ASSISTED FACILITY - Home Medications Comprehensive Discharge Medication List: Ambulatory Orders Acetaminophen [Tylenol] 650 mg GT PRN PRN 08/10/17 Heparin - 5,000 unit SQ BID 08/10/17 LORazepam [Ativan] 1 mg PO BID PRN #14 tablet MDD two 01/30/19 Omeprazole 20 mg GT DAILY 02/20/19 Bacitracin - [Bacitracin Topical Ointment -] 1 applic TP BID tube 03/02/19 Sennosides [Senna -] 2 tab PO HS tablet 03/02/19
[2019-03-16 09:09] LABS: BASO % 0.5 % (0-2.0); EOS % 0.3 % (0-4.5); HEMOGLOBIN 13.5 GM/dL (11.7-16.9); LYMPH % 8.7 % (8-40); MCH 29.2 pg (25.7-33.7); MCHC 32.9 g/dl (32.0-35.9); MEAN CELL VOLUME 88.7 fl (80-96); MEAN PLT VOLUME 8.7 fl (7.5-11.1); MONO % 7.3 % (3.8-10.2); NEUT % 83.2 % (42.8-82.8); PLATELET COUNT 288 K/MM3 (134-434); RBC 4.62 M/mm3 (4.00-5.60); RDW 15.6 % (11.9-15.9); WHITE BLOOD COUNT 19.6 K/mm3 (4.0-10.0)
[2019-03-16 09:35] LABS: BLOOD UREA NITROGEN 61.8 mg/dL (7-18); CALCIUM 9.6 mg/dL (8.5-10.1); CREATININE 2.1 mg/dL (0.55-1.3); POTASSIUM 4.8 mmol/L (3.5-5.1)
[2019-03-16] MEDS ORDERED: SODIUM CHLORIDE 1,000 ML IV STA (19:09)
--- NOTE | 2019-03-16 19:15 | PN ---
Progress Note, Physician Chief Complaint: No new complaint tolerating feeds - Current Medication List Current Medications: Active Medications Sodium Chloride (Normal Saline -) 1,000 mls @ 150 mls/hr IV ASDIR CITLALI Sodium Chloride (Normal Saline -) 1,000 mls @ 1,000 mls/hr IV ASDIR STA Stop: 03/16/19 20:08 Ceftriaxone Sodium 1 gm/ (Dextrose) 50 mls @ 100 mls/hr IVPB DAILY CITLALI Metronidazole (Flagyl 500mg Premixed Ivpb -) 500 mg in 100 mls @ 100 mls/hr IVPB Q8H-IV CITLALI Lorazepam (Ativan Injection -) 1 mg IVPUSH Q8H PRN PRN Reason: AGITATION Last Admin: 03/15/19 22:49 Dose: 1 mg - Objective Vital Signs: Vital Signs Temperature 97.8 F 03/16/19 16:20 Pulse Rate 115 H 03/16/19 16:20 Respiratory Rate 18 03/16/19 16:20 Blood Pressure 111/65 03/16/19 16:20 O2 Sat by Pulse Oximetry (%) 98 03/15/19 07:48 Elderly man comfortable greets , oriented to self HEENT: Poor oral hygiene, mm moist, no anemia, PERRLA NECK: No JVd No Bruit CHEST: CTA B/L CVS: S1S2 R no m/g/r ABD: PEG stoma + with healthy granulation, PEG tube re- inserted , non tender Bs + EXT: Edema feet 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 Code(s): Z43.1 - ENCOUNTER FOR ATTENTION TO GASTROSTOMY (2) Dehydration Assessment/Plan: Rising BUN and Creat cont IV Hydration F/U BMP Code(s): E86.0 - DEHYDRATION (3) Alzheimer's dementia Assessment/Plan: advanced oriented to Self Code(s): G30.9 - ALZHEIMER'S DISEASE, UNSPECIFIED (4) Failure to thrive Assessment/Plan: S/P PEG Code(s): [id number] - (5) GRACE (acute kidney injury) Assessment/Plan: BUN > 60 Creat 2.1 IV hydration F?U BMP Code(s): N17.9 - ACUTE KIDNEY FAILURE, UNSPECIFIED (6) Elevated WBC count Assessment/Plan: Rising TWBC and GRACE will start IV Ceftriaxone and Flagyl blood culture, urine culture and UA abd exam unremarkable. Code(s): D72.829 - ELEVATED WHITE BLOOD CELL COUNT, UNSPECIFIED
[2019-03-16] MEDS ORDERED: cefTRIAXone SODIUM 1 GM VIAL ONE (19:52)
[2019-03-16] MEDS ORDERED: DEXTROSE 5%-WATER - 50 ML IVPB ONE (19:53)
[2019-03-16] MEDS: CEFTRIAXONE 1 GM in DEXTROSE 5%-WATER - 50 ML IVPB SCH (21:51)
[2019-03-16] MEDS: SODIUM CHLORIDE 1,000 ML IV SCH (23:55)
[2019-03-17] MEDS ORDERED: PT OWN MED DRAWER 7, Y5N ONE (01:26)
[2019-03-17 07:45] LABS: BASO % 0.3 % (0-2.0); EOS % 0.8 % (0-4.5); HEMATOCRIT 35.4 % (35.4-49); HEMOGLOBIN 11.9 GM/dL (11.7-16.9); LYMPH % 10.8 % (8-40); MCH 29.6 pg (25.7-33.7); MCHC 33.5 g/dl (32.0-35.9); MEAN CELL VOLUME 88.2 fl (80-96); MEAN PLT VOLUME 8.9 fl (7.5-11.1); MONO % 9.3 % (3.8-10.2); NEUT % 78.8 % (42.8-82.8); PLATELET COUNT 239 K/MM3 (134-434); RBC 4.01 M/mm3 (4.00-5.60); RDW 16.1 % (11.9-15.9)
--- NOTE | 2019-03-17 08:15 | PN ---
Progress Note, Physician Chief Complaint: No new complaint tolerating feeds - Current Medication List Current Medications: Active Medications Sodium Chloride (Normal Saline -) 1,000 mls @ 150 mls/hr IV ASDIR CITLALI Last Admin: 03/16/19 23:55 Dose: 150 mls/hr Ceftriaxone Sodium 1 gm/ (Dextrose) 50 mls @ 100 mls/hr IVPB DAILY CITLALI Last Admin: 03/16/19 21:51 Dose: 100 mls/hr Metronidazole (Flagyl 500mg Premixed Ivpb -) 500 mg in 100 mls @ 100 mls/hr IVPB Q8H-IV CITLALI Last Admin: 03/17/19 04:36 Dose: 100 mls/hr Lorazepam (Ativan Injection -) 1 mg IVPUSH Q8H PRN PRN Reason: AGITATION Last Admin: 03/15/19 22:49 Dose: 1 mg - Objective Vital Signs: Vital Signs Temperature 98.5 F 03/17/19 06:23 Pulse Rate 97 H 03/17/19 06:23 Respiratory Rate 20 03/17/19 06:23 Blood Pressure 95/59 L 03/17/19 06:23 O2 Sat by Pulse Oximetry (%) 98 03/15/19 07:48 Elderly man comfortable greets , oriented to self HEENT: Poor oral hygiene, mm moist, no anemia, PERRLA NECK: No JVd No Bruit CHEST: CTA B/L CVS: S1S2 R no m/g/r ABD: PEG stoma + with healthy granulation, PEG tube re- inserted , non tender Bs + EXT: Edema feet 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 Code(s): Z43.1 - ENCOUNTER FOR ATTENTION TO GASTROSTOMY (2) Dehydration Assessment/Plan: Rising BUN and Creat cont IV Hydration F/U BMP Code(s): E86.0 - DEHYDRATION (3) Alzheimer's dementia Assessment/Plan: advanced oriented to Self Code(s): G30.9 - ALZHEIMER'S DISEASE, UNSPECIFIED (4) Failure to thrive Assessment/Plan: S/P PEG Code(s): [id number] - (5) GRACE (acute kidney injury) Assessment/Plan: BUN > 60 Creat 2.1 IV hydration F/U BMP Code(s): N17.9 - ACUTE KIDNEY FAILURE, UNSPECIFIED (6) Elevated WBC count Assessment/Plan: UA normal TWBC trending down patient is afebrile, evaluted by ID cont Ceftriaxone and Flagyl.. Code(s): D72.829 - ELEVATED WHITE BLOOD CELL COUNT, UNSPECIFIED
[2019-03-17 08:18] LABS: ALBUMIN 3.2 g/dl (3.4-5.0); BILIRUBIN,TOTAL 0.5 mg/dL (0.2-1); BLOOD UREA NITROGEN 61.8 mg/dL (7-18); CALCIUM 8.5 mg/dL (8.5-10.1); CREATININE 1.3 mg/dL (0.55-1.3); POTASSIUM 4.2 mmol/L (3.5-5.1); TOT PROT 5.9 g/dl (6.4-8.2)
[2019-03-17] MEDS ORDERED: SODIUM CHLORIDE 1,000 ML IV STA (08:42)
[2019-03-17] MEDS ORDERED: cefTRIAXone SODIUM 1 GM VIAL ONE (09:37)
[2019-03-17] MEDS ORDERED: DEXTROSE 5%-WATER - 50 ML IVPB ONE (09:37)
[2019-03-17] MEDS: CEFTRIAXONE 1 GM in DEXTROSE 5%-WATER - 50 ML IVPB SCH (09:39)
[2019-03-17] MEDS: PANTOPRAZOLE SODIUM 40 MG VIAL IVPUSH SCH (09:39)
--- NOTE | 2019-03-17 09:42 | CON.ID ---
Consult Consult Specialty:: infectious diseases Referred by:: Reason for Consultation:: leukocytosis - History of Present Illness Chief Complaint: dislodged peg tube History of Present Illness: patient with dementia history obtained from the charts 88 yrs old man [place] resident, DNR, DNI, alert oriented to self, wheel chair bound , communicated with simple words recently discharge after PEG replacement in the ED on 03/12/2019 admitted with PEG dislodgment, in the ED failed trial to reinsertion of the PEG so admitted after insertion of a Foleys cathter in stoma to preserve it, no bleeding at stoma, afebrile, gi on the case foleys was removed and peg was placed back again In the meantime patients wbc has jumped up and patients work up has been send currently patiwnt is comfortable and has been started on ceftriaxone and flagyl - History Source History Provided By: Medical Record Limitations to Obtaining History: Clinical Condition - Past Medical History 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 Cardio/Vascular: Yes: Deep Vein Thrombosis Pulmonary: Yes: Pneumonia Gastrointestinal: Yes: Other (repeated G tube avulsed and reinsertions) Renal/: Yes: UTI - Alcohol/Substance Use Hx Alcohol Use: No History of Substance Use: reports: None - Smoking History Smoking history: Unknown if ever smoked Have you smoked in the past 12 months: No Aproximately how many cigarettes per day: 0 - Social History Usual Living Arrangement: [facility] History of Recent Travel: No Home Medications - Allergies Allergies/Adverse Reactions: Allergies Allergy/AdvReac Type Severity Reaction Status Date / Time No Known Allergies Allergy Verified 01/15/19 15:25 - Home Medications Home Medications: Ambulatory Orders Acetaminophen [Tylenol] 650 mg GT PRN PRN 08/10/17 Heparin - 5,000 unit SQ BID 08/10/17 LORazepam [Ativan] 1 mg PO BID PRN #14 tablet MDD two 01/30/19 Omeprazole 20 mg GT DAILY 02/20/19 Bacitracin - [Bacitracin Topical Ointment -] 1 applic TP BID tube 03/02/19 Sennosides [Senna -] 2 tab PO HS tablet 03/02/19 Review of Systems Unable to obtain ROS, reason: unable to obtain Physical Exam Vital Signs: Vital Signs Temperature 98.5 F 03/17/19 06:23 Pulse Rate 97 H 03/17/19 06:23 Respiratory Rate 20 03/17/19 06:23 Blood Pressure 95/59 L 03/17/19 06:23 O2 Sat by Pulse Oximetry (%) 98 03/15/19 07:48 Constitutional: Yes: Well Nourished, No Distress, Calm Cardiovascular: Yes: Regular Rate and Rhythm Respiratory: Yes: Regular, CTA Bilaterally Gastrointestinal: Yes: Normal Bowel Sounds, Soft, Other (peg tube in place) Musculoskeletal: Yes: WNL Extremities: Yes: WNL Neurological: Yes: Alert, Other Psychiatric: Yes: Other Labs: CBC, BMP 03/17/19 06:55 03/17/19 06:55 Imaging - Results X-ray: Report Reviewed, Image Reviewed Assessment/Plan Problem List - Problems (1) Dislodged gastrostomy tube Code(s): Z43.1 - ENCOUNTER FOR ATTENTION TO GASTROSTOMY (2) Dehydration Code(s): E86.0 - DEHYDRATION (3) Alzheimer's dementia Code(s): G30.9 - ALZHEIMER'S DISEASE, UNSPECIFIED (4) Failure to thrive Code(s): [id number] - (5) GRACE (acute kidney injury) Code(s): N17.9 - ACUTE KIDNEY FAILURE, UNSPECIFIED (6) Elevated WBC count Code(s): D72.829 - ELEVATED WHITE BLOOD CELL COUNT, UNSPECIFIED plan continue ceftriaxone and flagyl rest as per the team monitor wbc nutrition
[2019-03-17 10:37] LABS: URINE APPEARANCE CLOUDY; URINE BILIRUBIN NEGATIVE (NEGATIVE); URINE COLOR YELLOW; URINE GLUCOSE (UA) NEGATIVE (NEGATIVE); URINE KETONE NEGATIVE (NEGATIVE)
[2019-03-17 10:38] LABS: URINE NITRITE NEGATIVE (NEGATIVE); URINE PROTEIN NEGATIVE (NEGATIVE); URINE UROBILINOGEN 0.2 mg/dL (0.2-1.0)
[2019-03-17 10:39] LABS: URINE LEUK ESTERASE NEGATIVE (NEGATIVE)
[2019-03-17] MEDS: SODIUM CHLORIDE 1,000 ML IV SCH ×3 (11:58→23:52)
[2019-03-17 12:20] LABS: EPI CELLS 3+ /HPF (0-5/HPF); HYALINE CASTS 1+ /lpf (0-8); URINE BACTERIA 2+ /hpf (NEGATIVE); URINE CRYSTALS MANY /hpf; URINE RBC 0-3 /hpf (0-4); URINE WBC 0-3 /hpf (0-5)
[2019-03-18 06:40] LABS: BASO % 0.3 % (0-2.0); EOS % 1.1 % (0-4.5); HEMATOCRIT 33.7 % (35.4-49); HEMOGLOBIN 11.1 GM/dL (11.7-16.9); LYMPH % 18.4 % (8-40); MCH 29.9 pg (25.7-33.7); MEAN CELL VOLUME 90.4 fl (80-96); MEAN PLT VOLUME 9.1 fl (7.5-11.1); MONO % 8.1 % (3.8-10.2); NEUT % 72.1 % (42.8-82.8); PLATELET COUNT 184 K/MM3 (134-434); RBC 3.72 M/mm3 (4.00-5.60); RDW 16.2 % (11.9-15.9); WHITE BLOOD COUNT 9.6 K/mm3 (4.0-10.0)
[2019-03-18 07:29] LABS: BLOOD UREA NITROGEN 41.1 mg/dL (7-18); CALCIUM 8.1 mg/dL (8.5-10.1); CREATININE 0.8 mg/dL (0.55-1.3); POTASSIUM 4.3 mmol/L (3.5-5.1)
[2019-03-18] MEDS ORDERED: AMOX TR/POT CLAV 500MG/125MG TABLETS (FP) PO SCH (10:00)
--- NOTE | 2019-03-18 10:28 | PN ---
Progress Note, Physician History of Present Illness: stable no new issues - Current Medication List Current Medications: Active Medications Amoxicillin/Clavulanate Potassium (Augmentin - 500mg Tablet) 1 tab PO BID [facility] Sodium Chloride (Normal Saline -) 1,000 mls @ 150 mls/hr IV ASDIR CITLALI Last Admin: 03/17/19 23:52 Dose: 150 mls/hr Lorazepam (Ativan Injection -) 1 mg IVPUSH Q8H PRN PRN Reason: AGITATION Last Admin: 03/15/19 22:49 Dose: 1 mg Pantoprazole Sodium (Protonix Iv) 40 mg IVPUSH DAILY [facility] Last Admin: 03/17/19 09:39 Dose: 40 mg - Objective Vital Signs: Vital Signs Temperature 97.4 F L 03/18/19 06:00 Pulse Rate 92 H 03/18/19 06:00 Respiratory Rate 20 03/18/19 06:00 Blood Pressure 100/47 L 03/18/19 06:00 O2 Sat by Pulse Oximetry (%) 99 03/17/19 21:00 Constitutional: Yes: No Distress, Calm Cardiovascular: Yes: S1, S2 Respiratory: Yes: Regular, CTA Bilaterally Musculoskeletal: Yes: WNL Extremities: Yes: WNL Neurological: Yes: Other Psychiatric: Yes: Other Labs: CBC, BMP 03/18/19 05:30 03/18/19 05:30 INR, PTT INR 1.20 (0.83-1.09) H 03/15/19 09:45 Assessment/Plan Problem List - Problems (1) Dislodged gastrostomy tube Code(s): Z43.1 - ENCOUNTER FOR ATTENTION TO GASTROSTOMY (2) Dehydration Code(s): E86.0 - DEHYDRATION (3) Alzheimer's dementia Code(s): G30.9 - ALZHEIMER'S DISEASE, UNSPECIFIED (4) Failure to thrive Code(s): [id number] - (5) GRACE (acute kidney injury) Code(s): N17.9 - ACUTE KIDNEY FAILURE, UNSPECIFIED (6) Elevated WBC count Code(s): D72.829 - ELEVATED WHITE BLOOD CELL COUNT, UNSPECIFIED plan wbc nomalized can switch to oral for few days nutrition rest as per the team
[2019-03-18] MEDS: PANTOPRAZOLE SODIUM 40 MG VIAL IVPUSH SCH (10:50)
[2019-03-18 11:06] VITALS: BP 117/53; PULSE 78; TEMP 97.8
[2019-03-18] MEDS ORDERED: RANITIDINE HCL 150 MG/10 ML UNIT-DOSE PO ONE (14:00)
== END 2019-03-18 14:54 | DRG 393 ==
LOC: JER 17:09 → JERBED 22:15 → J8W 03-15 05:16
PROVIDERS: ADMIT Internal Medicine; ATTEND Internal Medicine
PROC: 0DW6XUZ Revision of Feeding Device in Stomach, External Approach (ICD-10-PCS; principal; 2019-03-15)
DX: Z43.1 Encounter for attention to gastrostomy (principal); A41.9 Sepsis, unspecified organism; N17.9 Acute kidney failure, unspecified; G30.9 Alzheimer's disease, unspecified; F02.80 Dementia in other diseases classified elsewhere, unspecified severity, without behavioral disturbance, psychotic disturbance, mood disturbance, and anxiety; E86.0 Dehydration; R62.7 Adult failure to thrive; Z68.25 Body mass index [BMI] 25.0-25.9, adult; Z99.3 Dependence on wheelchair; D72.829 Elevated white blood cell count, unspecified; Z86.718 Personal history of other venous thrombosis and embolism
CPT/HCPCS: 36415; 43762; 71045-TC-FY; 74018-TC-FY; 74019-TC-FY; 80048; 80053; 81003; 83605; 85025; 85610; 87040; 87086; 99282-25; 99283-25; J7030

== ENCOUNTER 2019-08-12 08:55 | Emergency (ER) | payer OTHER ==
[2019-08-12 09:37] VITALS: TEMP 97.6; BMI 21.7
--- NOTE | 2019-08-12 09:56 | PDOC ---
History of Present Illness - General Chief Complaint: G Tube Problem Stated Complaint: G TUBE REPLACEMENT Time Seen by Provider: 08/12/19 09:56 History Source: Shelter Records - History of Present Illness Initial Comments: Mr. Powers is an 89 y/o man w/hx dementia, g-tube placement presenting from nursing facility for problem with g tube. He is unable to provide history secondary to dementia. He denies any abdominal pain, chest pain, or difficulty breathing. Modifying Factors: improves with: cold therapy Past History - Past Medical History Allergies/Adverse Reactions: Allergies Allergy/AdvReac Type Severity Reaction Status Date / Time No Known Allergies Allergy Verified 08/25/19 09:54 Home Medications: Ambulatory Orders Acetaminophen [Tylenol] 650 mg GT PRN PRN 08/10/17 Heparin - 5,000 unit SQ BID 08/10/17 Sennosides [Senna -] 2 tab PO HS tablet 03/02/19 Bacitracin - [Bacitracin Topical Ointment -] 1 applic TP DAILY 04/09/19 Omeprazole Magnesium [Prilosec] 20 mg GT DAILY 04/09/19 Ciclopirox/Urea/Camph/Men/Euc [Ciclopirox 8% Treatment Kit] 1 applic TP DAILY LORazepam [Ativan] 0.5 mg PO BID 08/12/19 Multivit-Minerals/Ferrous Gluc [Multi-Sherine Liquid] 10 mg GT DAILY 08/12/19 COPD: No Dementia: Yes Disorders: Yes (UTI) - Surgical History Abdominal Surgery: Yes (g tube insertion) - Immunization History Immunization Up to Date: No - Psycho Social/Smoking Cessation Hx Smoking Status: No Smoking History: Unknown if ever smoked Have you smoked in the past 12 months: No Number of Cigarettes Smoked Daily: 0 Hx Alcohol Use: No Drug/Substance Use Hx: No Substance Use Type: None Review of Systems - Review of Systems Able to Perform ROS?: No (Dementia) *Physical Exam - Vital Signs Last Vital Signs Temp Pulse Resp BP Pulse Ox 97.6 F 65 16 107/62 100 08/12/19 09:00 08/12/19 09:00 08/12/19 09:00 08/12/19 09:00 08/12/19 09:00 - Physical Exam PE: GENERAL: Awake, in no acute distress HEAD: No signs of trauma, normocephalic, atraumatic EYES: PERRLA, EOMI, sclera anicteric, conjunctiva clear ENT: Auricles normal inspection, hearing grossly normal, nares patent, oropharynx clear without exudates. Moist mucosa NECK: Normal ROM, supple, no lymphadenopathy, JVD, or masses LUNGS: No distress, speaks full sentences, clear to auscultation bilaterally HEART: Regular rate and rhythm, normal S1 and S2, no murmurs, rubs or gallops, peripheral pulses normal and equal bilaterally. ABDOMEN: G tube in place, no overlaying erythema or surrounding tenderness. Soft , nontender, normoactive bowel sounds. No guarding, no rebound. No masses EXTREMITIES : Normal inspection, Normal range of motion, no edema. No clubbing or cyanosis NEUROLOGICAL: Cranial nerves II through XII grossly intact. Normal speech, no focal sensorimotor deficits SKIN: Warm, Dry, normal turgor, no rashes or lesions noted Medical Decision Making - Medical Decision Making 89M w/hx dementia [facility] from [facility] due to g tube displacement. On exam g tube appears to be in place without erythema or tenderness. Plan: G-tube XR study to confirm placement/function Replacement if needed Dispo: Discharge --- G tube placement and function confirmed via imaging study. Plan for discharge back to nursing facility. Discharge - Discharge Information Problems reviewed: Yes Clinical Impression/Diagnosis: Gastrointestinal tube present Condition: Good Disposition: CUSTODIAL FACILITY - Admission No - Follow up/Referral Referrals: Anh Torrez MD [Primary Care Provider] - - Patient Discharge Instructions Additional Instructions: Mr. Powers was seen in the ER for evaluation of his G tube. The tube is in place and functional, flowing well, and placement was confirmed with a contrast study. Please be sure to follow up with his primary care provider for non- emergent replacement as needed. - Post Discharge Activity
--- NOTE | 2019-08-12 12:12 | PDOC ---
Documentation entered by Eric Carr SCRIBE, acting as scribe for Erin Ceja MD. Erin Ceja MD: This documentation has been prepared by the Bruno patino Nirvannie, SCRIBE, under my direction and personally reviewed by me in its entirety. I confirm that the documentation accurately reflects all work, treatment, procedures, and medical decision making performed by me. Attending Attestation - Resident Resident Name: Juan Rushing - ED Attending Attestation I have performed the following: I have examined & evaluated the patient, The case was reviewed & discussed with the resident, I agree w/resident's findings & plan, Exceptions are as noted - HPI HPI: 08/12/19 10:15 The patient is an 89 year old male, with a significant past medical history of GERD, dysphagia, Alzheimers, DVT, who presents to the emergency department with concern that the G-tube is dislodged or leaking. History is limited secondary to the patients clinical condition. Allergies: NKDA 08/12/19 11:43 - Physicial Exam PE: 08/12/19 11:43 Agree with resident exam. Patient is alert, non verbal, in no acute distress. G tube is in place with no visible leaks, cuts or holes. 08/12/19 11:48 - Medical Decision Making 08/12/19 11:48 pt presents to the ED after concern for cut G tube. G tube appears intact. Will check placement with gastrograffin study, discharge to [place] if tube in place. 08/12/19 12:11
[2019-08-12 17:21] VITALS: BP 120/80; PULSE 84
== END 2019-08-12 17:00 ==
LOC: JER 08:55
DX: Z43.1 Encounter for attention to gastrostomy (principal); K21.9 Gastro-esophageal reflux disease without esophagitis; R13.19 Other dysphagia; G30.8 Other Alzheimer's disease; F02.80 Dementia in other diseases classified elsewhere, unspecified severity, without behavioral disturbance, psychotic disturbance, mood disturbance, and anxiety; Z87.440 Personal history of urinary (tract) infections; Z86.718 Personal history of other venous thrombosis and embolism
CPT/HCPCS: 74018-TC-FY; 99283-25

== ENCOUNTER 2019-08-24 10:30 | Emergency (ER) | payer OTHER ==
[2019-08-24 10:38] VITALS: TEMP 98; BMI 21.8
--- NOTE | 2019-08-24 12:49 | PDOC ---
Documentation entered by Stanley Meeks SCRIBE, acting as scribe for Shiela Quiroga MD. Shiela Quiroga MD: This documentation has been prepared by the Jeanna patino Xhesika, SCRIBE, under my direction and personally reviewed by me in its entirety. I confirm that the documentation accurately reflects all work, treatment, procedures, and medical decision making performed by me. History of Present Illness - General Chief Complaint: G Tube Problem Stated Complaint: G TUBE REPLACEMENT History Source: Patient Exam Limitations: No Limitations - History of Present Illness Initial Comments: 08/24/19 12:03 The patient is an 89 year old male, with a significant past medical history of GERD, dysphagia, Alzheimers, DVT, who presents to the emergency department [facility] from [facility] for dislodged G-tube. History is limited secondary to the patient s clinical condition. Allergies: NKDA PCP: Anh Torrez Past History - Past Medical History Allergies/Adverse Reactions: Allergies Allergy/AdvReac Type Severity Reaction Status Date / Time No Known Allergies Allergy Verified 08/12/19 09:24 Home Medications: Ambulatory Orders Acetaminophen [Tylenol] 650 mg GT PRN PRN 08/10/17 Heparin - 5,000 unit SQ BID 08/10/17 Sennosides [Senna -] 2 tab PO HS tablet 03/02/19 Bacitracin - [Bacitracin Topical Ointment -] 1 applic TP DAILY 04/09/19 Omeprazole Magnesium [Prilosec] 20 mg GT DAILY 04/09/19 Ciclopirox/Urea/Camph/Men/Euc [Ciclopirox 8% Treatment Kit] 1 applic TP DAILY LORazepam [Ativan] 0.5 mg PO BID 08/12/19 Multivit-Minerals/Ferrous Gluc [Multi-Sherine Liquid] 10 mg GT DAILY 08/12/19 COPD: No Dementia: Yes GI Disorders: Yes (g tube) Disorders: Yes (UTI) - Surgical History Abdominal Surgery: Yes (g tube insertion) - Immunization History Immunization Up to Date: No - Psycho Social/Smoking Cessation Hx Smoking Status: No Smoking History: Smoker current status UNK Have you smoked in the past 12 months: No Number of Cigarettes Smoked Daily: 0 Information on smoking cessation initiated: No Hx Alcohol Use: No Drug/Substance Use Hx: No Substance Use Type: None Review of Systems - Review of Systems Able to Perform ROS?: No Comments:: 08/24/19 12:04 Unable to obtain due to patients dementia. *Physical Exam - Vital Signs Last Vital Signs Temp Pulse Resp BP Pulse Ox 98 F 66 18 131/80 100 08/24/19 10:35 08/24/19 10:35 08/24/19 10:35 08/24/19 10:35 08/24/19 10:35 ED Treatment Course - RADIOLOGY Radiology Studies Ordered: Category Date Time Status ABDOMEN-KUB FLAT PLATE [RAD] Stat Radiology 08/24/19 12:25 Taken Medical Decision Making - Medical Decision Making 08/24/19 12:46 89 yo male h/o PEG tube, here from [facility] for tube getting pulledout. a donovan cathetar was placed in site to prevent closure. pt currently has no complaints of abd pain no n/v on exam pt stomach is with site cdi , donovan tube in hole PEG tube replaced wtih 16 Fr. tolerated well. post xray obtained to confirm placement dc back to [facility] Discharge - Discharge Information Problems reviewed: Yes Clinical Impression/Diagnosis: S/P percutaneous endoscopic gastrostomy (PEG) tube placement Disposition: SENIOR LIVING FACILITY - Admission No - Follow up/Referral Referrals: Anh Torrez MD [Primary Care Provider] - - Patient Discharge Instructions Patient Printed Discharge Instructions: Percutaneous Endoscopic Gastrostomy Additional Instructions: the PEG tube has been replaced and is functional, in correct position. Confirmed on Xray return for any problems or concerns. - Post Discharge Activity
[2019-08-24 13:47] VITALS: BP 136/86; PULSE 67
== END 2019-08-24 14:00 ==
LOC: JER 10:30
PROC: 0DH63UZ Insertion of Feeding Device into Stomach, Percutaneous Approach (ICD-10-PCS; principal; 2019-08-24)
PROC: 0T9B70Z Drainage of Bladder with Drainage Device, Via Natural or Artificial Opening (ICD-10-PCS; 2019-08-24)
DX: Z43.1 Encounter for attention to gastrostomy (principal); K21.9 Gastro-esophageal reflux disease without esophagitis; R06.00 Dyspnea, unspecified; G30.9 Alzheimer's disease, unspecified; F02.80 Dementia in other diseases classified elsewhere, unspecified severity, without behavioral disturbance, psychotic disturbance, mood disturbance, and anxiety; Z86.718 Personal history of other venous thrombosis and embolism; Z79.01 Long term (current) use of anticoagulants
CPT/HCPCS: 43246; 51702; 74018-TC-FY; 99285-25

== ENCOUNTER 2019-08-25 09:46 | Emergency (ER) | payer OTHER ==
[2019-08-25 09:54] VITALS: BMI 27.1
--- NOTE | 2019-08-25 11:01 | PDOC ---
Documentation entered by Stanley Meeks SCRIBE, acting as scribe for Jeanne Sotomayor DO. Jeanne Sotomayor, : This documentation has been prepared by the Jeanna patino Xhesika, SCRIBE, under my direction and personally reviewed by me in its entirety. I confirm that the documentation accurately reflects all work, treatment, procedures, and medical decision making performed by me. History of Present Illness - General Chief Complaint: G Tube Problem Stated Complaint: G TUBE REPLACEMENT Time Seen by Provider: 08/25/19 10:07 History Source: Patient Exam Limitations: Clinical Condition - History of Present Illness Initial Comments: 08/25/19 10:09 The patient is an 89 year old male, with a significant past medical history of GERD, dysphagia, Alzheimers, DVT, who presents to the emergency department [facility] from [facility] for G-tube replacement. History is limited secondary to the patients clinical condition. Allergies: NKDA PCP: Anh Torrez Past History - Past Medical History Allergies/Adverse Reactions: Allergies Allergy/AdvReac Type Severity Reaction Status Date / Time No Known Allergies Allergy Verified 08/25/19 09:54 Home Medications: Ambulatory Orders Acetaminophen [Tylenol] 650 mg GT PRN PRN 08/10/17 Heparin - 5,000 unit SQ BID 08/10/17 Sennosides [Senna -] 2 tab PO HS tablet 03/02/19 Bacitracin - [Bacitracin Topical Ointment -] 1 applic TP DAILY 04/09/19 Omeprazole Magnesium [Prilosec] 20 mg GT DAILY 04/09/19 Ciclopirox/Urea/Camph/Men/Euc [Ciclopirox 8% Treatment Kit] 1 applic TP DAILY LORazepam [Ativan] 0.5 mg PO BID 08/12/19 Multivit-Minerals/Ferrous Gluc [Multi-Sherine Liquid] 10 mg GT DAILY 08/12/19 COPD: No Dementia: Yes GI Disorders: Yes (g tube) Disorders: Yes (UTI) - Surgical History Abdominal Surgery: Yes (g tube insertion) - Immunization History Immunization Up to Date: No - Psycho Social/Smoking Cessation Hx Smoking Status: No Smoking History: Current every day smoker Have you smoked in the past 12 months: No Number of Cigarettes Smoked Daily: 0 Information on smoking cessation initiated: No Hx Alcohol Use: No Drug/Substance Use Hx: No Substance Use Type: None Review of Systems - Review of Systems Able to Perform ROS?: No Comments:: 08/25/19 10:10 Unable to obtain due to patients dementia. *Physical Exam - Vital Signs Last Vital Signs Temp Pulse Resp BP Pulse Ox 98.0 F 63 16 113/73 100 08/25/19 09:52 08/25/19 09:52 08/25/19 09:52 08/25/19 09:52 08/25/19 09:52 - Physical Exam 08/25/19 10:18 GENERAL: Awake, alert, in no acute distress HEAD: No signs of trauma LUNGS: Breath sounds equal, clear to auscultation bilaterally. No wheezes, and no crackles HEART: Regular rate and rhythm, normal S1 and S2, no murmurs, rubs or gallops ABDOMEN: +trach is closed. Soft, nontender, normoactive bowel sounds. No guarding, no rebound. No masses SKIN: Warm, Dry, normal turgor, no rashes or lesions noted. ED Treatment Course - RADIOLOGY Radiology Studies Ordered: Category Date Time Status G-TUBE PLACEMENT [RADS] Stat Radiology 08/25/19 10:27 Ordered Medical Decision Making - Medical Decision Making 08/25/19 10:58 a/p: 89yo male sent from [facility] for eval of g tube displacement -no peg in place upon arrival -no drainage -peg had been replaced yesterday in the ER and according to [facility] records the tube was found out next to the patient this AM with the balloon deflated -attempted to place a 16f peg, unable to pass -attempted to place a 14f donovan (unable to find 14f peg) without ability to pass -case discussed with IR - will attempt to have IR place peg back in 08/25/19 11:44 pt in IR for peg tube replacement 08/25/19 14:02 IR has placed the peg, pt stable for dc back to [facility] called [facility] and spoke with the nurse for the patient who is expecting the patient back to [facility] Discharge - Discharge Information Problems reviewed: Yes Clinical Impression/Diagnosis: PEG (percutaneous endoscopic gastrostomy) adjustment/replacement/removal Condition: Stable Disposition: HALFWAY FACILITY - Admission No - Follow up/Referral Referrals: Anh Torrez MD [Primary Care Provider] - - Patient Discharge Instructions Patient Printed Discharge Instructions: DI for Percutaneous Endoscopic Gastrostomy Additional Instructions: Please continue to cover the peg tube with the abdominal binder. You may use the peg tube. Please follow up with your PMD. Please return to the ER with any further concerns or complaints. - Post Discharge Activity
[2019-08-25 15:41] VITALS: BP 123/73; PULSE 64; TEMP 98.6
== END 2019-08-25 15:30 ==
LOC: JER 09:46
PROC: 0DP67UZ Removal of Feeding Device from Stomach, Via Natural or Artificial Opening (ICD-10-PCS; principal; 2019-08-25)
PROC: 0DH67UZ Insertion of Feeding Device into Stomach, Via Natural or Artificial Opening (ICD-10-PCS; 2019-08-25)
DX: Z43.1 Encounter for attention to gastrostomy (principal); K21.9 Gastro-esophageal reflux disease without esophagitis; R13.19 Other dysphagia; G30.8 Other Alzheimer's disease; F02.80 Dementia in other diseases classified elsewhere, unspecified severity, without behavioral disturbance, psychotic disturbance, mood disturbance, and anxiety; Z86.718 Personal history of other venous thrombosis and embolism; Z79.01 Long term (current) use of anticoagulants
CPT/HCPCS: 49450; 76000-TC-FY; 99285-25; C1769; C1887

== ENCOUNTER 2019-12-18 10:42 | Inpatient (IN) | payer OTHER ==
--- NOTE | 2019-12-18 11:19 | PDOC ---
History of Present Illness - General Chief Complaint: G Tube Problem Stated Complaint: GTUBE DISPLACEMENT Time Seen by Provider: 12/18/19 10:58 History Source: Patient Exam Limitations: Dementia - History of Present Illness Initial Comments: Hx limited bc patient has advanced dementia and does not provide any history Reagan is an 89 yo gentleman who is a [place] with advanced dementia who presents to the [facility] er with PEG tube dislodgement. Patient has been seen in this ER multiple times for PEG tube dislodgment. He was recently admitted and had a new IR guided stoma placed on November 27. Per the [place] the patient pulled out his PEG tube this morning. They state they immediately placed a donovan catheter in place to preserve the stoma. IR not available today because its the weekend. PCP: Dr. Kamara PSH: G-tube placement Social Hx: [place]. No toxic habits Allergies: NKA, NKDA Past History - Medical History Allergies/Adverse Reactions: Allergies Allergy/AdvReac Type Severity Reaction Status Date / Time No Known Allergies Allergy Verified 12/18/19 10:55 Home Medications: Ambulatory Orders Heparin - 5,000 unit SQ BID 12/10/19 Lorazepam [Ativan] 0.5 mg PO BID 12/10/19 Omeprazole Magnesium [Prilosec] 2 mg PO DAILY 12/10/19 Zinc Oxide 20% Topical Oint 454 gm TP TID 12/10/19 Quetiapine Fumarate [Seroquel -] 12.5 mg PO BID tablet 12/12/19 Acetaminophen [Tylenol] 325 mg GT PRN PRN 12/18/19 Sennosides [Senna] 8.6 mg GT HS 12/18/19 COPD: No Dementia: Yes GI Disorders: Yes (g tube; MULTIPLE DISLODGED G-TUBE) Disorders: Yes (UTI) - Surgical History Abdominal Surgery: Yes (g tube insertion) - Immunization History Immunization Up to Date: No - Psycho-Social/Smoking History Smoking Status: No Smoking History: Never smoked Have you smoked in the past 12 months: No Number of Cigarettes Smoked Daily: 0 Information on smoking cessation initiated: No - Substance Abuse Hx (Audit-C & DAST Scrn) How often the patient has a drink containing alcohol: Never Score: In Men: 4 or > Positive; In Women: 3 or > Positive: 0 Screen Result (Pos requires Nsg. Audit-10AR): Negative In the last yr the pt used illegal drug/Rx for NonMed reason: No Score: Yes response is considered Positive: 0 Screen Result (Positive result requires Nsg. DAST-10): Negative Review of Systems - Review of Systems Able to Perform ROS?: No (Dementia) *Physical Exam - Vital Signs Last Vital Signs Temp Pulse Resp BP Pulse Ox 97.5 F L 68 18 110/47 L 100 12/18/19 10:52 12/18/19 10:52 12/18/19 10:52 12/18/19 10:52 12/18/19 10:52 - Physical Exam - Physical Exam General Appearance: Yes: Nourished, Appropriately Dressed. No: Apparent Distress HEENT: positive: MIKE Neck: positive: Supple Respiratory/Chest: positive: Lungs Clear Cardiovascular: positive: Regular Rhythm, Regular Rate Vascular Pulses: Dorsalis-Pedis (R): 2+, Doralis-Pedis (L): 2+ Gastrointestinal/Abdominal: positive: Soft, Other (Donovan catheter in G-tube stoma. No surrounding cellulitis) Rectal Exam: positive: deferred Lymphatic: negative: Adenopathy Musculoskeletal: positive: Normal Inspection Extremity: positive: Normal Capillary Refill, Normal Inspection Integumentary: positive: Normal Color Neurologic: positive: Respond to painful stimul ED Treatment Course - LABORATORY CBC & Chemistry Diagram: 12/18/19 11:40 12/18/19 11:40 Medical Decision Making - Medical Decision Making Medical Decision Making - Medical Decision Making Hx limited bc patient has advanced dementia and does not provide any history Reagan is an 89 yo gentleman who [place] a [place] with advanced [place] who presents to the [facility] er with PEG tube dislodgement. Patient has been seen in this ER multiple times for PEG tube dislodgment. He was recently admitted and had a new IR guided stoma placed on November 27. Per the [place] the patient pulled out his PEG tube this morning. They state they immediately placed a donovan catheter in place to preserve the stoma. Vital Signs Temp Pulse Resp BP Pulse Ox 97.5 F L 68 18 110/47 L 100 12/18/19 10:52 12/18/19 10:52 12/18/19 10:52 12/18/19 10:52 12/18/19 10:52 MDM: This patient has a dislodged tube 10 days after placement. The tract is immature and we will refrain from replacing a new G-tube out of concern for creating a false tract. IR not available because it is the weekend. Patient needs G-tube for feeding and hydration. Plan: Admit for hydration, feeding, and Consult IR for G-tube replacement 12/18/19 14:02 Lissette Gonzales was called 3 times for admission over the course of 2 hours. - Will admit to hospitalist Dispo: Med/Surg - Dr. Lombardo accepts patient for admission Discharge - Discharge Information Problems reviewed: Yes Clinical Impression/Diagnosis: Gastrostomy tube dysfunction Condition: Stable - Admission Yes - Follow up/Referral Referrals: Lissette Gonzales MD [Primary Care Provider] - - Patient Discharge Instructions - Post Discharge Activity
[2019-12-18] MEDS ORDERED: SODIUM CHLORIDE 1,000 ML IV SCH (11:30)
--- NOTE | 2019-12-18 11:31 | PDOC ---
Documentation entered by Stanley Meeks SCRIBE, acting as scribe for Matt Herrmann MD. Matt Herrmann MD: This documentation has been prepared by the Jeanna patino Xhesika, SCRIBE, under my direction and personally reviewed by me in its entirety. I confirm that the documentation accurately reflects all work, treatment, procedures, and medical decision making performed by me. Attending Attestation - Resident Resident Name: Ismael Maldonado - ED Attending Attestation I have performed the following: I have examined & evaluated the patient, The case was reviewed & discussed with the resident, I agree w/resident's findings & plan, Exceptions are as noted - HPI HPI: 12/18/19 11:00 The 89 year old male with a significant past medical history of GERD, dysphagia, Alzheimers, DVT, and history of multiple dislodged g-tubes (last visit 12/09, 17F by ER) who presents to the ED BIBA from [facility] with a dislodged G-tube. Pt is a poor historian and unable to contribute to further history. Allergies: NKDA - Physicial Exam PE: 12/18/19 11:24 exam: general: no acute distress Abd: soft nontender, binder on, small azeri donovan in place, no bleeding at stoma. - Medical Decision Making 12/18/19 11:30 tract only 20 days old will dw IR for replacement due to immature tract 12/18/19 14:03 labs reviewed will admit for further mangement of G tube Heart Score/ECG Review - ECG Impressions Comment:: 12/18/19 14:49 Twelve-lead EKG was performed and reviewed by me. Rate of [address] wave changes no visible p waves Discharge - Discharge Information Problems reviewed: Yes Clinical Impression/Diagnosis: Gastrostomy tube dysfunction Condition: Stable Disposition: HALF-WAY FACILITY - Follow up/Referral - Patient Discharge Instructions - Post Discharge Activity
[2019-12-18 12:19] LABS: BASO % 0.5 % (0-2.0); EOS % 2.2 % (0-4.5); HEMATOCRIT 41.7 % (35.4-49); HEMOGLOBIN 13.7 GM/dL (11.7-16.9); LYMPH % 22.7 % (8-40); MCH 29.3 pg (25.7-33.7); MCHC 32.9 g/dl (32.0-35.9); MEAN CELL VOLUME 88.9 fl (80-96); MEAN PLT VOLUME 8.8 fl (7.5-11.1); MONO % 7.8 % (3.8-10.2); NEUT % 66.8 % (42.8-82.8); PLATELET COUNT 247 K/MM3 (134-434); RBC 4.69 M/mm3 (4.00-5.60); RDW 13.9 % (11.9-15.9); WHITE BLOOD COUNT 8.9 K/mm3 (4.0-10.0)
[2019-12-18 12:26] LABS: INR 1.04 (0.83-1.09); PROTHROMBIN TIME (PATIENT) 12.3 SEC (9.7-13.0)
[2019-12-18 12:28] LABS: ACTIVATED PTT 38.4 SECONDS (25.2-36.5)
[2019-12-18 12:48] LABS: BLOOD UREA NITROGEN 24.7 mg/dL (7-18); CALCIUM 9.4 mg/dL (8.5-10.1); CREATININE 0.7 mg/dL (0.55-1.3); POTASSIUM 4.6 mmol/L (3.5-5.1)
--- NOTE | 2019-12-18 16:24 | HP ---
CHIEF COMPLAINT: dislodged g tube PCP: Anh HISTORY OF PRESENT ILLNESS: 89 year old male with a significant past medical history of GERD, dysphagia, Alzheimers, DVT, and history of multiple dislodged g-tubes (last visit 12/09, 17F by ER) who presents to the ED BIBA from [facility] with a dislodged G-tube. Pt is a poor historian and unable to contribute to further history. Hx obtained per chart ER course was notable for: (1) dislodged g tube (2) (3) Recent Travel: No PAST MEDICAL HISTORY: as above PAST SURGICAL HISTORY: G tube placement Social History: Smoking: unknown hx, none currently Alcohol: unknown hx, none currently Drugs: unknown hx, none currently Allergies No Known Allergies Allergy (Verified 12/18/19 10:55) HOME MEDICATIONS: Home Medications Medication Instructions Recorded Heparin - 5,000 unit SQ BID 12/10/19 Lorazepam [Ativan] 0.5 mg PO BID 12/10/19 Omeprazole Magnesium [Prilosec] 2 mg PO DAILY 12/10/19 Zinc Oxide 20% Topical Oint 454 gm TP TID 12/10/19 Quetiapine Fumarate [Seroquel -] 12.5 mg PO BID tablet 12/12/19 Acetaminophen [Tylenol] 325 mg GT PRN PRN 12/18/19 Sennosides [Senna] 8.6 mg GT HS 12/18/19 REVIEW OF SYSTEMS unable to obtain reliable ros due to dementia status CONSTITUTIONAL: Absent: fever, chills, diaphoresis, generalized weakness, malaise, loss of appetite, weight change HEENT: Absent: rhinorrhea, nasal congestion, throat pain, throat swelling, difficulty swallowing, mouth swelling, ear pain, eye pain, visual changes CARDIOVASCULAR: Absent: chest pain, syncope, palpitations, irregular heart rate, lightheadedness, peripheral edema RESPIRATORY: Absent: cough, shortness of breath, dyspnea with exertion, orthopnea, wheezing, stridor, hemoptysis GASTROINTESTINAL: Absent: abdominal pain, abdominal distension, nausea, vomiting, diarrhea, constipation, melena, hematochezia DISLODGED G TUBE GENITOURINARY: Absent: dysuria, frequency, urgency, hesitancy, hematuria, flank pain, genital pain MUSCULOSKELETAL: Absent: myalgia, arthralgia, joint swelling, back pain, neck pain SKIN: Absent: rash, itching, pallor HEMATOLOGIC/IMMUNOLOGIC: Absent: easy bleeding, easy bruising, lymphadenopathy, frequent infections ENDOCRINE: Absent: unexplained weight gain, unexplained weight loss, heat intolerance, cold intolerance NEUROLOGIC: Absent: headache, focal weakness or paresthesias, dizziness, unsteady gait, seizure, mental status changes, bladder or bowel incontinence PSYCHIATRIC: Absent: anxiety, depression, suicidal or homicidal ideation, hallucinations. PHYSICAL EXAMINATION Vital Signs - 24 hr 12/18/19 12/18/19 10:52 15:24 Temperature 97.5 F L Pulse Rate 68 Pulse Rate [ 89 Left Radial] Respiratory 18 18 Rate Blood Pressure 110/47 L Blood Pressure 116/69 [Right Arm] O2 Sat by Pulse 100 100 Oximetry (%) GENERAL: Awake, alert, disoriented, in no acute distress. HEAD: Normal with no signs of trauma. EYES: extraocular movements intact, sclera anicteric, conjunctiva clear. No lid lag. EARS, NOSE, THROAT: Ears normal, nares patent, oropharynx clear without exudates. Moist mucous membranes. NECK: Normal range of motion, supple without lymphadenopathy, JVD, or masses. LUNGS: Breath sounds equal, clear to auscultation bilaterally. No wheezes, and no crackles. No accessory muscle use. HEART: Regular rate and rhythm, normal S1 and S2 without murmur, rub or gallop. ABDOMEN: Soft, nontender, not distended, normoactive bowel sounds, no guarding, no rebound, no masses. No hepatomegaly or splenomegaly. stoma clean, g tube dislodged MUSCULOSKELETAL: Normal range of motion at all joints. No bony deformities or tenderness. No CVA tenderness. UPPER EXTREMITIES: 2+ pulses, warm, well-perfused. No cyanosis. No clubbing. No peripheral edema. LOWER EXTREMITIES: 2+ pulses, warm, well-perfused. No calf tenderness. No peripheral edema. NEUROLOGICAL: Cranial nerves II-XII intact. Normal speech PSYCHIATRIC: Cooperative. Good eye contact. Appropriate mood and affect. SKIN: Warm, dry, normal turgor, no rashes or lesions noted, normal capillary refill. Laboratory Results - last 24 hr 12/18/19 12/18/19 12/18/19 11:40 11:40 11:40 WBC 8.9 RBC 4.69 Hgb 13.7 Hct 41.7 MCV 88.9 MCH 29.3 MCHC 32.9 RDW 13.9 Plt Count 247 MPV 8.8 Absolute Neuts (auto) 6.0 Neutrophils % 66.8 Lymphocytes % 22.7 Monocytes % 7.8 Eosinophils % 2.2 Basophils % 0.5 Nucleated RBC % 0 PT with INR 12.30 INR 1.04 PTT (Actin FS) 38.4 H Sodium 141 Potassium 4.6 Chloride 105 Carbon Dioxide 27 Anion Gap 8 BUN 24.7 H Creatinine 0.7 Est GFR (CKD-EPI)AfAm 97.65 Est GFR (CKD-EPI)NonAf 84.26 Random Glucose 78 Calcium 9.4 Blood Type Antibody Screen 12/18/19 11:40 WBC RBC Hgb Hct MCV MCH MCHC RDW Plt Count MPV Absolute Neuts (auto) Neutrophils % Lymphocytes % Monocytes % Eosinophils % Basophils % Nucleated RBC % PT with INR INR PTT (Actin FS) Sodium Potassium Chloride Carbon Dioxide Anion Gap BUN Creatinine Est GFR (CKD-EPI)AfAm Est GFR (CKD-EPI)NonAf Random Glucose Calcium Blood Type A NEGATIVE Antibody Screen Negative ASSESSMENT/PLAN: 89 y/o male with the above med hx admitted for dislodged g tube *dislodged g tube -- will place on gentle hydrateion ir eval for replacement of tube tomorrow electrolytes stable *dementia - pleasant, no agitation currently seroquel twice daily *DVT prophy - sw heparin Family Medical History Family History: Unable to Obtain Problem List - Problem (1) Dislodged gastrostomy tube Code(s): Z43.1 - ENCOUNTER FOR ATTENTION TO GASTROSTOMY (2) Dementia Code(s): F03.90 - UNSPECIFIED DEMENTIA WITHOUT BEHAVIORAL DISTURBANCE Visit type - Emergency Visit Emergency Visit: Yes ED Registration Date: 12/18/19 Care time: The patient presented to the Emergency Department on the above date and was hospitalized for further evaluation of their emergent condition. - New Patient This patient is new to me today: Yes Date on this admission: 12/18/19 - Critical Care Critical Care patient: No
[2019-12-18 16:39] VITALS: BMI 23.8
[2019-12-18] MEDS: DEXTROSE 5%-NORMAL SALINE 1,000 ML IV SCH ×2 (17:29→20:39)
[2019-12-18] MEDS: HEPARIN NA (PORCINE) 5,000 UNITS/ML 1ML VIAL SQ SCH (22:07)
--- NOTE | 2019-12-19 09:26 | EKG ---
Test Reason : Blood Pressure : / mmHG Vent. Rate : 068 BPM Atrial Rate : 340 BPM P-R Int : 000 ms QRS Dur : 082 ms QT Int : 376 ms P-R-T Axes : 000 042 071 degrees QTc Int : 399 ms POOR DATA QUALITY, INTERPRETATION MAY BE ADVERSELY AFFECTED Likely Sinus rhythm ABNORMAL ECG WHEN COMPARED WITH ECG OF 10-DEC-2019 09:24, No significant changes Confirmed by Rebecca Thomas ([id number]) on 12/19/2019 9:26:17 AM Referred By: Confirmed By:Rebecca Thomas
[2019-12-19] MEDS: HEPARIN NA (PORCINE) 5,000 UNITS/ML 1ML VIAL SQ SCH (10:49)
[2019-12-19] MEDS: DEXTROSE 5%-NORMAL SALINE 1,000 ML IV SCH (16:30)
[2019-12-19 17:28] VITALS: BP 110/70; PULSE 72; TEMP 97.7
--- NOTE | 2019-12-19 18:06 | PN ---
Progress Note, Physician Chief Complaint: No new complainants - Current Medication List Current Medications: Active Medications Heparin Sodium (Porcine) (Heparin -) 5,000 unit SQ BID [facility] Last Admin: 12/19/19 10:49 Dose: 5,000 unit Documented by: Dextrose/Sodium Chloride (D5-Ns -) 1,000 mls @ 42 mls/hr IV ASDIR [facility] Last Admin: 12/18/19 20:39 Dose: 42 mls/hr Documented by: - Objective Vital Signs: Vital Signs Temperature 97.7 F 12/19/19 16:00 Pulse Rate 72 12/19/19 16:00 Respiratory Rate 18 12/19/19 16:00 Blood Pressure 110/70 12/19/19 16:00 O2 Sat by Pulse Oximetry (%) 96 12/19/19 09:00 General: Elderly man, comfortable, not in distress HEENT mucous membranes moist, no anemia, no jaundice, PERRLA, no nystagmus Neck: No JVD, supple, no bruit, thyroid palpably normal, normal carotid pulsations. Chest: Nontender, clear to auscultation bilaterally/bilateral wheezing/bilateral basal rales. CVS: S1-S2 regular no murmur/gallop/rub Abdomen: PEG stoma with mild induration, no active bleeding non-distended, soft, bowel sounds present. Extremities: No edema., No Calf tenderness, pulses present MEDICAL COLLECTIONS SPECIALIST: Alert oriented to self, no gross motor sensory deficit Gastrointestinal: Yes: Normal Bowel Sounds, Soft, Other (PEG at place) Musculoskeletal: No: Back Pain, Joint Stiffness Extremities: No: Amputation, Calf Tenderness Edema: RUE: 1+, LLE: 1+ Labs: CBC, BMP 12/18/19 11:40 12/18/19 11:40 INR, PTT INR 1.04 (0.83-1.09) 12/18/19 11:40 Problem List - Problems (1) Gastrostomy tube dysfunction Assessment/Plan: Cont Feeding Code(s): K94.23 - GASTROSTOMY MALFUNCTION (2) Dementia Code(s): F03.90 - UNSPECIFIED DEMENTIA WITHOUT BEHAVIORAL DISTURBANCE
--- NOTE | 2019-12-19 18:10 | DS ---
Physical Examination Vital Signs: Vital Signs Temperature 97.7 F 12/19/19 16:00 Pulse Rate 72 12/19/19 16:00 Respiratory Rate 18 12/19/19 16:00 Blood Pressure 110/70 12/19/19 16:00 O2 Sat by Pulse Oximetry (%) 96 12/19/19 09:00 General: Elderly man, comfortable, not in distress HEENT mucous membranes moist, no anemia, no jaundice, PERRLA, no nystagmus Neck: No JVD, supple, no bruit, thyroid palpably normal, normal carotid pulsations. Chest: Nontender, clear to auscultation bilaterally/bilateral wheezing/bilateral basal rales. CVS: S1-S2 regular no murmur/gallop/rub Abdomen: PEG at place stoma with mild induration, no active bleeding non- distended, soft, bowel sounds present. Extremities: No edema., No Calf tenderness, pulses present LITERATURE PROFESSOR: Alert oriented to self, no gross motor sensory deficit Labs: CBC, BMP 12/18/19 11:40 12/18/19 11:40 Discharge Summary Problems reviewed: Yes Reason For Visit: DISLODGED GASTROSTOMY TUBE Current Active Problems Gastrostomy tube dysfunction (Acute) Procedures: Principal: PEG replacement Hospital Course: 89 years old man DNR/DNI, known since previous hospitalization and senior care, multiple incidents of pulling out PEG tube yesterday patient was transferred back to senior care, today morning again pulled out the senior care staff could not reinsert the tube transferred to ED for further evaluation, patient is difficult tube insertion always required IR guided tube replacement so being admitted for PEG tube placement on Thursday by IR. No bleeding no nausea no vomiting no hematemesis or melena, PEG is replaced by ID cleared to DC back to [place] Condition: Stable - Instructions Diet, Activity, Other Instructions: PEG feeding as Directed by Nutrition Please apply abd binder after PEG Feeding Referrals: Lissette Gonzales MD [Primary Care Provider] - Disposition: RESIDENTIAL FACILITY - Home Medications Comprehensive Discharge Medication List: Ambulatory Orders Heparin - 5,000 unit SQ BID 12/10/19 Lorazepam [Ativan] 0.5 mg PO BID 12/10/19 Omeprazole Magnesium [Prilosec] 2 mg PO DAILY 12/10/19 Zinc Oxide 20% Topical Oint 454 gm TP TID 12/10/19 Quetiapine Fumarate [Seroquel -] 12.5 mg PO BID tablet 12/12/19 Acetaminophen [Tylenol] 325 mg GT PRN PRN 12/18/19 Sennosides [Senna] 8.6 mg GT HS 12/18/19
[2019-12-19] MEDS ORDERED: ACETAMINOPHEN 325 MG TABLET (FP) PO PRN (18:12)
[2019-12-19] MEDS ORDERED: QUEtiapine FUMARATE 25 MG TABLET PO SCH (22:00)
[2019-12-19] MEDS ORDERED: ZINC OXIDE 20% TOPICAL OINTMENT 30 GM TUBE TP SCH (22:00)
[2019-12-19] MEDS ORDERED: LORazepam 0.5 MG TABLET PO SCH (22:00)
[2019-12-20] MEDS ORDERED: OMEPRAZOLE MAGNESIUM PO SCH (10:00)
== END 2019-12-19 19:00 | DRG 395 ==
LOC: JER 10:42 → JERBED 12:48 → J6S 15:44
PROVIDERS: ADMIT Internal Medicine; ATTEND Internal Medicine
PROC: 0D20XUZ Change Feeding Device in Upper Intestinal Tract, External Approach (ICD-10-PCS; principal; 2019-12-19)
DX: Z43.1 Encounter for attention to gastrostomy (principal); K21.9 Gastro-esophageal reflux disease without esophagitis; G30.9 Alzheimer's disease, unspecified; F02.80 Dementia in other diseases classified elsewhere, unspecified severity, without behavioral disturbance, psychotic disturbance, mood disturbance, and anxiety; Z86.718 Personal history of other venous thrombosis and embolism; Z66 Do not resuscitate; R13.10 Dysphagia, unspecified
CPT/HCPCS: 36415; 49450; 76000-TC-FY; 80048; 85025; 85610; 85730; 86850; 86900; 86901; 93005; 93010; 99285-25; J1644; U0003

== ENCOUNTER 2019-12-23 08:35 | Emergency (ER) | payer OTHER ==
[2019-12-23 08:47] VITALS: BP 100/60; PULSE 68; TEMP 97.7; BMI 23.8
== END 2019-12-23 13:21 ==
LOC: JER 08:35
DX: Z43.1 Encounter for attention to gastrostomy (principal)
CPT/HCPCS: 74018-TC-FY; 99283-25